=== PATIENT | female | born 1990 | race Caucasian/White ===

== ENCOUNTER 2017-10-07 09:56 | Inpatient (IN) | payer BC, OTHER ==
[~2017-10-07] VITALS: Ht 172.7 cm; Wt 72.5 kg
[2017-10-07] VITALS (31 sets, daily range): BP systolic 95–159; BP diastolic 47–89; PULSE 88–131; TEMP 37–37.1; O2SAT 95–100; BMI 28.2
[2017-10-07] MEDS ORDERED: D5NSS + 20MEQ KCL 1,000 ML IV SCH (11:54)
[2017-10-07] MEDS ORDERED: PHARMACY GLYCEMIC MGMT CONSULT PRN (12:00)
[2017-10-07] MEDS ORDERED: DC ALL PREVIOUSLY ORDERED DIABETES MEDS ONE (12:00)
[2017-10-07] MEDS ORDERED: ICU PROTOCOL FOR HYPERGLYCEMIA PRN (12:00)
[2017-10-07] MEDS ORDERED: GLUCOSE 40% GEL 15 GM TUBE PO PRN (12:30)
[2017-10-07] MEDS ORDERED: INSULIN IV INFUSION PROTOCOL ONE (12:30)
[2017-10-07] MEDS ORDERED: GLUCAGON FOR INJ 1 MG VIAL SQ PRN (12:30)
[2017-10-07] MEDS ORDERED: DEXTROSE 50% 50 ML SYR IV PRN (12:30)
[2017-10-07] MEDS ORDERED: MODERATE STRESS LEVEL ONE (12:30)
[2017-10-07] MEDS ORDERED: DKA GOAL RANGE 150-250 mg/dl 1 EA ONE (12:30)
[2017-10-07] MEDS ORDERED: NovoLIN R BOLUS FROM BAG IV ONE (12:30)
[2017-10-07] MEDS ORDERED: GLUCOSE 10 TABS/TUBE PO PRN (12:30)
--- NOTE | 2017-10-07 12:39 | History and Physical ---
History & Physical Date of Service Oct 07, 2017. History & Physical DKA, delirium, possible sepsis, metabolic encephalopathy, [id number]
[2017-10-07] MEDS ORDERED: VANCOMYCIN CONSULT ACTIVE SCH (12:52)
[2017-10-07] MEDS ORDERED: NURSING VERBAL MED ORDER ONE ×2 (13:00→16:45)
[2017-10-07] MEDS ORDERED: CEFTRIAXONE SOD INJ 1 GM in DEXTROSE 5% ADD-VANTAGE 50ML 50 ML IV SCH ×2 (13:00→21:00)
[2017-10-07 13:14] LABS: HEMATOCRIT 34.9 % (37-47); HEMOGLOBIN 11.6 g/dL (12.0-16.0); MEAN CELL VOLUME 87.5 fL (80-100); MEAN CORPUSCULAR HEMOGLOBIN 29.1 pg (25-34); MEAN CORPUSCULAR HGB CONC 33.2 g/dl (32-36); MEAN PLATELET VOLUME 10.1 fL (7.4-10.4); PLATELET COUNT 281 K/uL (130-400); RED CELL DISTRIBUTION WIDTH SD 41.8 fL (36.4-46.3); WHITE BLOOD COUNT 16.14 K/uL (4.8-10.8)
[2017-10-07] MEDS ORDERED: SODIUM CHLORIDE 0.9% 1000ML 1,000 ML IV SCH (13:15)
[2017-10-07] MEDS: DexMEDEtomidine HCL IV 200 MCG in SODIUM CHLORIDE 0.9% 50ML 48 ML IV PRN ×4 (13:20→22:16)
--- NOTE | 2017-10-07 13:30 | Procedure Note ---
Procedure Note Procedure Date Oct 07, 2017. Procedure Description Procedure Name: Right axillary a-line Procedure time out: side/site verified Consent obtained: written Time of procedure: 13:00 Performed by: attending, physician electric motor winders assembler (Alton Traylor PA-C) Indications: diagnostic Contraindications: none Description: The right axilla was cleaned with chlorhexidine with a wide area of coverage. The axilla and the patient were covered with a fenestrated sterile drape. Under ultrasound guidance, the right axillary artery was identified. The skin over the right axillary artery was infiltrated with 1% lidocaine. Under ultrasound guidance, the right axillary artery was penetrated by the needle and it was exchanged to a 20G arterial line catheter using a Seldinger technique. The a-line was connected to the a-line tubing, the monitor showing arterial wave -forms. Line was secured to skin with suture, and was covered with Biopatch and transparent adhesive dressing. No complications noted, no distal vascular compromise observed immediately Complications: none Patient tolerated procedure: well Post-procedure vital signs: reviewed and stable
[2017-10-07 13:36] LABS: BASO % 0.1 %; BASO ABS # 0.01 K/uL (0-0.2); IG# 0.13 K/uL (0.00-0.02); LYMPH % 12.6 %; LYMPH ABS # 2.04 K/uL (1.2-3.4); MONO % 7.6 %; MONO ABS # 1.23 K/uL (0.11-0.59); NEUT % 78.9 %; NEUT ABS # 12.73 K/uL (1.4-6.5)
[2017-10-07 13:42] LABS: HEMOGLOBIN A1C 11.7 % (4.5-5.6)
[2017-10-07 13:45] LABS: CKMB 5.6 ng/ml (0.5-3.6)
[2017-10-07 14:02] LABS: ALBUMIN 2.8 gm/dl (3.4-5.0); ALKALINE PHOSPHATASE 136 U/L (45-117); ALT/SGPT 12 U/L (12-78); AST/SGOT 15 U/L (15-37); BLOOD UREA NITROGEN 23 mg/dl (7-18); CALCIUM 8.8 mg/dl (8.5-10.1); CARBON DIOXIDE 17 mmol/L (21-32); GLUCOSE 299 mg/dl (70-99); LIPASE 38 U/L (73-393); PHOSPHORUS 0.6 mg/dl (2.5-4.9); POTASSIUM 4.1 mmol/L (3.5-5.1); SODIUM 151 mmol/L (136-145)
[2017-10-07] MEDS ORDERED: SODIUM PHOSPHATE 3 MMOL/1 ML INFUSION IV STA (14:04)
[2017-10-07 14:05] LABS: PTT PATIENT 19.9 SECONDS (21.0-31.0)
[2017-10-07] MEDS ORDERED: INFLUENZA VACCINE HIGH DOSE 65+ 0.5 ML SYR IM. ONE (14:15)
[2017-10-07] MEDS ORDERED: INFLUENZA ADMINISTRATION CHARGE ONE (14:15)
[2017-10-07] MEDS ORDERED: PNEUMOCOCCAL ADMINISTRATION CHARGE ONE (14:15)
[2017-10-07] MEDS ORDERED: PNEUMOCOCCAL POLYSACCHARIDES 25 MCG/0.5 ML VIAL/SYR IM. ONE (14:15)
--- NOTE | 2017-10-07 14:25 | HISTORY & PHYSICAL EXAMINATION ---
DATE OF ADMISSION: 10/07/2017 This is a level 3 inpatient admission, 45 minutes. CHIEF COMPLAINT: DKA, delirium, and transferred from [facility]. HISTORY OF PRESENT ILLNESS: The patient is a 27-year-old white female with a significant past medical history of insulin-dependent diabetic, insulin pump, was transferred from [facility] because of DKA, severe delirium, agitation, possible sepsis and severe acidosis, pH is 6.8. The medical information was obtained from the report, nursing staff , from family member and review of the medical record. She is first time to this [facility]. According to medical record, in last night at midnight on 10/06/2017 at 11:30, the patient presented to the Emergency Room in [facility] with altered mental status. She was moaning and thrashing her extremities. She was placed on cardiac monitoring. She agitated and kicking. She was not verbally responsive except moaning. She was placed on 4-point soft restrain and on nonrebreather as well because her respiratory rate was rapid, having nausea and vomiting. According to record, she drank alcohol earlier last night per her , was running out of insulin pump supplies for 3 days ago, has been giving giving herself Humalog for coverage. In [facility] Emergency Room, the insulin drip was started and they communicated [facility] , and they have no icu bed, And then was planning to [facility]. Patient got accepted by ICU physician to [facility] ICU. Per report, the patient was getting medication of Haldol, Ketamine, and versed for helping her to calm down and then transferred here. The patient was flight out here. After arriving to the ICU when I examine her, she was unresponsive, very agitated, and moving upper and lower extremities voluntarily and need soft restraints ALLERGIES: No known drug allergies per record. PAST MEDICAL HISTORY: Include insulin-dependent diabetic, on insulin pump. Past medical history also includes chronic pain management with opiate. Medical condition include migraine, hypertension, fibromyalgia, and thyroid disease. SOCIAL HISTORY: Unknown. Never smoked. FAMILY HISTORY: Unknown for now. REVIEW OF SYSTEMS: Not able to obtain. PHYSICAL EXAMINATION: VITAL SIGNS: She was tachycardic. Temperature 37.6. Heart rate 126. Blood pressure 99/51. GENERAL: He was normocephalic The patient has mild labored breathing and mental status changes. She is in critical acute distress. EYES: Pupils are 3 mm and is slow to response. MOUTH: Dry mucous membranes. HEART: Sinus rhythm. S1 and S2. Tachycardia LUNGS: Decreased breathing sounds. There was no wheezing, rhonchi or crackles. ABDOMEN: Soft and nontender. Bowel sound was positive. Sargent catheter was in place. EXTREMITIES: Lower extremities, no swelling. Skin is warm. No erythema, no cyanosis, and no clubbing. There was mildly delayed cap refill, 4-5 seconds. LABORATORY STUDIES: Lab tests in the outside hospital, which shows VBG, pH of 6.86, pCO2 of 23, pO2 of 51, and oxygen saturation 75.9. WBC 24, hemoglobin 14, and platelet 469. Ammonia level was up to 160. Lactic acid 4.6. UA shows 3+ glucose. Bilirubin level was 3+. Blood glucose up to 939 in CMP. BUN 33, creatinine 2.1, sodium 137, potassium 6, chloride 100, and calcium 9.9. Albumin 3.4. Total bilirubin 0.5. AST 13, ALT 19 and alkaline phosphate 199. TSH 0.14. Drug screening was not remarkable. Influenzae A and B was negative. ASSESSMENT AND PLAN: A 27-year-old white female with the conditions, see below. 1. Diabetic ketoacidosis with severe hyperglycemia. 2. Severe acidosis from diabetic ketoacidosis. 3. Acute kidney failure with elevated BUN and creatinine, likely because of diabetic ketoacidosis. 4. Possible sepsis with tachycardia and elevated lactase and leukocytosis. The source of infection is unknown for now. 5. Acute mental status changes, likely from diabetic ketoacidosis, but need to rule out other etiology of mental status changes, possible metabolic encephalopathy, per grand scribe, he does not believe patient has meningitis, or need spinal tab 6. History of migraine, fibromyalgia and thyroid disease. We will check TSH. Patient is in critical conditions such as severe acidosis, DKA, hypernatremia, tachycardia, possible acute on chronic kidney failure, possible sepsis, severe and elevated ammonia level, altered mental status, metabolic encephalopathy, need to rule out a meningitis, and elevated troponin possible because of sepsis or may have acute heart attack, etc. because patient is so critically ill, and patient will mainly be taking care by the ICU team, I discussed with patient's family about this, possible poor prognosis, they understand and agreed. GI and DVT prophylaxis is covered. I discussed with the grand scribe service and will discuss with the patient's . Any more information will be adding in to this H&P. MTDD
[2017-10-07] MEDS: INSULIN REGULAR 250 UNITS in SODIUM CHLORIDE 0.9% 250ML 250 ML IV SCH (14:30)
[2017-10-07] MEDS ORDERED: SODIUM PHOSPHATE INJ 15 MMOL in SODIUM CHLORIDE 0.9% 250ML 250 ML IV ONE (14:30)
[2017-10-07] MEDS: NORMOSOL R 1,000 ML IV SCH ×2 (14:32→20:55)
--- NOTE | 2017-10-07 14:33 | Pharmacy Progress Note ---
Glycemic Control Intl Consult Date of Service Oct 07, 2017. Scope Glycemic Pharmacist consulted by Dr Menard on 10/07/17 for glycemic control and to write orders per [facility] inpatient glycemic control protocol Objective Weight (Kilograms): 84.000 Accuchecks BSG (last 24hrs): Test 10/07/17 12:46 Random Glucose 299 mg/dl (70-99) Laboratory Data (last 24hrs) Test 10/07/17 12:46 Anion Gap 10.0 mmol/L BUN/Creatinine Ratio 14.4 Blood Urea Nitrogen 23 mg/dl Creatinine 1.60 mg/dl Hemoglobin A1c 11.7 % Potassium Level 4.1 mmol/L Sodium Level 151 mmol/L White Blood Count 16.14 K/uL Red Blood Count 3.99 M/uL Hemoglobin 11.6 g/dL Hematocrit 34.9 % Mean Corpuscular Volume 87.5 fL Mean Corpuscular Hemoglobin 29.1 pg Mean Corpuscular Hemoglobin Concent 33.2 g/dl Platelet Count 281 K/uL Mean Platelet Volume 10.1 fL Neutrophils (%) (Auto) 78.9 % Lymphocytes (%) (Auto) 12.6 % Monocytes (%) (Auto) 7.6 % Eosinophils (%) (Auto) 0.0 % Basophils (%) (Auto) 0.1 % Neutrophils # (Auto) 12.73 K/uL Lymphocytes # (Auto) 2.04 K/uL Monocytes # (Auto) 1.23 K/uL Eosinophils # (Auto) 0.00 K/uL Basophils # (Auto) 0.01 K/uL HbA1c Test 10/07/17 12:46 Hemoglobin A1c 11.7 % (4.5-5.6) H Recent Pertinent Medications Outpatient Anti-diabetic Regimen: * Insulin pump, doses unknown at this time * A1c = 11.7 % 10/07/17 Risk Factors for Insulin Resistance: * Infection: sepsis, encephalopathy: vancomycin + ceftriaxone * IVF: Normosol R @ 150cc/hr * Diet: NPO Assessment & Plan ASSESSMENT: 10/07/17 * Type 1 diabetic transferred from [facility] late this AM secondary to delirium, metabolic encephalopathy, possible sepsis, severe DKA * It has been reported that patient had run out of insulin pump supplies ~3 days ago and had been self-managing with SQ injections instead * BSGs reported to be up to 499 at [facility], and severely acidotic there with a reported pH of 6.8 * Initially managed aggressive fluid resuscitation 4L NS given at [facility], insulin infusion also initiated at [facility] prior to transfer * First round of labs here has shown improved metabolic acidosis, AG has already closed, however pt is hypernatremic likely secondary to NS boluses and bicarb administration at [facility]. Curious as to what pt's initial Na and effective serum osmo was at [facility] as we would not want to shift serum osmo too rapidly. PLAN FOR INPATIENT GLYCEMIC CONTROL: * Starting IV insulin infusion per moderate stress protocol * Goal Range 150 - 250 mg/dl * In the critical care setting, continuous IV insulin infusion has been shown to be the best method for achieving glycemic targets. * When BSG is in the goal range, add dextrose to maintenance IVF's to prevent BSG from dropping below goal range with ongoing NPO status * Would not transition this patient to a SQ regimen until more clinically stable and able to tolerate PO intake * Please note that the plan above was derived based on current level of insulin resistance and hospital stress. These recommendations are appropriate for inpatient admission only. Plan of care upon discharge will need to be reassessed to avoid potential outpatient hypo/hyperglycemia. Thank you.
[2017-10-07] MEDS ORDERED: VANCOMYCIN INJ 1,250 MG in SODIUM CHLORIDE 0.9% 250ML 250 ML IV STA (15:09)
[2017-10-07] MEDS: PANTOprazole INJ 40 MG in SYRINGE 0 ML IV SCH (16:20)
--- NOTE | 2017-10-07 16:25 | ECHOCARDIOGRAM REPORT ---
*NOTICE TO RECEIVING LIBERTARIAN AGENCY This information is strictly Confidential and protected under [place] law. [place] law prohibits you from making any further disclosure of this information unless further disclosure is expressly permitted by the written consent of the person to whom it pertains or is authorized by law. A general authorization for the release of medical or other information is not sufficient for this purpose. Hospital accepts no responsibility if the information is made available to any other person, INCLUDING THE PATIENT. Interpretation Summary * Name: RINA CORNELIUS Study Date: 10/07/2017 01:52 PM BP: 99/51 mmHg * [facility] HR: 125 * : 1990 (M/d/yyyy) Gender: Female Height: 67 in * Age: 27 yrs Ethnicity: CA Weight: 185 lb * Ordering Physician: Ernesto Menard * Performed By: Inna Lee RDCS * * Reason For Study: Sepsis * BSA: 2.0 m2 * -- Conclusions -- * Left ventricular systolic function is normal. * No regional wall motion abnormalities noted. * Ejection Fraction = 55-60%. * No significant valvular pathology. Procedure Details * A complete two-dimensional transthoracic echocardiogram was performed (2D, M-mode, Doppler and color flow Doppler). Left Ventricle * The left ventricle is normal in size. * There is normal left ventricular wall thickness. * Ejection Fraction = 55-60%. * Left ventricular systolic function is normal. * No regional wall motion abnormalities noted. Right Ventricle * The right ventricle is grossly normal size. * The right ventricular systolic function is normal as assessed by tricuspid annular plane systolic excursion (TAPSE) (normal >1.5 cm). Atria * The left atrial size is normal. * Right atrial size is normal. * No ASD detected; PFO is not assessed. Mitral Valve * The mitral valve is normal. * There is no mitral valve stenosis. * Significant mitral regurgitation is absent. Tricuspid Valve * The tricuspid valve is not well visualized, but is grossly normal. * There is no tricuspid stenosis. * Significant tricuspid regurgitation is absent. Aortic Valve * The aortic valve is trileaflet. * The aortic valve opens well. * Aortic stenosis is absent. * No aortic regurgitation is present. Pulmonic Valve * The pulmonary valve is not well seen, but the Doppler examination is normal without significant regurgitation or stenosis. Great Vessels * The aortic root is normal size. * The pulmonary is not well visualized. Pericardium/Pleural * There is no pericardial effusion. Great Vessels * Normal inferior vena cava size and collapsability with sniff indicates a normal right atrial pressure of 3 mmHg MMode 2D Measurements and Calculations IVSd 1.1 cm IVSs 1.5 cm LVIDd 4.2 cm LVIDs 2.6 cm LVPWd 1.1 cm LVPWs 1.8 cm IVS/LVPW 0.95 FS 37.8 % EDV(Teich) 76.6 ml ESV(Teich) 24.2 ml EF(Teich) 68.4 % EDV(cubed) 71.8 ml ESV(cubed) 17.3 ml EF(cubed) 76.0 % % IVS thick 34.4 % % LVPW thick 60.7 % LV mass(C)d 157.0 grams LV mass(C)dI 80.3 grams/m\S\2 LV mass(C)s 154.8 grams LV mass(C)sI 79.2 grams/m\S\2 SV(Teich) 52.4 ml SI(Teich) 26.8 ml/m\S\2 SV(cubed) 54.5 ml SI(cubed) 27.9 ml/m\S\2 Ao root diam 2.2 cm Ao root area 3.8 cm\S\2 ACS 1.9 cm LA dimension 3.0 cm LA/Ao 1.4 LVAd ap4 23.1 cm\S\2 LVLd ap4 7.1 cm EDV(MOD-sp4) 65.7 ml EDV(sp4-el) 63.7 ml LVAs ap4 13.5 cm\S\2 LVLs ap4 5.8 cm ESV(MOD-sp4) 28.8 ml ESV(sp4-el) 26.8 ml EF(MOD-sp4) 56.1 % EF(sp4-el) 57.9 % LVAd ap2 30.2 cm\S\2 LVLd ap2 7.9 cm EDV(MOD-sp2) 98.2 ml EDV(sp2-el) 97.7 ml LVAs ap2 16.0 cm\S\2 LVLs ap2 6.8 cm ESV(MOD-sp2) 35.1 ml ESV(sp2-el) 31.6 ml EF(MOD-sp2) 64.3 % EF(sp2-el) 67.7 % LVLd %diff 10.0 % EDV(MOD-bp) 85.8 ml LVLs %diff 15.3 % ESV(MOD-bp) 34.8 ml EF(MOD-bp) 59.4 % SV(MOD-sp4) 36.9 ml SI(MOD-sp4) 18.8 ml/m\S\2 SV(MOD-sp2) 63.1 ml SI(MOD-sp2) 32.3 ml/m\S\2 SV(MOD-bp) 51.0 ml SI(MOD-bp) 26.1 ml/m\S\2 SV(sp4-el) 36.9 ml SI(sp4-el) 18.9 ml/m\S\2 SV(sp2-el) 66.2 ml SI(sp2-el) 33.8 ml/m\S\2 Doppler Measurements and Calculations MV E max tiffany 115.1 cm/sec MV A max tiffany 83.6 cm/sec MV E/A 1.4 MV dec time 0.16 sec Ao V2 max 140.8 cm/sec Ao max PG 7.9 mmHg Ao max PG (full) 2.9 mmHg LV V1 max PG 5.0 mmHg LV V1 max 112.2 cm/sec PA V2 max 80.8 cm/sec PA max PG 2.6 mmHg
[2017-10-07] MEDS: INSULIN ASPART 100 UNITS/ML 3 ML PEN SC SCH ×2 (16:28→21:00)
--- NOTE | 2017-10-07 16:45 | Critical Care Consultation ---
Critical Care Consultation Date of Consultation: Oct 07, 2017. Attending Physician: Ernesto Menard MD, PhD Reason for Consultation: DKA History of Present Illness 27 year old female with h/o DM-1 was transferred today from [facility] for further management of DKA. She ran out of insulin pump supplies and for the past few days she has been trying to manage her DM with insulin pens, but her glucose was running high. She has history of DKA and non-compliance. She presented on 10/06/17 before midnight with AMS and agitation. pH was 6.8, had elevated anion gap, glucose around 900, was treated for DKA with fluids and insulin drip. She required multiple sedating agents, Ativan, Haldol, Ketamine. After arrival here, she was started on Precedex drip. She was also covered with broad spectrum antibiotics for suspected sepsis. Past Medical/Surgical History DM-1 Social History Smoking Status: Unknown if Ever Smoked Allergies Coded Allergies: NO KNOWN DRUG ALLERGIES (Verified Allergy, Unknown, ., 10/07/17) Current Inpatient Medications Current Inpatient Medications Medications (Trade) Dose Ordered Sig/Cary Route Start Time Stop Time Status Last Admin Dose Admin Dexmedetomidine HCl 200 mcg/ Sodium Chloride 50 ml @ 0 mls/hr Q0M PRN IV 10/07/17 12:00 10/11/17 11:59 10/07/17 13:20 4.2 MLS/HR Pantoprazole Sodium 40 mg/ Syringe 10 ml @ 5 mls/min DAILY@0900 IV 10/07/17 16:00 11/06/17 15:59 Insulin Aspart (novoLOG ASPART) SLIDING SCALE [facility] 10/07/17 17:15 11/06/17 17:14 Miscellaneous Information (Consult Glycemic Management Pharmacy) 1 ea UD PRN N/A 10/07/17 12:00 11/06/17 11:59 Insulin Human Regular 250 units/ Sodium Chloride 252.5 ml @ 0 mls/hr Q24H IV 10/07/17 12:30 11/06/17 12:29 10/07/17 14:30 2.1 MLS/HR Glucose (Glucose 40% Gel) 15-30 GRAMS 15 GRAMS... UD PRN PO 10/07/17 12:30 11/06/17 12:29 Glucose (Glucose Chew Tab) 4-8 Tablets 4 Tabl... UD PRN PO 10/07/17 12:30 11/06/17 12:29 Dextrose (Dextrose 50% 50ML Syringe) 25-50ML OF 50% DW IV FOR... UD PRN IV 10/07/17 12:30 11/06/17 12:29 Glucagon (Glucagon Inj) 1 mg UD PRN SQ 10/07/17 12:30 11/06/17 12:29 Ceftriaxone Sodium 1 gm/ Dextrose 50 ml @ 100 mls/hr Q24H IV 10/07/17 21:00 10/09/17 20:59 Parenteral Electrolyte Solution 1,000 ml @ 150 mls/hr Q6H40M IV 10/07/17 14:15 11/06/17 14:14 10/07/17 14:32 150 MLS/HR Sodium Phosphate 15 mmol/Sodium Chloride 255 ml @ 88 mls/hr ONE ONCE IV 10/07/17 14:30 10/07/17 17:23 10/07/17 14:53 88 MLS/HR Review of Systems Unable to obtain secondary to altered mental status Physical Exam Date Time Temp Pulse Resp B/P (MAP) Pulse Ox O2 Delivery O2 Flow Rate FiO2 10/07/17 13:00 37.0 122 20 105/61 (76) 100 Nasal Cannula 2.0 10/07/17 12:30 37.0 125 26 95/47 (63) 100 Nasal Cannula 2.0 10/07/17 12:20 37.0 125 26 99/51 99 Nasal Cannula 2.0 General Appearance: WD/WN, other Head: normocephalic, atraumatic Eyes: PERRLA Neck: normal range of motion, no tenderness, supple, no nuchal rigidity Respiratory: breath sounds normal, clear to auscultation Cardiovasular: regular rate/rhythm, normal S1S2 Abdomen: non tender, no rebound Upper Extremities: no edema Lower Extremities: no edema Neuro: disoriented, confused, other (Moves all four extremities but does not follow commands) Laboratory Results Last 24 Hours Test 10/07/17 11:54 10/07/17 12:46 10/07/17 12:47 10/07/17 13:50 White Blood Count 16.14 K/uL Red Blood Count 3.99 M/uL Hemoglobin 11.6 g/dL Hematocrit 34.9 % Mean Corpuscular Volume 87.5 fL Mean Corpuscular Hemoglobin 29.1 pg Mean Corpuscular Hemoglobin Concent 33.2 g/dl Platelet Count 281 K/uL Mean Platelet Volume 10.1 fL Neutrophils (%) (Auto) 78.9 % Lymphocytes (%) (Auto) 12.6 % Monocytes (%) (Auto) 7.6 % Eosinophils (%) (Auto) 0.0 % Basophils (%) (Auto) 0.1 % Neutrophils # (Auto) 12.73 K/uL Lymphocytes # (Auto) 2.04 K/uL Monocytes # (Auto) 1.23 K/uL Eosinophils # (Auto) 0.00 K/uL Basophils # (Auto) 0.01 K/uL RDW Standard Deviation 41.8 fL RDW Coefficient of Variation 13.0 % Immature Granulocyte % (Auto) 0.8 % Immature Granulocyte # (Auto) 0.13 K/uL Toxic Granulation 1+ Prothrombin Time 10.4 SECONDS Prothromb Time International Ratio 1.0 Activated Partial Thromboplast Time 19.9 SECONDS Partial Thromboplastin Ratio 0.8 Sodium Level 151 mmol/L Potassium Level 4.1 mmol/L Chloride Level 124 mmol/L Carbon Dioxide Level 17 mmol/L Anion Gap 10.0 mmol/L Blood Urea Nitrogen 23 mg/dl Creatinine 1.60 mg/dl Est Creatinine Clear Calc Drug Dose 61.0 ml/min Estimated GFR () 51.4 Estimated GFR (Non- 44.3 BUN/Creatinine Ratio 14.4 Random Glucose 299 mg/dl Estimated Average Glucose 289 mg/dl Hemoglobin A1c 11.7 % Calcium Level 8.8 mg/dl Phosphorus Level 0.6 mg/dl Magnesium Level 2.2 mg/dl Total Bilirubin 0.3 mg/dl Direct Bilirubin < 0.1 mg/dl Aspartate Amino Transf (AST/SGOT) 15 U/L Alanine Aminotransferase (ALT/SGPT) 12 U/L Alkaline Phosphatase 136 U/L Total Creatine Kinase 354 U/L Creatine Kinase MB 5.6 ng/ml Creatine Kinase MB Ratio 1.6 Troponin I 0.319 ng/ml C-Reactive Protein 2.03 mg/dl Total Protein 7.0 gm/dl Albumin 2.8 gm/dl Globulin 4.2 gm/dl Albumin/Globulin Ratio 0.7 Lipase 38 U/L Beta-Hydroxybutyric Acid 27.72 mg/dL Procalcitonin 0.87 ng/ml Thyroid Stimulating Hormone (TSH) 0.146 uIu/ml Human Chorionic Gonadotropin, Qual NEG Erythrocyte Sedimentation Rate 34 mm/hr Lactic Acid Level 0.8 mmol/L Random Vancomycin Level 20.1 mcg/ml Test 10/07/17 14:20 Blood Gas Sample Site Art Line Bedside Blood Gas pH (LAB) 7.31 Bedside Blood Gas pCO2 (LAB) 30 mmHg Bedside Blood Gas pO2 (LAB) 114 mmHg Bedside Blood Gas HCO3 (LAB) 15 meq/L Bedside Blood Gas Total CO2 16 mEq/l Bedside Blood Gas Base Excess (LAB) -11.0 meq/L Bedside Blood Gas O2 Saturation 98.0 % Ian Test NA Oxygen Delivery Device Cannula Diagnostic Results CXR from [facility] reviewed, no infiltrates observed, no pneumothorax Assessment & Plan 27 year old female presents with DKA secondary to non-compliance. Doubt infectious process, I seriously doubt meningitic process given history and clinical exam. Plan: Continue treatment for DKA IV fluids, Normosol given hypernatremia and hyperchloremia Insulin drip Hourly fingersticks for now Monitor electrolytes every 4 hours, monitor anion gap Trend troponin, I really doubt ACS, most likely increased demand Monitor mental status, this pattern is commonly seen in serious cases of DKA. CT brain from [facility] reviewed, unremarkable Continue on Rocephin only for now. F/u cultures Procalcitonin barely elevated DVT prophylaxis: SC heparin Critical care time spent with the patient, reviewing chart, discussing with consultants, greater than 45 minutes
[2017-10-07] MEDS: D5W NORMOSOL-R 1,000 ML IV SCH (17:08)
[2017-10-07] MEDS ORDERED: MoRPHine SULFATE 2 MG/ML CARP ONE (17:39)
[2017-10-07] MEDS ORDERED: MIDAZOLAM HCL 1 MG/ML 2ML VIAL ONE (17:53)
[2017-10-07] MEDS ORDERED: PHENOBARBITAL SOD 130 MG/ML VIAL ONE ×2 (18:05→19:47)
[2017-10-07 18:39] LABS: ALBUMIN 2.6 gm/dl (3.4-5.0); ALT/SGPT 14 U/L (12-78); AST/SGOT 22 U/L (15-37); BLOOD UREA NITROGEN 20 mg/dl (7-18); CALCIUM 8.6 mg/dl (8.5-10.1); CARBON DIOXIDE 16 mmol/L (21-32); CREATININE 1.38 mg/dl (0.60-1.20); GLUCOSE 269 mg/dl (70-99); POTASSIUM 3.4 mmol/L (3.5-5.1); SODIUM 152 mmol/L (136-145)
[2017-10-07 19:04] LABS: ALKALINE PHOSPHATASE 135 U/L (45-117); CKMB 6.1 ng/ml (0.5-3.6); PHOSPHORUS 2.1 mg/dl (2.5-4.9); TOTAL PROTEIN 7.2 gm/dl (6.4-8.2)
[2017-10-07] MEDS ORDERED: LORAZEPAM INJ 50 MG in D5W 50ML IN *POLYOLEFIN BAG* 25 ML IV PRN ×2 (20:00)
[2017-10-07] MEDS ORDERED: LORAZEPAM 2 MG/ML 1 ML VIAL ONE (20:16)
[2017-10-07] MEDS: LORAZEPAM INJ 50 MG in D5W 50ML IN *POLYOLEFIN BAG* 25 ML IV PRN ×2 (20:21)
[2017-10-07] MEDS: HEPARIN SOD 5000 UNIT/0.5 ML CARP SQ SCH (22:14)
[2017-10-08] VITALS (25 sets, daily range): BP systolic 88–144; BP diastolic 58–101; PULSE 72–97; TEMP 36.1–37.2; O2SAT 94–100; BMI 28.2
[2017-10-08 00:20] LABS: ALBUMIN 2.3 gm/dl (3.4-5.0); CALCIUM 8.4 mg/dl (8.5-10.1); CREATININE 1.29 mg/dl (0.60-1.20); POTASSIUM 3.5 mmol/L (3.5-5.1)
[2017-10-08 00:41] LABS: PHOSPHORUS 1.2 mg/dl (2.5-4.9); TOTAL PROTEIN 6.4 gm/dl (6.4-8.2)
[2017-10-08] MEDS: DexMEDEtomidine HCL IV 200 MCG in SODIUM CHLORIDE 0.9% 50ML 48 ML IV PRN ×2 (00:43→03:56)
[2017-10-08] MEDS ORDERED: POTASSIUM CHLR 10 MEQ / WTR 10 MEQ in PREMIXED WATER 100 ML IV STA (01:13)
[2017-10-08] MEDS ORDERED: POTASSIUM PHOS 3 MMOL/1 ML INFUSION IV STA ×3 (01:13→18:02)
[2017-10-08] MEDS ORDERED: POTASSIUM PHOSPHATE INJ 15 MMOL in SODIUM CHLORIDE 0.9% 250ML 250 ML IV ONE ×3 (01:30→18:30)
[2017-10-08 02:56] LABS: ALBUMIN 2.4 gm/dl (3.4-5.0); ALT/SGPT 14 U/L (12-78); AST/SGOT 18 U/L (15-37); BLOOD UREA NITROGEN 16 mg/dl (7-18); CALCIUM 8.8 mg/dl (8.5-10.1); CARBON DIOXIDE 23 mmol/L (21-32); GLUCOSE 247 mg/dl (70-99); POTASSIUM 3.4 mmol/L (3.5-5.1); SODIUM 155 mmol/L (136-145)
[2017-10-08] MEDS: D5W NORMOSOL-R 1,000 ML IV SCH (03:04)
[2017-10-08 03:12] LABS: ALKALINE PHOSPHATASE 126 U/L (45-117); PHOSPHORUS 1.3 mg/dl (2.5-4.9); TOTAL PROTEIN 6.6 gm/dl (6.4-8.2)
[2017-10-08] MEDS: NORMOSOL R 1,000 ML IV SCH (03:35)
[2017-10-08] MEDS: LORAZEPAM INJ 50 MG in D5W 50ML IN *POLYOLEFIN BAG* 25 ML IV PRN ×4 (04:19→15:34)
[2017-10-08] MEDS ORDERED: PHENOBARBITAL SOD 65 MG/ML VIAL IM STA (04:51)
[2017-10-08] MEDS: PHENOBARBITAL SOD 130 MG/ML VIAL ONE ×2 (04:52→04:55)
[2017-10-08 05:49] LABS: BASO % 0.1 %; BASO ABS # 0.01 K/uL (0-0.2); HEMATOCRIT 35.2 % (37-47); HEMOGLOBIN 11.7 g/dL (12.0-16.0); IG# 0.04 K/uL (0.00-0.02); LYMPH % 28.6 %; MEAN CELL VOLUME 85.6 fL (80-100); MEAN CORPUSCULAR HEMOGLOBIN 28.5 pg (25-34); MEAN CORPUSCULAR HGB CONC 33.2 g/dl (32-36); MEAN PLATELET VOLUME 9.9 fL (7.4-10.4); MONO % 5.3 %; NEUT % 65.6 %; NEUT ABS # 6.19 K/uL (1.4-6.5); PLATELET COUNT 214 K/uL (130-400); RED CELL DISTRIBUTION WIDTH CV 13.3 % (11.5-14.5); RED CELL DISTRIBUTION WIDTH SD 41.6 fL (36.4-46.3); WHITE BLOOD COUNT 9.44 K/uL (4.8-10.8)
[2017-10-08] MEDS: HEPARIN SOD 5000 UNIT/0.5 ML CARP SQ SCH ×3 (06:06→21:46)
[2017-10-08 06:12] LABS: INR 1.1 (0.9-1.1); PTT PATIENT 21.6 SECONDS (21.0-31.0)
[2017-10-08 06:40] LABS: ALBUMIN 2.4 gm/dl (3.4-5.0); CALCIUM 8.6 mg/dl (8.5-10.1); CREATININE 1.17 mg/dl (0.60-1.20); POTASSIUM 3.4 mmol/L (3.5-5.1); TOTAL PROTEIN 6.5 gm/dl (6.4-8.2)
[2017-10-08] MEDS: INSULIN ASPART 100 UNITS/ML 3 ML PEN SC SCH ×4 (07:46→21:00)
[2017-10-08] MEDS: PANTOprazole INJ 40 MG in SYRINGE 0 ML IV SCH (08:02)
[2017-10-08 08:05] LABS: INR 1.1 (0.9-1.1)
[2017-10-08] MEDS: D5W AND 1/2NSS + 20MEQ KCL 1,000 ML IV SCH ×2 (08:55→22:52)
[2017-10-08] MEDS: DexMEDEtomidine HCL IV 400 MCG in SODIUM CHLORIDE 0.9% 100ML 96 ML IV PRN ×4 (09:04→22:52)
--- NOTE | 2017-10-08 11:17 | Critical Care Progress Note ---
Critical Care Progress Note Date of Service Oct 08, 2017. Attending Dr. Chavez Subjective Periods of severe agitation On Precedex and Ativan infusions. Objective General Appearance: WD/WN, other Head: normocephalic, atraumatic Eyes: PERRLA Neck: normal range of motion, no tenderness, supple, no nuchal rigidity Respiratory: breath sounds normal, clear to auscultation Cardiovascular: regular rate/rhythm, normal S1S2 Abdomen: non tender, no rebound Upper Extremities: no edema. Lower Extremities: no edema. Neuro: disoriented, confused, other (Moves all four extremities but does not follow commands) Assessment & Plan 27 year old female presents with DKA secondary to non-compliance. Doubt infectious process, I seriously doubt meningitic process given history and clinical exam. Plan: DKA resolved. IV fluids, change to D5 1/2NS. Insulin drip. Troponin trending down, I really doubt ACS, most likely increased demand. Monitor mental status, this pattern is commonly seen in serious cases of DKA. CT brain from [facility] reviewed, unremarkable Ammonia level normalized, it was elevated at [facility]. No need for lactulose Continue on Rocephin only for now. F/u cultures Procalcitonin barely elevated DVT prophylaxis: SC heparin Critical care time spent with the patient, reviewing chart, discussing with consultants, greater than 35 minutes Consults & Procedures Procedures: 10/07 - right axillary a-line Data Medications: Current Inpatient Medications Medications (Trade) Dose Ordered Sig/Cary Route Start Time Stop Time Status Last Admin Dose Admin Pantoprazole Sodium 40 mg/ Syringe 10 ml @ 5 mls/min DAILY@0900 IV 10/07/17 16:00 11/06/17 15:59 10/08/17 08:02 5 MLS/MIN Insulin Aspart (novoLOG ASPART) SLIDING SCALE PCHS SC 10/07/17 17:15 11/06/17 17:14 Miscellaneous Information (Consult Glycemic Management Pharmacy) 1 ea UD PRN N/A 10/07/17 12:00 11/06/17 11:59 Insulin Human Regular 250 units/ Sodium Chloride 252.5 ml @ 0 mls/hr Q24H IV 10/07/17 12:30 11/06/17 12:29 10/07/17 14:30 2.1 MLS/HR Glucose (Glucose 40% Gel) 15-30 GRAMS 15 GRAMS... UD PRN PO 10/07/17 12:30 11/06/17 12:29 Glucose (Glucose Chew Tab) 4-8 Tablets 4 Tabl... UD PRN PO 10/07/17 12:30 11/06/17 12:29 Dextrose (Dextrose 50% 50ML Syringe) 25-50ML OF 50% DW IV FOR... UD PRN IV 10/07/17 12:30 11/06/17 12:29 10/08/17 05:09 50 ML Glucagon (Glucagon Inj) 1 mg UD PRN SQ 10/07/17 12:30 11/06/17 12:29 Ceftriaxone Sodium 1 gm/ Dextrose 50 ml @ 100 mls/hr Q24H IV 10/07/17 21:00 10/09/17 20:59 10/07/17 22:12 100 MLS/HR Heparin Sodium (Porcine) (Heparin Sq 5000 Unit/0.5ml) 5,000 unit Q8 SQ 10/07/17 22:00 11/06/17 21:59 10/08/17 06:06 5,000 UNIT Lorazepam 50 mg/ Dextrose 50 ml @ 0 mls/hr Q0M PRN IV 10/07/17 20:00 11/06/17 19:59 10/08/17 04:19 1 MLS/HR Heparin Sodium (Porcine) (Heparin 10 Unit/ ml 5 ml Flush) 5 ml PRN PRN FLUSH 10/07/17 23:45 11/06/17 23:44 Potassium Chloride/Dextrose/ Sod Cl 1,000 ml @ 150 mls/hr Q6H40M IV 10/08/17 08:45 11/07/17 08:44 10/08/17 08:55 75 MLS/HR Potassium Phosphate 15 mmol/ Sodium Chloride 255 ml @ 88 mls/hr ONE ONCE IV 10/08/17 08:45 10/08/17 11:38 10/08/17 09:04 88 MLS/HR Dexmedetomidine HCl 400 mcg/ Sodium Chloride 100 ml @ 0 mls/hr Q0M PRN IV 10/08/17 09:00 10/12/17 08:59 10/08/17 09:04 21 MLS/HR Vital Signs: Date Time Temp Pulse Resp B/P (MAP) Pulse Ox O2 Delivery O2 Flow Rate FiO2 10/08/17 10:00 75 18 122/91 (101) 98 BiPAP 25 125/84 (98) 10/08/17 08:00 100 BiPAP 25 10/08/17 08:00 36.7 75 20 118/91 (100) 100 BiPAP 25 129/84 (99) 10/08/17 07:28 77 99 25 10/08/17 06:01 76 121/80 (94) 100 10/08/17 06:00 75 114/85 (95) 100 10/08/17 05:01 81 104/67 (79) 97 10/08/17 04:01 36.7 77 88/58 (68) 100 10/08/17 04:00 99 BiPAP 30 10/08/17 04:00 76 92/59 (70) 10/08/17 03:30 77 96/58 (71) 10/08/17 03:01 79 92/61 (71) 99 10/08/17 03:00 97 99 10/08/17 02:30 79 97/64 (75) 10/08/17 02:00 81 99/66 (77) 10/08/17 01:30 82 101/63 (76) 10/08/17 01:00 83 108/66 (80) 10/08/17 00:30 86 96/60 (72) 99 10/08/17 00:00 37.2 87 104/68 (80) 10/07/17 23:59 99 BiPAP 30 10/07/17 23:30 88 107/62 (77) 10/07/17 23:00 90 105/58 (74) 10/07/17 22:38 92 98 10/07/17 22:30 92 108/58 (75) 10/07/17 22:00 94 106/54 (71) 10/07/17 21:30 98 99/48 (65) 10/07/17 21:00 112 113/59 (77) 10/07/17 20:30 117 119/77 (91) 96 10/07/17 20:15 112 97 10/07/17 20:00 99 Nasal Cannula 2.0 10/07/17 20:00 37.0 129 155/88 (110) 95 10/07/17 19:30 95 108/53 (71) 10/07/17 19:00 102 110/55 (73) 10/07/17 18:15 104 109/63 (78) 99 10/07/17 18:00 123 124/63 (83) 100 10/07/17 17:45 131 159/89 (112) 100 10/07/17 17:30 114 128/87 (101) 10/07/17 17:15 112 114/66 (82) 99 10/07/17 17:00 108 113/69 (84) 10/07/17 16:45 107 113/67 (82) 100 10/07/17 16:30 37.1 104 105/71 (82) 100 Nasal Cannula 2.0 10/07/17 16:00 105 122/83 (96) 100 10/07/17 15:34 100 Nasal Cannula 10/07/17 15:30 107 108/70 (83) 10/07/17 15:00 115 122/81 (95) 100 10/07/17 14:30 114 102/50 (67) 10/07/17 14:00 113 99/52 (68) 99 10/07/17 13:30 124 102/61 (75) 97 10/07/17 13:00 37.0 122 20 105/61 (76) 100 Nasal Cannula 2.0 10/07/17 12:30 37.0 125 26 95/47 (63) 100 Nasal Cannula 2.0 10/07/17 12:20 37.0 125 26 99/51 99 Nasal Cannula 2.0 Laboratory Results: Last 24 Hours Test 10/07/17 12:01 10/07/17 12:46 10/07/17 12:47 10/07/17 13:50 Bedside Glucose 281 mg/dl White Blood Count 16.14 K/uL Red Blood Count 3.99 M/uL Hemoglobin 11.6 g/dL Hematocrit 34.9 % Mean Corpuscular Volume 87.5 fL Mean Corpuscular Hemoglobin 29.1 pg Mean Corpuscular Hemoglobin Concent 33.2 g/dl Platelet Count 281 K/uL Mean Platelet Volume 10.1 fL Neutrophils (%) (Auto) 78.9 % Lymphocytes (%) (Auto) 12.6 % Monocytes (%) (Auto) 7.6 % Eosinophils (%) (Auto) 0.0 % Basophils (%) (Auto) 0.1 % Neutrophils # (Auto) 12.73 K/uL Lymphocytes # (Auto) 2.04 K/uL Monocytes # (Auto) 1.23 K/uL Eosinophils # (Auto) 0.00 K/uL Basophils # (Auto) 0.01 K/uL RDW Standard Deviation 41.8 fL RDW Coefficient of Variation 13.0 % Immature Granulocyte % (Auto) 0.8 % Immature Granulocyte # (Auto) 0.13 K/uL Toxic Granulation 1+ Prothrombin Time 10.4 SECONDS Prothromb Time International Ratio 1.0 Activated Partial Thromboplast Time 19.9 SECONDS Partial Thromboplastin Ratio 0.8 Sodium Level 151 mmol/L Potassium Level 4.1 mmol/L Chloride Level 124 mmol/L Carbon Dioxide Level 17 mmol/L Anion Gap 10.0 mmol/L Blood Urea Nitrogen 23 mg/dl Creatinine 1.60 mg/dl Est Creatinine Clear Calc Drug Dose 61.0 ml/min Estimated GFR () 51.4 Estimated GFR (Non- 44.3 BUN/Creatinine Ratio 14.4 Random Glucose 299 mg/dl Estimated Average Glucose 289 mg/dl Hemoglobin A1c 11.7 % Calcium Level 8.8 mg/dl Phosphorus Level 0.6 mg/dl Magnesium Level 2.2 mg/dl Total Bilirubin 0.3 mg/dl Direct Bilirubin < 0.1 mg/dl Aspartate Amino Transf (AST/SGOT) 15 U/L Alanine Aminotransferase (ALT/SGPT) 12 U/L Alkaline Phosphatase 136 U/L Total Creatine Kinase 354 U/L Creatine Kinase MB 5.6 ng/ml Creatine Kinase MB Ratio 1.6 Troponin I 0.319 ng/ml C-Reactive Protein 2.03 mg/dl Total Protein 7.0 gm/dl Albumin 2.8 gm/dl Globulin 4.2 gm/dl Albumin/Globulin Ratio 0.7 Lipase 38 U/L Beta-Hydroxybutyric Acid 27.72 mg/dL Procalcitonin 0.87 ng/ml Thyroid Stimulating Hormone (TSH) 0.146 uIu/ml Human Chorionic Gonadotropin, Qual NEG Erythrocyte Sedimentation Rate 34 mm/hr Lactic Acid Level 0.8 mmol/L Random Vancomycin Level 20.1 mcg/ml Test 10/07/17 13:56 10/07/17 14:20 10/07/17 15:34 10/07/17 16:32 Bedside Glucose 282 mg/dl 258 mg/dl 239 mg/dl Blood Gas Sample Site Art Line Bedside Blood Gas pH (LAB) 7.31 Bedside Blood Gas pCO2 (LAB) 30 mmHg Bedside Blood Gas pO2 (LAB) 114 mmHg Bedside Blood Gas HCO3 (LAB) 15 meq/L Bedside Blood Gas Total CO2 16 mEq/l Bedside Blood Gas Base Excess (LAB) -11.0 meq/L Bedside Blood Gas O2 Saturation 98.0 % Ian Test NA Oxygen Delivery Device Cannula Test 10/07/17 17:34 10/07/17 18:00 10/07/17 18:07 10/07/17 18:33 Bedside Glucose 225 mg/dl 245 mg/dl Creatine Kinase MB Ratio Sodium Level 152 mmol/L Potassium Level 3.4 mmol/L Chloride Level 123 mmol/L Carbon Dioxide Level 16 mmol/L Anion Gap 13.0 mmol/L Blood Urea Nitrogen 20 mg/dl Creatinine 1.38 mg/dl Est Creatinine Clear Calc Drug Dose 70.8 ml/min Estimated GFR () 61.4 Estimated GFR (Non- 53.0 BUN/Creatinine Ratio 14.5 Random Glucose 269 mg/dl Lactic Acid Level 1.2 mmol/L Calcium Level 8.6 mg/dl Phosphorus Level 2.1 mg/dl Magnesium Level 2.1 mg/dl Total Bilirubin 0.4 mg/dl Aspartate Amino Transf (AST/SGOT) 22 U/L Alanine Aminotransferase (ALT/SGPT) 14 U/L Alkaline Phosphatase 135 U/L Creatine Kinase MB 6.1 ng/ml Troponin I 0.242 ng/ml Total Protein 7.2 gm/dl Albumin 2.6 gm/dl Globulin 4.6 gm/dl Albumin/Globulin Ratio 0.6 Lipase 45 U/L Test 10/07/17 19:33 10/07/17 20:39 10/07/17 20:41 10/07/17 21:47 Bedside Glucose 260 mg/dl 276 mg/dl 267 mg/dl Blood Gas Sample Site Art Line Bedside Blood Gas pH (LAB) 7.35 Bedside Blood Gas pCO2 (LAB) 26 mmHg Bedside Blood Gas pO2 (LAB) 65 mmHg Bedside Blood Gas HCO3 (LAB) 14 meq/L Bedside Blood Gas Total CO2 15 mEq/l Bedside Blood Gas Base Excess (LAB) -12.0 meq/L Bedside Blood Gas O2 Saturation 92.0 % Ian Test NA Oxygen Delivery Device Cannula Test 10/07/17 22:29 10/07/17 23:39 2/6/18 23:42 10/08/17 00:00 Bedside Glucose 283 mg/dl 251 mg/dl Sodium Level 155 mmol/L Potassium Level 3.5 mmol/L Chloride Level 127 mmol/L Carbon Dioxide Level 21 mmol/L Anion Gap 7.0 mmol/L Blood Urea Nitrogen 17 mg/dl Creatinine 1.29 mg/dl Est Creatinine Clear Calc Drug Dose 75.7 ml/min Estimated GFR () 66.7 Estimated GFR (Non- 57.5 BUN/Creatinine Ratio 12.9 Random Glucose 293 mg/dl Calcium Level 8.4 mg/dl Phosphorus Level 1.2 mg/dl Magnesium Level 2.0 mg/dl Total Bilirubin 0.2 mg/dl Aspartate Amino Transf (AST/SGOT) 18 U/L Alanine Aminotransferase (ALT/SGPT) 13 U/L Alkaline Phosphatase 122 U/L Total Protein 6.4 gm/dl Albumin 2.3 gm/dl Globulin 4.1 gm/dl Albumin/Globulin Ratio 0.6 Urine Color YELLOW Urine Appearance CLOUDY Urine pH 5.5 Urine Specific [place] 1.033 Urine Protein 2+ Urine Glucose (UA) 2+ Urine Ketones TRACE Urine Occult Blood 3+ Urine Nitrite NEG Urine Bilirubin NEG Urine Urobilinogen NEG Urine Leukocyte Esterase NEG Urine WBC (Auto) 5-10 /hpf Urine RBC (Auto) >30 /hpf Urine Hyaline Casts (Auto) 5-10 /lpf Urine Epithelial Cells (Auto) >30 /lpf Urine Bacteria (Auto) 1+ Urine Renal Epithelial Cells 0-5 /lpf Urine Crystals URIC ACID Urine Yeast (Auto) BUDDING Test 10/08/17 00:30 10/08/17 01:48 10/08/17 02:00 10/08/17 02:05 Bedside Glucose 251 mg/dl 223 mg/dl Creatine Kinase MB Ratio Sodium Level 155 mmol/L Potassium Level 3.4 mmol/L Chloride Level 126 mmol/L Carbon Dioxide Level 23 mmol/L Anion Gap 6.0 mmol/L Blood Urea Nitrogen 16 mg/dl Creatinine 1.20 mg/dl Est Creatinine Clear Calc Drug Dose 81.4 ml/min Estimated GFR () 72.7 Estimated GFR (Non- 62.8 BUN/Creatinine Ratio 13.5 Random Glucose 247 mg/dl Calcium Level 8.8 mg/dl Phosphorus Level 1.3 mg/dl Magnesium Level 2.3 mg/dl Total Bilirubin 0.2 mg/dl Aspartate Amino Transf (AST/SGOT) 18 U/L Alanine Aminotransferase (ALT/SGPT) 14 U/L Alkaline Phosphatase 126 U/L Creatine Kinase MB 4.0 ng/ml Troponin I 0.115 ng/ml Total Protein 6.6 gm/dl Albumin 2.4 gm/dl Globulin 4.2 gm/dl Albumin/Globulin Ratio 0.6 Test 10/08/17 02:29 10/08/17 02:46 10/08/17 03:33 10/08/17 04:59 Bedside Glucose 226 mg/dl 180 mg/dl 87 mg/dl Blood Gas Sample Site R Brachial Bedside Blood Gas pH (LAB) 7.35 Bedside Blood Gas pCO2 (LAB) 38 mmHg Bedside Blood Gas pO2 (LAB) 117 mmHg Bedside Blood Gas HCO3 (LAB) 21 meq/L Bedside Blood Gas Total CO2 22 mEq/l Bedside Blood Gas Base Excess (LAB) -5.0 meq/L Bedside Blood Gas O2 Saturation 98.0 % Ian Test NA Oxygen Delivery Device BIPAP Bedside Oxygen Rate (breaths/min) 12 Bedside FiO2 30 % Blood Gas IPAP 10 Test 10/08/17 05:19 10/08/17 05:27 10/08/17 05:39 10/08/17 06:13 Bedside Glucose 200 mg/dl 175 mg/dl White Blood Count 9.44 K/uL Red Blood Count 4.11 M/uL Hemoglobin 11.7 g/dL Hematocrit 35.2 % Mean Corpuscular Volume 85.6 fL Mean Corpuscular Hemoglobin 28.5 pg Mean Corpuscular Hemoglobin Concent 33.2 g/dl Platelet Count 214 K/uL Mean Platelet Volume 9.9 fL Neutrophils (%) (Auto) 65.6 % Lymphocytes (%) (Auto) 28.6 % Monocytes (%) (Auto) 5.3 % Eosinophils (%) (Auto) 0.0 % Basophils (%) (Auto) 0.1 % Neutrophils # (Auto) 6.19 K/uL Lymphocytes # (Auto) 2.70 K/uL Monocytes # (Auto) 0.50 K/uL Eosinophils # (Auto) 0.00 K/uL Basophils # (Auto) 0.01 K/uL RDW Standard Deviation 41.6 fL RDW Coefficient of Variation 13.3 % Immature Granulocyte % (Auto) 0.4 % Immature Granulocyte # (Auto) 0.04 K/uL Prothrombin Time 11.2 SECONDS Prothromb Time International Ratio 1.1 Activated Partial Thromboplast Time 21.6 SECONDS Partial Thromboplastin Ratio 0.8 Sodium Level 156 mmol/L Potassium Level 3.4 mmol/L Chloride Level 128 mmol/L Carbon Dioxide Level 23 mmol/L Anion Gap 7.0 mmol/L Blood Urea Nitrogen 14 mg/dl Creatinine 1.17 mg/dl Est Creatinine Clear Calc Drug Dose 83.5 ml/min Estimated GFR () 75.0 Estimated GFR (Non- 64.7 BUN/Creatinine Ratio 12.3 Random Glucose 209 mg/dl Calcium Level 8.6 mg/dl Phosphorus Level 2.0 mg/dl Magnesium Level 2.3 mg/dl Total Bilirubin 0.2 mg/dl Aspartate Amino Transf (AST/SGOT) 19 U/L Alanine Aminotransferase (ALT/SGPT) 14 U/L Alkaline Phosphatase 123 U/L Ammonia 14.0 umol/L Total Protein 6.5 gm/dl Albumin 2.4 gm/dl Globulin 4.1 gm/dl Albumin/Globulin Ratio 0.6 Procalcitonin 0.58 ng/ml Blood Gas Sample Site Art Line Bedside Blood Gas pH (LAB) 7.36 Bedside Blood Gas pCO2 (LAB) 38 mmHg Bedside Blood Gas pO2 (LAB) 94 mmHg Bedside Blood Gas HCO3 (LAB) 22 meq/L Bedside Blood Gas Total CO2 23 mEq/l Bedside Blood Gas Base Excess (LAB) -4.0 meq/L Bedside Blood Gas O2 Saturation 97.0 % Ian Test NA Oxygen Delivery Device BIPAP Bedside Oxygen Rate (breaths/min) 12 Bedside FiO2 30 % Blood Gas IPAP 10 Test 10/08/17 07:25 Prothrombin Time 11.4 SECONDS Prothromb Time International Ratio 1.1
--- NOTE | 2017-10-08 11:56 | Pharmacy Progress Note ---
Glycemic Control Progress Note Date of Service Oct 08, 2017. Scope Glycemic Pharmacist consulted for glycemic control to write orders per formerly [facility] inpatient glycemic control protocol. Objective Accuchecks BSG (last 24hrs): Test 10/07/17 12:01 10/07/17 12:46 10/07/17 13:56 10/07/17 15:34 Bedside Glucose 281 mg/dl (70-90) 282 mg/dl (70-90) 258 mg/dl (70-90) Random Glucose 299 mg/dl (70-99) Test 10/07/17 16:32 10/07/17 17:34 10/07/17 18:07 10/07/17 18:33 Bedside Glucose 239 mg/dl (70-90) 225 mg/dl (70-90) 245 mg/dl (70-90) Random Glucose 269 mg/dl (70-99) Test 10/07/17 19:33 10/07/17 20:39 10/07/17 21:47 10/07/17 22:29 Bedside Glucose 260 mg/dl (70-90) 276 mg/dl (70-90) 267 mg/dl (70-90) 283 mg/dl (70-90) Test 10/07/17 23:39 10/07/17 23:42 10/08/17 00:30 10/08/17 01:48 Bedside Glucose 251 mg/dl (70-90) 251 mg/dl (70-90) 223 mg/dl (70-90) Random Glucose 293 mg/dl (70-99) Test 10/08/17 02:05 10/08/17 02:29 10/08/17 03:33 10/08/17 04:59 Random Glucose 247 mg/dl (70-99) Bedside Glucose 226 mg/dl (70-90) 180 mg/dl (70-90) 87 mg/dl (70-90) Test 10/08/17 05:19 10/08/17 05:27 10/08/17 06:13 10/08/17 08:08 Bedside Glucose 200 mg/dl (70-90) 175 mg/dl (70-90) 195 mg/dl (70-90) Random Glucose 209 mg/dl (70-99) Test 10/08/17 10:17 Bedside Glucose 199 mg/dl (70-90) HbA1c: Test 10/07/17 12:46 Hemoglobin A1c 11.7 % (4.5-5.6) H Recent Pertinent Medications Outpatient Anti-diabetic Regimen: * Insulin pump, doses unknown at this time * A1c = 11.7 % 10/07/17 Risk Factors for Insulin Resistance: * Infection: sepsis, encephalopathy: ceftriaxone * IVF: D5-Normosol R @ 100cc/hr --> being changed to D5 1/2 NS + 20mEq KCl * Diet: NPO Assessment & Plan ASSESSMENT: 10/07/17 * Type 1 diabetic transferred from [facility] late this AM secondary to delirium, metabolic encephalopathy, possible sepsis, severe DKA * It has been reported that patient had run out of insulin pump supplies ~3 days ago and had been self-managing with SQ injections instead * BSGs reported to be up to 900 at [facility], and severely acidotic there with a reported pH of 6.8 * Initially managed aggressive fluid resuscitation 4L NS given at [facility], insulin infusion also initiated at [facility] prior to transfer * First round of labs here has shown improved metabolic acidosis, AG has already closed, however pt is hypernatremic likely secondary to NS boluses and bicarb administration at [facility]. Curious as to what pt's initial Na and effective serum osmo was at [facility] as we would not want to shift serum osmo too rapidly. 10/08/17 * Patient remains on IV insulin infusion at this time * BSGs are within goal range (190's) on a stable rate of 1.5units/hr * She has dextrose containing IVF's at this time to maintain IV insulin infusion while NPO * Renal fxn improving, AG metabolic acidosis resolved, hyperchloremia and hypernatremia continue however more free water being given today * If patient's mental status improves and she is able to eat later today, we can consider transitioning to SQ basal/bolus regimen. PLAN FOR INPATIENT GLYCEMIC CONTROL: * Continue IV insulin infusion per moderate stress protocol * Goal Range 150 - 250 mg/dl * In the critical care setting, continuous IV insulin infusion has been shown to be the best method for achieving glycemic targets. * Would not transition this patient to a SQ regimen until more clinically stable and able to tolerate PO intake * Please note that the plan above was derived based on current level of insulin resistance and hospital stress. These recommendations are appropriate for inpatient admission only. Plan of care upon discharge will need to be reassessed to avoid potential outpatient hypo/hyperglycemia. Thank you.
[2017-10-08] MEDS: INSULIN REGULAR 250 UNITS in SODIUM CHLORIDE 0.9% 250ML 250 ML IV SCH (12:15)
--- NOTE | 2017-10-08 14:35 | Hospitalist Progress Note ---
Hospitalist Progress Note Date of Service Oct 08, 2017. (Lizzeth Herrera ., AAKASH) Subjective Pt evaluation today including: conversation w/ patient, physical exam, chart review, lab review, review of studies, conversation w/ sap pp consultant (ICU), review of inpatient medication list Voiding: moya catheter in place (cloudy, dark urine) Unable to obtain ROS from patient due to condition. Remains agitated per nursing, soft restraints in place. Additional Comments: Unable to obtain ROS from patient due to condition. (Lizzeth Herrera PA-C) Objective Vital Signs Date Time Temp Pulse Resp B/P (MAP) Pulse Ox O2 Delivery O2 Flow Rate FiO2 10/08/17 12:00 98 Nasal Cannula 4.0 10/08/17 12:00 36.7 84 22 131/95 (107) 98 Nasal Cannula 4.0 134/91 (105) 10/08/17 10:00 75 18 122/91 (101) 98 BiPAP 25 125/84 (98) 10/08/17 08:00 100 BiPAP 25 10/08/17 08:00 36.7 75 20 118/91 (100) 100 BiPAP 25 129/84 (99) 10/08/17 08:00 BiPAP 10/08/17 07:28 77 99 25 10/08/17 06:01 76 121/80 (94) 100 10/08/17 06:00 75 114/85 (95) 100 10/08/17 05:01 81 104/67 (79) 97 10/08/17 04:01 36.7 77 88/58 (68) 100 10/08/17 04:00 99 BiPAP 30 10/08/17 04:00 76 92/59 (70) 10/08/17 03:30 77 96/58 (71) 10/08/17 03:01 79 92/61 (71) 99 10/08/17 03:00 97 99 10/08/17 02:30 79 97/64 (75) 10/08/17 02:00 81 99/66 (77) 10/08/17 01:30 82 101/63 (76) 10/08/17 01:00 83 108/66 (80) 10/08/17 00:30 86 96/60 (72) 99 10/08/17 00:00 37.2 87 104/68 (80) 10/07/17 23:59 99 BiPAP 30 10/07/17 23:30 88 107/62 (77) 10/07/17 23:00 90 105/58 (74) 10/07/17 22:38 92 98 2 22:30 92 108/58 (75) 10/07/17 22:00 94 106/54 (71) 10/07/17 21:30 98 99/48 (65) 10/07/17 21:00 112 113/59 (77) 10/07/17 20:30 117 119/77 (91) 96 10/07/17 20:15 112 97 10/07/17 20:00 99 Nasal Cannula 2.0 10/07/17 20:00 37.0 129 155/88 (110) 95 10/07/17 19:30 95 108/53 (71) 10/07/17 19:00 102 110/55 (73) 10/07/17 18:15 104 109/63 (78) 99 10/07/17 18:00 123 124/63 (83) 100 10/07/17 17:45 131 159/89 (112) 100 10/07/17 17:30 114 128/87 (101) 10/07/17 17:15 112 114/66 (82) 99 10/07/17 17:00 108 113/69 (84) 10/07/17 16:45 107 113/67 (82) 100 10/07/17 16:30 37.1 104 105/71 (82) 100 Nasal Cannula 2.0 10/07/17 16:00 105 122/83 (96) 100 10/07/17 15:34 100 Nasal Cannula 10/07/17 15:30 107 108/70 (83) 10/07/17 15:00 115 122/81 (95) 100 218 14:30 114 102/50 (67) (Lizzeth Herrera, PA-C) Physical Exam Notes: General appearance: Well-developed, well-nourished, no apparent distress Head: Normocephalic, atraumatic Eyes: +Exam limited by patient condition, does not follow commands. ENT: +Exam limited by condition. Normal ENT inspection Neck: Supple, no JVD, trachea midline Respiratory/Chest: +Decreased breath sounds. Lungs clear to auscultation, no respiratory distress Cardiovascular: Regular rate & rhythm, no gallop, no murmur Abdomen/GI: Normal bowel sounds, non-tender, soft Extremities/Musculoskeletal: Normal inspection, no calf tenderness, no pedal edema Neurological/Psych: +Sleeping, disoriented and agitated when awake and not following commands Skin: Normal color, warm/dry, no rash (Lizzeth Herrera, AAKASH) Laboratory Results Last 24 Hours Test 10/07/17 14:20 10/07/17 15:34 10/07/17 16:32 10/07/17 17:34 Blood Gas Sample Site Art Line Bedside Blood Gas pH (LAB) 7.31 Bedside Blood Gas pCO2 (LAB) 30 mmHg Bedside Blood Gas pO2 (LAB) 114 mmHg Bedside Blood Gas HCO3 (LAB) 15 meq/L Bedside Blood Gas Total CO2 16 mEq/l Bedside Blood Gas Base Excess (LAB) -11.0 meq/L Bedside Blood Gas O2 Saturation 98.0 % Ian Test NA Oxygen Delivery Device Cannula Bedside Glucose 258 mg/dl 239 mg/dl 225 mg/dl Test 10/07/17 18:00 10/07/17 18:07 10/07/17 18:33 10/07/17 19:33 Creatine Kinase MB Ratio Sodium Level 152 mmol/L Potassium Level 3.4 mmol/L Chloride Level 123 mmol/L Carbon Dioxide Level 16 mmol/L Anion Gap 13.0 mmol/L Blood Urea Nitrogen 20 mg/dl Creatinine 1.38 mg/dl Est Creatinine Clear Calc Drug Dose 70.8 ml/min Estimated GFR () 61.4 Estimated GFR (Non- 53.0 BUN/Creatinine Ratio 14.5 Random Glucose 269 mg/dl Lactic Acid Level 1.2 mmol/L Calcium Level 8.6 mg/dl Phosphorus Level 2.1 mg/dl Magnesium Level 2.1 mg/dl Total Bilirubin 0.4 mg/dl Aspartate Amino Transf (AST/SGOT) 22 U/L Alanine Aminotransferase (ALT/SGPT) 14 U/L Alkaline Phosphatase 135 U/L Creatine Kinase MB 6.1 ng/ml Troponin I 0.242 ng/ml Total Protein 7.2 gm/dl Albumin 2.6 gm/dl Globulin 4.6 gm/dl Albumin/Globulin Ratio 0.6 Lipase 45 U/L Bedside Glucose 245 mg/dl 260 mg/dl Test 10/07/17 20:39 2/6/18 20:41 10/07/17 21:47 10/07/17 22:29 Bedside Glucose 276 mg/dl 267 mg/dl 283 mg/dl Blood Gas Sample Site Art Line Bedside Blood Gas pH (LAB) 7.35 Bedside Blood Gas pCO2 (LAB) 26 mmHg Bedside Blood Gas pO2 (LAB) 65 mmHg Bedside Blood Gas HCO3 (LAB) 14 meq/L Bedside Blood Gas Total CO2 15 mEq/l Bedside Blood Gas Base Excess (LAB) -12.0 meq/L Bedside Blood Gas O2 Saturation 92.0 % Ian Test NA Oxygen Delivery Device Cannula Test 10/07/17 23:39 10/07/17 23:42 10/08/17 00:00 10/08/17 00:30 Bedside Glucose 251 mg/dl 251 mg/dl Sodium Level 155 mmol/L Potassium Level 3.5 mmol/L Chloride Level 127 mmol/L Carbon Dioxide Level 21 mmol/L Anion Gap 7.0 mmol/L Blood Urea Nitrogen 17 mg/dl Creatinine 1.29 mg/dl Est Creatinine Clear Calc Drug Dose 75.7 ml/min Estimated GFR () 66.7 Estimated GFR (Non- 57.5 BUN/Creatinine Ratio 12.9 Random Glucose 293 mg/dl Calcium Level 8.4 mg/dl Phosphorus Level 1.2 mg/dl Magnesium Level 2.0 mg/dl Total Bilirubin 0.2 mg/dl Aspartate Amino Transf (AST/SGOT) 18 U/L Alanine Aminotransferase (ALT/SGPT) 13 U/L Alkaline Phosphatase 122 U/L Total Protein 6.4 gm/dl Albumin 2.3 gm/dl Globulin 4.1 gm/dl Albumin/Globulin Ratio 0.6 Urine Color YELLOW Urine Appearance CLOUDY Urine pH 5.5 Urine Specific [place] 1.033 Urine Protein 2+ Urine Glucose (UA) 2+ Urine Ketones TRACE Urine Occult Blood 3+ Urine Nitrite NEG Urine Bilirubin NEG Urine Urobilinogen NEG Urine Leukocyte Esterase NEG Urine WBC (Auto) 5-10 /hpf Urine RBC (Auto) >30 /hpf Urine Hyaline Casts (Auto) 5-10 /lpf Urine Epithelial Cells (Auto) >30 /lpf Urine Bacteria (Auto) 1+ Urine Renal Epithelial Cells 0-5 /lpf Urine Crystals URIC ACID Urine Yeast (Auto) BUDDING Test 10/08/17 01:48 10/08/17 02:00 10/08/17 02:05 10/08/17 02:29 Bedside Glucose 223 mg/dl 226 mg/dl Creatine Kinase MB Ratio Sodium Level 155 mmol/L Potassium Level 3.4 mmol/L Chloride Level 126 mmol/L Carbon Dioxide Level 23 mmol/L Anion Gap 6.0 mmol/L Blood Urea Nitrogen 16 mg/dl Creatinine 1.20 mg/dl Est Creatinine Clear Calc Drug Dose 81.4 ml/min Estimated GFR () 72.7 Estimated GFR (Non- 62.8 BUN/Creatinine Ratio 13.5 Random Glucose 247 mg/dl Calcium Level 8.8 mg/dl Phosphorus Level 1.3 mg/dl Magnesium Level 2.3 mg/dl Total Bilirubin 0.2 mg/dl Aspartate Amino Transf (AST/SGOT) 18 U/L Alanine Aminotransferase (ALT/SGPT) 14 U/L Alkaline Phosphatase 126 U/L Creatine Kinase MB 4.0 ng/ml Troponin I 0.115 ng/ml Total Protein 6.6 gm/dl Albumin 2.4 gm/dl Globulin 4.2 gm/dl Albumin/Globulin Ratio 0.6 Test 10/08/17 02:46 10/08/17 03:33 10/08/17 04:59 10/08/17 05:19 Blood Gas Sample Site R Brachial Bedside Blood Gas pH (LAB) 7.35 Bedside Blood Gas pCO2 (LAB) 38 mmHg Bedside Blood Gas pO2 (LAB) 117 mmHg Bedside Blood Gas HCO3 (LAB) 21 meq/L Bedside Blood Gas Total CO2 22 mEq/l Bedside Blood Gas Base Excess (LAB) -5.0 meq/L Bedside Blood Gas O2 Saturation 98.0 % Ian Test NA Oxygen Delivery Device BIPAP Bedside Oxygen Rate (breaths/min) 12 Bedside FiO2 30 % Blood Gas IPAP 10 Bedside Glucose 180 mg/dl 87 mg/dl 200 mg/dl Test 10/08/17 05:27 10/08/17 05:39 10/08/17 06:13 10/08/17 07:25 White Blood Count 9.44 K/uL Red Blood Count 4.11 M/uL Hemoglobin 11.7 g/dL Hematocrit 35.2 % Mean Corpuscular Volume 85.6 fL Mean Corpuscular Hemoglobin 28.5 pg Mean Corpuscular Hemoglobin Concent 33.2 g/dl Platelet Count 214 K/uL Mean Platelet Volume 9.9 fL Neutrophils (%) (Auto) 65.6 % Lymphocytes (%) (Auto) 28.6 % Monocytes (%) (Auto) 5.3 % Eosinophils (%) (Auto) 0.0 % Basophils (%) (Auto) 0.1 % Neutrophils # (Auto) 6.19 K/uL Lymphocytes # (Auto) 2.70 K/uL Monocytes # (Auto) 0.50 K/uL Eosinophils # (Auto) 0.00 K/uL Basophils # (Auto) 0.01 K/uL RDW Standard Deviation 41.6 fL RDW Coefficient of Variation 13.3 % Immature Granulocyte % (Auto) 0.4 % Immature Granulocyte # (Auto) 0.04 K/uL Prothrombin Time 11.2 SECONDS 11.4 SECONDS Prothromb Time International Ratio 1.1 1.1 Activated Partial Thromboplast Time 21.6 SECONDS Partial Thromboplastin Ratio 0.8 Sodium Level 156 mmol/L Potassium Level 3.4 mmol/L Chloride Level 128 mmol/L Carbon Dioxide Level 23 mmol/L Anion Gap 7.0 mmol/L Blood Urea Nitrogen 14 mg/dl Creatinine 1.17 mg/dl Est Creatinine Clear Calc Drug Dose 83.5 ml/min Estimated GFR () 75.0 Estimated GFR (Non- 64.7 BUN/Creatinine Ratio 12.3 Random Glucose 209 mg/dl Calcium Level 8.6 mg/dl Phosphorus Level 2.0 mg/dl Magnesium Level 2.3 mg/dl Total Bilirubin 0.2 mg/dl Aspartate Amino Transf (AST/SGOT) 19 U/L Alanine Aminotransferase (ALT/SGPT) 14 U/L Alkaline Phosphatase 123 U/L Ammonia 14.0 umol/L Total Protein 6.5 gm/dl Albumin 2.4 gm/dl Globulin 4.1 gm/dl Albumin/Globulin Ratio 0.6 Procalcitonin 0.58 ng/ml Blood Gas Sample Site Art Line Bedside Blood Gas pH (LAB) 7.36 Bedside Blood Gas pCO2 (LAB) 38 mmHg Bedside Blood Gas pO2 (LAB) 94 mmHg Bedside Blood Gas HCO3 (LAB) 22 meq/L Bedside Blood Gas Total CO2 23 mEq/l Bedside Blood Gas Base Excess (LAB) -4.0 meq/L Bedside Blood Gas O2 Saturation 97.0 % Ian Test NA Oxygen Delivery Device BIPAP Bedside Oxygen Rate (breaths/min) 12 Bedside FiO2 30 % Blood Gas IPAP 10 Bedside Glucose 175 mg/dl Test 10/08/17 08:08 10/08/17 10:17 10/08/17 14:00 Bedside Glucose 195 mg/dl 199 mg/dl (Lizzeth Herrera ., AAKASH) Assessment and Plan 27 y/o female with a history of DM I, chronic pain, migraine, fibromyalgia, and hypothyroidism who presents from [facility] with DKA and altered mental status. DKA--improving -Admit to ICU. -Pt remains on insulin drip, pharmacy following -Lytes improving, repeat CMP pending at 1400 -Potassium 3.4 this am, receiving KCl in IVF and received k phos -Phos improved at 2.0, received k phos 15 mmol -BSGs improved -IVF changed to D5 1/2NSS + 20 KCl -Remains on Precedex and Ativan infusions -Off BiPAP, on NC now -ABG improved -HgbA1c 11.7 on 10/07 AMS--ongoing, secondary likely to DKA -Ammonia had been 160 at OSH, now WNL -Lactic acid 4.6 at OSH, now WNL -UDS completely negative -UA cloud, positive 3+ blood, 1+ bacteria, +yeast -Urine culture ordered. Hold off antifungal for now pending results -Continue Rocephin for now -Leukocytosis resolved. WBC 9.44 on 10/08, down from 24 at OSH -Blood cultures pending Elevated troponin--likely due to demand ischemia -Troponin trending down, peaked at 0.319 Hypernatremia, likely related to fluid depletion due to DKA -Sodium 156, repeat pending -IVF changed as above Acute renal failure--resolved -Creatinine 2.1 at OSH, now down to 1.17 Chronic pain, migraine, fibromyalgia -Pt takes Lyrica 150 mg PO TID, Cymbalta 60 mg PO qd, morphine sulfate 15 mg PO BID, oxycodone IR 5 mg PO QID per OSH records -UDS negative for opiates -Pt NPO Hypothyroidism -TSH low at 0.146. Pt on Synthroid 50 mcg PO qd at home per OSH DVT prophylaxis -Heparin 5000 units SC q8h Code Status -Level I, FULL RESUSCITATION STATUS (Lizzeth Herrera, AAKASH) i personally examined pt and verified all salcedo points w Maria Fernanda Herrera PAC sedated, calm viatls noted nad sedated no respiratory distress no pallor or icterus labs reviewed DKA - continue empiric abx pending further clinical eval and time for cultures; yeast in urine noted await culture since this would be unlikely culprit for DKA AMS - ?all DKA related, ?elements of withdrawal - being managed w sedation appropriately for her safety by ICU team otherwise as above (Abimael Starr D.O.)
[2017-10-08 15:27] LABS: ALBUMIN 2.3 gm/dl (3.4-5.0); CALCIUM 8.5 mg/dl (8.5-10.1); CREATININE 0.97 mg/dl (0.60-1.20); PHOSPHORUS 1.7 mg/dl (2.5-4.9); POTASSIUM 3.7 mmol/L (3.5-5.1); TOTAL PROTEIN 6.3 gm/dl (6.4-8.2)
[2017-10-09] VITALS (23 sets, daily range): BP systolic 128–256; BP diastolic 80–256; PULSE 70–103; TEMP 37–38.2; O2SAT 89–100
[2017-10-09] MEDS: LORAZEPAM INJ 50 MG in D5W 50ML IN *POLYOLEFIN BAG* 25 ML IV PRN ×2 (01:37)
[2017-10-09] MEDS: DexMEDEtomidine HCL IV 400 MCG in SODIUM CHLORIDE 0.9% 100ML 96 ML IV PRN ×3 (03:48→16:05)
[2017-10-09] MEDS: HEPARIN SOD 5000 UNIT/0.5 ML CARP SQ SCH ×3 (05:33→22:00)
[2017-10-09] MEDS: D5W AND 1/2NSS + 20MEQ KCL 1,000 ML IV SCH (05:33)
[2017-10-09 06:06] LABS: HEMATOCRIT 38.2 % (37-47); HEMOGLOBIN 12.6 g/dL (12.0-16.0); MEAN CELL VOLUME 86.6 fL (80-100); MEAN CORPUSCULAR HEMOGLOBIN 28.6 pg (25-34); MEAN PLATELET VOLUME 9.8 fL (7.4-10.4); PLATELET COUNT 162 K/uL (130-400); RED CELL DISTRIBUTION WIDTH CV 13.7 % (11.5-14.5); RED CELL DISTRIBUTION WIDTH SD 43.3 fL (36.4-46.3)
[2017-10-09 06:50] LABS: ALBUMIN 2.2 gm/dl (3.4-5.0); CALCIUM 8.2 mg/dl (8.5-10.1); CREATININE 0.84 mg/dl (0.60-1.20); POTASSIUM 3.5 mmol/L (3.5-5.1)
[2017-10-09 06:53] LABS: TOTAL PROTEIN 6.1 gm/dl (6.4-8.2)
[2017-10-09] MEDS: INSULIN ASPART 100 UNITS/ML 3 ML PEN SC SCH ×4 (08:00→21:00)
[2017-10-09] MEDS ORDERED: POTASSIUM PHOS 3 MMOL/1 ML INFUSION IV STA (08:22)
[2017-10-09] MEDS ORDERED: POTASSIUM PHOSPHATE INJ 15 MMOL in SODIUM CHLORIDE 0.9% 250ML 250 ML IV ONE (08:30)
[2017-10-09] MEDS: PANTOprazole INJ 40 MG in SYRINGE 0 ML IV SCH (08:45)
[2017-10-09] MEDS: D5W AND 1/4NSS + 20MEQ KCL 1,000 ML IV SCH ×2 (09:48→15:57)
--- NOTE | 2017-10-09 11:36 | Neurology Consultation ---
Neurology Consultation Date of Consultation: Oct 09, 2017. Attending Physician: Ernesto Menard MD, PhD Primary Care Physician: Teofilo Irvin M.D. Reason for Consultation: Patient is a 27-year-old, was asked to see the request of Dr. Chavez, for neurologic consultation regarding encephalopathy History of Present Illness Source: patient, caregiver, hospital records This patient has long-standing insulin-dependent diabetes on insulin pump. She also has a history of hypertension, migraine headaches, thyroid disease, and fibromyalgia with chronic pain (on opiates). In the evening of October 06, the patient apparently was [place] a [place] drinking alcohol and perhaps ingested some substance (possibly heroin and fentanyl). She arrived at the emergency room at [facility] around 2330 hours in an unresponsive state with some moaning, thrashing, kicking, nausea, vomiting, and a glucose of 939. Potassium and sodium were elevated as were ammonia and some liver enzymes. She was given Haldol, ketamine, and Versed for sedation M but the time she was transferred to our institution, her glucose was 240. At 0020, hours blood pressure was 99/51, pulse 125, temperature 37.0, respiratory 26, and O2 saturation 99 percent on 2 liters Glucose was 240 and white count was elevated at 16.4. CK was 354. TSH was 0.196 and hemoglobin A1c was 11.7. test was negative. Patient was extremely combative and required a number of medications. She was given 4 doses of phenobarbital, 130 milligrams each. She was put on Precedex and in Ativan drip at 4 milligrams/hour. This Comp the patient down but she is still moving spontaneously, all limbs. The Ativan drip was discontinued at 0830 hours this morning. She still remains with altered responsiveness. Ammonia level was 14. Echocardiogram was unremarkable. White count has lowered to 5.6. She did received ceftriaxone. Blood cultures had no growth. BUN and creatinine, which has been elevated, or backed to normal levels. Past Medical/Surgical History The insulin-dependent diabetes mellitus on insulin pump Migraine headaches Hypothyroidism Hypertension Fibromyalgia with chronic pain on opiates given by other clinicians. Family History The patient is unable to give family history, and she is up to 100. Social History Patient is and apparently does not use tobacco products. I cannot obtain any other social history from the patient. Allergies Coded Allergies: NO KNOWN DRUG ALLERGIES (Verified Allergy, Unknown, ., 10/07/17) Current Inpatient Medications Current Inpatient Medications Medications (Trade) Dose Ordered Sig/Cary Route Start Time Stop Time Status Last Admin Dose Admin Pantoprazole Sodium 40 mg/ Syringe 10 ml @ 5 mls/min DAILY@0900 IV 10/07/17 16:00 11/06/17 15:59 10/09/17 08:45 5 MLS/MIN Insulin Aspart (novoLOG ASPART) [facility] 10/07/17 17:15 11/06/17 17:14 Miscellaneous Information (Consult Glycemic Management Pharmacy) 1 ea UD PRN N/A 10/07/17 12:00 11/06/17 11:59 Insulin Human Regular 250 units/ Sodium Chloride 252.5 ml @ 0 mls/hr Q24H IV 10/07/17 12:30 11/06/17 12:29 10/08/17 12:15 1.5 MLS/HR Glucose (Glucose 40% Gel) 15-30 GRAMS 15 GRAMS... UD PRN PO 10/07/17 12:30 11/06/17 12:29 Glucose (Glucose Chew Tab) 4-8 Tablets 4 Tabl... UD PRN PO 10/07/17 12:30 11/06/17 12:29 Dextrose (Dextrose 50% 50ML Syringe) 25-50ML OF 50% DW IV FOR... UD PRN IV 10/07/17 12:30 11/06/17 12:29 10/08/17 05:09 50 ML Glucagon (Glucagon Inj) 1 mg UD PRN SQ 10/07/17 12:30 11/06/17 12:29 Heparin Sodium (Porcine) (Heparin Sq 5000 Unit/0.5ml) 5,000 unit Q8 SQ 10/07/17 22:00 11/06/17 21:59 10/09/17 05:33 5,000 UNIT Lorazepam 50 mg/ Dextrose 50 ml @ 0 mls/hr Q0M PRN IV 10/07/17 20:00 11/06/17 19:59 10/09/17 01:37 5 MLS/HR Heparin Sodium (Porcine) (Heparin 10 Unit/ ml 5 ml Flush) 5 ml PRN PRN FLUSH 10/07/17 23:45 11/06/17 23:44 Dexmedetomidine HCl 400 mcg/ Sodium Chloride 100 ml @ 0 mls/hr Q0M PRN IV 10/08/17 09:00 10/12/17 08:59 10/09/17 09:28 21 MLS/HR Potassium Phosphate 15 mmol/ Sodium Chloride 255 ml @ 88 mls/hr ONE ONCE IV 10/09/17 08:30 10/09/17 11:23 10/09/17 08:48 88 MLS/HR Haloperidol Lactate (Haldol Inj) 5 mg Q8H PRN IV 10/09/17 09:30 11/08/17 09:29 Potassium Chloride/Dextrose/ Sod Cl 1,000 ml @ 150 mls/hr Q6H40M IV 10/09/17 09:30 11/08/17 09:29 10/09/17 09:48 150 MLS/HR Review of Systems Review of systems cannot be obtained because the patient has a tongue did. Physical Exam Vital Signs (Past 24 Hrs): Date Time Temp Pulse Resp B/P (MAP) Pulse Ox O2 Delivery O2 Flow Rate FiO2 10/09/17 09:00 83 138/95 (109) 97 10/09/17 08:00 80 135/105 (115) 99 137/95 (109) 10/09/17 08:00 99 BiPAP 25 10/09/17 08:00 98 25 10/09/17 06:00 77 24 134/95 (108) 97 BiPAP 25 10/09/17 05:10 77 99 25 10/09/17 04:00 37.0 76 26 133/90 (104) 97 BiPAP 25 10/09/17 04:00 97 BiPAP 25 10/09/17 02:12 75 98 25 10/09/17 02:00 77 30 137/94 (108) 98 BiPAP 25 10/09/17 00:01 37.1 76 28 141/98 (112) 98 BiPAP 25 10/08/17 23:59 97 BiPAP 25 10/08/17 23:08 76 98 25 10/08/17 22:00 83 34 119/82 (94) 94 Nasal Cannula 2.0 10/08/17 20:00 37.1 81 34 127/91 (103) 96 Nasal Cannula 2.0 10/08/17 20:00 96 Nasal Cannula 2.0 10/08/17 18:00 86 22 132/101 (111) 97 Nasal Cannula 4.0 140/94 (109) 10/08/17 16:00 36.1 72 20 138/95 (109) 95 Nasal Cannula 4.0 144/97 (113) 10/08/17 16:00 95 Nasal Cannula 4.0 10/08/17 14:00 77 20 123/87 (99) 98 Nasal Cannula 4.0 125/91 (102) 10/08/17 12:00 98 Nasal Cannula 4.0 10/08/17 12:00 36.7 84 22 131/95 (107) 98 Nasal Cannula 4.0 134/91 (105) She is lying with her eyes closed spontaneously moving all 4 limbs, right somewhat more than the left. She will not spontaneously open her eyes. When stimulated, she will increase activity and moan some. She is breathing on her own and is tachypneic around 30. She has an elevated blood pressure, and is afebrile. She has no response to loud noises such as clapping or loud voices. Manipulating her to examine her we will creates some increase thrashing and moaning at times. She has some delayed withdrawal the legs to deep pain bilaterally. There is no significant withdrawal in the arms bilaterally to deep pain. Eyes open passively bilaterally. Eyes are front and conjugate. Pupils are 4 millimeters bilaterally reactive to light. Discs seem sharp bilaterally. She has positive corneal responses bilaterally. She has positive gag response bilaterally. There is no obvious facial droop. Neck is supple. Limbs have decreased tone throughout. Reflexes are absent in all 4 limbs. Toes are neutral to downgoing to plantar stimulation bilaterally. She has no seizure- like activity or other abnormal involuntary movements. Laboratory Results Past 24 Hours: 10/09/17 05:50 10/09/17 05:50 Test 10/09/17 05:50 10/09/17 10:01 Red Blood Count 4.41 M/uL (4.2-5.4) Mean Corpuscular Volume 86.6 fL (80-100) Mean Corpuscular Hemoglobin 28.6 pg (25-34) Mean Corpuscular Hemoglobin Concent 33.0 g/dl (32-36) RDW Standard Deviation 43.3 fL (36.4-46.3) RDW Coefficient of Variation 13.7 % (11.5-14.5) Mean Platelet Volume 9.8 fL (7.4-10.4) Anion Gap 6.0 mmol/L (3-11) Est Creatinine Clear Calc Drug Dose 103.2 ml/min Estimated GFR () 112.0 Estimated GFR (Non- 96.6 BUN/Creatinine Ratio 10.9 (10-20) Calcium Level 8.2 mg/dl (8.5-10.1) Phosphorus Level 2.0 mg/dl (2.5-4.9) Magnesium Level 1.8 mg/dl (1.8-2.4) Total Bilirubin 0.3 mg/dl (0.2-1) Aspartate Amino Transf (AST/SGOT) 25 U/L (15-37) Alanine Aminotransferase (ALT/SGPT) 17 U/L (12-78) Alkaline Phosphatase 136 U/L (45-117) Total Protein 6.1 gm/dl (6.4-8.2) Albumin 2.2 gm/dl (3.4-5.0) Globulin 3.9 gm/dl (2.5-4.0) Albumin/Globulin Ratio 0.6 (0.9-2) Bedside Glucose 247 mg/dl (70-90) Impression 1. Acute, severe encephalopathy on the background of severe diabetic ketoacidosis She has received a number of medications including phenobarbital (which has a very long half life, and can last days in her system). In addition, Precedex can give sedation and agitation. She was on an Ativan drip for 2 days at 4 milligrams/hour. This was only stopped this morning. I suspect that she is continuing to be obtunded because of the multiple medications to be given to her to decrease her agitation. In addition she had significant metabolic and other abnormalities some of which are markedly improved and others are still abnormal. She has no fever or meningeal signs. She has no focal neurologic findings or anything to suggest a central nervous system insult such as stroke. 2. History of migraine headaches 3. History of fibromyalgia on opiates. She might have been having some withdrawal symptoms that she should be improvement with this over the next several days. Plan 1. For now, I recommend tapering off sedating medicines, including Precedex, as much as possible and using physical restraints more than chemical restraints, in an effort to allow her to wake up more. Haldol, however, should not sedate her. 2. I see no need for additional neurologic testing at this time including no need for LP or imaging studies. 3. We will follow closely and make additional recommendations pending her clinical course. I spent a total of 90 minutes with this case including review of records, direct evaluation the patient, and discussion with and other clinical staff at bedside.
--- NOTE | 2017-10-09 12:25 | Pharmacy Progress Note ---
Glycemic Control Progress Note Date of Service Oct 09, 2017. Scope Glycemic Pharmacist consulted for glycemic control to write orders per [facility] inpatient glycemic control protocol. Objective Accuchecks BSG (last 24hrs): Test 10/08/17 12:09 10/08/17 14:07 10/08/17 14:40 10/08/17 18:13 Bedside Glucose 179 mg/dl (70-90) 196 mg/dl (70-90) 208 mg/dl (70-90) Random Glucose 223 mg/dl (70-99) Test 10/08/17 21:49 10/09/17 02:17 10/09/17 05:50 10/09/17 10:01 Bedside Glucose 167 mg/dl (70-90) 201 mg/dl (70-90) 247 mg/dl (70-90) Random Glucose 231 mg/dl (70-99) HbA1c: Test 10/07/17 12:46 Hemoglobin A1c 11.7 % (4.5-5.6) H Recent Pertinent Medications Outpatient Anti-diabetic Regimen: * Insulin pump, doses unknown at this time * A1c = 11.7 % 10/07/17 Risk Factors for Insulin Resistance: * IVF: D5 09/04 NS + 20mEq KCl @ 150cc/hr * Diet: NPO Outpatient Anti-Diabetic Meds Insulin pump settings: * Basal: 1unit/hr x 24 hrs * Goal Range: 120-130mg/dL * CF: 32mg/dL/unit * Carb ratio: 1unit per 9gm CHO 3382-2160; 1unit per 8.5gm CHO 3888-5623 * Total daily insulin requirements: 35-50 units/day Assessment & Plan ASSESSMENT: 10/07/17 * Type 1 diabetic transferred from [facility] late this AM secondary to delirium, metabolic encephalopathy, possible sepsis, severe DKA * It has been reported that patient had run out of insulin pump supplies ~3 days ago and had been self-managing with SQ injections instead * BSGs reported to be up to 900 at [facility], and severely acidotic there with a reported pH of 6.8 * Initially managed aggressive fluid resuscitation 4L NS given at [facility], insulin infusion also initiated at [facility] prior to transfer * First round of labs here has shown improved metabolic acidosis, AG has already closed, however pt is hypernatremic likely secondary to NS boluses and bicarb administration at [facility]. Curious as to what pt's initial Na and effective serum osmo was at [facility] as we would not want to shift serum osmo too rapidly. 10/08/17 * Patient remains on IV insulin infusion at this time * BSGs are within goal range (190's) on a stable rate of 1.5units/hr * She has dextrose containing IVF's at this time to maintain IV insulin infusion while NPO * Renal fxn improving, AG metabolic acidosis resolved, hyperchloremia and hypernatremia continue however more free water being given today * If patient's mental status improves and she is able to eat later today, we can consider transitioning to SQ basal/bolus regimen. 10/09/17 * Patient remains on IV insulin infusion at this time * Insulin infusion rates stable @1.5 units/hr * Patient's encephalopathy has not resolved; BSG's within current goal range 150 -250mg/dL despite increased IV dextrose provision in attempts to provide more free water to correct hypernatremia. Normally I would want to reduce the BSG further to the 140-180 range, however given hyperosmolar state and falling Na would not want to drop osmo too quickly. AG and bicarb remain normalized. PLAN FOR INPATIENT GLYCEMIC CONTROL: * Continue IV insulin infusion due to continued NPO status, goal range 150 - 250mg/dL. * Would not transition this patient to a SQ regimen until more clinically stable and able to tolerate PO intake * Dextrose containing IVF's should continue while NPO to allow for continued IV insulin provision. * Will begin to add a low dose basal insulin to allow for easier transition when mental status improves: Lantus 15 units SQ daily. Continue to administer the insulin drip with the Lantus on board. * Please note that the plan above was derived based on current level of insulin resistance and hospital stress. These recommendations are appropriate for inpatient admission only. Plan of care upon discharge will need to be reassessed to avoid potential outpatient hypo/hyperglycemia. Thank you.
[2017-10-09] MEDS: INSULIN REGULAR 250 UNITS in SODIUM CHLORIDE 0.9% 250ML 250 ML IV SCH (12:36)
[2017-10-09] MEDS ORDERED: INSULIN GLARGINE SOLOSTAR 100 UNITS/ML 3 ML PEN SC SCH (13:00)
[2017-10-09] MEDS: HALOPERIDOL LACTATE 5 MG/ML 1 ML VIAL IV PRN ×2 (14:04→20:34)
--- NOTE | 2017-10-09 14:29 | Hospitalist Progress Note ---
Hospitalist Progress Note Date of Service Oct 09, 2017. (Lizzeth Herrera ., AAKASH) Subjective Pt evaluation today including: conversation w/ patient, physical exam, chart review, lab review, review of inpatient medication list Unable to obtain ROS from patient due to condition. Per nursing, still agitated , not responding. Does not open her eyes, intermittently moans. Additional Comments: Unable to obtain ROS from patient due to condition. (Lizzeth Herrera ., AAKASH) Objective Vital Signs Date Time Temp Pulse Resp B/P (MAP) Pulse Ox O2 Delivery O2 Flow Rate FiO2 10/09/17 12:00 98 Nasal Cannula 2.0 10/09/17 11:48 77 97 25 10/09/17 11:00 80 136/94 (108) 97 25 10/09/17 10:01 79 128/89 (102) 97 25 10/09/17 10:00 80 256/256 (256) 97 25 10/09/17 09:00 37.0 83 138/95 (109) 97 10/09/17 08:00 80 135/105 (115) 99 137/95 (109) 10/09/17 08:00 99 BiPAP 25 10/09/17 08:00 98 25 10/09/17 08:00 BiPAP 10/09/17 06:00 77 24 134/95 (108) 97 BiPAP 25 10/09/17 05:10 77 99 25 10/09/17 04:00 37.0 76 26 133/90 (104) 97 BiPAP 25 10/09/17 04:00 97 BiPAP 25 10/09/17 02:12 75 98 25 10/09/17 02:00 77 30 137/94 (108) 98 BiPAP 25 10/09/17 00:01 37.1 76 28 141/98 (112) 98 BiPAP 25 10/08/17 23:59 97 BiPAP 25 10/08/17 23:08 76 98 25 10/08/17 22:00 83 34 119/82 (94) 94 Nasal Cannula 2.0 10/08/17 20:00 37.1 81 34 127/91 (103) 96 Nasal Cannula 2.0 10/08/17 20:00 96 Nasal Cannula 2.0 10/08/17 18:00 86 22 132/101 (111) 97 Nasal Cannula 4.0 140/94 (109) 10/08/17 16:00 36.1 72 20 138/95 (109) 95 Nasal Cannula 4.0 144/97 (113) 10/08/17 16:00 95 Nasal Cannula 4.0 (Lizzeth Herrera ., PA-C) Physical Exam Notes: General appearance: Well-developed, well-nourished, no apparent distress Head: Normocephalic, atraumatic Eyes: +Exam limited by patient condition, does not follow commands. ENT: +Exam limited by condition. Normal ENT inspection Neck: Supple, no JVD, trachea midline Respiratory/Chest: +Decreased breath sounds. Lungs clear to auscultation, no respiratory distress Cardiovascular: Regular rate & rhythm, no gallop, no murmur Abdomen/GI: Normal bowel sounds, non-tender, soft Extremities/Musculoskeletal: Normal inspection, no calf tenderness, no pedal edema Neurological/Psych: +Sleeping, disoriented and agitated when awake and not following commands Skin: Normal color, warm/dry, no rash (Lizzeth Herrera ., PA-C) Laboratory Results Last 24 Hours Test 10/08/17 14:40 10/08/17 18:13 10/08/17 21:49 10/09/17 02:17 Sodium Level 155 mmol/L Potassium Level 3.7 mmol/L Chloride Level 127 mmol/L Carbon Dioxide Level 22 mmol/L Anion Gap 6.0 mmol/L Blood Urea Nitrogen 12 mg/dl Creatinine 0.97 mg/dl Est Creatinine Clear Calc Drug Dose 100.7 ml/min Estimated GFR () 94.1 Estimated GFR (Non- 81.2 BUN/Creatinine Ratio 11.8 Random Glucose 223 mg/dl Calcium Level 8.5 mg/dl Phosphorus Level 1.7 mg/dl Magnesium Level 2.1 mg/dl Total Bilirubin 0.2 mg/dl Aspartate Amino Transf (AST/SGOT) 38 U/L Alanine Aminotransferase (ALT/SGPT) 18 U/L Alkaline Phosphatase 120 U/L Total Protein 6.3 gm/dl Albumin 2.3 gm/dl Globulin 4.0 gm/dl Albumin/Globulin Ratio 0.6 Bedside Glucose 208 mg/dl 167 mg/dl 201 mg/dl Test 10/09/17 05:50 10/09/17 10:01 White Blood Count 5.60 K/uL Red Blood Count 4.41 M/uL Hemoglobin 12.6 g/dL Hematocrit 38.2 % Mean Corpuscular Volume 86.6 fL Mean Corpuscular Hemoglobin 28.6 pg Mean Corpuscular Hemoglobin Concent 33.0 g/dl RDW Standard Deviation 43.3 fL RDW Coefficient of Variation 13.7 % Platelet Count 162 K/uL Mean Platelet Volume 9.8 fL Sodium Level 152 mmol/L Potassium Level 3.5 mmol/L Chloride Level 123 mmol/L Carbon Dioxide Level 23 mmol/L Anion Gap 6.0 mmol/L Blood Urea Nitrogen 9 mg/dl Creatinine 0.84 mg/dl Est Creatinine Clear Calc Drug Dose 103.2 ml/min Estimated GFR () 112.0 Estimated GFR (Non- 96.6 BUN/Creatinine Ratio 10.9 Random Glucose 231 mg/dl Calcium Level 8.2 mg/dl Phosphorus Level 2.0 mg/dl Magnesium Level 1.8 mg/dl Total Bilirubin 0.3 mg/dl Aspartate Amino Transf (AST/SGOT) 25 U/L Alanine Aminotransferase (ALT/SGPT) 17 U/L Alkaline Phosphatase 136 U/L Total Protein 6.1 gm/dl Albumin 2.2 gm/dl Globulin 3.9 gm/dl Albumin/Globulin Ratio 0.6 Bedside Glucose 247 mg/dl (Lizzeth Herrera ., PADontaC) Assessment and Plan 27 y/o female with a history of DM I, chronic pain, migraine, fibromyalgia, and hypothyroidism who presents from [facility] with DKA and altered mental status. DKA--improving -Admit to ICU. -Pt remains on insulin drip, pharmacy following -Started Lantus 15 units -Lytes stable -Potassium 3.5, receiving KCl in IVF and received k phos -Phos remains at 2.0 received k phos 15 mmol -BSGs improved -IVF changed to D5W 09/04NSS + 20 KCl at 150 cc/hr -Off BiPAP, on NC now -ABG improved -HgbA1c 11.7 on 10/07 AMS--ongoing, secondary likely to DKA -Ammonia had been 160 at OSH, now WNL -Lactic acid 4.6 at OSH, now WNL -UDS completely negative -UA cloud, positive 3+ blood, 1+ bacteria, +yeast -Urine culture negative -Rocephin d/c'd -Leukocytosis resolved -Blood cultures NGTD -Neurology consulted, appreciate recs: taper sedating medications such as Precedex. Would use physical restraints rather than chemical. Can use prn Haldol for agitation. No further neurological testing or imaging at this time. -Haldol 5 mg IV q8h prn agitation -Off Ativan infusion, remains on Precedex Elevated troponin--likely due to demand ischemia -Troponin trending down, peaked at 0.319 Hypernatremia, likely related to fluid depletion due to DKA--ongoing -Sodium 152 on 10/09, IVF as above Acute renal failure--resolved -Creatinine 2.1 at OSH, creatinine remains below 1 Chronic pain, migraine, fibromyalgia -Pt takes Lyrica 150 mg PO TID, Cymbalta 60 mg PO qd, morphine sulfate 15 mg PO BID, oxycodone IR 5 mg PO QID per OSH records -UDS negative for opiates -Checked PDMP, pt has not filled oxycodone or morphine for several months Hypothyroidism -TSH low at 0.146. Pt on Synthroid 50 mcg PO qd at home per OSH DVT prophylaxis -Heparin 5000 units SC q8h Code Status -Level I, FULL RESUSCITATION STATUS (Lizzeth Herrera ., PA-C) i personally examined pt and verified all salcedo points w A Herrera PAC no meaningful HPI or ROS, sedation being lightened vitals noted nad, in bed, occassinally pulling or writhing type movements but generally appearing nad. cardio reg lungs cta b/l, no neck stiffness/nuchal rigidity. no neuro deficits notable DKA and AMS - suspect withdrawal of some kind. ongoing DKA/DM management, ongoing IVF, ongoing supportive care, time hypernatremia - agree w increase in H2O in IVF. follow DVT proph - heparin SQ (Abimael Starr D.O.)
--- NOTE | 2017-10-09 15:59 | Critical Care Progress Note ---
Critical Care Progress Note Date of Service Oct 09, 2017. Attending Dr. Chavez Subjective Still agitated. Family believes that she was using a drug which contained mixed fentanyl and heroin in a capsule Objective General Appearance: WD/WN, other Head: normocephalic, atraumatic Eyes: PERRLA Neck: normal range of motion, no tenderness, supple, no nuchal rigidity Respiratory: breath sounds normal, clear to auscultation Cardiovascular: regular rate/rhythm, normal S1S2 Abdomen: non tender, no rebound Upper Extremities: no edema. Lower Extremities: no edema. Neuro: disoriented, confused, other (Moves all four extremities but does not follow commands) Assessment & Plan 27 year old female presents with DKA secondary to non-compliance. Toxic-metabolic encephalopathy, secondary to DKA, transient hyperammonemia, withdrawal from narcotics. Also possible lingering effect of the sedatives that she received so far Doubt infectious process, I seriously doubt meningitic process given history and clinical exam. Plan: DKA resolved. IV fluids, change to D5 1/4NS for hypernatremia Insulin drip. Troponin trending down, I really doubt ACS, most likely increased demand. Agitated delirium persists. Off Ativan drip today, try to keep it off S/p Haldol 2 mg once Continue Precedex drip Allow more time to pass before repeating imaging. She has no focal deficit, displays purposeful movements sometimes. Neurology consult appreciated Monitor off antibiotics, no evidence of sepsis Blood cultures negative to date Procalcitonin barely elevated DVT prophylaxis: SC heparin Critical care time spent with the patient, reviewing chart, discussing with consultants, greater than 35 minutes Consults & Procedures Consultants: Neuro - Dr Thao Procedures: 10/07 - right axillary a-line Data Medications: Current Inpatient Medications Medications (Trade) Dose Ordered Sig/Cary Route Start Time Stop Time Status Last Admin Dose Admin Pantoprazole Sodium 40 mg/ Syringe 10 ml @ 5 mls/min DAILY@0900 IV 10/07/17 16:00 11/06/17 15:59 10/09/17 08:45 5 MLS/MIN Insulin Aspart (novoLOG ASPART) SLIDING SCALE PCHS SC 10/07/17 17:15 11/06/17 17:14 Miscellaneous Information (Consult Glycemic Management Pharmacy) 1 ea UD PRN N/A 10/07/17 12:00 11/06/17 11:59 Insulin Human Regular 250 units/ Sodium Chloride 252.5 ml @ 0 mls/hr Q24H IV 10/07/17 12:30 11/06/17 12:29 10/09/17 12:36 1.5 MLS/HR Glucose (Glucose 40% Gel) 15-30 GRAMS 15 GRAMS... UD PRN PO 10/07/17 12:30 11/06/17 12:29 Glucose (Glucose Chew Tab) 4-8 Tablets 4 Tabl... UD PRN PO 10/07/17 12:30 11/06/17 12:29 Dextrose (Dextrose 50% 50ML Syringe) 25-50ML OF 50% DW IV FOR... UD PRN IV 10/07/17 12:30 11/06/17 12:29 10/08/17 05:09 50 ML Glucagon (Glucagon Inj) 1 mg UD PRN SQ 10/07/17 12:30 11/06/17 12:29 Heparin Sodium (Porcine) (Heparin Sq 5000 Unit/0.5ml) 5,000 unit Q8 SQ 10/07/17 22:00 11/06/17 21:59 10/09/17 14:04 5,000 UNIT Lorazepam 50 mg/ Dextrose 50 ml @ 0 mls/hr Q0M PRN IV 10/07/17 20:00 11/06/17 19:59 10/09/17 01:37 5 MLS/HR Heparin Sodium (Porcine) (Heparin 10 Unit/ ml 5 ml Flush) 5 ml PRN PRN FLUSH 10/07/17 23:45 11/06/17 23:44 Dexmedetomidine HCl 400 mcg/ Sodium Chloride 100 ml @ 0 mls/hr Q0M PRN IV 10/08/17 09:00 10/12/17 08:59 10/09/17 09:28 21 MLS/HR Haloperidol Lactate (Haldol Inj) 5 mg Q8H PRN IV 10/09/17 09:30 11/08/17 09:29 10/09/17 14:04 5 MG Potassium Chloride/Dextrose/ Sod Cl 1,000 ml @ 150 mls/hr Q6H40M IV 10/09/17 09:30 11/08/17 09:29 10/09/17 09:48 150 MLS/HR Insulin Glargine (Lantus Solostar Pen) 15 units Q24H SC 10/09/17 13:00 11/08/17 12:59 10/09/17 13:02 15 UNITS I & O: 24-Hour Column 10/10/17 07:59 Intake Total 1890 ml Output Total 450 ml Balance 1440 ml Vital Signs: Date Time Temp Pulse Resp B/P (MAP) Pulse Ox O2 Delivery O2 Flow Rate FiO2 10/09/17 14:00 103 28 140/95 (110) 95 Nasal Cannula 2.0 10/09/17 13:00 77 135/91 (106) 93 Nasal Cannula 2.0 10/09/17 12:00 98 Nasal Cannula 2.0 10/09/17 12:00 37.1 84 24 135/94 (108) 98 Nasal Cannula 2.0 10/09/17 11:48 77 97 25 10/09/17 11:00 80 136/94 (108) 97 Nasal Cannula 2.0 10/09/17 10:01 79 128/89 (102) 97 Nasal Cannula 2.0 10/09/17 10:00 80 256/256 (256) 97 25 10/09/17 09:00 37.0 83 138/95 (109) 97 10/09/17 08:00 80 135/105 (115) 99 137/95 (109) 10/09/17 08:00 99 BiPAP 25 10/09/17 08:00 98 25 10/09/17 08:00 BiPAP 10/09/17 06:00 77 24 134/95 (108) 97 BiPAP 25 10/09/17 05:10 77 99 25 10/09/17 04:00 37.0 76 26 133/90 (104) 97 BiPAP 25 10/09/17 04:00 97 BiPAP 25 10/09/17 02:12 75 98 25 10/09/17 02:00 77 30 137/94 (108) 98 BiPAP 25 10/09/17 00:01 37.1 76 28 141/98 (112) 98 BiPAP 25 10/08/17 23:59 97 BiPAP 25 10/08/17 23:08 76 98 25 10/08/17 22:00 83 34 119/82 (94) 94 Nasal Cannula 2.0 10/08/17 20:00 37.1 81 34 127/91 (103) 96 Nasal Cannula 2.0 10/08/17 20:00 96 Nasal Cannula 2.0 10/08/17 18:00 86 22 132/101 (111) 97 Nasal Cannula 4.0 140/94 (109) 10/08/17 16:00 36.1 72 20 138/95 (109) 95 Nasal Cannula 4.0 144/97 (113) 10/08/17 16:00 95 Nasal Cannula 4.0 Laboratory Results: Last 24 Hours Test 10/08/17 18:13 10/08/17 21:49 10/09/17 02:17 10/09/17 05:50 Bedside Glucose 208 mg/dl 167 mg/dl 201 mg/dl White Blood Count 5.60 K/uL Red Blood Count 4.41 M/uL Hemoglobin 12.6 g/dL Hematocrit 38.2 % Mean Corpuscular Volume 86.6 fL Mean Corpuscular Hemoglobin 28.6 pg Mean Corpuscular Hemoglobin Concent 33.0 g/dl RDW Standard Deviation 43.3 fL RDW Coefficient of Variation 13.7 % Platelet Count 162 K/uL Mean Platelet Volume 9.8 fL Sodium Level 152 mmol/L Potassium Level 3.5 mmol/L Chloride Level 123 mmol/L Carbon Dioxide Level 23 mmol/L Anion Gap 6.0 mmol/L Blood Urea Nitrogen 9 mg/dl Creatinine 0.84 mg/dl Est Creatinine Clear Calc Drug Dose 103.2 ml/min Estimated GFR () 112.0 Estimated GFR (Non- 96.6 BUN/Creatinine Ratio 10.9 Random Glucose 231 mg/dl Calcium Level 8.2 mg/dl Phosphorus Level 2.0 mg/dl Magnesium Level 1.8 mg/dl Total Bilirubin 0.3 mg/dl Aspartate Amino Transf (AST/SGOT) 25 U/L Alanine Aminotransferase (ALT/SGPT) 17 U/L Alkaline Phosphatase 136 U/L Total Protein 6.1 gm/dl Albumin 2.2 gm/dl Globulin 3.9 gm/dl Albumin/Globulin Ratio 0.6 Test 10/09/17 10:01 Bedside Glucose 247 mg/dl
[2017-10-09 16:34] LABS: ALBUMIN 2.2 gm/dl (3.4-5.0); ALT/SGPT 17 U/L (12-78); BLOOD UREA NITROGEN 8 mg/dl (7-18); CALCIUM 8.1 mg/dl (8.5-10.1); CARBON DIOXIDE 22 mmol/L (21-32); CREATININE 0.84 mg/dl (0.60-1.20); GLUCOSE 270 mg/dl (70-99); POTASSIUM 3.4 mmol/L (3.5-5.1); SODIUM 150 mmol/L (136-145)
[2017-10-09 16:39] LABS: ALKALINE PHOSPHATASE 120 U/L (45-117); AST/SGOT 19 U/L (15-37); CKMB 1.2 ng/ml (0.5-3.6); PHOSPHORUS 2.1 mg/dl (2.5-4.9)
[2017-10-09] MEDS ORDERED: ONDANSETRON INJ 2 MG/ML 2 ML VIAL ONE (21:22)
[2017-10-10] VITALS (17 sets, daily range): BP systolic 116–155; BP diastolic 68–109; PULSE 53–93; TEMP 37.4–38.2; O2SAT 92–99
[2017-10-10] MEDS: D5W AND 1/4NSS + 20MEQ KCL 1,000 ML IV SCH ×2 (01:02→05:06)
[2017-10-10] MEDS ORDERED: OLANZAPINE 10 MG/2.1 ML SDV IM STA (01:29)
[2017-10-10] MEDS ORDERED: NURSING VERBAL MED ORDER ONE ×2 (01:30→20:45)
[2017-10-10] MEDS: DexMEDEtomidine HCL IV 400 MCG in SODIUM CHLORIDE 0.9% 100ML 96 ML IV PRN (02:17)
[2017-10-10] MEDS: HEPARIN SOD 5000 UNIT/0.5 ML CARP SQ SCH (05:07)
[2017-10-10 05:58] LABS: HEMATOCRIT 34.3 % (37-47); HEMOGLOBIN 11.6 g/dL (12.0-16.0); MEAN CORPUSCULAR HEMOGLOBIN 29.1 pg (25-34); MEAN CORPUSCULAR HGB CONC 33.8 g/dl (32-36); MEAN PLATELET VOLUME 10.2 fL (7.4-10.4); PLATELET COUNT 101 K/uL (130-400); RED CELL DISTRIBUTION WIDTH CV 13.2 % (11.5-14.5); WHITE BLOOD COUNT 6.27 K/uL (4.8-10.8)
[2017-10-10 06:17] LABS: ALBUMIN 2.3 gm/dl (3.4-5.0); CALCIUM 7.8 mg/dl (8.5-10.1); CREATININE 0.67 mg/dl (0.60-1.20); POTASSIUM 3.3 mmol/L (3.5-5.1)
[2017-10-10 06:20] LABS: PHOSPHORUS 1.7 mg/dl (2.5-4.9); TOTAL PROTEIN 5.9 gm/dl (6.4-8.2)
[2017-10-10] MEDS ORDERED: INSULIN PROTOCOL GOAL RANGE ONE (07:15)
[2017-10-10] MEDS: INSULIN ASPART 100 UNITS/ML 3 ML PEN SC SCH ×4 (07:56→21:00)
[2017-10-10] MEDS ORDERED: POTASSIUM PHOS 3 MMOL/1 ML INFUSION IV STA ×2 (08:14→18:21)
[2017-10-10] MEDS ORDERED: OXYCODONE HCL IR 5 MG TAB (IMMEDIATE RELEASE) NG PRN (08:15)
[2017-10-10] MEDS ORDERED: ICU ELECTROLYTE REPLACEMENT PROTOCOL PRN (08:15)
[2017-10-10] MEDS ORDERED: POTASSIUM PHOSPHATE INJ 15 MMOL in SODIUM CHLORIDE 0.9% 250ML 250 ML IV ONE ×2 (08:30→18:45)
[2017-10-10] MEDS: D5W NORMOSOL-R 1,000 ML IV SCH ×2 (08:33→18:37)
[2017-10-10] MEDS: MAGNESIUM SULFATE 1GM / D5W 1 GM in PREMIXED IN D5W 100 ML IV SCH ×2 (08:34→09:53)
[2017-10-10] MEDS: PANTOprazole INJ 40 MG in SYRINGE 0 ML IV SCH (08:37)
[2017-10-10] MEDS ORDERED: INSULIN GLARGINE SOLOSTAR 100 UNITS/ML 3 ML PEN SC SCH (09:00)
--- NOTE | 2017-10-10 11:55 | Neurology Progress Notes ---
Neurology Progress Note Date of Service Oct 10, 2017. Subjective Patient has not received any benzodiazepines over the last 24 hours. 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 But still is very confused and sedated. CBC and Chem profile were largely unremarkable. Nursing reports no seizures or other unusual activity Objective Date Time Temp Pulse Resp B/P (MAP) Pulse Ox O2 Delivery O2 Flow Rate FiO2 10/10/17 10:00 72 136/83 (100) 96 10/10/17 08:00 37.5 53 117/95 (102) 94 Nasal Cannula 2.0 10/10/17 08:00 Nasal Cannula 2.0 10/10/17 05:00 82 140/85 (103) 97 10/10/17 04:00 Nasal Cannula 2.0 10/10/17 04:00 38.2 72 30 133/77 (95) 92 Nasal Cannula 2.0 10/10/17 03:00 93 145/88 (107) 96 10/10/17 02:00 88 28 121/95 (104) 92 Nasal Cannula 2.0 143/104 (117) 10/10/17 01:00 89 131/109 (116) 96 10/10/17 00:01 38.2 92 26 123/87 (99) 95 Nasal Cannula 2.0 116/103 (107) 10/09/17 23:59 Nasal Cannula 2.0 10/09/17 23:00 96 151/138 (142) 97 10/09/17 22:01 37.2 102 28 134/93 (107) 97 Nasal Cannula 2.0 132/84 (100) 10/09/17 21:00 70 137/80 (99) 89 10/09/17 20:00 38.2 86 26 131/105 (114) 98 Nasal Cannula 2.0 131/105 (114) 10/09/17 20:00 Nasal Cannula 2.0 10/09/17 19:00 91 136/87 (103) 100 Nasal Cannula 2.0 10/09/17 18:00 95 28 143/94 (110) 99 Nasal Cannula 2.0 10/09/17 17:00 76 26 143/92 (109) 95 Nasal Cannula 2.0 10/09/17 16:00 97 Nasal Cannula 2.0 10/09/17 16:00 37.2 70 139/95 (110) 97 10/09/17 14:00 103 28 140/95 (110) 95 Nasal Cannula 2.0 10/09/17 13:00 77 135/91 (106) 93 Nasal Cannula 2.0 10/09/17 12:00 98 Nasal Cannula 2.0 10/09/17 12:00 37.1 84 24 135/94 (108) 98 Nasal Cannula 2.0 Last 24 Hours Test 10/09/17 13:53 10/09/17 16:02 10/09/17 17:43 10/09/17 19:23 Bedside Glucose 226 mg/dl 153 mg/dl 211 mg/dl Sodium Level 150 mmol/L Potassium Level 3.4 mmol/L Chloride Level 120 mmol/L Carbon Dioxide Level 22 mmol/L Anion Gap 8.0 mmol/L Blood Urea Nitrogen 8 mg/dl Creatinine 0.84 mg/dl Est Creatinine Clear Calc Drug Dose 103.2 ml/min Estimated GFR () 112.0 Estimated GFR (Non- 96.6 BUN/Creatinine Ratio 9.2 Random Glucose 270 mg/dl Calcium Level 8.1 mg/dl Phosphorus Level 2.1 mg/dl Magnesium Level 1.6 mg/dl Total Bilirubin 0.3 mg/dl Aspartate Amino Transf (AST/SGOT) 19 U/L Alanine Aminotransferase (ALT/SGPT) 17 U/L Alkaline Phosphatase 120 U/L Creatine Kinase MB 1.2 ng/ml Creatine Kinase MB Ratio Troponin I 0.043 ng/ml Total Protein 6.0 gm/dl Albumin 2.2 gm/dl Globulin 3.8 gm/dl Albumin/Globulin Ratio 0.6 Test 10/09/17 20:15 10/09/17 21:37 10/09/17 22:39 10/10/17 00:37 Bedside Glucose 229 mg/dl 239 mg/dl 229 mg/dl 223 mg/dl Test 10/10/17 02:23 10/10/17 04:53 10/10/17 05:34 10/10/17 07:50 Bedside Glucose 243 mg/dl 226 mg/dl 224 mg/dl White Blood Count 6.27 K/uL Red Blood Count 3.99 M/uL Hemoglobin 11.6 g/dL Hematocrit 34.3 % Mean Corpuscular Volume 86.0 fL Mean Corpuscular Hemoglobin 29.1 pg Mean Corpuscular Hemoglobin Concent 33.8 g/dl RDW Standard Deviation 42.0 fL RDW Coefficient of Variation 13.2 % Platelet Count 101 K/uL Mean Platelet Volume 10.2 fL Sodium Level 146 mmol/L Potassium Level 3.3 mmol/L Chloride Level 116 mmol/L Carbon Dioxide Level 25 mmol/L Anion Gap 5.0 mmol/L Blood Urea Nitrogen 6 mg/dl Creatinine 0.67 mg/dl Est Creatinine Clear Calc Drug Dose 129.4 ml/min Estimated GFR () 141.6 Estimated GFR (Non- 122.2 BUN/Creatinine Ratio 8.7 Random Glucose 215 mg/dl Calcium Level 7.8 mg/dl Phosphorus Level 1.7 mg/dl Magnesium Level 1.5 mg/dl Total Bilirubin 0.6 mg/dl Aspartate Amino Transf (AST/SGOT) 43 U/L Alanine Aminotransferase (ALT/SGPT) 24 U/L Alkaline Phosphatase 112 U/L Total Protein 5.9 gm/dl Albumin 2.3 gm/dl Globulin 3.6 gm/dl Albumin/Globulin Ratio 0.6 Test 10/10/17 09:39 Heparin-PF4 Antibody Screen POS Exam: She is lying in bed with her eyes closed spontaneously moving all limbs. She is moaning and attempting to speak. She spontaneously opened her eyes bilaterally. With voice she did make some eye contact briefly at times only. Extraocular eye muscles seem intact without dysconjugate gaze. Pupils seem 4 millimeters and reactive. She has no facial droop. I could get her to speak a few words and simple sentences at times. Other times she was somewhat dysarthric in her speech. It seemed to me, that she refused to follow one-step commands. Motor strength is 5/5 symmetrically in all 4 limbs. Toes are downgoing with plantar stimulation bilaterally. Current Inpatient Medications Medications (Trade) Dose Ordered Sig/Cary Route Start Time Stop Time Status Last Admin Dose Admin Pantoprazole Sodium 40 mg/ Syringe 10 ml @ 5 mls/min DAILY@0900 IV 10/07/17 16:00 11/06/17 15:59 10/10/17 08:37 5 MLS/MIN Insulin Aspart (novoLOG ASPART) SLIDING SCALE [facility] SC 10/07/17 17:15 11/06/17 17:14 Miscellaneous Information (Consult Glycemic Management Pharmacy) 1 ea UD PRN N/A 10/07/17 12:00 11/06/17 11:59 Insulin Human Regular 250 units/ Sodium Chloride 252.5 ml @ 0 mls/hr Q24H IV 10/07/17 12:30 11/06/17 12:29 10/09/17 12:36 1.5 MLS/HR Glucose (Glucose 40% Gel) 15-30 GRAMS 15 GRAMS... UD PRN PO 10/07/17 12:30 11/06/17 12:29 Glucose (Glucose Chew Tab) 4-8 Tablets 4 Tabl... UD PRN PO 10/07/17 12:30 11/06/17 12:29 Dextrose (Dextrose 50% 50ML Syringe) 25-50ML OF 50% DW IV FOR... UD PRN IV 10/07/17 12:30 11/06/17 12:29 10/08/17 05:09 50 ML Glucagon (Glucagon Inj) 1 mg UD PRN SQ 10/07/17 12:30 11/06/17 12:29 Heparin Sodium (Porcine) (Heparin 10 Unit/ ml 5 ml Flush) 5 ml PRN PRN FLUSH 10/07/17 23:45 11/06/17 23:44 Dexmedetomidine HCl 400 mcg/ Sodium Chloride 100 ml @ 0 mls/hr Q0M PRN IV 10/08/17 09:00 10/12/17 08:59 10/10/17 02:17 1.2 MLS/HR Haloperidol Lactate (Haldol Inj) 5 mg Q8H PRN IV 10/09/17 09:30 11/08/17 09:29 10/09/17 20:34 5 MG Insulin Glargine (Lantus Solostar Pen) 20 units Q24H SC 10/10/17 09:00 11/09/17 08:59 10/10/17 08:35 20 UNITS Miscellaneous Information ( [facility] Electrolyte Replacement Protocol) 1 ea per protocol PRN N/A 10/10/17 08:15 10/17/17 08:14 Oxycodone HCl (Roxicodone Immediate Rel Tab) 5 mg Q4H PRN NG 10/10/17 08:15 10/24/17 08:14 10/10/17 08:33 5 MG Parenteral Electrolyte Rebecca/ Dextrose 1,000 ml @ 100 mls/hr Q10H IV 10/10/17 08:15 11/09/17 08:14 10/10/17 08:33 100 MLS/HR Impression 1. Acute, severe encephalopathy on the background of severe diabetic ketoacidosis Overall, she is significantly improved neurologically compared to yesterday. She still has encephalopathy however. She has received a number of medications including phenobarbital (which has a very long half life, and can last days in her system). In addition, Precedex can give sedation and agitation. She was on an Ativan drip for 2 days at 4 milligrams/hour. This was only stopped this morning. I suspect that she is continuing to be obtunded because of the multiple medications to be given to her to decrease her agitation. In addition she had significant metabolic and other abnormalities some of which are markedly improved and others are still abnormal. She has no fever or meningeal signs. She has no focal neurologic findings or anything to suggest a central nervous system insult such as stroke. 2. History of migraine headaches 3. History of fibromyalgia on opiates. She might have been having some withdrawal symptoms that she should be improvement with this over the next several days. Plan 1. For now, I recommend tapering off sedating medicines, including Precedex, as much as possible and using physical restraints as needed. She should not have the any sedation with neuroleptics. 2. I see no need for additional neurologic testing at this time including no need for LP or imaging studies. 3. We will follow closely and make additional recommendations pending her clinical course. I spoke with Dr. Chavez regarding her case this morning.
[2017-10-10] MEDS ORDERED: OXYCODONE HCL SOLN 5 MG/5 ML UDC NG PRN (12:30)
[2017-10-10] MEDS ORDERED: OXYCODONE HCL SOLN 5 MG/5 ML UDC PO PRN (12:30)
[2017-10-10] MEDS ORDERED: LEVO50TA6 PO (12:47)
[2017-10-10] MEDS ORDERED: MORP-157 PO (12:47)
[2017-10-10] MEDS ORDERED: OXYC1TAB3 PO (12:47)
[2017-10-10] MEDS ORDERED: DULO60CA44 PO (12:47)
[2017-10-10] MEDS ORDERED: PREG1CAP70 PO (12:47)
[2017-10-10] MEDS ORDERED: FRS/40 PO (12:51)
[2017-10-10] MEDS ORDERED: PANT40TA PO (12:51)
[2017-10-10] MEDS ORDERED: INSPMPHMLG (12:51)
[2017-10-10] MEDS: INSULIN REGULAR 250 UNITS in SODIUM CHLORIDE 0.9% 250ML 250 ML IV SCH (13:17)
[2017-10-10] MEDS: OXYCODONE HCL SOLN 5 MG/5 ML UDC NG SCH ×2 (13:39→21:22)
--- NOTE | 2017-10-10 13:48 | Pharmacy Progress Note ---
Glycemic Control Progress Note Date of Service Oct 10, 2017. Scope Glycemic Pharmacist consulted for glycemic control to write orders per [facility] inpatient glycemic control protocol. Objective Accuchecks BSG (last 24hrs): Test 10/09/17 13:53 10/09/17 16:02 10/09/17 17:43 10/09/17 19:23 Bedside Glucose 226 mg/dl (70-90) 153 mg/dl (70-90) 211 mg/dl (70-90) Random Glucose 270 mg/dl (70-99) Test 10/09/17 20:15 10/09/17 21:37 10/09/17 22:39 10/10/17 00:37 Bedside Glucose 229 mg/dl (70-90) 239 mg/dl (70-90) 229 mg/dl (70-90) 223 mg/dl (70-90) Test 10/10/17 02:23 10/10/17 04:53 10/10/17 05:34 10/10/17 07:50 Bedside Glucose 243 mg/dl (70-90) 226 mg/dl (70-90) 224 mg/dl (70-90) Random Glucose 215 mg/dl (70-99) HbA1c: Test 10/07/17 12:46 Hemoglobin A1c 11.7 % (4.5-5.6) H Recent Pertinent Medications Outpatient Anti-diabetic Regimen: * Insulin pump settings (Humalog): * Basal: 1unit/hr x 24 hrs * Goal Range: 120-130mg/dL * CF: 32mg/dL/unit * Carb ratio: 1unit per 9gm CHO 5363-4963; 1unit per 8.5gm CHO 2223-7680 * Total daily insulin requirements: 35-50 units/day * A1c = 11.7 % 10/07/17 Risk Factors for Insulin Resistance: * IVF: [id number] @ 100cc/hr * Diet: NPO Assessment & Plan ASSESSMENT: 10/07/17 * Type 1 diabetic transferred from LT[facility] late this AM secondary to delirium, metabolic encephalopathy, possible sepsis, severe DKA * It has been reported that patient had run out of insulin pump supplies ~3 days ago and had been self-managing with SQ injections instead * BSGs reported to be up to 900 at [facility], [facility], and severely acidotic there with a reported pH of 6.8 * Initially managed aggressive fluid resuscitation 4L NS given at [facility], [facility], insulin infusion also initiated at LT[facility], [facility] prior to transfer * First round of labs here has shown improved metabolic acidosis, AG has already closed, however pt is hypernatremic likely secondary to NS boluses and bicarb administration at LT[facility], [facility]. Curious as to what pt's initial Na and effective serum osmo was at LTAC, [facility] as we would not want to shift serum osmo too rapidly. 10/08/17 * Patient remains on IV insulin infusion at this time * BSGs are within goal range (190's) on a stable rate of 1.5units/hr * She has dextrose containing IVF's at this time to maintain IV insulin infusion while NPO * Renal fxn improving, AG metabolic acidosis resolved, hyperchloremia and hypernatremia continue however more free water being given today * If patient's mental status improves and she is able to eat later today, we can consider transitioning to SQ basal/bolus regimen. 10/09/17 * Patient remains on IV insulin infusion at this time * Insulin infusion rates stable @1.5 units/hr * Patient's encephalopathy has not resolved; BSG's within current goal range 150 -250mg/dL despite increased IV dextrose provision in attempts to provide more free water to correct hypernatremia. Normally I would want to reduce the BSG further to the 140-180 range, however given hyperosmolar state and falling Na would not want to drop osmo too quickly. AG and bicarb remain normalized. 10/10/17 * Patient remains on IV insulin infusion at this time * Lantus added yesterday in order to have some basal insulin on board to make transition to SQ regimen easier in the future * Insulin infusion rates dropping now that some basal insulin on board, also dropping secondary to less dextrose IV administration now that hypernatremia resolving infusion rates are lower. Infusion rate decreased to 1.1units/hr as of this AM * Patient remains NPO secondary to encephalopathy, however patient's mental status improving today. Forming sentences and interacting with family this afternoon. Perhaps she will be ready to begin oral diet and transition off the insulin drip in the next 24 hrs. * Will lower the insulin drip goal range to bring BSGs below 200 now that encephalopathy improving and Na nearing normal * Will also increase the amount of Lantus given in attempts to allow for smoother transition to SQ PLAN FOR INPATIENT GLYCEMIC CONTROL: * Continue IV insulin infusion due to continued NPO status, however change goal range 120 - 200mg/dL. * Would not transition this patient to a SQ regimen until more clinically stable and able to tolerate PO intake * Dextrose containing IVF's should continue while NPO to allow for continued IV insulin provision. * Increase Lantus to 24 units SQ daily. Received 20 units SQ this AM, will give additional 4 units SQ x 1 now. Continue to administer the insulin drip with the Lantus on board. * Please note that the plan above was derived based on current level of insulin resistance and hospital stress. These recommendations are appropriate for inpatient admission only. Plan of care upon discharge will need to be reassessed to avoid potential outpatient hypo/hyperglycemia. Thank you.
[2017-10-10] MEDS ORDERED: INSULIN GLARGINE SOLOSTAR 100 UNITS/ML 3 ML PEN SC ONE (14:00)
--- NOTE | 2017-10-10 14:08 | Critical Care Progress Note ---
Critical Care Progress Note Date of Service Oct 10, 2017. Attending Dr. Chavez Subjective Still agitated, screaming periodically. However, she appears more active today, occasionally forming words and short sentences. Objective General Appearance: WD/WN, other Head: normocephalic, atraumatic Eyes: PERRLA Neck: normal range of motion, no tenderness, supple, no nuchal rigidity Respiratory: breath sounds normal, clear to auscultation Cardiovascular: regular rate/rhythm, normal S1S2 Abdomen: non tender, no rebound Upper Extremities: no edema. Lower Extremities: no edema. Neuro: Moves all four extremities, screaming periodically, occasionally saying words (such as "leave me alone") Assessment & Plan 27 year old female presents with DKA secondary to non-compliance. Toxic-metabolic encephalopathy, secondary to DKA, transient hyperammonemia, withdrawal from narcotics. Also possible lingering effect of the sedatives that she received so far Doubt infectious process, I seriously doubt meningitic process given history and clinical exam. Thrombocytopenia Plan: DKA resolved. IV fluids, start Normosol today, hyponatremia improved significantly Insulin drip. Troponin trending down, I really doubt ACS, most likely increased demand. Agitated delirium persists, although it is getting better. Keep off benzos. Start oxycodone immediate release 5 mg q 8. At home she takes 5 mg 4 times daily , plus MS Contin 15 mg bid. Also resume Lyrica at lower dose, 75 mg tid, at home she takes 150 mg tid Continue Precedex drip Allow more time to pass before repeating imaging. She has no focal deficit, displays purposeful movements sometimes. Neurology follow up appreciated. Continue to monitor for the time being Monitor off antibiotics, no evidence of sepsis Blood cultures negative to date Procalcitonin barely elevated Developing thrombocytopenia. Hold heparin, check HIT antibodies DVT prophylaxis: Hold Heparin secondary to thrombocytopenia. She does not tolerate any form of mechanical prophylaxis Critical care time spent with the patient, reviewing chart, discussing with consultants, greater than 35 minutes Consults & Procedures Consultants: Neuro - Dr Thao Procedures: 10/07 - right axillary a-line Data Medications: Current Inpatient Medications Medications (Trade) Dose Ordered Sig/Cary Route Start Time Stop Time Status Last Admin Dose Admin Pantoprazole Sodium 40 mg/ Syringe 10 ml @ 5 mls/min DAILY@0900 IV 10/07/17 16:00 11/06/17 15:59 10/10/17 08:37 5 MLS/MIN Insulin Aspart (novoLOG ASPART) SLIDING SCALE [facility] SC 10/07/17 17:15 11/06/17 17:14 Miscellaneous Information (Consult Glycemic Management Pharmacy) 1 ea UD PRN N/A 10/07/17 12:00 11/06/17 11:59 Insulin Human Regular 250 units/ Sodium Chloride 252.5 ml @ 0 mls/hr Q24H IV 10/07/17 12:30 11/06/17 12:29 10/09/17 12:36 1.5 MLS/HR Glucose (Glucose 40% Gel) 15-30 GRAMS 15 GRAMS... UD PRN PO 10/07/17 12:30 11/06/17 12:29 Glucose (Glucose Chew Tab) 4-8 Tablets 4 Tabl... UD PRN PO 10/07/17 12:30 11/06/17 12:29 Dextrose (Dextrose 50% 50ML Syringe) 25-50ML OF 50% DW IV FOR... UD PRN IV 10/07/17 12:30 11/06/17 12:29 10/08/17 05:09 50 ML Glucagon (Glucagon Inj) 1 mg UD PRN SQ 10/07/17 12:30 11/06/17 12:29 Heparin Sodium (Porcine) (Heparin 10 Unit/ ml 5 ml Flush) 5 ml PRN PRN FLUSH 10/07/17 23:45 11/06/17 23:44 Dexmedetomidine HCl 400 mcg/ Sodium Chloride 100 ml @ 0 mls/hr Q0M PRN IV 10/08/17 09:00 10/12/17 08:59 10/10/17 02:17 1.2 MLS/HR Haloperidol Lactate (Haldol Inj) 5 mg Q8H PRN IV 10/09/17 09:30 11/08/17 09:29 10/09/17 20:34 5 MG Insulin Glargine (Lantus Solostar Pen) 20 units Q24H SC 10/10/17 09:00 11/09/17 08:59 10/10/17 08:35 20 UNITS Miscellaneous Information ( [facility] Electrolyte Replacement Protocol) 1 ea per protocol PRN N/A 10/10/17 08:15 10/17/17 08:14 Parenteral Electrolyte Rebecca/ Dextrose 1,000 ml @ 100 mls/hr Q10H IV 10/10/17 08:15 11/09/17 08:14 10/10/17 08:33 100 MLS/HR Oxycodone HCl (Roxicodone Soln) 5 mg Q4H PRN NG 10/10/17 12:30 10/24/17 12:29 Vital Signs: Date Time Temp Pulse Resp B/P (MAP) Pulse Ox O2 Delivery O2 Flow Rate FiO2 10/10/17 10:00 72 136/83 (100) 96 10/10/17 08:00 37.5 53 117/95 (102) 94 Nasal Cannula 2.0 10/10/17 08:00 Nasal Cannula 2.0 10/10/17 05:00 82 140/85 (103) 97 10/10/17 04:00 Nasal Cannula 2.0 10/10/17 04:00 38.2 72 30 133/77 (95) 92 Nasal Cannula 2.0 10/10/17 03:00 93 145/88 (107) 96 10/10/17 02:00 88 28 121/95 (104) 92 Nasal Cannula 2.0 143/104 (117) 10/10/17 01:00 89 131/109 (116) 96 10/10/17 00:01 38.2 92 26 123/87 (99) 95 Nasal Cannula 2.0 116/103 (107) 10/09/17 23:59 Nasal Cannula 2.0 10/09/17 23:00 96 151/138 (142) 97 10/09/17 22:01 37.2 102 28 134/93 (107) 97 Nasal Cannula 2.0 132/84 (100) 10/09/17 21:00 70 137/80 (99) 89 10/09/17 20:00 38.2 86 26 131/105 (114) 98 Nasal Cannula 2.0 131/105 (114) 10/09/17 20:00 Nasal Cannula 2.0 10/09/17 19:00 91 136/87 (103) 100 Nasal Cannula 2.0 10/09/17 18:00 95 28 143/94 (110) 99 Nasal Cannula 2.0 10/09/17 17:00 76 26 143/92 (109) 95 Nasal Cannula 2.0 10/09/17 16:00 97 Nasal Cannula 2.0 10/09/17 16:00 37.2 70 139/95 (110) 97 Laboratory Results: Last 24 Hours Test 10/09/17 16:02 10/09/17 17:43 10/09/17 19:23 10/09/17 20:15 Sodium Level 150 mmol/L Potassium Level 3.4 mmol/L Chloride Level 120 mmol/L Carbon Dioxide Level 22 mmol/L Anion Gap 8.0 mmol/L Blood Urea Nitrogen 8 mg/dl Creatinine 0.84 mg/dl Est Creatinine Clear Calc Drug Dose 103.2 ml/min Estimated GFR () 112.0 Estimated GFR (Non- 96.6 BUN/Creatinine Ratio 9.2 Random Glucose 270 mg/dl Calcium Level 8.1 mg/dl Phosphorus Level 2.1 mg/dl Magnesium Level 1.6 mg/dl Total Bilirubin 0.3 mg/dl Aspartate Amino Transf (AST/SGOT) 19 U/L Alanine Aminotransferase (ALT/SGPT) 17 U/L Alkaline Phosphatase 120 U/L Creatine Kinase MB 1.2 ng/ml Creatine Kinase MB Ratio Troponin I 0.043 ng/ml Total Protein 6.0 gm/dl Albumin 2.2 gm/dl Globulin 3.8 gm/dl Albumin/Globulin Ratio 0.6 Bedside Glucose 153 mg/dl 211 mg/dl 229 mg/dl Test 10/09/17 21:37 10/09/17 22:39 10/10/17 00:37 10/10/17 02:23 Bedside Glucose 239 mg/dl 229 mg/dl 223 mg/dl 243 mg/dl Test 10/10/17 04:53 10/10/17 05:34 10/10/17 07:50 10/10/17 09:39 Bedside Glucose 226 mg/dl 224 mg/dl White Blood Count 6.27 K/uL Red Blood Count 3.99 M/uL Hemoglobin 11.6 g/dL Hematocrit 34.3 % Mean Corpuscular Volume 86.0 fL Mean Corpuscular Hemoglobin 29.1 pg Mean Corpuscular Hemoglobin Concent 33.8 g/dl RDW Standard Deviation 42.0 fL RDW Coefficient of Variation 13.2 % Platelet Count 101 K/uL Mean Platelet Volume 10.2 fL Sodium Level 146 mmol/L Potassium Level 3.3 mmol/L Chloride Level 116 mmol/L Carbon Dioxide Level 25 mmol/L Anion Gap 5.0 mmol/L Blood Urea Nitrogen 6 mg/dl Creatinine 0.67 mg/dl Est Creatinine Clear Calc Drug Dose 129.4 ml/min Estimated GFR () 141.6 Estimated GFR (Non- 122.2 BUN/Creatinine Ratio 8.7 Random Glucose 215 mg/dl Calcium Level 7.8 mg/dl Phosphorus Level 1.7 mg/dl Magnesium Level 1.5 mg/dl Total Bilirubin 0.6 mg/dl Aspartate Amino Transf (AST/SGOT) 43 U/L Alanine Aminotransferase (ALT/SGPT) 24 U/L Alkaline Phosphatase 112 U/L Total Protein 5.9 gm/dl Albumin 2.3 gm/dl Globulin 3.6 gm/dl Albumin/Globulin Ratio 0.6 Heparin-PF4 Antibody Screen POS
[2017-10-10] MEDS: LEVOTHYROXINE 50 MCG TAB NG SCH (14:20)
[2017-10-10] MEDS: PREGABALIN 75 MG CAP NG SCH ×2 (14:25→21:21)
--- NOTE | 2017-10-10 15:19 | Progress Note ---
Subjective Date of Service: Oct 10, 2017. Subjective pt responds to pain with crying out and withdrawing, she does not awaken or follow commands for me but does have some purposeful movements and appropriate guarding Review of Systems Constitutional: + problem reported (pts state prevents full ROS), No fever Objective Vital Signs Date Time Temp Pulse Resp B/P (MAP) Pulse Ox O2 Delivery O2 Flow Rate FiO2 10/10/17 14:00 86 128/94 (105) 99 Nasal Cannula 2.0 10/10/17 12:01 60 140/68 (92) 96 10/10/17 12:00 Nasal Cannula 2.0 10/10/17 12:00 37.6 60 140/68 (92) 96 Nasal Cannula 2.0 10/10/17 10:00 72 136/83 (100) 96 10/10/17 08:00 37.5 53 117/95 (102) 94 Nasal Cannula 2.0 10/10/17 08:00 Nasal Cannula 10/10/17 08:00 Nasal Cannula 2.0 10/10/17 05:00 82 140/85 (103) 97 10/10/17 04:00 Nasal Cannula 2.0 10/10/17 04:00 38.2 72 30 133/77 (95) 92 Nasal Cannula 2.0 10/10/17 03:00 93 145/88 (107) 96 10/10/17 02:00 88 28 121/95 (104) 92 Nasal Cannula 2.0 143/104 (117) 10/10/17 01:00 89 131/109 (116) 96 10/10/17 00:01 38.2 92 26 123/87 (99) 95 Nasal Cannula 2.0 116/103 (107) 10/09/17 23:59 Nasal Cannula 2.0 10/09/17 23:00 96 151/138 (142) 97 10/09/17 22:01 37.2 102 28 134/93 (107) 97 Nasal Cannula 2.0 132/84 (100) 10/09/17 21:00 70 137/80 (99) 89 10/09/17 20:00 38.2 86 26 131/105 (114) 98 Nasal Cannula 2.0 131/105 (114) 10/09/17 20:00 Nasal Cannula 2.0 10/09/17 19:00 91 136/87 (103) 100 Nasal Cannula 2.0 10/09/17 18:00 95 28 143/94 (110) 99 Nasal Cannula 2.0 10/09/17 17:00 76 26 143/92 (109) 95 Nasal Cannula 2.0 10/09/17 16:00 97 Nasal Cannula 2.0 10/09/17 16:00 37.2 70 139/95 (110) 97 Physical Exam General Appearance: WD/WN, + moderate distress Eyes: normal inspection, sclerae normal Neck: supple, no JVD Respiratory/Chest: chest non-tender, lungs clear, normal breath sounds Cardiovascular: regular rate, rhythm, no murmur Abdomen: normal bowel sounds, non tender, soft Extremities: no pedal edema, no calf tenderness Laboratory Results Last 24 Hours Test 10/09/17 16:02 10/09/17 17:43 10/09/17 19:23 10/09/17 20:15 Sodium Level 150 mmol/L Potassium Level 3.4 mmol/L Chloride Level 120 mmol/L Carbon Dioxide Level 22 mmol/L Anion Gap 8.0 mmol/L Blood Urea Nitrogen 8 mg/dl Creatinine 0.84 mg/dl Est Creatinine Clear Calc Drug Dose 103.2 ml/min Estimated GFR () 112.0 Estimated GFR (Non- 96.6 BUN/Creatinine Ratio 9.2 Random Glucose 270 mg/dl Calcium Level 8.1 mg/dl Phosphorus Level 2.1 mg/dl Magnesium Level 1.6 mg/dl Total Bilirubin 0.3 mg/dl Aspartate Amino Transf (AST/SGOT) 19 U/L Alanine Aminotransferase (ALT/SGPT) 17 U/L Alkaline Phosphatase 120 U/L Creatine Kinase MB 1.2 ng/ml Creatine Kinase MB Ratio Troponin I 0.043 ng/ml Total Protein 6.0 gm/dl Albumin 2.2 gm/dl Globulin 3.8 gm/dl Albumin/Globulin Ratio 0.6 Bedside Glucose 153 mg/dl 211 mg/dl 229 mg/dl Test 10/09/17 21:37 10/09/17 22:39 10/10/17 00:37 10/10/17 02:23 Bedside Glucose 239 mg/dl 229 mg/dl 223 mg/dl 243 mg/dl Test 10/10/17 04:53 10/10/17 05:34 10/10/17 07:50 10/10/17 09:39 Bedside Glucose 226 mg/dl 224 mg/dl White Blood Count 6.27 K/uL Red Blood Count 3.99 M/uL Hemoglobin 11.6 g/dL Hematocrit 34.3 % Mean Corpuscular Volume 86.0 fL Mean Corpuscular Hemoglobin 29.1 pg Mean Corpuscular Hemoglobin Concent 33.8 g/dl RDW Standard Deviation 42.0 fL RDW Coefficient of Variation 13.2 % Platelet Count 101 K/uL Mean Platelet Volume 10.2 fL Sodium Level 146 mmol/L Potassium Level 3.3 mmol/L Chloride Level 116 mmol/L Carbon Dioxide Level 25 mmol/L Anion Gap 5.0 mmol/L Blood Urea Nitrogen 6 mg/dl Creatinine 0.67 mg/dl Est Creatinine Clear Calc Drug Dose 129.4 ml/min Estimated GFR () 141.6 Estimated GFR (Non- 122.2 BUN/Creatinine Ratio 8.7 Random Glucose 215 mg/dl Calcium Level 7.8 mg/dl Phosphorus Level 1.7 mg/dl Magnesium Level 1.5 mg/dl Total Bilirubin 0.6 mg/dl Aspartate Amino Transf (AST/SGOT) 43 U/L Alanine Aminotransferase (ALT/SGPT) 24 U/L Alkaline Phosphatase 112 U/L Total Protein 5.9 gm/dl Albumin 2.3 gm/dl Globulin 3.6 gm/dl Albumin/Globulin Ratio 0.6 Heparin-PF4 Antibody Screen POS Test 10/10/17 11:44 10/10/17 13:52 10/10/17 14:42 Bedside Glucose 165 mg/dl 140 mg/dl 147 mg/dl Assessment and Plan 27 y/o female with a history of DM I, chronic pain, migraine, fibromyalgia, and hypothyroidism who presents from [facility] with DKA and altered mental status. DKA--pharmacy glycemic management is assisting Electrolyte replacement per ICU protocol Encephalopathy ? secondary likely to DKA, infectious issues not confirmed, outside hospitals suggested some metabolic issues since resolved, but still not improved mentation -Urine culture negative -Rocephin d/c'd -Leukocytosis resolved -Blood cultures NGTD -Neurology consulted. No further neurological testing or imaging at this time. recommend stopping BZD or other meds -Haldol 5 mg IV q8h prn agitation Elevated troponin--likely due to demand ischemia -Troponin trending down, peaked at 0.319 Hypernatremia, likely related to fluid depletion due to DKA--ongoing Acute renal failure--resolved Chronic pain, migraine, fibromyalgia -Pt takes Lyrica 150 mg PO TID, Cymbalta 60 mg PO qd, morphine sulfate 15 mg PO BID, oxycodone IR 5 mg PO QID per out pt records -UDS negative for opiates -previous physician Checked PDMP, pt has not filled oxycodone or morphine for several months Hypothyroidism Synthroid 50 mcg PO qd which is her typical dose DVT prophylaxis -Heparin 5000 units SC q8h Code Status -Level I, FULL RESUSCITATION STATUS
[2017-10-10 16:20] LABS: HEMATOCRIT 34.9 % (37-47); HEMOGLOBIN 11.6 g/dL (12.0-16.0); MEAN CELL VOLUME 85.7 fL (80-100); MEAN CORPUSCULAR HEMOGLOBIN 28.5 pg (25-34); MEAN CORPUSCULAR HGB CONC 33.2 g/dl (32-36); RED CELL DISTRIBUTION WIDTH CV 13.2 % (11.5-14.5); RED CELL DISTRIBUTION WIDTH SD 41.2 fL (36.4-46.3); WHITE BLOOD COUNT 5.68 K/uL (4.8-10.8)
[2017-10-10 16:40] LABS: BLOOD UREA NITROGEN 5 mg/dl (7-18); CALCIUM 7.9 mg/dl (8.5-10.1); CARBON DIOXIDE 27 mmol/L (21-32); CREATININE 0.56 mg/dl (0.60-1.20); GLUCOSE 185 mg/dl (70-99); POTASSIUM 3.1 mmol/L (3.5-5.1); SODIUM 146 mmol/L (136-145)
[2017-10-10 16:43] LABS: PLATELET COUNT 94 K/uL (130-400)
[2017-10-10 16:44] LABS: PHOSPHORUS 2.3 mg/dl (2.5-4.9)
[2017-10-10] MEDS ORDERED: ONDANSETRON INJ 2 MG/ML 2 ML VIAL ONE (20:38)
[2017-10-10] MEDS ORDERED: ONDANSETRON INJ 2 MG/ML 2 ML VIAL IV STA (20:49)
[2017-10-11] VITALS (15 sets, daily range): BP systolic 121–149; BP diastolic 74–102; PULSE 69–110; TEMP 36.9–38; O2SAT 94–98; BMI 24.3
[2017-10-11 05:13] LABS: HEMATOCRIT 35.3 % (37-47); HEMOGLOBIN 11.6 g/dL (12.0-16.0); MEAN CELL VOLUME 86.5 fL (80-100); MEAN CORPUSCULAR HEMOGLOBIN 28.4 pg (25-34); MEAN CORPUSCULAR HGB CONC 32.9 g/dl (32-36); MEAN PLATELET VOLUME 10.4 fL (7.4-10.4); PLATELET COUNT 101 K/uL (130-400); RED CELL DISTRIBUTION WIDTH SD 41.6 fL (36.4-46.3); WHITE BLOOD COUNT 5.98 K/uL (4.8-10.8)
[2017-10-11 05:36] LABS: CREATININE 0.6 mg/dl (0.60-1.20)
[2017-10-11 05:37] LABS: ALBUMIN 2.4 gm/dl (3.4-5.0); CALCIUM 7.9 mg/dl (8.5-10.1)
[2017-10-11 05:39] LABS: PHOSPHORUS 2.3 mg/dl (2.5-4.9); TOTAL PROTEIN 6.2 gm/dl (6.4-8.2)
[2017-10-11] MEDS: D5W NORMOSOL-R 1,000 ML IV SCH (06:05)
[2017-10-11] MEDS: LEVOTHYROXINE 50 MCG TAB NG SCH (06:05)
[2017-10-11] MEDS: OXYCODONE HCL SOLN 5 MG/5 ML UDC NG SCH ×2 (06:06→13:53)
[2017-10-11] MEDS ORDERED: NURSING VERBAL MED ORDER ONE ×3 (06:45→14:30)
[2017-10-11] MEDS ORDERED: POTASSIUM CHLORIDE 20 MEQ/15 ML UDC PO STA (06:48)
[2017-10-11] MEDS ORDERED: POTASSIUM CHLR 20MEQ / WTR IV STA (06:49)
[2017-10-11] MEDS ORDERED: POTASSIUM PHOSPHATE INJ 15 MMOL in SODIUM CHLORIDE 0.9% 250ML 250 ML IV ONE (07:00)
[2017-10-11] MEDS: INSULIN ASPART 100 UNITS/ML 3 ML PEN SC SCH ×4 (08:00→20:33)
[2017-10-11] MEDS: PANTOprazole INJ 40 MG in SYRINGE 0 ML IV SCH (08:33)
[2017-10-11] MEDS: PREGABALIN 75 MG CAP NG SCH ×3 (08:33→20:30)
[2017-10-11] MEDS ORDERED: INSULIN GLARGINE SOLOSTAR 100 UNITS/ML 3 ML PEN SC SCH (09:00)
--- NOTE | 2017-10-11 10:41 | Neurology Progress Notes ---
Neurology Progress Note Date of Service Oct 11, 2017. Subjective Patient is sitting up in a chair calm and conversant. She denies pain or headaches. She is weak or numb. She is slightly lightheaded with no significant vertigo. Nursing reports no new events or seizures. Objective Date Time Temp Pulse Resp B/P (MAP) Pulse Ox O2 Delivery O2 Flow Rate FiO2 10/11/17 10:00 90 20 138/79 (98) 94 Room Air 10/11/17 08:00 Room Air 10/11/17 08:00 37.6 89 16 121/83 (96) 95 Room Air 10/11/17 05:43 38.0 82 18 138/89 (105) 96 Room Air 10/11/17 04:00 Room Air 10/11/17 03:53 37.2 79 20 124/82 (96) 96 Room Air 10/11/17 03:00 110 140/80 (100) 10/11/17 02:00 92 18 129/74 (92) 98 Room Air 10/11/17 01:00 91 128/76 (93) 10/11/17 00:00 37.7 75 20 137/77 (97) 98 Room Air 10/10/17 23:59 Room Air 10/10/17 23:00 78 155/88 (110) 10/10/17 22:00 72 22 144/78 (100) 97 Nasal Cannula 2.0 10/10/17 21:00 77 145/86 (105) 10/10/17 20:00 37.6 91 20 148/96 (113) 99 Nasal Cannula 2.0 10/10/17 20:00 Nasal Cannula 2.0 10/10/17 18:00 69 22 131/76 (94) 97 Nasal Cannula 2.0 10/10/17 16:00 37.4 70 24 144/90 (108) 97 Nasal Cannula 2.0 10/10/17 16:00 Nasal Cannula 2.0 10/10/17 14:00 86 128/94 (105) 99 Nasal Cannula 2.0 10/10/17 12:01 60 140/68 (92) 96 10/10/17 12:00 Nasal Cannula 2.0 10/10/17 12:00 37.6 60 140/68 (92) 96 Nasal Cannula 2.0 Last 24 Hours Test 10/10/17 11:44 10/10/17 13:52 2/9/18 14:42 10/10/17 15:47 Bedside Glucose 165 mg/dl 140 mg/dl 147 mg/dl 160 mg/dl Test 10/10/17 16:09 10/10/17 17:41 10/10/17 19:49 10/10/17 20:48 White Blood Count 5.68 K/uL Red Blood Count 4.07 M/uL Hemoglobin 11.6 g/dL Hematocrit 34.9 % Mean Corpuscular Volume 85.7 fL Mean Corpuscular Hemoglobin 28.5 pg Mean Corpuscular Hemoglobin Concent 33.2 g/dl RDW Standard Deviation 41.2 fL RDW Coefficient of Variation 13.2 % Platelet Count 94 K/uL Mean Platelet Volume 10.0 fL Platelet Estimate DECREASED Sodium Level 146 mmol/L Potassium Level 3.1 mmol/L Chloride Level 114 mmol/L Carbon Dioxide Level 27 mmol/L Anion Gap 5.0 mmol/L Blood Urea Nitrogen 5 mg/dl Creatinine 0.56 mg/dl Est Creatinine Clear Calc Drug Dose 154.9 ml/min Estimated GFR () > 150.0 Estimated GFR (Non- 129.6 BUN/Creatinine Ratio 9.0 Random Glucose 185 mg/dl Calcium Level 7.9 mg/dl Phosphorus Level 2.3 mg/dl Magnesium Level 2.1 mg/dl Bedside Glucose 158 mg/dl 221 mg/dl 186 mg/dl Test 10/10/17 21:50 10/10/17 22:50 10/10/17 23:51 10/11/17 00:53 Bedside Glucose 213 mg/dl 247 mg/dl 232 mg/dl 207 mg/dl Test 10/11/17 01:43 10/11/17 02:41 10/11/17 03:37 10/11/17 04:46 Bedside Glucose 230 mg/dl 178 mg/dl 206 mg/dl 205 mg/dl Test 10/11/17 04:58 10/11/17 05:41 10/11/17 06:46 10/11/17 07:44 White Blood Count 5.98 K/uL Red Blood Count 4.08 M/uL Hemoglobin 11.6 g/dL Hematocrit 35.3 % Mean Corpuscular Volume 86.5 fL Mean Corpuscular Hemoglobin 28.4 pg Mean Corpuscular Hemoglobin Concent 32.9 g/dl RDW Standard Deviation 41.6 fL RDW Coefficient of Variation 13.0 % Platelet Count 101 K/uL Mean Platelet Volume 10.4 fL Sodium Level 144 mmol/L Potassium Level 3.0 mmol/L Chloride Level 108 mmol/L Carbon Dioxide Level 29 mmol/L Anion Gap 7.0 mmol/L Blood Urea Nitrogen 4 mg/dl Creatinine 0.60 mg/dl Est Creatinine Clear Calc Drug Dose 144.5 ml/min Estimated GFR () 146.8 Estimated GFR (Non- 126.7 BUN/Creatinine Ratio 7.0 Random Glucose 248 mg/dl Calcium Level 7.9 mg/dl Phosphorus Level 2.3 mg/dl Magnesium Level 2.1 mg/dl Total Bilirubin 0.8 mg/dl Aspartate Amino Transf (AST/SGOT) 68 U/L Alanine Aminotransferase (ALT/SGPT) 33 U/L Alkaline Phosphatase 123 U/L Total Protein 6.2 gm/dl Albumin 2.4 gm/dl Globulin 3.8 gm/dl Albumin/Globulin Ratio 0.6 Bedside Glucose 237 mg/dl 224 mg/dl 275 mg/dl Test 10/11/17 08:48 10/11/17 09:47 Bedside Glucose 277 mg/dl 242 mg/dl Exam: She is awake and alert. Speech is without aphasia or dysarthria. Mood is calm and affect is appropriate. She has little insight her memories to what happened except that she had multiple episodes of vomiting prior to coming to the hospital. She can do simple calculations, follow one-step commands, knew the day the month and the year. Extraocular eye muscles are intact without nystagmus. There is no facial droop. She is moving her limbs well with no ataxia or tremor. Strength is symmetrical. Stance is normal sitting in the chair. Current Inpatient Medications Medications (Trade) Dose Ordered Sig/Cary Route Start Time Stop Time Status Last Admin Dose Admin Pantoprazole Sodium 40 mg/ Syringe 10 ml @ 5 mls/min DAILY@0900 IV 10/07/17 16:00 11/06/17 15:59 10/11/17 08:33 5 MLS/MIN Insulin Aspart (novoLOG ASPART) SLIDING SCALE [facility] SC 10/07/17 17:15 11/06/17 17:14 Miscellaneous Information (Consult Glycemic Management Pharmacy) 1 ea UD PRN N/A 10/07/17 12:00 11/06/17 11:59 Insulin Human Regular 250 units/ Sodium Chloride 252.5 ml @ 0 mls/hr Q24H IV 10/07/17 12:30 11/06/17 12:29 10/10/17 13:17 0.7 MLS/HR Glucose (Glucose 40% Gel) 15-30 GRAMS 15 GRAMS... UD PRN PO 10/07/17 12:30 11/06/17 12:29 Glucose (Glucose Chew Tab) 4-8 Tablets 4 Tabl... UD PRN PO 10/07/17 12:30 11/06/17 12:29 Dextrose (Dextrose 50% 50ML Syringe) 25-50ML OF 50% DW IV FOR... UD PRN IV 10/07/17 12:30 11/06/17 12:29 10/08/17 05:09 50 ML Glucagon (Glucagon Inj) 1 mg UD PRN SQ 10/07/17 12:30 11/06/17 12:29 Dexmedetomidine HCl 400 mcg/ Sodium Chloride 100 ml @ 0 mls/hr Q0M PRN IV 10/08/17 09:00 10/12/17 08:59 10/10/17 02:17 1.2 MLS/HR Haloperidol Lactate (Haldol Inj) 5 mg Q8H PRN IV 10/09/17 09:30 11/08/17 09:29 10/09/17 20:34 5 MG Miscellaneous Information ( [facility]cu Electrolyte Replacement Protocol) 1 ea per protocol PRN N/A 10/10/17 08:15 10/17/17 08:14 Parenteral Electrolyte Rebecca/ Dextrose 1,000 ml @ 100 mls/hr Q10H IV 10/10/17 08:15 11/09/17 08:14 10/11/17 06:05 100 MLS/HR Oxycodone HCl (Roxicodone Soln) 5 mg Q4H PRN NG 10/10/17 12:30 10/24/17 12:29 10/10/17 13:10 5 MG Oxycodone HCl (Roxicodone Soln) 5 mg Q8 NG 10/10/17 14:00 10/24/17 13:59 10/11/17 06:06 5 MG Pregabalin (Lyrica Cap) 75 mg TID NG 10/10/17 14:00 11/09/17 13:59 2/10/18 08:33 75 MG Levothyroxine Sodium (Synthroid Tab) 50 mcg DAILYBB NG 10/10/17 14:00 11/09/17 13:59 10/11/17 06:05 50 MCG Insulin Glargine (Lantus Solostar Pen) 24 units Q24H SC 10/11/17 09:00 11/10/17 08:59 10/11/17 08:34 24 UNITS Impression 1. Acute, severe encephalopathy on the background of severe diabetic ketoacidosis She is markedly improved neurologically compared to yesterday. She has some very mild residual encephalopathy changes left over but otherwise is near baseline neurologically. She has received a number of medications including phenobarbital (which has a very long half life, and can last days in her system). In addition, Precedex can give sedation and agitation. She was on an Ativan drip for 2 days at 4 milligrams/hour. This was only stopped this morning. I suspect that she is continuing to be obtunded because of the multiple medications to be given to her to decrease her agitation. In addition she had significant metabolic and other abnormalities some of which are markedly improved and others are still abnormal. She has no fever or meningeal signs. She has no focal neurologic findings or anything to suggest a central nervous system insult such as stroke. 2. History of migraine headaches Currently she does not have a headache. 3. History of fibromyalgia on opiates. She might have been having some withdrawal symptoms that she should be improvement with this over the next several days. Currently she is not pain. Plan 1. I see no need for additional neurologic testing or treatment changes at this time. 2. Call me if I can be of further assistance on this case. I spoke with Dr. Aaron regarding her case this morning.
[2017-10-11] MEDS ORDERED: HALOPERIDOL LACTATE 5 MG/ML 1 ML VIAL IV PRN ×2 (13:45→14:00)
--- NOTE | 2017-10-11 13:45 | Progress Note ---
Subjective Date of Service: Oct 11, 2017. Subjective pt is awake but now agitated and wanting to leave, is just transitioning from insulin gtt to basal bolus and just starting to eat regular food, pt seems more aware but not yet fully returned to baseline given some of her speech and decision making Family is at bedside and updated they are supportive of having patient say hospitalized Review of Systems Constitutional: + weakness, + fatigue, No fever, No chills Respiratory: No cough, No sputum Cardiac: No chest pain, No edema Abdomen: No pain, No nausea, No vomiting Musculoskeletal: No joint pain, No muscle pain Female : No dysuria, No urinary frequency Neurologic: No memory loss, No weakness Psychiatric: + depression symptoms, + anxiety, + substance abuse, No anhedonism Objective Vital Signs Date Time Temp Pulse Resp B/P (MAP) Pulse Ox O2 Delivery O2 Flow Rate FiO2 10/11/17 08:00 Room Air 10/11/17 08:00 37.6 89 16 121/83 (96) 95 Room Air 10/11/17 05:43 38.0 82 18 138/89 (105) 96 Room Air 10/11/17 04:00 Room Air 10/11/17 03:53 37.2 79 20 124/82 (96) 96 Room Air 10/11/17 03:00 110 140/80 (100) 10/11/17 02:00 92 18 129/74 (92) 98 Room Air 10/11/17 01:00 91 128/76 (93) 10/11/17 00:00 37.7 75 20 137/77 (97) 98 Room Air 10/10/17 23:59 Room Air 10/10/17 23:00 78 155/88 (110) 10/10/17 22:00 72 22 144/78 (100) 97 Nasal Cannula 2.0 10/10/17 21:00 77 145/86 (105) 10/10/17 20:00 37.6 91 20 148/96 (113) 99 Nasal Cannula 2.0 10/10/17 20:00 Nasal Cannula 2.0 10/10/17 18:00 69 22 131/76 (94) 97 Nasal Cannula 2.0 10/10/17 16:00 37.4 70 24 144/90 (108) 97 Nasal Cannula 2.0 10/10/17 16:00 Nasal Cannula 2.0 10/10/17 14:00 86 128/94 (105) 99 Nasal Cannula 2.0 10/10/17 12:01 60 140/68 (92) 96 10/10/17 12:00 Nasal Cannula 2.0 10/10/17 12:00 37.6 60 140/68 (92) 96 Nasal Cannula 2.0 10/10/17 10:00 72 136/83 (100) 96 Physical Exam General Appearance: WD/WN, + mild distress Eyes: normal inspection, sclerae normal ENT: hearing grossly normal, pharynx normal Respiratory/Chest: chest non-tender, + decreased breath sounds (bases) Cardiovascular: regular rate, rhythm, no murmur Abdomen: normal bowel sounds, non tender, soft Extremities: no pedal edema, no calf tenderness Neurologic/Psychiatric: alert, + depressed affect, + disoriented Laboratory Results Last 24 Hours Test 10/10/17 09:39 10/10/17 11:44 10/10/17 13:52 10/10/17 14:42 Heparin-PF4 Antibody Screen POS Bedside Glucose 165 mg/dl 140 mg/dl 147 mg/dl Test 10/10/17 15:47 10/10/17 16:09 10/10/17 17:41 10/10/17 19:49 Bedside Glucose 160 mg/dl 158 mg/dl 221 mg/dl White Blood Count 5.68 K/uL Red Blood Count 4.07 M/uL Hemoglobin 11.6 g/dL Hematocrit 34.9 % Mean Corpuscular Volume 85.7 fL Mean Corpuscular Hemoglobin 28.5 pg Mean Corpuscular Hemoglobin Concent 33.2 g/dl RDW Standard Deviation 41.2 fL RDW Coefficient of Variation 13.2 % Platelet Count 94 K/uL Mean Platelet Volume 10.0 fL Platelet Estimate DECREASED Sodium Level 146 mmol/L Potassium Level 3.1 mmol/L Chloride Level 114 mmol/L Carbon Dioxide Level 27 mmol/L Anion Gap 5.0 mmol/L Blood Urea Nitrogen 5 mg/dl Creatinine 0.56 mg/dl Est Creatinine Clear Calc Drug Dose 154.9 ml/min Estimated GFR () > 150.0 Estimated GFR (Non- 129.6 BUN/Creatinine Ratio 9.0 Random Glucose 185 mg/dl Calcium Level 7.9 mg/dl Phosphorus Level 2.3 mg/dl Magnesium Level 2.1 mg/dl Test 10/10/17 20:48 10/10/17 21:50 10/10/17 22:50 10/10/17 23:51 Bedside Glucose 186 mg/dl 213 mg/dl 247 mg/dl 232 mg/dl Test 10/11/17 00:53 10/11/17 01:43 10/11/17 02:41 10/11/17 03:37 Bedside Glucose 207 mg/dl 230 mg/dl 178 mg/dl 206 mg/dl Test 10/11/17 04:46 10/11/17 04:58 10/11/17 05:41 10/11/17 06:46 Bedside Glucose 205 mg/dl 237 mg/dl 224 mg/dl White Blood Count 5.98 K/uL Red Blood Count 4.08 M/uL Hemoglobin 11.6 g/dL Hematocrit 35.3 % Mean Corpuscular Volume 86.5 fL Mean Corpuscular Hemoglobin 28.4 pg Mean Corpuscular Hemoglobin Concent 32.9 g/dl RDW Standard Deviation 41.6 fL RDW Coefficient of Variation 13.0 % Platelet Count 101 K/uL Mean Platelet Volume 10.4 fL Sodium Level 144 mmol/L Potassium Level 3.0 mmol/L Chloride Level 108 mmol/L Carbon Dioxide Level 29 mmol/L Anion Gap 7.0 mmol/L Blood Urea Nitrogen 4 mg/dl Creatinine 0.60 mg/dl Est Creatinine Clear Calc Drug Dose 144.5 ml/min Estimated GFR () 146.8 Estimated GFR (Non- 126.7 BUN/Creatinine Ratio 7.0 Random Glucose 248 mg/dl Calcium Level 7.9 mg/dl Phosphorus Level 2.3 mg/dl Magnesium Level 2.1 mg/dl Total Bilirubin 0.8 mg/dl Aspartate Amino Transf (AST/SGOT) 68 U/L Alanine Aminotransferase (ALT/SGPT) 33 U/L Alkaline Phosphatase 123 U/L Total Protein 6.2 gm/dl Albumin 2.4 gm/dl Globulin 3.8 gm/dl Albumin/Globulin Ratio 0.6 Test 10/11/17 07:44 Bedside Glucose 275 mg/dl Assessment and Plan 27 y/o female with a history of DM I, chronic pain, migraine, fibromyalgia, and hypothyroidism who presents from [facility] with DKA and altered mental status. DKA--pharmacy glycemic management is assisting in transition to basal bolus, has to tolerate diet and will need to have connection to diabetic outpt management Electrolyte replacement per ICU protocol, continues with low potassium, hypernatremia is resolved Encephalopathy secondary to suspected substance abuse, large amounts of initial sedation at outside hospital and DKA, Infectious causes ruled out -Neurology consult is pleased with her improvement. No further neurological testing or imaging at this time. recommend stopping BZD or other coronary care unit nurse affecting meds -Haldol 5 mg IV q8h prn agitation, may consider antipsychotic or neurontin to help with agitated state Elevated troponin--likely due to demand ischemia -Troponin trending down, peaked at 0.319 Acute renal failure--resolved Chronic pain, migraine, fibromyalgia -Pt previously took Lyrica 150 mg PO TID, Cymbalta 60 mg PO qd, morphine sulfate 15 mg PO BID, oxycodone IR 5 mg PO QID per out pt records -UDS negative for opiates -previous physician Checked PDMP, pt has not filled oxycodone or morphine for several months Hypothyroidism Synthroid 50 mcg PO qd which is her typical dose DVT prophylaxis, concern with thrombocytopenia for HIT, consider arixtra if needed for dvt prevention Code Status -Level I, FULL RESUSCITATION STATUS
--- NOTE | 2017-10-11 15:05 | Pharmacy Progress Note ---
Pharmacy Glycemic Short Note 2 Date of Service Oct 11, 2017. OUTPATIENT ANTIDIABETIC REGIMEN: * Insulin pump * basal insulin rate 1 unit/hr * CF of 32, CR of 8.5 or 9 ASSESSMENT: * Ms Red is a type 1 diabetic who was transferred from [facility] for DKA and possibly sepsis. She has been maintained on an insulin infusion since . Lantus was started on the eighth at 15 units then increased to 24 units yesterday. She received Lantus 24 units yesterday. As the patient was NPO, she continued on a dextrose infusion with IV insulin. * Today at lunch the patient was transitioned to a type 1 diabetic diet and was stable enough for consistent PO intake. The insulin infusion held itself and therefore was discontinued along with the IV fluids. No additional Lantus was given as the full 24 hour dose was already given. Utilized weight-based stress of 2 for Novolog as this was similar to patient's home regimen. * The patient is not stable enough to utilize pump. PLAN FOR INPATIENT GLYCEMIC CONTROL: * Basal insulin * Lantus 24 units SQ daily * Bolus insulin * NovoLog per scale ACHS or Q6hrs while NPO * Goal Range: Low 110 mg/dL - High 140 mg/dL * Correction Factor: 30 mg/dL/unit * Nutritional / Prandial insulin per carb ratio of 1 unit per 10 grams CHO consumed
[2017-10-11] MEDS: OXYCODONE HCL IR 5 MG TAB (IMMEDIATE RELEASE) PO PRN (17:53)
--- NOTE | 2017-10-11 18:46 | Critical Care Progress Note ---
Critical Care Progress Note Date of Service Oct 11, 2017. Attending Dr. Chavez Subjective Markedly improved, conversant, follows commands. Still mildly confused at times , with bursts of activity, but mostly controlled with reorientation A-line removed Sargent removed Objective General Appearance: WD/WN, other Head: normocephalic, atraumatic Eyes: PERRLA Neck: normal range of motion, no tenderness, supple, no nuchal rigidity Respiratory: breath sounds normal, clear to auscultation Cardiovascular: regular rate/rhythm, normal S1S2 Abdomen: non tender, no rebound Upper Extremities: no edema. Lower Extremities: no edema. Neuro: Verbal, no motor deficit, follows simple commands, ambulates. Responds appropriately most times Assessment & Plan 27 year old female presents with DKA secondary to non-compliance. Toxic-metabolic encephalopathy, secondary to DKA, transient hyperammonemia, withdrawal from narcotics. Also possible lingering effect of the sedatives that she received so far Doubt infectious process, I seriously doubt meningitic process given history and clinical exam. 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 Off IV fluids, off insulin drip, started on Lantus Eventually to resume insulin pump. Troponin trending down, I really doubt ACS, most likely increased demand. Agitated delirium markedly improved Keep off benzos. Continue oxycodone immediate release 5 mg q 8. At home she takes 5 mg 4 times daily, plus MS Contin 15 mg bid. Continue Lyrica at lower dose, 75 mg tid, at home she takes 150 mg tid Off Precedex At this point she improved significantly, there is no need for further neurological workup Monitor off antibiotics, no evidence of sepsis Blood cultures negative to date Procalcitonin barely elevated Thrombocytopenia with positive HIT antibodies screen. F/u VERONIQUE. Stable platelets. Keep off heparin DVT prophylaxis: Hold Heparin secondary to thrombocytopenia. She does not tolerate any form of mechanical prophylaxis Probable transfer to floor tomorrow Critical care time spent with the patient, reviewing chart, discussing with consultants, greater than 25 minutes. Consults & Procedures Consultants: Neuro - Dr Thao Procedures: 10/07 - right axillary a-line Data Medications: Current Inpatient Medications Medications (Trade) Dose Ordered Sig/Cary Route Start Time Stop Time Status Last Admin Dose Admin Pantoprazole Sodium 40 mg/ Syringe 10 ml @ 5 mls/min DAILY@0900 IV 10/07/17 16:00 11/06/17 15:59 10/11/17 08:33 5 MLS/MIN Miscellaneous Information (Consult Glycemic Management Pharmacy) 1 ea UD PRN N/A 10/07/17 12:00 11/06/17 11:59 Glucose (Glucose 40% Gel) 15-30 GRAMS 15 GRAMS... UD PRN PO 10/07/17 12:30 11/06/17 12:29 Glucose (Glucose Chew Tab) 4-8 Tablets 4 Tabl... UD PRN PO 10/07/17 12:30 11/06/17 12:29 Dextrose (Dextrose 50% 50ML Syringe) 25-50ML OF 50% DW IV FOR... UD PRN IV 10/07/17 12:30 11/06/17 12:29 10/08/17 05:09 50 ML Glucagon (Glucagon Inj) 1 mg UD PRN SQ 10/07/17 12:30 11/06/17 12:29 Dexmedetomidine HCl 400 mcg/ Sodium Chloride 100 ml @ 0 mls/hr Q0M PRN IV 10/08/17 09:00 10/12/17 08:59 10/10/17 02:17 1.2 MLS/HR Miscellaneous Information ( [facility] Electrolyte Replacement Protocol) 1 ea per protocol PRN N/A 10/10/17 08:15 10/17/17 08:14 Pregabalin (Lyrica Cap) 75 mg TID NG 10/10/17 14:00 11/09/17 13:59 10/11/17 13:53 75 MG Levothyroxine Sodium (Synthroid Tab) 50 mcg DAILYBB NG 10/10/17 14:00 11/09/17 13:59 10/11/17 06:05 50 MCG Insulin Glargine (Lantus Solostar Pen) 24 units Q24H SC 10/11/17 09:00 11/10/17 08:59 10/11/17 08:34 24 UNITS Insulin Aspart (novoLOG ASPART) SLIDING SCALE ACHS SC 10/11/17 11:30 11/10/17 11:29 10/11/17 16:43 2 UNITS Insulin Aspart (novoLOG ASPART) SLIDING SCALE TODAY@0000,0400 SC 10/12/17 00:00 10/12/17 04:01 Haloperidol Lactate (Haldol Inj) 2.5 mg Q8H PRN IV 10/11/17 14:00 11/08/17 09:29 Haloperidol Lactate (Haldol Inj) 5 mg Q8 PRN IV 10/11/17 13:45 11/10/17 13:44 Oxycodone HCl (Roxicodone Immediate Rel Tab) 5 mg Q4H PRN PO 10/11/17 14:45 10/25/17 14:44 10/11/17 17:53 5 MG Oxycodone HCl (Roxicodone Immediate Rel Tab) 5 mg Q8 PO 10/11/17 22:00 10/25/17 21:59 I & O: 24-Hour Column 10/12/17 07:59 Intake Total 1104 ml Output Total 650 ml Balance 454 ml Vital Signs: Date Time Temp Pulse Resp B/P (MAP) Pulse Ox O2 Delivery O2 Flow Rate FiO2 10/11/17 18:00 69 141/94 (110) 97 Room Air 10/11/17 16:00 36.9 87 16 135/96 (109) 98 Room Air 10/11/17 16:00 Room Air 10/11/17 14:00 93 20 137/88 (104) 95 10/11/17 12:00 37.0 97 20 133/83 (100) 94 Room Air 10/11/17 12:00 Room Air 10/11/17 10:00 90 20 138/79 (98) 94 Room Air 10/11/17 08:00 Room Air 10/11/17 08:00 37.6 89 16 121/83 (96) 95 Room Air 10/11/17 05:43 38.0 82 18 138/89 (105) 96 Room Air 10/11/17 04:00 Room Air 10/11/17 03:53 37.2 79 20 124/82 (96) 96 Room Air 10/11/17 03:00 110 140/80 (100) 10/11/17 02:00 92 18 129/74 (92) 98 Room Air 10/11/17 01:00 91 128/76 (93) 10/11/17 00:00 37.7 75 20 137/77 (97) 98 Room Air 10/10/17 23:59 Room Air 10/10/17 23:00 78 155/88 (110) 10/10/17 22:00 72 22 144/78 (100) 97 Nasal Cannula 2.0 10/10/17 21:00 77 145/86 (105) 10/10/17 20:00 37.6 91 20 148/96 (113) 99 Nasal Cannula 2.0 10/10/17 20:00 Nasal Cannula 2.0 Laboratory Results: Last 24 Hours Test 10/10/17 19:49 10/10/17 20:48 10/10/17 21:50 10/10/17 22:50 Bedside Glucose 221 mg/dl 186 mg/dl 213 mg/dl 247 mg/dl Test 10/10/17 23:51 10/11/17 00:53 10/11/17 01:43 10/11/17 02:41 Bedside Glucose 232 mg/dl 207 mg/dl 230 mg/dl 178 mg/dl Test 10/11/17 03:37 10/11/17 04:46 10/11/17 04:58 10/11/17 05:41 Bedside Glucose 206 mg/dl 205 mg/dl 237 mg/dl White Blood Count 5.98 K/uL Red Blood Count 4.08 M/uL Hemoglobin 11.6 g/dL Hematocrit 35.3 % Mean Corpuscular Volume 86.5 fL Mean Corpuscular Hemoglobin 28.4 pg Mean Corpuscular Hemoglobin Concent 32.9 g/dl RDW Standard Deviation 41.6 fL RDW Coefficient of Variation 13.0 % Platelet Count 101 K/uL Mean Platelet Volume 10.4 fL Sodium Level 144 mmol/L Potassium Level 3.0 mmol/L Chloride Level 108 mmol/L Carbon Dioxide Level 29 mmol/L Anion Gap 7.0 mmol/L Blood Urea Nitrogen 4 mg/dl Creatinine 0.60 mg/dl Est Creatinine Clear Calc Drug Dose 144.5 ml/min Estimated GFR () 146.8 Estimated GFR (Non- 126.7 BUN/Creatinine Ratio 7.0 Random Glucose 248 mg/dl Calcium Level 7.9 mg/dl Phosphorus Level 2.3 mg/dl Magnesium Level 2.1 mg/dl Total Bilirubin 0.8 mg/dl Aspartate Amino Transf (AST/SGOT) 68 U/L Alanine Aminotransferase (ALT/SGPT) 33 U/L Alkaline Phosphatase 123 U/L Total Protein 6.2 gm/dl Albumin 2.4 gm/dl Globulin 3.8 gm/dl Albumin/Globulin Ratio 0.6 Test 10/11/17 06:46 10/11/17 07:44 10/11/17 08:48 10/11/17 09:47 Bedside Glucose 224 mg/dl 275 mg/dl 277 mg/dl 242 mg/dl Test 10/11/17 10:48 10/11/17 11:33 10/11/17 13:02 10/11/17 16:26 Bedside Glucose 175 mg/dl 214 mg/dl 247 mg/dl 184 mg/dl
[2017-10-11] MEDS: OXYCODONE HCL IR 5 MG TAB (IMMEDIATE RELEASE) PO SCH (20:30)
[2017-10-12] VITALS (8 sets, daily range): BP systolic 99–140; BP diastolic 67–86; PULSE 75–96; TEMP 36.5–36.9; O2SAT 95–100
[2017-10-12] MEDS: INSULIN ASPART 100 UNITS/ML 3 ML PEN SC SCH ×7 (00:29→20:38)
[2017-10-12 05:44] LABS: BASO % 0.5 %; BASO ABS # 0.03 K/uL (0-0.2); EOS % 7.7 %; EOS ABS # 0.46 K/uL (0-0.5); HEMOGLOBIN 11.3 g/dL (12.0-16.0); IG# 0.02 K/uL (0.00-0.02); LYMPH % 42.6 %; LYMPH ABS # 2.55 K/uL (1.2-3.4); MEAN CELL VOLUME 87.3 fL (80-100); MEAN CORPUSCULAR HEMOGLOBIN 28.2 pg (25-34); MEAN CORPUSCULAR HGB CONC 32.3 g/dl (32-36); MEAN PLATELET VOLUME 11.1 fL (7.4-10.4); MONO % 6.2 %; MONO ABS # 0.37 K/uL (0.11-0.59); NEUT % 42.7 %; NEUT ABS # 2.56 K/uL (1.4-6.5); PLATELET COUNT 101 K/uL (130-400); RED CELL DISTRIBUTION WIDTH CV 12.9 % (11.5-14.5); RED CELL DISTRIBUTION WIDTH SD 41.4 fL (36.4-46.3); WHITE BLOOD COUNT 5.99 K/uL (4.8-10.8)
[2017-10-12] MEDS: OXYCODONE HCL IR 5 MG TAB (IMMEDIATE RELEASE) PO SCH ×3 (05:51→22:03)
[2017-10-12] MEDS: LEVOTHYROXINE 50 MCG TAB NG SCH (05:51)
[2017-10-12 06:13] LABS: CALCIUM 7.7 mg/dl (8.5-10.1); CREATININE 0.59 mg/dl (0.60-1.20); POTASSIUM 3.3 mmol/L (3.5-5.1)
[2017-10-12] MEDS ORDERED: NURSING VERBAL MED ORDER ONE (06:45)
--- NOTE | 2017-10-12 07:30 | Progress Note ---
Subjective Date of Service: Oct 12, 2017. Objective Vital Signs Date Time Temp Pulse Resp B/P (MAP) Pulse Ox O2 Delivery O2 Flow Rate FiO2 10/12/17 06:13 85 138/73 (94) 96 Room Air 10/12/17 04:00 Room Air 10/12/17 03:51 36.9 75 127/81 (96) 95 Room Air 10/11/17 23:59 Room Air 10/11/17 23:53 37.4 74 149/101 (117) 96 Room Air 10/11/17 22:07 80 145/102 (116) 97 Room Air 10/11/17 20:24 37.0 87 144/92 (109) 98 Room Air 10/11/17 20:00 Room Air 10/11/17 18:00 69 141/94 (110) 97 Room Air 10/11/17 16:00 36.9 87 16 135/96 (109) 98 Room Air 10/11/17 16:00 Room Air 10/11/17 14:00 93 20 137/88 (104) 95 10/11/17 12:00 37.0 97 20 133/83 (100) 94 Room Air 10/11/17 12:00 Room Air 10/11/17 10:00 90 20 138/79 (98) 94 Room Air 10/11/17 08:00 Room Air 10/11/17 08:00 37.6 89 16 121/83 (96) 95 Room Air Laboratory Results Last 24 Hours Test 10/11/17 07:44 10/11/17 08:48 10/11/17 09:47 10/11/17 10:48 Bedside Glucose 275 mg/dl 277 mg/dl 242 mg/dl 175 mg/dl Test 10/11/17 11:33 10/11/17 13:02 10/11/17 16:26 10/11/17 20:21 Bedside Glucose 214 mg/dl 247 mg/dl 184 mg/dl 229 mg/dl Test 10/12/17 00:18 10/12/17 03:51 10/12/17 05:31 10/12/17 05:33 Bedside Glucose 236 mg/dl 178 mg/dl 204 mg/dl White Blood Count 5.99 K/uL Red Blood Count 4.01 M/uL Hemoglobin 11.3 g/dL Hematocrit 35.0 % Mean Corpuscular Volume 87.3 fL Mean Corpuscular Hemoglobin 28.2 pg Mean Corpuscular Hemoglobin Concent 32.3 g/dl Platelet Count 101 K/uL Mean Platelet Volume 11.1 fL Neutrophils (%) (Auto) 42.7 % Lymphocytes (%) (Auto) 42.6 % Monocytes (%) (Auto) 6.2 % Eosinophils (%) (Auto) 7.7 % Basophils (%) (Auto) 0.5 % Neutrophils # (Auto) 2.56 K/uL Lymphocytes # (Auto) 2.55 K/uL Monocytes # (Auto) 0.37 K/uL Eosinophils # (Auto) 0.46 K/uL Basophils # (Auto) 0.03 K/uL RDW Standard Deviation 41.4 fL RDW Coefficient of Variation 12.9 % Immature Granulocyte % (Auto) 0.3 % Immature Granulocyte # (Auto) 0.02 K/uL Sodium Level 141 mmol/L Potassium Level 3.3 mmol/L Chloride Level 106 mmol/L Carbon Dioxide Level 27 mmol/L Anion Gap 8.0 mmol/L Blood Urea Nitrogen 7 mg/dl Creatinine 0.59 mg/dl Est Creatinine Clear Calc Drug Dose 147.0 ml/min Estimated GFR () 147.6 Estimated GFR (Non- 127.4 BUN/Creatinine Ratio 11.9 Random Glucose 210 mg/dl Calcium Level 7.7 mg/dl Phosphorus Level 3.0 mg/dl Magnesium Level 2.1 mg/dl Assessment and Plan 27 y/o female with a history of DM I, chronic pain, migraine, fibromyalgia, and hypothyroidism who presents from [facility] with DKA and altered mental status. DKA--pharmacy glycemic management is assisting in transition to basal bolus, has to tolerate diet and will need to have connection to diabetic outpt management Electrolyte replacement per ICU protocol, continues with low potassium, hypernatremia is resolved Encephalopathy secondary to suspected substance abuse, large amounts of initial sedation at outside hospital and DKA, Infectious causes ruled out -Neurology consult is pleased with her improvement. No further neurological testing or imaging at this time. recommend stopping BZD or other rn employee health affecting meds -Haldol 5 mg IV q8h prn agitation, may consider antipsychotic or neurontin to help with agitated state Elevated troponin--likely due to demand ischemia -Troponin trending down, peaked at 0.319 Acute renal failure--resolved Chronic pain, migraine, fibromyalgia -Pt previously took Lyrica 150 mg PO TID, Cymbalta 60 mg PO qd, morphine sulfate 15 mg PO BID, oxycodone IR 5 mg PO QID per out pt records -UDS negative for opiates -previous physician Checked PDMP, pt has not filled oxycodone or morphine for several months Hypothyroidism Synthroid 50 mcg PO qd which is her typical dose DVT prophylaxis, concern with thrombocytopenia for HIT, consider arixtra if needed for dvt prevention Code Status -Level I, FULL RESUSCITATION STATUS
[2017-10-12] MEDS: POTASSIUM CHLORIDE 20 MEQ TABCR PO SCH ×4 (08:04→20:33)
[2017-10-12] MEDS ORDERED: INSULIN GLARGINE SOLOSTAR 100 UNITS/ML 3 ML PEN SC SCH (09:00)
[2017-10-12] MEDS: PREGABALIN 75 MG CAP NG SCH ×3 (09:30→20:32)
[2017-10-12] MEDS: PANTOprazole INJ 40 MG in SYRINGE 0 ML IV SCH (09:32)
--- NOTE | 2017-10-12 14:25 | Pharmacy Progress Note ---
Pharmacy Glycemic Short Note 2 Date of Service Oct 12, 2017. OUTPATIENT ANTIDIABETIC REGIMEN: * Insulin pump * basal insulin rate 1 unit/hr * CF of 32, CR of 8.5 or 9 ASSESSMENT: * Ms Red is a type 1 diabetic who was transferred from [facility] for DKA and possibly sepsis. She has been maintained on an insulin infusion since . Lantus was started on the eighth at 15 units then increased to 24 units. She received Lantus 24 units yesterday. She was transitioned off an insulin infusion yesterday and dextrose was stopped via IV. The patient had poor oral intake but per nurse interview the patient believes she will eat more today. * The patient's fasting blood sugar was 204 mg/dL - she received an additional 5 units overnight. Since the patient is a type 1 diabetic, added 2 units to Lantus today to make 26 units of fasting. Tightened correctional slightly as this was her baseline correctional insulin. May benefit from tightening carbohydrates tomorrow. Continue overnight accucheck. * The patient is not stable enough to utilize pump. PLAN FOR INPATIENT GLYCEMIC CONTROL: * Basal insulin * Lantus 26 units SQ daily * Bolus insulin * NovoLog per scale ACHS or Q6hrs while NPO * Goal Range: Low 110 mg/dL - High 140 mg/dL * Correction Factor: 25 mg/dL/unit * Nutritional / Prandial insulin per carb ratio of 1 unit per 10 grams CHO consumed
--- NOTE | 2017-10-12 20:19 | Medical Student: [facility] ---
Consultation Date of Consultation: Oct 09, 2017. Requesting Physician: Dr. Chavez Attending Physician: Dr. Thao Reason for Consultation: Neurologic consultation regarding a 27 year old female patient with encephalopathy History of Present Illness From caregiver, spouse, hospital records: Magalys Red is a 27 year old female with a history of Type I Diabetes, hypertension, migraine headaches, hypothyroidism, and fibromyalgia/chronic pain managed with opiates. On the night of 10/06/2017 at 2330 hours, she was brought to [facility] ER by her and mother presenting with presumed DKA. Per their report, she has a history of noncompliance with Diabetes and has been hospitalized for DKA in the past. They report that earlier that night, Magalys was out at a casino, ingested alcohol, and possibly ingested some substance believed to be either heroin and/or fentanyl. She had run out of supplies for her Homolog insulin pump 3 days ago, and was attempting to manage her blood sugar with the Lantus injector alone. Her blood sugar at home reached 400 and she became altered and confused. Upon arriving to the ER at 2330 hours, she was unresponsive, kicking , thrashing, moaning, vomiting. Her blood glucose was 939. Potassium and sodium were elevated. Ammonia and liver enzymes, BUN and creatinine were also elevated. VBG revealed pH of 6.86, pCO2 of 23, pO2 of 51, O2 Sat of 75.9. CBC revealed elevated WBC at 24,000 Drug screen was negative. She was given Haldol, ketamine, and Versed for sedation, and was transferred to [facility] ICU the morning of 10/07/2017. Since being admitted to the [facility] ICU, she has received Precedex, phenobarbital ( 4 doses at 130 mg each), and an Ativan drip of 4mg/hr for severe agitation. This calmed the patient down, but she is rendered obtunded and unresponsive. As of 0500 on 10/09/2017, Sodium, Chloride, ALP remain elevated. Potassium, Magnesium, and Albumin are low. Blood Glucose is 270 and Hgb A1c is 11.7. She remains obtunded and unresponsive, with periods of moaning, crying, and spontaneous movements of her limbs that require soft restraints. Past Medical/Surgical History Medical History: Poorly controlled Insulin Dependent Diabetes Mellitus (A1c 11.7). -On Homolog Insulin Pump and Lantus Injector Hypothyroidism -on Levothyroxine 50Mcg daily Fibromyalgia and Chronic Pain -Prescribed Oxycodone 5mg q4H PRN, Morphine Sulfate 15mg BID, and Lyrica 150 mg TID, Hypertension Migraine Headaches Family History Unable to provide family history due to Altered mental status Social History Smoking Status: Unknown if Ever Smoked History of Alcohol Use: No (unknown) Marital Status: Housing Status: lives with significant other Review of Systems Unable to obtain ROS due to patient's altered mental status Allergies Coded Allergies: Heparin (Verified Allergy, Unknown, + HIT ab screen [id number]; awaiting serotinin release assay, 10/10/17) NO KNOWN DRUG ALLERGIES (Verified Allergy, Unknown, ., 10/07/17) Medications Current Inpatient Medications Medications (Trade) Dose Ordered Sig/Cary Route Start Time Stop Time Status Last Admin Dose Admin Pantoprazole Sodium 40 mg/ Syringe 10 ml @ 5 mls/min DAILY@0900 IV 10/07/17 16:00 11/06/17 15:59 10/09/17 08:45 5 MLS/MIN Insulin Aspart (novoLOG ASPART) SLIDING SCALE PCHS SC 10/07/17 17:15 11/06/17 17:14 Miscellaneous Information (Consult Glycemic Management Pharmacy) 1 ea UD PRN N/A 10/07/17 12:00 11/06/17 11:59 Insulin Human Regular 250 units/ Sodium Chloride 252.5 ml @ 0 mls/hr Q24H IV 10/07/17 12:30 11/06/17 12:29 10/09/17 12:36 1.5 MLS/HR Glucose (Glucose 40% Gel) 15-30 GRAMS 15 GRAMS... UD PRN PO 10/07/17 12:30 11/06/17 12:29 Glucose (Glucose Chew Tab) 4-8 Tablets 4 Tabl... UD PRN PO 10/07/17 12:30 11/06/17 12:29 Dextrose (Dextrose 50% 50ML Syringe) 25-50ML OF 50% DW IV FOR... UD PRN IV 10/07/17 12:30 11/06/17 12:29 10/08/17 05:09 50 ML Glucagon (Glucagon Inj) 1 mg UD PRN SQ 10/07/17 12:30 11/06/17 12:29 Heparin Sodium (Porcine) (Heparin Sq 5000 Unit/0.5ml) 5,000 unit Q8 SQ 10/07/17 22:00 11/06/17 21:59 10/09/17 14:04 5,000 UNIT Lorazepam 50 mg/ Dextrose 50 ml @ 0 mls/hr Q0M PRN IV 10/07/17 20:00 11/06/17 19:59 10/09/17 01:37 5 MLS/HR Heparin Sodium (Porcine) (Heparin 10 Unit/ ml 5 ml Flush) 5 ml PRN PRN FLUSH 10/07/17 23:45 11/06/17 23:44 Dexmedetomidine HCl 400 mcg/ Sodium Chloride 100 ml @ 0 mls/hr Q0M PRN IV 10/08/17 09:00 10/12/17 08:59 10/09/17 16:05 6.3 MLS/HR Haloperidol Lactate (Haldol Inj) 5 mg Q8H PRN IV 10/09/17 09:30 11/08/17 09:29 10/09/17 20:34 5 MG Potassium Chloride/Dextrose/ Sod Cl 1,000 ml @ 150 mls/hr Q6H40M IV 10/09/17 09:30 11/08/17 09:29 10/09/17 15:57 150 MLS/HR Insulin Glargine (Lantus Solostar Pen) 15 units Q24H SC 10/09/17 13:00 11/08/17 12:59 10/09/17 13:02 15 UNITS Physical Exam Date Time Temp Pulse Resp B/P (MAP) Pulse Ox O2 Delivery O2 Flow Rate FiO2 10/09/17 20:00 38.2 86 26 131/105 (114) 98 Nasal Cannula 2.0 131/105 (114) 10/09/17 20:00 Nasal Cannula 2.0 10/09/17 19:00 91 136/87 (103) 100 Nasal Cannula 2.0 10/09/17 18:00 95 28 143/94 (110) 99 Nasal Cannula 2.0 10/09/17 17:00 76 26 143/92 (109) 95 Nasal Cannula 2.0 10/09/17 16:00 97 Nasal Cannula 2.0 10/09/17 16:00 37.2 70 139/95 (110) 97 10/09/17 14:00 103 28 140/95 (110) 95 Nasal Cannula 2.0 10/09/17 13:00 77 135/91 (106) 93 Nasal Cannula 2.0 10/09/17 12:00 98 Nasal Cannula 2.0 10/09/17 12:00 37.1 84 24 135/94 (108) 98 Nasal Cannula 2.0 10/09/17 11:48 77 97 25 10/09/17 11:00 80 136/94 (108) 97 Nasal Cannula 2.0 10/09/17 10:01 79 128/89 (102) 97 Nasal Cannula 2.0 10/09/17 10:00 80 256/256 (256) 97 25 10/09/17 09:00 37.0 83 138/95 (109) 97 10/09/17 08:00 80 135/105 (115) 99 137/95 (109) 10/09/17 08:00 99 BiPAP 25 10/09/17 08:00 98 25 10/09/17 08:00 BiPAP 10/09/17 06:00 77 24 134/95 (108) 97 BiPAP 25 10/09/17 05:10 77 99 25 10/09/17 04:00 37.0 76 26 133/90 (104) 97 BiPAP 25 10/09/17 04:00 97 BiPAP 25 10/09/17 02:12 75 98 25 10/09/17 02:00 77 30 137/94 (108) 98 BiPAP 25 10/09/17 00:01 37.1 76 28 141/98 (112) 98 BiPAP 25 10/08/17 23:59 97 BiPAP 25 10/08/17 23:08 76 98 25 10/08/17 22:00 83 34 119/82 (94) 94 Nasal Cannula 2.0 Eyes: bilateral eyes PERRL (4mm), bilateral eyes pertinent finding (Eyes open passively bilaterally. Her Eyes face toward the front and conjugate gaze is present.) Neck: supple Respiratory: + pertinent finding (Tachypnic at 30 respirations per minute. Breathing on her own with BIPAP) Skin: + pertinent finding (cool, dry) Appearance/General: Patient was lying in bed with her eyes closed as we entered the room. She was not only unable to spontaneously open her eyes, but also unable to follow any 1 step commands. She was spontaneously moving all 4 limbs. Although she was not startled by clapping/loud sounds and could not formulate words, when stimulated during physical exam, her arm and leg movements would increase as well as moaning sounds. She moved her right extremities more than the left. There was delayed reaction to pain in both her arms and legs. Neurologic Exam Mental Status: Unable to perform MSE. Glascow Coma Scale: 7 (Eyes no response 1, Verbal Response incomprehensible sounds 2, Motor Response Withdrawal from pain 4) Cranial Nerves: I- not tested II, III- direct and consensual pupillary light reflexes intact IV- unable to assess V- corneal reflex intact - unable to assess VII- patient could grimace, no facial droop VIII- Oculocephalic reflex present IX, X- gag reflex present XI- patient could turn head side to side XII- unable to assess Sensation: delayed withdrawal to deep pain in both the arms and legs bilaterally Strength: unable to assess individual muscle strengths. patient is able to move all extremities, and throughout the exam, good strength was observed to resistance Reflexes: Biceps, Brachioradialis, Triceps, Patellar, and Achilles absent (0). Babinski downward pointing toes bilaterally Cerebellum: unable to assess Gait: unable to assess Laboratory Results Last 24 Hours Test 10/08/17 21:49 10/09/17 02:17 10/09/17 05:50 10/09/17 05:54 Bedside Glucose 167 mg/dl 201 mg/dl 211 mg/dl White Blood Count 5.60 K/uL Red Blood Count 4.41 M/uL Hemoglobin 12.6 g/dL Hematocrit 38.2 % Mean Corpuscular Volume 86.6 fL Mean Corpuscular Hemoglobin 28.6 pg Mean Corpuscular Hemoglobin Concent 33.0 g/dl RDW Standard Deviation 43.3 fL RDW Coefficient of Variation 13.7 % Platelet Count 162 K/uL Mean Platelet Volume 9.8 fL Sodium Level 152 mmol/L Potassium Level 3.5 mmol/L Chloride Level 123 mmol/L Carbon Dioxide Level 23 mmol/L Anion Gap 6.0 mmol/L Blood Urea Nitrogen 9 mg/dl Creatinine 0.84 mg/dl Est Creatinine Clear Calc Drug Dose 103.2 ml/min Estimated GFR () 112.0 Estimated GFR (Non- 96.6 BUN/Creatinine Ratio 10.9 Random Glucose 231 mg/dl Calcium Level 8.2 mg/dl Phosphorus Level 2.0 mg/dl Magnesium Level 1.8 mg/dl Total Bilirubin 0.3 mg/dl Aspartate Amino Transf (AST/SGOT) 25 U/L Alanine Aminotransferase (ALT/SGPT) 17 U/L Alkaline Phosphatase 136 U/L Total Protein 6.1 gm/dl Albumin 2.2 gm/dl Globulin 3.9 gm/dl Albumin/Globulin Ratio 0.6 Test 10/09/17 10:01 10/09/17 13:53 10/09/17 16:02 10/09/17 17:43 Bedside Glucose 247 mg/dl 226 mg/dl 153 mg/dl Sodium Level 150 mmol/L Potassium Level 3.4 mmol/L Chloride Level 120 mmol/L Carbon Dioxide Level 22 mmol/L Anion Gap 8.0 mmol/L Blood Urea Nitrogen 8 mg/dl Creatinine 0.84 mg/dl Est Creatinine Clear Calc Drug Dose 103.2 ml/min Estimated GFR () 112.0 Estimated GFR (Non- 96.6 BUN/Creatinine Ratio 9.2 Random Glucose 270 mg/dl Calcium Level 8.1 mg/dl Phosphorus Level 2.1 mg/dl Magnesium Level 1.6 mg/dl Total Bilirubin 0.3 mg/dl Aspartate Amino Transf (AST/SGOT) 19 U/L Alanine Aminotransferase (ALT/SGPT) 17 U/L Alkaline Phosphatase 120 U/L Creatine Kinase MB 1.2 ng/ml Creatine Kinase MB Ratio Troponin I 0.043 ng/ml Total Protein 6.0 gm/dl Albumin 2.2 gm/dl Globulin 3.8 gm/dl Albumin/Globulin Ratio 0.6 Test 10/09/17 19:23 Bedside Glucose 211 mg/dl Assessment & Plan Assessment Magalys Red is a 27 year old female with a history of poorly controlled T1DM, hypothyroidism, fibromyalgia and chronic pain managed with opiates presenting today with acute severe encephalopathy and severe DKA. 1. DKA with encephalopathy -Her blood glucose is under control at 247. Hydration status and various metabolic abnormalities are being managed and for the most part are trending back to normal levels. We believe that the patient remains obtunded because she has received many sedating medications due to agitation since presenting to [facility] on 10/06. They include: Ativan, phenobarbital, and Precedex, all of which can cause sedation. Ativan was stopped this morning. -She has no focal neurologic findings that would suggest a [employer] disorder. 2. Fibromyalgia and and chronic pain managed with opiates: -It is possible this patient is suffering from opiate withdrawal symptoms. This will be evaluated further over the next few days. 3. Hypothyroidism: -TSH wnl at 1.46 4. History of Migraine Headaches. Plan 1. Taper off sedation medications (Precedex and Ativan). Recommend using physical restraints, as this will allow our patient to wake up more, while using chemical restraints will keep her sedated. Recommend using Haldol for agitation, as this should not have a sedating effect. 2. Continue to evaluate for symptoms of withdrawal. 3. Continue normal Levothyroxine 50 Mcg daily 4. No additional testing or imaging needed for this problem.
[2017-10-13] MEDS: OXYCODONE HCL IR 5 MG TAB (IMMEDIATE RELEASE) PO PRN (00:08)
[2017-10-13] MEDS ORDERED: INSULIN ASPART 100 UNITS/ML 3 ML PEN SC SCH (02:00)
[2017-10-13] MEDS: OXYCODONE HCL IR 5 MG TAB (IMMEDIATE RELEASE) PO SCH ×2 (05:53→13:54)
[2017-10-13] MEDS: LEVOTHYROXINE 50 MCG TAB NG SCH (05:53)
[2017-10-13 07:29] LABS: CALCIUM 8.5 mg/dl (8.5-10.1); CREATININE 0.71 mg/dl (0.60-1.20); POTASSIUM 3.6 mmol/L (3.5-5.1)
[2017-10-13 08:01] VITALS: BP 116/81; PULSE 84; TEMP 36.8; O2SAT 92
[2017-10-13] MEDS ORDERED: INSULIN GLARGINE SOLOSTAR 100 UNITS/ML 3 ML PEN SC SCH (09:00)
[2017-10-13 09:22] VITALS: O2SAT 92
[2017-10-13] MEDS: INSULIN ASPART 100 UNITS/ML 3 ML PEN SC SCH ×2 (09:29→13:14)
[2017-10-13] MEDS: PREGABALIN 75 MG CAP NG SCH ×2 (09:30→13:53)
[2017-10-13] MEDS: POTASSIUM CHLORIDE 20 MEQ TABCR PO SCH (09:30)
[2017-10-13] MEDS ORDERED: INSU-698 SC (12:36)
[2017-10-13] MEDS ORDERED: NVLGIPEN SC (12:36)
[2017-10-13] MEDS ORDERED: INSDGIPEN SC (12:36)
--- NOTE | 2017-10-13 12:37 | Discharge Instructions ---
Discharge Instructions Date of Service Oct 13, 2017. Admission Reason for Admission: DKA Discharge Discharge Diagnosis / Problem: diabetic ketoacidosis and coma Discharge Goals Goal(s): Diagnostic testing, Therapeutic intervention Activity Recommendations Activity Limitations: as noted below Lifting Limitations: gradually increase as tolerated . Current Hospital Diet Patient's current hospital diet: Diabetes Type 1 Diet Discharge Diet Recommended Diet: Diabetes Type 1 Diet Pending Studies Studies pending at discharge: no Laboratory Results Hemoglobin A1c Test 10/07/17 12:46 Range/Units Estimated Average Glucose 289 mg/dl Hemoglobin A1c 11.7 H 4.5-5.6 % Medical Emergencies . Who to Call and When: Medical Emergencies: If at any time you feel your situation is an emergency, please call 911 immediately. . Non-Emergent Contact Non-Emergency issues call your: Primary Care Provider Call Non-Emergent contact if: temperature is above 101, your pain is unusual for you . . "Provider Documentation" section prepared by Rodolfo Aaron. . VTE Core Measure Inpt VTE Proph given/why not?: Unfractionated heparin SQ
[2017-10-13 12:49] VITALS: BP 116/81; PULSE 84; TEMP 36.8; O2SAT 92
[2017-10-13 14:24] VITALS: Ht 172.7 cm; Wt 72.5 kg
--- NOTE | 2017-10-13 18:50 | Discharge Summary ---
Discharge Summary Date of Service Oct 13, 2017. 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 and neurology Medication Reconciliation New Medications: Needle (Bd Pen Needle/Mini/Ultraf) 1 Ea Inj BOX SC ACHS, #1 6 Refills Insulin Aspart (Novolog Flexpen) 100 Units/Ml Inj 0 UNITS SC ACHS, #1 PEN 6 Refills correction factor 20 carb ratio 1:8 Insulin Glargine (Lantus Solostar) 100 Unit/Ml Inj 35 UNITS SC Q24H, #1 PEN 6 Refills Continued Medications: Duloxetine Hcl (Cymbalta) 60 Mg Cap 60 MG PO DAILY, CAP Levothyroxine Sodium (Levothyroxine Sodium) 50 Mcg Tab 1 TAB PO DAILY for 30 Days, #30 TAB 5 Refills Oxycodone Ir (Roxicodone Ir) 5 Mg Tab 5 MG PO Q8H PRN for Pain, TAB Pantoprazole Sodium (Protonix) 40 Mg Tab 40 MG PO DAILY, #30 TAB Pregabalin (Lyrica) 150 Mg Cap 75 MG PO TID, CAP one half Discontinued Medications: Furosemide (Lasix) 40 Mg Tab 40 MG PO DAILY PRN for SWELLING, TAB Insulin Human Lispro (Insulin Humalog Pump ) Pump 1 EA N/A UD, EA basal: 1unit/hr x 24 hrs correction factor: 32mg/dL/unit carb ratio: 8.5 4062-1083; 9 0300-0696 goal range: 120-130 Morphine Cont Rel (Ms Contin) 15 Mg Tab 15 MG PO Q12H, TAB Discharge Exam Review of Systems: Constitutional: No fever, No chills Eyes: No worsening of vision, No eye pain Respiratory: No cough, No sputum, No wheezing Physical Exam: General Appearance: WD/WN, no apparent distress Eyes: normal inspection, PERRL, EOMI, sclerae normal Neurologic/Psychiatric: alert, oriented x 3 Hospital Course 27 y/o female with a history of DM I, chronic pain, migraine, fibromyalgia, and hypothyroidism who presents from [facility] with DKA and altered mental status. DKA patient has tolerated transition to basal bolus, has to tolerate diet and although previously having been on insulin pump is agreeable to go basal bolus until her social situation an outpatient understanding continued to become more stable Electrolyte have been replete Encephalopathy has resolved felt to be secondary to suspected substance abuse, large amounts of initial sedation at outside hospital and DKA, Infectious causes ruled out Elevated troponin--likely due to demand ischemia or type II CA -Troponin trending down, peaked at 0.319 Acute renal failure--resolved Chronic pain, migraine, fibromyalgia -Pt previously took Lyrica 150 mg PO TID this dose is reduced to 75 will continue on, Cymbalta 60 mg PO qd, but will hold morphine sulfate 15 mg PO BID, and oxycodone IR 5 mg only using this as needed -UDS negative for opiates -previous physician Checked PDMP, pt has not filled oxycodone or morphine for several months Hypothyroidism Synthroid 50 mcg PO qd which is her typical dose DVT prophylaxis, 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 Discharge Instructions Please refer to the electronic Patient Visit Report (Discharge Instructions) for additional information.
== END 2017-10-13 14:20 | disposition home or self-care (01) | DRG 637 ==
LOC: C.MSICU 11:25 → ENRESERV 10-12 10:02 → C.MSN 10-12 12:08
PROVIDERS: ADMIT Hospitalist; ATTEND Internal Medicine
PROC: 03H533Z Insertion of Infusion Device into Right Axillary Artery, Percutaneous Approach (ICD-10-PCS; principal; 2017-10-07)
DX: E10.11 Type 1 diabetes mellitus with ketoacidosis with coma (principal); G93.41 Metabolic encephalopathy; G92 Toxic encephalopathy; I21.A1 Myocardial infarction type 2; N17.9 Acute kidney failure, unspecified; E87.0 Hyperosmolality and hypernatremia; F11.23 Opioid dependence with withdrawal; Z78.1 Physical restraint status; T42.75XA Adverse effect of unspecified antiepileptic and sedative-hypnotic drugs, initial encounter; E87.8 Other disorders of electrolyte and fluid balance, not elsewhere classified; D75.82 Heparin induced thrombocytopenia (HIT); I10 Essential (primary) hypertension; M79.7 Fibromyalgia; G43.909 Migraine, unspecified, not intractable, without status migrainosus; G89.29 Other chronic pain; E03.9 Hypothyroidism, unspecified; Z51.81 Encounter for therapeutic drug level monitoring; Z79.899 Other long term (current) drug therapy; Z96.41 Presence of insulin pump (external) (internal); Z91.19 Patient's noncompliance with other medical treatment and regimen

== ENCOUNTER 2019-03-04 21:23 | Inpatient (IN) ==
--- NOTE | 2019-03-04 23:08 | History & Physical Report ---
Date of Service March 04, 2019 Assessment & Plan (1) Hyperglycemic crisis in diabetes mellitus: DKA/HHS DM type 1 on insulin pump hx medication noncompliance Suboptimal control as of hemoglobin A1c of 12.1 done at [facility] Severe sepsis SIRS plus lactic acid elevation plus ARF as additional precipitating factor for hyperglycemic crisis Elevated procalcitonin. No obvious focus of infection for now from history obtained from patient. Shortness of breath, tachycardia, troponin elevation secondary to illness Rule out PE hypothyroidism, TSH noted to be low fibromyalgia as per records NAFLD as per records history opioid abuse as per records ongoing tobacco abuse chronic anemia (baseline hemoglobin of 11), hemoglobin better than baseline likely secondary to hemoconcentration ICU IVF, IV insulin Glycemic control consult Diabetic education Baseline UA, daily renal function; renal ultrasound, Nephrology eval if no improvement in kidney function Check urine drug screen Cultures, trend lactic acid IV Daptomycin, Zosyn for now Trend troponin, TTE RE sob, troponin elevation VQ scan, LE Dopplers for PE DVT work-up (CT angio currently precluded by abnormal kidney function) IV heparin until PE DVT ruled out Nicotine patch PRN DVT prophylaxis. Heparin Full code Total critical time was 55 minutes. Patient's mother requesting updates from providers. Ms.Courtney Red, contact #[phone]. History of Present Illness Chief Complaint: DKA as per records Primary Care Provider: Former PCP : Dr. Quiroga Current PCP : None Patient does not intend to follow-up with [facility] on discharge due to insurance issues. History obtained from patient, family, and records. Medical history significant for DM type 1 on insulin pump, DM gastroparesis/neuropathy, hypothyroidism, fibromyalgia, NAFLD as per records, history opioid abuse as per records, ongoing tobacco abuse, chronic anemia baseline hemoglobin of 11, medication noncompliance as per records. Recent confinement August 2018 for DKA. Patient left AGAINST MEDICAL ADVICE. Yesterday, patient stopped her insulin pump for some swimming activity. Patient was not able to restart insulin pump after swimming. This afternoon, patient noted by family to be in and out confused. Blood sugars noted to be high on meter. Patient attempted to give herself subcutaneous insulin shot. Patient subsequently developed nausea and emesis. Patient denies headache, chest pain, abdominal pain, dysuria symptoms. Admits to shortness of breath, bilateral leg pain/swelling symptoms. Usual alternating constipation diarrhea symptoms from IBS as per patient. Patient brought to [facility] emergency room around 7 PM tonight. Patient noted to be tachycardic. Pertinent labs as follows : WBC 13 Glucose 1159 Creatinine 2.5 Sodium 131 Potassium 7.2 CO2 6 Calcium 10.3 Phosphorus 9 Magnesium 2.9 Alk phos 237 Anion gap 42 Serum ketones +2 Lactic acid 6.2 Hemoglobin A1c 12.1 Chest x-ray did not show infiltrate. EKG showed sinus tachycardia as per ER provider note. IVF, IV insulin initiated for DKA. [facility] hospitalist recommended transfer to bigger facility as per records. Family requested [facility] transfer. Patient mentation currently much improved at [facility] ICU as per family. 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 Verified 03/04/19 23:45 Home Medications Home Medications Medication Instructions Recorded Confirmed Type Lyrica 150 mg PO TID 07/30/18 03/04/19 History duloxetine [Cymbalta] 60 mg PO QAM 07/30/18 03/04/19 History pantoprazole 40 mg PO QAM 07/30/18 03/04/19 History Humalog U-100 Insulin 1 dose SUBCUT UD 12/14/18 03/04/19 History insulin glargine [Lantus Solostar 32 unit SUBCUT HS 03/04/19 03/04/19 History U-100 Insulin] Past Med/Surg History Social History Preferred Language: [place] Communication Ability: Effective Wool Fleece Sorter Required: No Beliefs That Will Affect Care: None Current Living Situation: Family Other Information That Helps Us Care for You: No Feels Safe at Home: Yes Safety Concerns: Feels Safe At This Time Smoking Status: Light tobacco smoker Tobacco Type: cigarettes Cigarettes Per Day: 2 packs/week Do You Dip or Chew Tobacco: No Second Hand Exposure: No Tobacco Cessation Education Requested by Patient: No Hx Alcohol Use: No Hx Substance Use: No Review of Systems Review of Systems: As per HPI, all 10 systems reviewed, all other ROS negative Physical Exam Physical Exam: GENERAL: Comfortable, shivering, no respiratory distress SKIN: Pallor , warm HEENT: pale palpebral conjunctivae, no ptosis, dry buccal mucosa NECK : Supple, no tenderness CHEST : CTA, no tenderness HEART : Tachycardic, no obvious murmurs ABDOMEN: Some distention, nontender EXTREMITIES : Minimal LE swelling/tenderness, nontender thickening left great toe NEUROLOGIC : Coherent, no facial asymmetry, no other gross focality except for intention tremors Results & Data Laboratory Results Laboratory Results PT 9.7 Seconds (9.0-12.0) 03/04/19 23:44 INR 0.9 (0.9-1.1) 03/04/19 23:44 APTT 20.8 Seconds (21.0-31.0) L 03/04/19 23:44 PTT Ratio 0.8 03/04/19 23:44 Sample Site R Radial 03/04/19 23:55 POC pH 7.26 (7.35-7.45) L 03/04/19 23:55 POC pCO2 21 mmHg (35-46) L 03/04/19 23:55 POC pO2 89 mmHg (80-95) 03/04/19 23:55 POC HCO3 10 nathanael/L (19-24) L 03/04/19 23:55 POC Total CO2 10 mEq/l (24-31) L 03/04/19 23:55 POC Base Excess -18.0 nathanael/L (-9-1.8) L 03/04/19 23:55 POC ABG O2 Sat 96.0 % (90-95) H 03/04/19 23:55 Ian Test NA 03/04/19 23:55 O2 Delivery Device Room Air 03/04/19 23:55 Sodium 142 mmol/L (136-145) 03/04/19 23:26 Potassium 5.2 mmol/L (3.5-5.1) H 03/04/19 23:26 Chloride 101 mmol/L (98-107) 03/04/19 23:26 Carbon Dioxide 11 mmol/L (21-32) L 03/04/19 23:26 Anion Gap 30.0 (3-11) H 03/04/19 23:26 BUN 43 mg/dl (7-18) H 03/04/19 23:26 Creatinine 2.65 mg/dl (0.6-1.2) H 03/04/19 23:26 Est Cr Clr Drug Dosing 18.8 ml/min 03/04/19 23:26 Est GFR ( Amer) 27.7 03/04/19 23:26 Est GFR (Non-Af Amer) 23.9 03/04/19 23:26 BUN/Creatinine Ratio 16.3 (10-20) 03/04/19 23:26 Glucose 394 mg/dl (70-99) H* 03/05/19 01:45 POC Glucose 269 (70-99) H 03/05/19 02:44 Osmolality 364 mOsm/kg (280-300) H* 03/04/19 23:45 Lactate 4.2 mmol/L (0.4-2.0) H* 03/04/19 23:44 Calcium 9.4 mg/dl (8.5-10.1) 03/04/19 23:26 Phosphorus 4.8 mg/dl (2.5-4.9) 03/04/19 23:26 Magnesium 3.1 mg/dl (1.8-2.4) H 03/04/19 23:26 Total Bilirubin 0.5 mg/dl (0.2-1) 03/04/19 23:26 AST 18 U/L (15-37) 03/04/19 23:26 ALT 18 U/L (12-78) 03/04/19 23:26 Alkaline Phosphatase 227 U/L (45-117) H 03/04/19 23:26 Ammonia 15.0 umol/L (11-32) 03/04/19 23:44 Total Creatine Kinase 50 U/L (26-192) 03/04/19 23:26 Troponin I 0.061 ng/ml (0-0.045) H* 03/04/19 23:26 Total Protein 8.1 gm/dl (6.4-8.2) 03/04/19 23:26 Albumin 3.3 gm/dl (3.4-5.0) L 03/04/19 23:26 Globulin 4.8 gm/dl (2.5-4.0) H 03/04/19 23:26 Albumin/Globulin Ratio 0.7 (0.9-2) L 03/04/19 23:26 Lipase 36 U/L (73-393) L 03/04/19 23:26 Beta-Hydroxybutyric Acd mg/dl (0.2-2.81) 03/04/19 23:26 Procalcitonin 7.07 ng/ml (0-0.5) H 03/04/19 23:44 Specimen Hemolysis 03/04/19 23:26 Salicylates 5.7 mg/dl (2.8-20) 03/04/19 23:45 Acetaminophen < 2 ug/ml (10-30) L 03/04/19 23:45 Ethyl Alcohol mg/dL < 3.0 mg/dl (0-3) 03/04/19 23:45 Diagnostic Findings EKG ([facility]) as per my interpretation: Rate 175, RAD, SVT, peaked T waves
[2019-03-04] MEDS ORDERED: INSULIN PROTOCOL GOAL RANGE ONE ×2 (23:14→23:34)
[2019-03-04] MEDS ORDERED: SEVERE STRESS LEVEL ONE (23:14)
[2019-03-04] MEDS ORDERED: INSULIN REGULAR 250 UNITS in SODIUM CHLORIDE 0.9% 247.5 ML IV SCH ×2 (23:15→23:45)
[2019-03-04] MEDS ORDERED: SODIUM CHLORIDE 0.9% 1000ML 1,000 ML IV ONE (23:24)
[2019-03-04] MEDS ORDERED: PHARMACY GLYCEMIC MGMT CONSULT PRN (23:40)
[2019-03-04] MEDS ORDERED: DEXTROSE 50% 50 ML SYRINGE IV PRN (23:45)
[2019-03-04] MEDS ORDERED: GLUCOSE 10 TABS/TUBE PO PRN (23:45)
[2019-03-04] MEDS ORDERED: GLUCAGON FOR INJ 1 MG VIAL IM PRN (23:45)
[2019-03-04] MEDS ORDERED: GLUCOSE 40% GEL 15 GM TUBE PO PRN (23:45)
[2019-03-04] MEDS ORDERED: CARBOHYDRATES FOR HYPOGLYCEMIA PO PRN (23:45)
[2019-03-05 00:10] LABS: iSTAT Arterial Blood Gas HCO3 10 meg/L (19-24); iSTAT Arterial Blood Gas pCO2 21 mmHg (35-46); iSTAT Arterial Blood Gas pH 7.26 (7.35-7.45); iSTAT Carbon Dioxide 10 mEq/l (24-31); iSTAT Site R Radial
[2019-03-05 00:12] LABS: Partial Thromboplastin Ratio 0.8; Partial Thromboplastin Time 20.8 Seconds (21.0-31.0)
[2019-03-05 00:13] LABS: Albumin Globulin Ratio 0.7 (0.9-2); Albumin Level 3.3 gm/dl (3.4-5.0); BUN Creatinine Ratio 16.3 (10-20); Bilirubin,Total 0.5 mg/dl (0.2-1); Calcium 9.4 mg/dl (8.5-10.1); Creatinine Clr Calc Pharmacy 18.8 ml/min; Est GFR (African American) 27.7; Est GFR (Non-African American) 23.9; Globulin 4.8 gm/dl (2.5-4.0); Magnesium 3.1 mg/dl (1.8-2.4); Phosphorus 4.8 mg/dl (2.5-4.9); Potassium 5.2 mmol/L (3.5-5.1); Total Protein 8.1 gm/dl (6.4-8.2)
[2019-03-05] MEDS ORDERED: ACETAMINOPHEN 325 MG TAB PO PRN (00:21)
[2019-03-05] MEDS ORDERED: TRAMADOL HCL 50 MG TABLET PO PRN (00:22)
[2019-03-05] MEDS ORDERED: SODIUM CHLORIDE 0.45 % 1,000 ML IV STA (00:25)
[2019-03-05 00:30] LABS: Acetaminophen < 2 ug/ml (10-30); Salicylate 5.7 mg/dl (2.8-20)
[2019-03-05 00:56] LABS: Troponin I 0.061 ng/ml (0-0.045)
[2019-03-05 01:13] LABS: INR 0.9 (0.9-1.1); Prothrombin Time 9.7 Seconds (9.0-12.0)
[2019-03-05] MEDS ORDERED: PIPERACILL/TAZOBAC CONSULT ACTIVE PRN (01:13)
[2019-03-05] MEDS ORDERED: DAPTOmycin 500 MG VIAL IV STA (01:15)
[2019-03-05] MEDS ORDERED: Heparin IV Standard *NO* Bolus STA (01:21)
[2019-03-05] MEDS ORDERED: DAPTOMYCIN CONSULT ACTIVE PRN (01:22)
[2019-03-05] MEDS ORDERED: DAPTOmycin 450 MG in SYRINGE 0 ML IV SCH (01:30)
[2019-03-05] MEDS ORDERED: SODIUM CHLORIDE 0.45 % 1,000 ML IV SCH (01:30)
[2019-03-05] MEDS ORDERED: PIPERACILLIN/TAZOBACTAM 4.5 GM/120 ML BAG IV ONE (01:30)
[2019-03-05] MEDS ORDERED: Heparin Adult STANDARD Wt-Based Dextrose 5% 25,000 units/500 mL IV SCH (02:18)
[2019-03-05] MEDS ORDERED: D5W AND 1/2NSS 1,000 ML IV SCH (03:15)
[2019-03-05] MEDS ORDERED: METOPROLOL TARTRATE 1 MG/ML VIAL IV STA (04:09)
[2019-03-05] MEDS ORDERED: OLANZapine 10 MG/2.1 ML SDV IM STA (04:10)
[2019-03-05 04:53] LABS: Basophils # (auto) 0.03 K/uL (0-0.2); Basophils % (auto) 0.2 %; Eosinophils # (auto) 0.05 K/uL (0-0.5); Eosinophils % (auto) 0.3 %; Immature Granulocytes # (auto) 0.12 K/uL (0.00-0.02); Immature Granulocytes % (auto) 0.7 %; Lymphocytes # (auto) 3.01 K/uL (1.2-3.4); Lymphocytes % (auto) 18.1 %; Mean Corpuscular Hgb Conc 33.3 g/dL (32-36); Mean Corpuscular Volume 84.2 fL (80-100); Monocytes # (auto) 1.29 K/uL (0.11-0.59); Monocytes % (auto) 7.7 %; Neutrophils # (auto) 12.17 K/uL (1.4-6.5); Platelet Count 279 K/uL (130-400); RDW Coefficient of Variation 15.7 % (11.5-14.5); RDW Standard Deviation 48.3 fL (36.4-46.3); Red Blood Count 3.92 M/uL (4.2-5.4); White Blood Count 16.67 K/uL (4.8-10.8)
[2019-03-05 05:07] LABS: Base Excess ABG 0.9 mEq/L (-9-1.8); HCO3 ABG 25 mmol/L (19-24); Oxygen Saturation ABG 92.3 % (90-95); PCO2 ABG 36 mmHg (35-46); PO2 ABG 59 mm/Hg (80-95); pH ABG 7.45 (7.35-7.45)
[2019-03-05 05:16] LABS: Appearance Urine Turbid (Clear); Bacteria Urine Automated Negative (Negative); Bilirubin Urine Negative (Negative); Blood Urine Negative (Negative); Color Urine Yellow; Epithelial Cell Urine Auto >30 /lpf (0-5); Glucose Urine UA Negative (Negative); Ketones Urine Trace (Negative); Leukocyte Esterase Urine Trace (Negative); Nitrite Urine Negative (Negative); Protein Urine Trace (Negative); RBC Urine Automated 0-4 /hpf (0-4); Specific Gravity Urine 1.023 (1.000-1.030); Urobilinogen Urine Negative (Negative)
[2019-03-05 05:19] LABS: Calcium 8.7 mg/dl (8.5-10.1); Creatinine Clr Calc Pharmacy 47.3 ml/min; Est GFR (African American) 36.7; Est GFR (Non-African American) 31.7; Potassium 3.9 mmol/L (3.5-5.1); Troponin I 0.141 ng/ml (0-0.045)
[2019-03-05 05:33] LABS: Amphetamines+Metham, Urine Neg (Neg); Barbiturates, Urine Neg (Neg); Benzodiazepine, Urine Neg (Neg); Cocaine, Urine Neg (Neg); MDMA (Ecstacy), Urine Neg (Neg); Methadone, Urine Neg (Neg); Opiate, Urine Pos (Neg); Phencyclidine, Urine Neg (Neg)
[2019-03-05] MEDS ORDERED: D5W AND LACTATED RINGERS 1,000 ML IV SCH (05:45)
[2019-03-05] MEDS ORDERED: HEPARIN SOD 5,000 UNIT/0.5 ML VIAL SQ SCH (06:00)
[2019-03-05] MEDS: LEVOTHYROXINE SODIUM 50 MCG TABLET PO SCH (06:11)
--- NOTE | 2019-03-05 06:22 | Ultrasound Report ---
US venous doppler LE BI HISTORY: Pain. Edema. leg swelling COMPARISON STUDY: None. FINDINGS: There is normal compressibility, flow, and augmentation within the bilateral lower extremit y deep venous systems. IMPRESSION: No DVT within the right or left lower extremity. The above report was generated using voice recognition software. It may contain grammatical, syntax or spelling errors. Electronically signed by: Phil Motta M.D. 03/05/2019 6:21 AM
[2019-03-05] MEDS ORDERED: INSULIN ASPART 100 UNITS/ML 3 ML PEN SC SCH (07:30)
[2019-03-05] MEDS ORDERED: INSULIN GLARGINE SOLOSTAR 100 UNITS/ML 3 ML PEN SC ONE ×2 (08:15→16:30)
[2019-03-05] MEDS: INSULIN ASPART 100 UNITS/ML 3 ML PEN SC SCH ×4 (08:32→21:32)
[2019-03-05] MEDS: PANTOprazole 40 MG TAB PO SCH (09:12)
[2019-03-05] MEDS: PREGABALIN 150 MG CAP PO SCH ×2 (09:13→20:04)
[2019-03-05] MEDS: LACTATED RINGER'S 1,000 ML IV SCH ×2 (09:16→17:16)
[2019-03-05] MEDS ORDERED: PIPERACILLIN/TAZOBACTAM 3.375 GM in DEXTROSE 5% 100 ML IV SCH (10:00)
--- NOTE | 2019-03-05 10:08 | Critical Care Consultation ---
Date of Consultation March 05, 2019 Assessment & Plan (1) DKA (diabetic ketoacidoses): Neuro- awake alert CV- HD stable Pulmonary- sat well on RA. no suspicion of PE can stop heparin ID- no evidence of infection. will stop abx and monitor off Renal- acute renal failure prerenal vs ATN. cr improved but remains high. continue fluids GI- diet as tolerated Heme- heparin proph Endocrine- DKA due no noncompliance with her insulin pump. gap now closed will transition to SQ insulin and later get back on her pump. diabetes education. hypothyrodism on levothyroxine Dispo- ok to transfer out of ICU once off insulin drip History of Present Illness Attending Physician: Nba Suárez MD History of Present Illness 28 y/o female with a history of DM, GERD, fibromyalgia who presented for DKA. she says that yesterday she went swimming and took off her insulin pump and then went to [place] and didnt restart it. She presented to [facility] and found to have a sugar of 1159. Overnight she received fluids and insulin drip and this morning she is feeling better and her gap is closed. she complains of chronic pain everywhere. no other current complaints Allergies Allergy/AdvReac Type Severity Reaction Status Date / Time No Known Drug Allergies Allergy Unknown . Verified 03/04/19 23:45 Home Medications Home Medications Medication Instructions Recorded Confirmed Type Lyrica 150 mg PO TID 07/30/18 03/04/19 History duloxetine [Cymbalta] 60 mg PO QAM 07/30/18 03/04/19 History pantoprazole 40 mg PO QAM 07/30/18 03/04/19 History Humalog U-100 Insulin 1 dose SUBCUT UD 12/14/18 03/04/19 History insulin glargine [Lantus Solostar 32 unit SUBCUT HS 03/04/19 03/04/19 History U-100 Insulin] Patient History Social History Preferred Language: Romanian Communication Ability: Effective Barrel Reamer Required: No Beliefs That Will Affect Care: None Current Living Situation: Family Other Information That Helps Us Care for You: No Feels Safe at Home: Yes Safety Concerns: Feels Safe At This Time Smoking Status: Light tobacco smoker Tobacco Type: cigarettes Cigarettes Per Day: 2 packs/week Do You Dip or Chew Tobacco: No Second Hand Exposure: No Tobacco Cessation Education Requested by Patient: No Hx Alcohol Use: No Hx Substance Use: No Review of Systems Review of Systems: Constitutional: no fevers no chills no weight loss Eyes: no blurry or double vision EENT: no sore throat, no congestion Respiratory: no cough no shortness of breath Cardiovascular: no chest pain no palpitations GI: no abdominal pain, + nausea, + vomiting, + diarrhea, + constipation Gu: no dysuria, no frequency MSK: no joint pain, + muscle aches Skin: no rash Neuro: no headache, + dizziness, no focal weakness Endocrine: no heat or cold intolerance heme: no easy bruising, no lymphadenopathy Physical Exam Physical Exam: Constitutional: Comfortable NAD HEENT: normocephalic atraumatic. MMM. no cervical lymphadenopathy CV: RRR nl s1,s2 no murmurs rubs or gallops Lungs: clear to auscultation bilaterally. no accessory muscle use Abd: soft nontender nondistended. normal bowel sounds Ext: no edema. no cyanosis, no clubbing Skin: warm dry Neuro: alert and oriented. moving all extremities Psych: normal mood and affect Results & Data Vital Signs (Past 12 Hours) Vital Signs Temp Pulse Pulse Resp BP BP Pulse Ox 03/05/19 09:01 107 H 18 104/54 L 99 03/05/19 08:00 36.7 C 113 H 18 93/43 L 94 03/05/19 07:00 109 H 17 116/67 99 03/05/19 06:00 113 H 115/69 98 03/05/19 05:00 115 H 91/47 L 94 03/05/19 04:00 36.8 C 120 H 114/69 98 03/05/19 03:50 119 H 112/72 98 03/05/19 03:00 115 H 93/49 L 95 03/05/19 02:00 114 H 101/58 L 93 03/05/19 01:00 114 H 101/49 L 96 03/05/19 00:30 116 H 95 03/04/19 23:56 37 C 133 H 24 116/69 Laboratory Results Laboratory Results - last 24 hr 03/04/19 03/04/19 03/04/19 23:16 23:26 23:26 WBC RBC Hgb Hct MCV MCH MCHC RDW Std Deviation RDW Coeff of Isai Plt Count MPV Immature Gran % (Auto) Neut % (Auto) Lymph % (Auto) Dent % (Auto) Eos % (Auto) Baso % (Auto) Immature Gran # (Auto) Neut # (Auto) Lymph # (Auto) Dent # (Auto) Eos # (Auto) Baso # (Auto) PT INR APTT PTT Ratio Sample Site POC pH POC pCO2 POC pO2 POC HCO3 POC Total CO2 POC Base Excess ABG pH ABG pCO2 ABG pO2 ABG HCO3 POC ABG O2 Sat ABG O2 Saturation ABG Base Excess Ian Test Oxygen Given O2 Delivery Device Sodium 142 Potassium 5.2 H Chloride 101 Carbon Dioxide 11 L Anion Gap 30.0 H BUN 43 H Creatinine 2.65 H Est Cr Clr Drug Dosing 18.8 Est GFR ( Amer) 27.7 Est GFR (Non-Af Amer) 23.9 BUN/Creatinine Ratio 16.3 Glucose 728 H* POC Glucose > 600 H* Osmolality Lactate Calcium 9.4 Phosphorus 4.8 Magnesium 3.1 H Total Bilirubin 0.5 AST 18 ALT 18 Alkaline Phosphatase 227 H Ammonia Total Creatine Kinase 50 Troponin I 0.061 H* Total Protein 8.1 Albumin 3.3 L Globulin 4.8 H Albumin/Globulin Ratio 0.7 L Lipase 36 L Beta-Hydroxybutyric Acd Procalcitonin TSH Free T4 Total T3 Specimen Hemolysis Urine Color Urine Appearance Urine pH Ur Specific [place] Urine Protein Urine Glucose (UA) Urine Ketones Urine Blood Urine Nitrite Urine Bilirubin Urine Urobilinogen Ur Leukocyte Esterase Urine WBC (Auto) Urine RBC (Auto) U Hyaline Cast (Auto) U Epithel Cells (Auto) Urine Bacteria (Auto) Nasal Screen MRSA (PCR) Salicylates Urine Opiates Screen U Codeine Confrm GC/MS Ur Morphine (GC/MS) Ur Hydrocodone (GC/MS) Ur Norhydrocodone Ur Noroxycodone Urine Oxycodone (GC/MS) U Oxymorphone GC/MS Ur Methadone, Qual Ur Hydromorphone (GC/MS) Acetaminophen Urine Barbiturates Ur Phencyclidine (PCP) U Amphetamin/Meth Scrn MDMA (Ecstasy) Screen U Benzodiazepines Scrn Ur Cocaine Metabolite U Marijuana (THC) Screen Ethyl Alcohol mg/dL 03/04/19 03/04/19 03/04/19 23:44 23:44 23:44 WBC RBC Hgb Hct MCV MCH MCHC RDW Std Deviation RDW Coeff of Isai Plt Count MPV Immature Gran % (Auto) Neut % (Auto) Lymph % (Auto) Dent % (Auto) Eos % (Auto) Baso % (Auto) Immature Gran # (Auto) Neut # (Auto) Lymph # (Auto) Dent # (Auto) Eos # (Auto) Baso # (Auto) PT 9.7 INR 0.9 APTT 20.8 L PTT Ratio 0.8 Sample Site POC pH POC pCO2 POC pO2 POC HCO3 POC Total CO2 POC Base Excess ABG pH ABG pCO2 ABG pO2 ABG HCO3 POC ABG O2 Sat ABG O2 Saturation ABG Base Excess Ian Test Oxygen Given O2 Delivery Device Sodium Potassium Chloride Carbon Dioxide Anion Gap BUN Creatinine Est Cr Clr Drug Dosing Est GFR ( Amer) Est GFR (Non-Af Amer) BUN/Creatinine Ratio Glucose POC Glucose Osmolality Lactate Calcium Phosphorus Magnesium Total Bilirubin AST ALT Alkaline Phosphatase Ammonia 15.0 Total Creatine Kinase Troponin I Total Protein Albumin Globulin Albumin/Globulin Ratio Lipase Beta-Hydroxybutyric Acd Procalcitonin 7.07 H TSH Free T4 Total T3 Specimen Hemolysis Urine Color Urine Appearance Urine pH Ur Specific [place] Urine Protein Urine Glucose (UA) Urine Ketones Urine Blood Urine Nitrite Urine Bilirubin Urine Urobilinogen Ur Leukocyte Esterase Urine WBC (Auto) Urine RBC (Auto) U Hyaline Cast (Auto) U Epithel Cells (Auto) Urine Bacteria (Auto) Nasal Screen MRSA (PCR) Salicylates Urine Opiates Screen U Codeine Confrm GC/MS Ur Morphine (GC/MS) Ur Hydrocodone (GC/MS) Ur Norhydrocodone Ur Noroxycodone Urine Oxycodone (GC/MS) U Oxymorphone GC/MS Ur Methadone, Qual Ur Hydromorphone (GC/MS) Acetaminophen Urine Barbiturates Ur Phencyclidine (PCP) U Amphetamin/Meth Scrn MDMA (Ecstasy) Screen U Benzodiazepines Scrn Ur Cocaine Metabolite U Marijuana (THC) Screen Ethyl Alcohol mg/dL 03/04/19 03/04/19 03/04/19 23:44 23:45 23:45 WBC RBC Hgb Hct MCV MCH MCHC RDW Std Deviation RDW Coeff of Isai Plt Count MPV Immature Gran % (Auto) Neut % (Auto) Lymph % (Auto) Dent % (Auto) Eos % (Auto) Baso % (Auto) Immature Gran # (Auto) Neut # (Auto) Lymph # (Auto) Dent # (Auto) Eos # (Auto) Baso # (Auto) PT INR APTT PTT Ratio Sample Site POC pH POC pCO2 POC pO2 POC HCO3 POC Total CO2 POC Base Excess ABG pH ABG pCO2 ABG pO2 ABG HCO3 POC ABG O2 Sat ABG O2 Saturation ABG Base Excess Ian Test Oxygen Given O2 Delivery Device Sodium Potassium Chloride Carbon Dioxide Anion Gap BUN Creatinine Est Cr Clr Drug Dosing Est GFR ( Amer) Est GFR (Non-Af Amer) BUN/Creatinine Ratio Glucose POC Glucose Osmolality 364 H* Lactate 4.2 H* Calcium Phosphorus Magnesium Total Bilirubin AST ALT Alkaline Phosphatase Ammonia Total Creatine Kinase Troponin I Total Protein Albumin Globulin Albumin/Globulin Ratio Lipase Beta-Hydroxybutyric Acd Procalcitonin TSH Free T4 Total T3 Specimen Hemolysis Urine Color Urine Appearance Urine pH Ur Specific [place] Urine Protein Urine Glucose (UA) Urine Ketones Urine Blood Urine Nitrite Urine Bilirubin Urine Urobilinogen Ur Leukocyte Esterase Urine WBC (Auto) Urine RBC (Auto) U Hyaline Cast (Auto) U Epithel Cells (Auto) Urine Bacteria (Auto) Nasal Screen MRSA (PCR) Salicylates Urine Opiates Screen U Codeine Confrm GC/MS Ur Morphine (GC/MS) Ur Hydrocodone (GC/MS) Ur Norhydrocodone Ur Noroxycodone Urine Oxycodone (GC/MS) U Oxymorphone GC/MS Ur Methadone, Qual Ur Hydromorphone (GC/MS) Acetaminophen Urine Barbiturates Ur Phencyclidine (PCP) U Amphetamin/Meth Scrn MDMA (Ecstasy) Screen U Benzodiazepines Scrn Ur Cocaine Metabolite U Marijuana (THC) Screen Ethyl Alcohol mg/dL < 3.0 03/04/19 03/04/19 03/04/19 23:45 23:55 Unknown WBC RBC Hgb Hct MCV MCH MCHC RDW Std Deviation RDW Coeff of Isai Plt Count MPV Immature Gran % (Auto) Neut % (Auto) Lymph % (Auto) Dent % (Auto) Eos % (Auto) Baso % (Auto) Immature Gran # (Auto) Neut # (Auto) Lymph # (Auto) Dent # (Auto) Eos # (Auto) Baso # (Auto) PT INR APTT PTT Ratio Sample Site R Radial POC pH 7.26 L POC pCO2 21 L POC pO2 89 POC HCO3 10 L POC Total CO2 10 L POC Base Excess -18.0 L ABG pH ABG pCO2 ABG pO2 ABG HCO3 POC ABG O2 Sat 96.0 H ABG O2 Saturation ABG Base Excess Ian Test NA Oxygen Given O2 Delivery Device Room Air Sodium Potassium Chloride Carbon Dioxide Anion Gap BUN Creatinine Est Cr Clr Drug Dosing Est GFR ( Amer) Est GFR (Non-Af Amer) BUN/Creatinine Ratio Glucose POC Glucose Osmolality Lactate Calcium Phosphorus Magnesium Total Bilirubin AST ALT Alkaline Phosphatase Ammonia Total Creatine Kinase Troponin I Total Protein Albumin Globulin Albumin/Globulin Ratio Lipase Beta-Hydroxybutyric Acd Procalcitonin TSH Free T4 Total T3 Specimen Hemolysis Urine Color Urine Appearance Urine pH Ur Specific [place] Urine Protein Urine Glucose (UA) Urine Ketones Urine Blood Urine Nitrite Urine Bilirubin Urine Urobilinogen Ur Leukocyte Esterase Urine WBC (Auto) Urine RBC (Auto) U Hyaline Cast (Auto) U Epithel Cells (Auto) Urine Bacteria (Auto) Nasal Screen MRSA (PCR) Positive A Salicylates 5.7 Urine Opiates Screen U Codeine Confrm GC/MS Ur Morphine (GC/MS) Ur Hydrocodone (GC/MS) Ur Norhydrocodone Ur Noroxycodone Urine Oxycodone (GC/MS) U Oxymorphone GC/MS Ur Methadone, Qual Ur Hydromorphone (GC/MS) Acetaminophen < 2 L Urine Barbiturates Ur Phencyclidine (PCP) U Amphetamin/Meth Scrn MDMA (Ecstasy) Screen U Benzodiazepines Scrn Ur Cocaine Metabolite U Marijuana (THC) Screen Ethyl Alcohol mg/dL 03/05/19 03/05/19 03/05/19 01:45 02:44 03:10 WBC RBC Hgb Hct MCV MCH MCHC RDW Std Deviation RDW Coeff of Isai Plt Count MPV Immature Gran % (Auto) Neut % (Auto) Lymph % (Auto) Dent % (Auto) Eos % (Auto) Baso % (Auto) Immature Gran # (Auto) Neut # (Auto) Lymph # (Auto) Dent # (Auto) Eos # (Auto) Baso # (Auto) PT INR APTT PTT Ratio Sample Site POC pH POC pCO2 POC pO2 POC HCO3 POC Total CO2 POC Base Excess ABG pH ABG pCO2 ABG pO2 ABG HCO3 POC ABG O2 Sat ABG O2 Saturation ABG Base Excess Ian Test Oxygen Given O2 Delivery Device Sodium Potassium Chloride Carbon Dioxide Anion Gap BUN Creatinine Est Cr Clr Drug Dosing Est GFR ( Amer) Est GFR (Non-Af Amer) BUN/Creatinine Ratio Glucose 394 H* POC Glucose 269 H 242 H Osmolality Lactate Calcium Phosphorus Magnesium Total Bilirubin AST ALT Alkaline Phosphatase Ammonia Total Creatine Kinase Troponin I Total Protein Albumin Globulin Albumin/Globulin Ratio Lipase Beta-Hydroxybutyric Acd Procalcitonin TSH 0.264 L Free T4 1.00 Total T3 Specimen Hemolysis Urine Color Urine Appearance Urine pH Ur Specific [place] Urine Protein Urine Glucose (UA) Urine Ketones Urine Blood Urine Nitrite Urine Bilirubin Urine Urobilinogen Ur Leukocyte Esterase Urine WBC (Auto) Urine RBC (Auto) U Hyaline Cast (Auto) U Epithel Cells (Auto) Urine Bacteria (Auto) Nasal Screen MRSA (PCR) Salicylates Urine Opiates Screen U Codeine Confrm GC/MS Ur Morphine (GC/MS) Ur Hydrocodone (GC/MS) Ur Norhydrocodone Ur Noroxycodone Urine Oxycodone (GC/MS) U Oxymorphone GC/MS Ur Methadone, Qual Ur Hydromorphone (GC/MS) Acetaminophen Urine Barbiturates Ur Phencyclidine (PCP) U Amphetamin/Meth Scrn MDMA (Ecstasy) Screen U Benzodiazepines Scrn Ur Cocaine Metabolite U Marijuana (THC) Screen Ethyl Alcohol mg/dL 03/05/19 03/05/19 03/05/19 04:20 04:41 04:41 WBC 16.67 H RBC 3.92 L Hgb 11.0 L Hct 33.0 L MCV 84.2 MCH 28.1 MCHC 33.3 RDW Std Deviation 48.3 H RDW Coeff of Isai 15.7 H Plt Count 279 MPV 10.0 Immature Gran % (Auto) 0.7 Neut % (Auto) 73.0 Lymph % (Auto) 18.1 Dent % (Auto) 7.7 Eos % (Auto) 0.3 Baso % (Auto) 0.2 Immature Gran # (Auto) 0.12 H Neut # (Auto) 12.17 H Lymph # (Auto) 3.01 Dent # (Auto) 1.29 H Eos # (Auto) 0.05 Baso # (Auto) 0.03 PT INR APTT PTT Ratio Sample Site POC pH POC pCO2 POC pO2 POC HCO3 POC Total CO2 POC Base Excess ABG pH ABG pCO2 ABG pO2 ABG HCO3 POC ABG O2 Sat ABG O2 Saturation ABG Base Excess Ian Test Oxygen Given O2 Delivery Device Sodium 144 Potassium 3.9 D Chloride 110 H Carbon Dioxide 25 Anion Gap 9.0 BUN 34 H Creatinine 2.10 H D Est Cr Clr Drug Dosing 47.3 Est GFR ( Amer) 36.7 Est GFR (Non-Af Amer) 31.7 BUN/Creatinine Ratio 16.0 Glucose 177 H POC Glucose 191 H Osmolality Lactate Calcium 8.7 Phosphorus Magnesium Total Bilirubin AST ALT Alkaline Phosphatase Ammonia Total Creatine Kinase Troponin I 0.141 H* Total Protein Albumin Globulin Albumin/Globulin Ratio Lipase Beta-Hydroxybutyric Acd Procalcitonin TSH Free T4 Total T3 Specimen Hemolysis Urine Color Urine Appearance Urine pH Ur Specific [place] Urine Protein Urine Glucose (UA) Urine Ketones Urine Blood Urine Nitrite Urine Bilirubin Urine Urobilinogen Ur Leukocyte Esterase Urine WBC (Auto) Urine RBC (Auto) U Hyaline Cast (Auto) U Epithel Cells (Auto) Urine Bacteria (Auto) Nasal Screen MRSA (PCR) Salicylates Urine Opiates Screen U Codeine Confrm GC/MS Ur Morphine (GC/MS) Ur Hydrocodone (GC/MS) Ur Norhydrocodone Ur Noroxycodone Urine Oxycodone (GC/MS) U Oxymorphone GC/MS Ur Methadone, Qual Ur Hydromorphone (GC/MS) Acetaminophen Urine Barbiturates Ur Phencyclidine (PCP) U Amphetamin/Meth Scrn MDMA (Ecstasy) Screen U Benzodiazepines Scrn Ur Cocaine Metabolite U Marijuana (THC) Screen Ethyl Alcohol mg/dL 03/05/19 03/05/19 03/05/19 04:41 04:41 04:42 WBC RBC Hgb Hct MCV MCH MCHC RDW Std Deviation RDW Coeff of Isai Plt Count MPV Immature Gran % (Auto) Neut % (Auto) Lymph % (Auto) Dent % (Auto) Eos % (Auto) Baso % (Auto) Immature Gran # (Auto) Neut # (Auto) Lymph # (Auto) Dent # (Auto) Eos # (Auto) Baso # (Auto) PT INR APTT PTT Ratio Sample Site POC pH POC pCO2 POC pO2 POC HCO3 POC Total CO2 POC Base Excess ABG pH Pending ABG pCO2 Pending ABG pO2 Pending ABG HCO3 Pending POC ABG O2 Sat ABG O2 Saturation Pending ABG Base Excess Pending Ian Test Pending Oxygen Given Pending O2 Delivery Device Sodium Potassium Chloride Carbon Dioxide Anion Gap BUN Creatinine Est Cr Clr Drug Dosing Est GFR ( Amer) Est GFR (Non-Af Amer) BUN/Creatinine Ratio Glucose POC Glucose Osmolality Lactate 2.2 H* Calcium Phosphorus Magnesium Total Bilirubin AST ALT Alkaline Phosphatase Ammonia Total Creatine Kinase Troponin I Total Protein Albumin Globulin Albumin/Globulin Ratio Lipase Beta-Hydroxybutyric Acd Procalcitonin TSH Free T4 Total T3 0.42 L Specimen Hemolysis Urine Color Urine Appearance Urine pH Ur Specific [place] Urine Protein Urine Glucose (UA) Urine Ketones Urine Blood Urine Nitrite Urine Bilirubin Urine Urobilinogen Ur Leukocyte Esterase Urine WBC (Auto) Urine RBC (Auto) U Hyaline Cast (Auto) U Epithel Cells (Auto) Urine Bacteria (Auto) Nasal Screen MRSA (PCR) Salicylates Urine Opiates Screen U Codeine Confrm GC/MS Ur Morphine (GC/MS) Ur Hydrocodone (GC/MS) Ur Norhydrocodone Ur Noroxycodone Urine Oxycodone (GC/MS) U Oxymorphone GC/MS Ur Methadone, Qual Ur Hydromorphone (GC/MS) Acetaminophen Urine Barbiturates Ur Phencyclidine (PCP) U Amphetamin/Meth Scrn MDMA (Ecstasy) Screen U Benzodiazepines Scrn Ur Cocaine Metabolite U Marijuana (THC) Screen Ethyl Alcohol mg/dL 03/05/19 03/05/19 03/05/19 05:29 06:33 06:48 WBC RBC Hgb Hct MCV MCH MCHC RDW Std Deviation RDW Coeff of Isai Plt Count MPV Immature Gran % (Auto) Neut % (Auto) Lymph % (Auto) Dent % (Auto) Eos % (Auto) Baso % (Auto) Immature Gran # (Auto) Neut # (Auto) Lymph # (Auto) Dent # (Auto) Eos # (Auto) Baso # (Auto) PT INR APTT PTT Ratio Sample Site POC pH POC pCO2 POC pO2 POC HCO3 POC Total CO2 POC Base Excess ABG pH ABG pCO2 ABG pO2 ABG HCO3 POC ABG O2 Sat ABG O2 Saturation ABG Base Excess Ian Test Oxygen Given O2 Delivery Device Sodium Potassium Chloride Carbon Dioxide Anion Gap BUN Creatinine Est Cr Clr Drug Dosing Est GFR ( Amer) Est GFR (Non-Af Amer) BUN/Creatinine Ratio Glucose POC Glucose 173 H 118 H 104 H Osmolality Lactate Calcium Phosphorus Magnesium Total Bilirubin AST ALT Alkaline Phosphatase Ammonia Total Creatine Kinase Troponin I Total Protein Albumin Globulin Albumin/Globulin Ratio Lipase Beta-Hydroxybutyric Acd Procalcitonin TSH Free T4 Total T3 Specimen Hemolysis Urine Color Urine Appearance Urine pH Ur Specific [place] Urine Protein Urine Glucose (UA) Urine Ketones Urine Blood Urine Nitrite Urine Bilirubin Urine Urobilinogen Ur Leukocyte Esterase Urine WBC (Auto) Urine RBC (Auto) U Hyaline Cast (Auto) U Epithel Cells (Auto) Urine Bacteria (Auto) Nasal Screen MRSA (PCR) Salicylates Urine Opiates Screen U Codeine Confrm GC/MS Ur Morphine (GC/MS) Ur Hydrocodone (GC/MS) Ur Norhydrocodone Ur Noroxycodone Urine Oxycodone (GC/MS) U Oxymorphone GC/MS Ur Methadone, Qual Ur Hydromorphone (GC/MS) Acetaminophen Urine Barbiturates Ur Phencyclidine (PCP) U Amphetamin/Meth Scrn MDMA (Ecstasy) Screen U Benzodiazepines Scrn Ur Cocaine Metabolite U Marijuana (THC) Screen Ethyl Alcohol mg/dL 03/05/19 03/05/19 03/05/19 07:03 07:23 07:50 WBC RBC Hgb Hct MCV MCH MCHC RDW Std Deviation RDW Coeff of Isai Plt Count MPV Immature Gran % (Auto) Neut % (Auto) Lymph % (Auto) Dent % (Auto) Eos % (Auto) Baso % (Auto) Immature Gran # (Auto) Neut # (Auto) Lymph # (Auto) Dent # (Auto) Eos # (Auto) Baso # (Auto) PT INR APTT PTT Ratio Sample Site POC pH POC pCO2 POC pO2 POC HCO3 POC Total CO2 POC Base Excess ABG pH ABG pCO2 ABG pO2 ABG HCO3 POC ABG O2 Sat ABG O2 Saturation ABG Base Excess Ian Test Oxygen Given O2 Delivery Device Sodium Potassium Chloride Carbon Dioxide Anion Gap BUN Creatinine Est Cr Clr Drug Dosing Est GFR ( Amer) Est GFR (Non-Af Amer) BUN/Creatinine Ratio Glucose POC Glucose 111 H 136 H 178 H Osmolality Lactate Calcium Phosphorus Magnesium Total Bilirubin AST ALT Alkaline Phosphatase Ammonia Total Creatine Kinase Troponin I Total Protein Albumin Globulin Albumin/Globulin Ratio Lipase Beta-Hydroxybutyric Acd Procalcitonin TSH Free T4 Total T3 Specimen Hemolysis Urine Color Urine Appearance Urine pH Ur Specific [place] Urine Protein Urine Glucose (UA) Urine Ketones Urine Blood Urine Nitrite Urine Bilirubin Urine Urobilinogen Ur Leukocyte Esterase Urine WBC (Auto) Urine RBC (Auto) U Hyaline Cast (Auto) U Epithel Cells (Auto) Urine Bacteria (Auto) Nasal Screen MRSA (PCR) Salicylates Urine Opiates Screen U Codeine Confrm GC/MS Ur Morphine (GC/MS) Ur Hydrocodone (GC/MS) Ur Norhydrocodone Ur Noroxycodone Urine Oxycodone (GC/MS) U Oxymorphone GC/MS Ur Methadone, Qual Ur Hydromorphone (GC/MS) Acetaminophen Urine Barbiturates Ur Phencyclidine (PCP) U Amphetamin/Meth Scrn MDMA (Ecstasy) Screen U Benzodiazepines Scrn Ur Cocaine Metabolite U Marijuana (THC) Screen Ethyl Alcohol mg/dL 03/05/19 03/05/19 03/05/19 08:50 09:59 Unknown WBC RBC Hgb Hct MCV MCH MCHC RDW Std Deviation RDW Coeff of Isai Plt Count MPV Immature Gran % (Auto) Neut % (Auto) Lymph % (Auto) Dent % (Auto) Eos % (Auto) Baso % (Auto) Immature Gran # (Auto) Neut # (Auto) Lymph # (Auto) Dent # (Auto) Eos # (Auto) Baso # (Auto) PT INR APTT PTT Ratio Sample Site POC pH POC pCO2 POC pO2 POC HCO3 POC Total CO2 POC Base Excess ABG pH ABG pCO2 ABG pO2 ABG HCO3 POC ABG O2 Sat ABG O2 Saturation ABG Base Excess Ian Test Oxygen Given O2 Delivery Device Sodium Potassium Chloride Carbon Dioxide Anion Gap BUN Creatinine Est Cr Clr Drug Dosing Est GFR ( Amer) Est GFR (Non-Af Amer) BUN/Creatinine Ratio Glucose POC Glucose 212 H 128 H Osmolality Lactate Calcium Phosphorus Magnesium Total Bilirubin AST ALT Alkaline Phosphatase Ammonia Total Creatine Kinase Troponin I Total Protein Albumin Globulin Albumin/Globulin Ratio Lipase Beta-Hydroxybutyric Acd Procalcitonin TSH Free T4 Total T3 Specimen Hemolysis Urine Color Urine Appearance Urine pH Ur Specific [place] Urine Protein Urine Glucose (UA) Urine Ketones Urine Blood Urine Nitrite Urine Bilirubin Urine Urobilinogen Ur Leukocyte Esterase Urine WBC (Auto) Urine RBC (Auto) U Hyaline Cast (Auto) U Epithel Cells (Auto) Urine Bacteria (Auto) Nasal Screen MRSA (PCR) Salicylates Urine Opiates Screen Pos H U Codeine Confrm GC/MS Ur Morphine (GC/MS) Ur Hydrocodone (GC/MS) Ur Norhydrocodone Ur Noroxycodone Urine Oxycodone (GC/MS) U Oxymorphone GC/MS Ur Methadone, Qual Neg Ur Hydromorphone (GC/MS) Acetaminophen Urine Barbiturates Neg Ur Phencyclidine (PCP) Neg U Amphetamin/Meth Scrn Neg MDMA (Ecstasy) Screen Neg U Benzodiazepines Scrn Neg Ur Cocaine Metabolite Neg U Marijuana (THC) Screen Neg Ethyl Alcohol mg/dL 03/05/19 03/05/19 Unknown Unknown WBC RBC Hgb Hct MCV MCH MCHC RDW Std Deviation RDW Coeff of Isai Plt Count MPV Immature Gran % (Auto) Neut % (Auto) Lymph % (Auto) Dent % (Auto) Eos % (Auto) Baso % (Auto) Immature Gran # (Auto) Neut # (Auto) Lymph # (Auto) Dent # (Auto) Eos # (Auto) Baso # (Auto) PT INR APTT PTT Ratio Sample Site POC pH POC pCO2 POC pO2 POC HCO3 POC Total CO2 POC Base Excess ABG pH ABG pCO2 ABG pO2 ABG HCO3 POC ABG O2 Sat ABG O2 Saturation ABG Base Excess Ian Test Oxygen Given O2 Delivery Device Sodium Potassium Chloride Carbon Dioxide Anion Gap BUN Creatinine Est Cr Clr Drug Dosing Est GFR ( Amer) Est GFR (Non-Af Amer) BUN/Creatinine Ratio Glucose POC Glucose Osmolality Lactate Calcium Phosphorus Magnesium Total Bilirubin AST ALT Alkaline Phosphatase Ammonia Total Creatine Kinase Troponin I Total Protein Albumin Globulin Albumin/Globulin Ratio Lipase Beta-Hydroxybutyric Acd Procalcitonin TSH Free T4 Total T3 Specimen Hemolysis Urine Color Yellow Urine Appearance Turbid A Urine pH 5.0 Ur Specific [place] 1.023 Urine Protein Trace H Urine Glucose (UA) Negative Urine Ketones Trace H Urine Blood Negative Urine Nitrite Negative Urine Bilirubin Negative Urine Urobilinogen Negative Ur Leukocyte Esterase Trace H Urine WBC (Auto) 5-10 H Urine RBC (Auto) 0-4 U Hyaline Cast (Auto) 1-5 U Epithel Cells (Auto) >30 H Urine Bacteria (Auto) Negative Nasal Screen MRSA (PCR) Salicylates Urine Opiates Screen U Codeine Confrm GC/MS Pending Ur Morphine (GC/MS) Pending Ur Hydrocodone (GC/MS) Pending Ur Norhydrocodone Pending Ur Noroxycodone Pending Urine Oxycodone (GC/MS) Pending U Oxymorphone GC/MS Pending Ur Methadone, Qual Ur Hydromorphone (GC/MS) Pending Acetaminophen Urine Barbiturates Ur Phencyclidine (PCP) U Amphetamin/Meth Scrn MDMA (Ecstasy) Screen U Benzodiazepines Scrn Ur Cocaine Metabolite U Marijuana (THC) Screen Ethyl Alcohol mg/dL (1) DKA (diabetic ketoacidoses) Diabetes mellitus complication detail: without coma Diabetes mellitus type: type 1 Qualified Code(s): E10.10 - Type 1 diabetes mellitus with ketoacidosis without coma
[2019-03-05 11:32] LABS: Allen Test POS (Pos)
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
[2019-03-05 12:34] LABS: Reticulocyte % 0.8 % (0.5-2.0); Reticulocytes # 0.03 10^6/uL (0.02-0.10)
[2019-03-05 13:02] LABS: Folate (Folic Acid) 13.67 ng/ml (>5.38)
[2019-03-05 13:07] LABS: Ferritin 86.6 ng/ml (8-388)
[2019-03-05] MEDS: HEPARIN SOD 5,000 UNIT/0.5 ML VIAL SQ SCH ×2 (15:14→21:35)
--- NOTE | 2019-03-05 21:36 | Hospitalist Progress Note ---
Date of Service March 05, 2019 Assessment & Plan (1) DKA (diabetic ketoacidoses): Diabetes mellitus type 1 managed with insulin pump. Presented with glucose of 728 with an anion gap of 30. Insulin pump had been removed to go swimming and was not resumed. No apparent infection. Leukocytosis, elevated serum lactate, and elevated procalcitonin noted, but may be secondary to DKA rather than infection. Serum troponin slightly elevated, probably secondary to DKA. Doubt acute coronary syndrome. DKA treated with insulin infusion and IV fluids per protocol. Pharmacy and Diabetes Team consulted. Transitioning from insulin infusion to SQ insulin. (2) LUIS CARLOS (acute kidney injury): Serum creatinine at time of admission 2.65. Acute kidney injury secondary to DKA and volume depletion. Received IV fluid resuscitation. Creatinine today = 2.10. (3) Elevated troponin level: Serum troponin 0.061, repeat 0.141. No anginal symptoms. EKG this morning shows sinus tachycardia at 110/minute, no acute changes. Echocardiogram showed normal left ventricular wall motion and systolic function. Elevated troponin most likely secondary to metabolic abnormalities from DKA. (4) DVT prophylaxis: Receiving SQ heparin. Ambulate. (5) Discharge planning issues: Anticipated discharge to home. Patient plans on establishing with new PCP. Endocrinology follow-up with [facility]. Subjective Recheck for DKA. Patient seen in their room around 09:30. Admitted last night with DKA. Treated with IV insulin and IV fluids per protocol with improvement. Feels much better this morning. Review of Systems: Constitutional- no fever. Cardiac- no chest pain. Pulmonary- no cough or SOB. GI- no nausea, vomiting, diarrhea, melena, hematochezia. - no urinary symptoms. Otherwise, as noted above. Physical Exam Constitutional: no acute distress Respiratory: no respiratory distress Auscultation: lungs clear to auscultation bilaterally Cardiovascular: Rate/Rhythm: regular rate and regular rhythm Heart Sounds: + murmur (I/ sys murmur at base); no gallop and no cardiac rub Vessels: no JVD Extremities: no calf tenderness and no edema Gastrointestinal (Abdomen): normal bowel sounds, soft, nontender, no hepatosplenomegaly Skin: no rashes, warm and dry Psychiatric: Orientation: alert and oriented x 3 Results & Data Vital Signs (Past 12 Hours) Vital Signs Temp Pulse Pulse Resp BP BP Pulse Ox 03/05/19 19:44 36.9 C 110 H 17 90/58 L 98 03/05/19 17:00 108 H 18 107/51 L 99 03/05/19 16:00 109 H 112 H 18 115/66 100 03/05/19 15:00 107 H 20 116/73 100 03/05/19 14:00 114 H 16 118/64 96 03/05/19 13:00 109 H 16 101/51 L 97 03/05/19 12:00 106 H 16 91/40 L 97 03/05/19 11:00 106 H 17 90/41 L 93 03/05/19 10:00 101 H 16 116/74 96 Laboratory Results Laboratory Results - last 24 hr 03/04/19 03/04/19 03/04/19 23:16 23:26 23:26 WBC RBC Hgb Hct MCV MCH MCHC RDW Std Deviation RDW Coeff of Isai Plt Count MPV Immature Gran % (Auto) Neut % (Auto) Lymph % (Auto) [place] % (Auto) Eos % (Auto) Baso % (Auto) Reticulocyte % (Auto) Immature Gran # (Auto) Neut # (Auto) Lymph # (Auto) [place] # (Auto) Eos # (Auto) Baso # (Auto) Reticulocyte # PT INR APTT PTT Ratio Sample Site POC pH POC pCO2 POC pO2 POC HCO3 POC Total CO2 POC Base Excess ABG pH ABG pCO2 ABG pO2 ABG HCO3 POC ABG O2 Sat ABG O2 Saturation ABG Base Excess Ian Test Barometric Pressure Oxygen Given O2 Delivery Device Sodium 142 Potassium 5.2 H Chloride 101 Carbon Dioxide 11 L Anion Gap 30.0 H BUN 43 H Creatinine 2.65 H Est Cr Clr Drug Dosing 18.8 Est GFR ( Amer) 27.7 Est GFR (Non-Af Amer) 23.9 BUN/Creatinine Ratio 16.3 Glucose 728 H* POC Glucose > 600 H* Osmolality Lactate Calcium 9.4 Phosphorus 4.8 Magnesium 3.1 H Iron TIBC Transferrin Ferritin Total Bilirubin 0.5 AST 18 ALT 18 Alkaline Phosphatase 227 H Ammonia Total Creatine Kinase 50 Troponin I 0.061 H* Total Protein 8.1 Albumin 3.3 L Globulin 4.8 H Albumin/Globulin Ratio 0.7 L Lipase 36 L Vitamin B12 Folate Beta-Hydroxybutyric Acd Procalcitonin TSH Free T4 Total T3 Specimen Hemolysis Urine Color Urine Appearance Urine pH Ur Specific [place] Urine Protein Urine Glucose (UA) Urine Ketones Urine Blood Urine Nitrite Urine Bilirubin Urine Urobilinogen Ur Leukocyte Esterase Urine WBC (Auto) Urine RBC (Auto) U Hyaline Cast (Auto) U Epithel Cells (Auto) Urine Bacteria (Auto) Nasal Screen MRSA (PCR) Salicylates Urine Opiates Screen U Codeine Confrm GC/MS Ur Morphine (GC/MS) Ur Hydrocodone (GC/MS) Ur Norhydrocodone Ur Noroxycodone Urine Oxycodone (GC/MS) U Oxymorphone GC/MS Ur Methadone, Qual Ur Hydromorphone (GC/MS) Acetaminophen Urine Barbiturates Ur Phencyclidine (PCP) U Amphetamin/Meth Scrn MDMA (Ecstasy) Screen U Benzodiazepines Scrn Ur Cocaine Metabolite U Marijuana (THC) Screen Ethyl Alcohol mg/dL 03/04/19 03/04/19 03/04/19 23:44 23:44 23:44 WBC RBC Hgb Hct MCV MCH MCHC RDW Std Deviation RDW Coeff of Isai Plt Count MPV Immature Gran % (Auto) Neut % (Auto) Lymph % (Auto) [place] % (Auto) Eos % (Auto) Baso % (Auto) Reticulocyte % (Auto) Immature Gran # (Auto) Neut # (Auto) Lymph # (Auto) [place] # (Auto) Eos # (Auto) Baso # (Auto) Reticulocyte # PT 9.7 INR 0.9 APTT 20.8 L PTT Ratio 0.8 Sample Site POC pH POC pCO2 POC pO2 POC HCO3 POC Total CO2 POC Base Excess ABG pH ABG pCO2 ABG pO2 ABG HCO3 POC ABG O2 Sat ABG O2 Saturation ABG Base Excess Ian Test Barometric Pressure Oxygen Given O2 Delivery Device Sodium Potassium Chloride Carbon Dioxide Anion Gap BUN Creatinine Est Cr Clr Drug Dosing Est GFR ( Amer) Est GFR (Non-Af Amer) BUN/Creatinine Ratio Glucose POC Glucose Osmolality Lactate Calcium Phosphorus Magnesium Iron TIBC Transferrin Ferritin Total Bilirubin AST ALT Alkaline Phosphatase Ammonia 15.0 Total Creatine Kinase Troponin I Total Protein Albumin Globulin Albumin/Globulin Ratio Lipase Vitamin B12 Folate Beta-Hydroxybutyric Acd Procalcitonin 7.07 H TSH Free T4 Total T3 Specimen Hemolysis Urine Color Urine Appearance Urine pH Ur Specific [place] Urine Protein Urine Glucose (UA) Urine Ketones Urine Blood Urine Nitrite Urine Bilirubin Urine Urobilinogen Ur Leukocyte Esterase Urine WBC (Auto) Urine RBC (Auto) U Hyaline Cast (Auto) U Epithel Cells (Auto) Urine Bacteria (Auto) Nasal Screen MRSA (PCR) Salicylates Urine Opiates Screen U Codeine Confrm GC/MS Ur Morphine (GC/MS) Ur Hydrocodone (GC/MS) Ur Norhydrocodone Ur Noroxycodone Urine Oxycodone (GC/MS) U Oxymorphone GC/MS Ur Methadone, Qual Ur Hydromorphone (GC/MS) Acetaminophen Urine Barbiturates Ur Phencyclidine (PCP) U Amphetamin/Meth Scrn MDMA (Ecstasy) Screen U Benzodiazepines Scrn Ur Cocaine Metabolite U Marijuana (THC) Screen Ethyl Alcohol mg/dL 03/04/19 03/04/19 03/04/19 23:44 23:45 23:45 WBC RBC Hgb Hct MCV MCH MCHC RDW Std Deviation RDW Coeff of Isai Plt Count MPV Immature Gran % (Auto) Neut % (Auto) Lymph % (Auto) [place] % (Auto) Eos % (Auto) Baso % (Auto) Reticulocyte % (Auto) Immature Gran # (Auto) Neut # (Auto) Lymph # (Auto) [place] # (Auto) Eos # (Auto) Baso # (Auto) Reticulocyte # PT INR APTT PTT Ratio Sample Site POC pH POC pCO2 POC pO2 POC HCO3 POC Total CO2 POC Base Excess ABG pH ABG pCO2 ABG pO2 ABG HCO3 POC ABG O2 Sat ABG O2 Saturation ABG Base Excess Ian Test Barometric Pressure Oxygen Given O2 Delivery Device Sodium Potassium Chloride Carbon Dioxide Anion Gap BUN Creatinine Est Cr Clr Drug Dosing Est GFR ( Amer) Est GFR (Non-Af Amer) BUN/Creatinine Ratio Glucose POC Glucose Osmolality 364 H* Lactate 4.2 H* Calcium Phosphorus Magnesium Iron TIBC Transferrin Ferritin Total Bilirubin AST ALT Alkaline Phosphatase Ammonia Total Creatine Kinase Troponin I Total Protein Albumin Globulin Albumin/Globulin Ratio Lipase Vitamin B12 Folate Beta-Hydroxybutyric Acd Procalcitonin TSH Free T4 Total T3 Specimen Hemolysis Urine Color Urine Appearance Urine pH Ur Specific [place] Urine Protein Urine Glucose (UA) Urine Ketones Urine Blood Urine Nitrite Urine Bilirubin Urine Urobilinogen Ur Leukocyte Esterase Urine WBC (Auto) Urine RBC (Auto) U Hyaline Cast (Auto) U Epithel Cells (Auto) Urine Bacteria (Auto) Nasal Screen MRSA (PCR) Salicylates Urine Opiates Screen U Codeine Confrm GC/MS Ur Morphine (GC/MS) Ur Hydrocodone (GC/MS) Ur Norhydrocodone Ur Noroxycodone Urine Oxycodone (GC/MS) U Oxymorphone GC/MS Ur Methadone, Qual Ur Hydromorphone (GC/MS) Acetaminophen Urine Barbiturates Ur Phencyclidine (PCP) U Amphetamin/Meth Scrn MDMA (Ecstasy) Screen U Benzodiazepines Scrn Ur Cocaine Metabolite U Marijuana (THC) Screen Ethyl Alcohol mg/dL < 3.0 03/04/19 03/04/19 03/04/19 23:45 23:55 Unknown WBC RBC Hgb Hct MCV MCH MCHC RDW Std Deviation RDW Coeff of Isai Plt Count MPV Immature Gran % (Auto) Neut % (Auto) Lymph % (Auto) [place] % (Auto) Eos % (Auto) Baso % (Auto) Reticulocyte % (Auto) Immature Gran # (Auto) Neut # (Auto) Lymph # (Auto) [place] # (Auto) Eos # (Auto) Baso # (Auto) Reticulocyte # PT INR APTT PTT Ratio Sample Site R Radial POC pH 7.26 L POC pCO2 21 L POC pO2 89 POC HCO3 10 L POC Total CO2 10 L POC Base Excess -18.0 L ABG pH ABG pCO2 ABG pO2 ABG HCO3 POC ABG O2 Sat 96.0 H ABG O2 Saturation ABG Base Excess Ian Test NA Barometric Pressure Oxygen Given O2 Delivery Device Room Air Sodium Potassium Chloride Carbon Dioxide Anion Gap BUN Creatinine Est Cr Clr Drug Dosing Est GFR ( Amer) Est GFR (Non-Af Amer) BUN/Creatinine Ratio Glucose POC Glucose Osmolality Lactate Calcium Phosphorus Magnesium Iron TIBC Transferrin Ferritin Total Bilirubin AST ALT Alkaline Phosphatase Ammonia Total Creatine Kinase Troponin I Total Protein Albumin Globulin Albumin/Globulin Ratio Lipase Vitamin B12 Folate Beta-Hydroxybutyric Acd Procalcitonin TSH Free T4 Total T3 Specimen Hemolysis Urine Color Urine Appearance Urine pH Ur Specific [place] Urine Protein Urine Glucose (UA) Urine Ketones Urine Blood Urine Nitrite Urine Bilirubin Urine Urobilinogen Ur Leukocyte Esterase Urine WBC (Auto) Urine RBC (Auto) U Hyaline Cast (Auto) U Epithel Cells (Auto) Urine Bacteria (Auto) Nasal Screen MRSA (PCR) Positive A Salicylates 5.7 Urine Opiates Screen U Codeine Confrm GC/MS Ur Morphine (GC/MS) Ur Hydrocodone (GC/MS) Ur Norhydrocodone Ur Noroxycodone Urine Oxycodone (GC/MS) U Oxymorphone GC/MS Ur Methadone, Qual Ur Hydromorphone (GC/MS) Acetaminophen < 2 L Urine Barbiturates Ur Phencyclidine (PCP) U Amphetamin/Meth Scrn MDMA (Ecstasy) Screen U Benzodiazepines Scrn Ur Cocaine Metabolite U Marijuana (THC) Screen Ethyl Alcohol mg/dL 03/05/19 03/05/19 03/05/19 01:45 02:44 03:10 WBC RBC Hgb Hct MCV MCH MCHC RDW Std Deviation RDW Coeff of Isai Plt Count MPV Immature Gran % (Auto) Neut % (Auto) Lymph % (Auto) [place] % (Auto) Eos % (Auto) Baso % (Auto) Reticulocyte % (Auto) Immature Gran # (Auto) Neut # (Auto) Lymph # (Auto) [place] # (Auto) Eos # (Auto) Baso # (Auto) Reticulocyte # PT INR APTT PTT Ratio Sample Site POC pH POC pCO2 POC pO2 POC HCO3 POC Total CO2 POC Base Excess ABG pH ABG pCO2 ABG pO2 ABG HCO3 POC ABG O2 Sat ABG O2 Saturation ABG Base Excess Ian Test Barometric Pressure Oxygen Given O2 Delivery Device Sodium Potassium Chloride Carbon Dioxide Anion Gap BUN Creatinine Est Cr Clr Drug Dosing Est GFR ( Amer) Est GFR (Non-Af Amer) BUN/Creatinine Ratio Glucose 394 H* POC Glucose 269 H 242 H Osmolality Lactate Calcium Phosphorus Magnesium Iron TIBC Transferrin Ferritin Total Bilirubin AST ALT Alkaline Phosphatase Ammonia Total Creatine Kinase Troponin I Total Protein Albumin Globulin Albumin/Globulin Ratio Lipase Vitamin B12 Folate Beta-Hydroxybutyric Acd Procalcitonin TSH 0.264 L Free T4 1.00 Total T3 Specimen Hemolysis Urine Color Urine Appearance Urine pH Ur Specific [place] Urine Protein Urine Glucose (UA) Urine Ketones Urine Blood Urine Nitrite Urine Bilirubin Urine Urobilinogen Ur Leukocyte Esterase Urine WBC (Auto) Urine RBC (Auto) U Hyaline Cast (Auto) U Epithel Cells (Auto) Urine Bacteria (Auto) Nasal Screen MRSA (PCR) Salicylates Urine Opiates Screen U Codeine Confrm GC/MS Ur Morphine (GC/MS) Ur Hydrocodone (GC/MS) Ur Norhydrocodone Ur Noroxycodone Urine Oxycodone (GC/MS) U Oxymorphone GC/MS Ur Methadone, Qual Ur Hydromorphone (GC/MS) Acetaminophen Urine Barbiturates Ur Phencyclidine (PCP) U Amphetamin/Meth Scrn MDMA (Ecstasy) Screen U Benzodiazepines Scrn Ur Cocaine Metabolite U Marijuana (THC) Screen Ethyl Alcohol mg/dL 03/05/19 03/05/19 03/05/19 04:20 04:41 04:41 WBC 16.67 H RBC 3.92 L Hgb 11.0 L Hct 33.0 L MCV 84.2 MCH 28.1 MCHC 33.3 RDW Std Deviation 48.3 H RDW Coeff of Isai 15.7 H Plt Count 279 MPV 10.0 Immature Gran % (Auto) 0.7 Neut % (Auto) 73.0 Lymph % (Auto) 18.1 [place] % (Auto) 7.7 Eos % (Auto) 0.3 Baso % (Auto) 0.2 Reticulocyte % (Auto) Immature Gran # (Auto) 0.12 H Neut # (Auto) 12.17 H Lymph # (Auto) 3.01 [place] # (Auto) 1.29 H Eos # (Auto) 0.05 Baso # (Auto) 0.03 Reticulocyte # PT INR APTT PTT Ratio Sample Site POC pH POC pCO2 POC pO2 POC HCO3 POC Total CO2 POC Base Excess ABG pH ABG pCO2 ABG pO2 ABG HCO3 POC ABG O2 Sat ABG O2 Saturation ABG Base Excess Ian Test Barometric Pressure Oxygen Given O2 Delivery Device Sodium 144 Potassium 3.9 D Chloride 110 H Carbon Dioxide 25 Anion Gap 9.0 BUN 34 H Creatinine 2.10 H D Est Cr Clr Drug Dosing 47.3 Est GFR ( Amer) 36.7 Est GFR (Non-Af Amer) 31.7 BUN/Creatinine Ratio 16.0 Glucose 177 H POC Glucose 191 H Osmolality Lactate Calcium 8.7 Phosphorus Magnesium Iron TIBC Transferrin Ferritin Total Bilirubin AST ALT Alkaline Phosphatase Ammonia Total Creatine Kinase Troponin I 0.141 H* Total Protein Albumin Globulin Albumin/Globulin Ratio Lipase Vitamin B12 Folate Beta-Hydroxybutyric Acd Procalcitonin TSH Free T4 Total T3 Specimen Hemolysis Urine Color Urine Appearance Urine pH Ur Specific [place] Urine Protein Urine Glucose (UA) Urine Ketones Urine Blood Urine Nitrite Urine Bilirubin Urine Urobilinogen Ur Leukocyte Esterase Urine WBC (Auto) Urine RBC (Auto) U Hyaline Cast (Auto) U Epithel Cells (Auto) Urine Bacteria (Auto) Nasal Screen MRSA (PCR) Salicylates Urine Opiates Screen U Codeine Confrm GC/MS Ur Morphine (GC/MS) Ur Hydrocodone (GC/MS) Ur Norhydrocodone Ur Noroxycodone Urine Oxycodone (GC/MS) U Oxymorphone GC/MS Ur Methadone, Qual Ur Hydromorphone (GC/MS) Acetaminophen Urine Barbiturates Ur Phencyclidine (PCP) U Amphetamin/Meth Scrn MDMA (Ecstasy) Screen U Benzodiazepines Scrn Ur Cocaine Metabolite U Marijuana (THC) Screen Ethyl Alcohol mg/dL 03/05/19 03/05/19 03/05/19 04:41 04:41 04:42 WBC RBC Hgb Hct MCV MCH MCHC RDW Std Deviation RDW Coeff of Isai Plt Count MPV Immature Gran % (Auto) Neut % (Auto) Lymph % (Auto) [place] % (Auto) Eos % (Auto) Baso % (Auto) Reticulocyte % (Auto) Immature Gran # (Auto) Neut # (Auto) Lymph # (Auto) [place] # (Auto) Eos # (Auto) Baso # (Auto) Reticulocyte # PT INR APTT PTT Ratio Sample Site POC pH POC pCO2 POC pO2 POC HCO3 POC Total CO2 POC Base Excess ABG pH 7.45 ABG pCO2 36 ABG pO2 59 L ABG HCO3 25 H POC ABG O2 Sat ABG O2 Saturation 92.3 ABG Base Excess 0.9 Ian Test POS Barometric Pressure 734.3 Oxygen Given ROOM AIR O2 Delivery Device Sodium Potassium Chloride Carbon Dioxide Anion Gap BUN Creatinine Est Cr Clr Drug Dosing Est GFR ( Amer) Est GFR (Non-Af Amer) BUN/Creatinine Ratio Glucose POC Glucose Osmolality Lactate 2.2 H* Calcium Phosphorus Magnesium Iron TIBC Transferrin Ferritin Total Bilirubin AST ALT Alkaline Phosphatase Ammonia Total Creatine Kinase Troponin I Total Protein Albumin Globulin Albumin/Globulin Ratio Lipase Vitamin B12 Folate Beta-Hydroxybutyric Acd Procalcitonin TSH Free T4 Total T3 0.42 L Specimen Hemolysis Urine Color Urine Appearance Urine pH Ur Specific [place] Urine Protein Urine Glucose (UA) Urine Ketones Urine Blood Urine Nitrite Urine Bilirubin Urine Urobilinogen Ur Leukocyte Esterase Urine WBC (Auto) Urine RBC (Auto) U Hyaline Cast (Auto) U Epithel Cells (Auto) Urine Bacteria (Auto) Nasal Screen MRSA (PCR) Salicylates Urine Opiates Screen U Codeine Confrm GC/MS Ur Morphine (GC/MS) Ur Hydrocodone (GC/MS) Ur Norhydrocodone Ur Noroxycodone Urine Oxycodone (GC/MS) U Oxymorphone GC/MS Ur Methadone, Qual Ur Hydromorphone (GC/MS) Acetaminophen Urine Barbiturates Ur Phencyclidine (PCP) U Amphetamin/Meth Scrn MDMA (Ecstasy) Screen U Benzodiazepines Scrn Ur Cocaine Metabolite U Marijuana (THC) Screen Ethyl Alcohol mg/dL 03/05/19 03/05/19 03/05/19 05:29 06:33 06:48 WBC RBC Hgb Hct MCV MCH MCHC RDW Std Deviation RDW Coeff of Isai Plt Count MPV Immature Gran % (Auto) Neut % (Auto) Lymph % (Auto) [place] % (Auto) Eos % (Auto) Baso % (Auto) Reticulocyte % (Auto) Immature Gran # (Auto) Neut # (Auto) Lymph # (Auto) [place] # (Auto) Eos # (Auto) Baso # (Auto) Reticulocyte # PT INR APTT PTT Ratio Sample Site POC pH POC pCO2 POC pO2 POC HCO3 POC Total CO2 POC Base Excess ABG pH ABG pCO2 ABG pO2 ABG HCO3 POC ABG O2 Sat ABG O2 Saturation ABG Base Excess Ian Test Barometric Pressure Oxygen Given O2 Delivery Device Sodium Potassium Chloride Carbon Dioxide Anion Gap BUN Creatinine Est Cr Clr Drug Dosing Est GFR ( Amer) Est GFR (Non-Af Amer) BUN/Creatinine Ratio Glucose POC Glucose 173 H 118 H 104 H Osmolality Lactate Calcium Phosphorus Magnesium Iron TIBC Transferrin Ferritin Total Bilirubin AST ALT Alkaline Phosphatase Ammonia Total Creatine Kinase Troponin I Total Protein Albumin Globulin Albumin/Globulin Ratio Lipase Vitamin B12 Folate Beta-Hydroxybutyric Acd Procalcitonin TSH Free T4 Total T3 Specimen Hemolysis Urine Color Urine Appearance Urine pH Ur Specific [place] Urine Protein Urine Glucose (UA) Urine Ketones Urine Blood Urine Nitrite Urine Bilirubin Urine Urobilinogen Ur Leukocyte Esterase Urine WBC (Auto) Urine RBC (Auto) U Hyaline Cast (Auto) U Epithel Cells (Auto) Urine Bacteria (Auto) Nasal Screen MRSA (PCR) Salicylates Urine Opiates Screen U Codeine Confrm GC/MS Ur Morphine (GC/MS) Ur Hydrocodone (GC/MS) Ur Norhydrocodone Ur Noroxycodone Urine Oxycodone (GC/MS) U Oxymorphone GC/MS Ur Methadone, Qual Ur Hydromorphone (GC/MS) Acetaminophen Urine Barbiturates Ur Phencyclidine (PCP) U Amphetamin/Meth Scrn MDMA (Ecstasy) Screen U Benzodiazepines Scrn Ur Cocaine Metabolite U Marijuana (THC) Screen Ethyl Alcohol mg/dL 03/05/19 03/05/19 03/05/19 07:03 07:23 07:50 WBC RBC Hgb Hct MCV MCH MCHC RDW Std Deviation RDW Coeff of Isai Plt Count MPV Immature Gran % (Auto) Neut % (Auto) Lymph % (Auto) [place] % (Auto) Eos % (Auto) Baso % (Auto) Reticulocyte % (Auto) Immature Gran # (Auto) Neut # (Auto) Lymph # (Auto) [place] # (Auto) Eos # (Auto) Baso # (Auto) Reticulocyte # PT INR APTT PTT Ratio Sample Site POC pH POC pCO2 POC pO2 POC HCO3 POC Total CO2 POC Base Excess ABG pH ABG pCO2 ABG pO2 ABG HCO3 POC ABG O2 Sat ABG O2 Saturation ABG Base Excess Ian Test Barometric Pressure Oxygen Given O2 Delivery Device Sodium Potassium Chloride Carbon Dioxide Anion Gap BUN Creatinine Est Cr Clr Drug Dosing Est GFR ( Amer) Est GFR (Non-Af Amer) BUN/Creatinine Ratio Glucose POC Glucose 111 H 136 H 178 H Osmolality Lactate Calcium Phosphorus Magnesium Iron TIBC Transferrin Ferritin Total Bilirubin AST ALT Alkaline Phosphatase Ammonia Total Creatine Kinase Troponin I Total Protein Albumin Globulin Albumin/Globulin Ratio Lipase Vitamin B12 Folate Beta-Hydroxybutyric Acd Procalcitonin TSH Free T4 Total T3 Specimen Hemolysis Urine Color Urine Appearance Urine pH Ur Specific [place] Urine Protein Urine Glucose (UA) Urine Ketones Urine Blood Urine Nitrite Urine Bilirubin Urine Urobilinogen Ur Leukocyte Esterase Urine WBC (Auto) Urine RBC (Auto) U Hyaline Cast (Auto) U Epithel Cells (Auto) Urine Bacteria (Auto) Nasal Screen MRSA (PCR) Salicylates Urine Opiates Screen U Codeine Confrm GC/MS Ur Morphine (GC/MS) Ur Hydrocodone (GC/MS) Ur Norhydrocodone Ur Noroxycodone Urine Oxycodone (GC/MS) U Oxymorphone GC/MS Ur Methadone, Qual Ur Hydromorphone (GC/MS) Acetaminophen Urine Barbiturates Ur Phencyclidine (PCP) U Amphetamin/Meth Scrn MDMA (Ecstasy) Screen U Benzodiazepines Scrn Ur Cocaine Metabolite U Marijuana (THC) Screen Ethyl Alcohol mg/dL 03/05/19 03/05/19 03/05/19 08:50 09:59 11:00 WBC RBC Hgb Hct MCV MCH MCHC RDW Std Deviation RDW Coeff of Isai Plt Count MPV Immature Gran % (Auto) Neut % (Auto) Lymph % (Auto) [place] % (Auto) Eos % (Auto) Baso % (Auto) Reticulocyte % (Auto) Immature Gran # (Auto) Neut # (Auto) Lymph # (Auto) [place] # (Auto) Eos # (Auto) Baso # (Auto) Reticulocyte # PT INR APTT PTT Ratio Sample Site POC pH POC pCO2 POC pO2 POC HCO3 POC Total CO2 POC Base Excess ABG pH ABG pCO2 ABG pO2 ABG HCO3 POC ABG O2 Sat ABG O2 Saturation ABG Base Excess Ian Test Barometric Pressure Oxygen Given O2 Delivery Device Sodium Potassium Chloride Carbon Dioxide Anion Gap BUN Creatinine Est Cr Clr Drug Dosing Est GFR ( Amer) Est GFR (Non-Af Amer) BUN/Creatinine Ratio Glucose POC Glucose 212 H 128 H 84 Osmolality Lactate Calcium Phosphorus Magnesium Iron TIBC Transferrin Ferritin Total Bilirubin AST ALT Alkaline Phosphatase Ammonia Total Creatine Kinase Troponin I Total Protein Albumin Globulin Albumin/Globulin Ratio Lipase Vitamin B12 Folate Beta-Hydroxybutyric Acd Procalcitonin TSH Free T4 Total T3 Specimen Hemolysis Urine Color Urine Appearance Urine pH Ur Specific [place] Urine Protein Urine Glucose (UA) Urine Ketones Urine Blood Urine Nitrite Urine Bilirubin Urine Urobilinogen Ur Leukocyte Esterase Urine WBC (Auto) Urine RBC (Auto) U Hyaline Cast (Auto) U Epithel Cells (Auto) Urine Bacteria (Auto) Nasal Screen MRSA (PCR) Salicylates Urine Opiates Screen U Codeine Confrm GC/MS Ur Morphine (GC/MS) Ur Hydrocodone (GC/MS) Ur Norhydrocodone Ur Noroxycodone Urine Oxycodone (GC/MS) U Oxymorphone GC/MS Ur Methadone, Qual Ur Hydromorphone (GC/MS) Acetaminophen Urine Barbiturates Ur Phencyclidine (PCP) U Amphetamin/Meth Scrn MDMA (Ecstasy) Screen U Benzodiazepines Scrn Ur Cocaine Metabolite U Marijuana (THC) Screen Ethyl Alcohol mg/dL 03/05/19 03/05/19 03/05/19 11:19 11:36 12:22 WBC RBC Hgb Hct MCV MCH MCHC RDW Std Deviation RDW Coeff of Isai Plt Count MPV Immature Gran % (Auto) Neut % (Auto) Lymph % (Auto) [place] % (Auto) Eos % (Auto) Baso % (Auto) Reticulocyte % (Auto) Immature Gran # (Auto) Neut # (Auto) Lymph # (Auto) [place] # (Auto) Eos # (Auto) Baso # (Auto) Reticulocyte # PT INR APTT PTT Ratio Sample Site POC pH POC pCO2 POC pO2 POC HCO3 POC Total CO2 POC Base Excess ABG pH ABG pCO2 ABG pO2 ABG HCO3 POC ABG O2 Sat ABG O2 Saturation ABG Base Excess Ian Test Barometric Pressure Oxygen Given O2 Delivery Device Sodium Potassium Chloride Carbon Dioxide Anion Gap BUN Creatinine Est Cr Clr Drug Dosing Est GFR ( Amer) Est GFR (Non-Af Amer) BUN/Creatinine Ratio Glucose POC Glucose 80 88 Osmolality Lactate 1.1 Calcium Phosphorus Magnesium Iron TIBC Transferrin Ferritin Total Bilirubin AST ALT Alkaline Phosphatase Ammonia Total Creatine Kinase Troponin I Total Protein Albumin Globulin Albumin/Globulin Ratio Lipase Vitamin B12 Folate Beta-Hydroxybutyric Acd Procalcitonin TSH Free T4 Total T3 Specimen Hemolysis Urine Color Urine Appearance Urine pH Ur Specific [place] Urine Protein Urine Glucose (UA) Urine Ketones Urine Blood Urine Nitrite Urine Bilirubin Urine Urobilinogen Ur Leukocyte Esterase Urine WBC (Auto) Urine RBC (Auto) U Hyaline Cast (Auto) U Epithel Cells (Auto) Urine Bacteria (Auto) Nasal Screen MRSA (PCR) Salicylates Urine Opiates Screen U Codeine Confrm GC/MS Ur Morphine (GC/MS) Ur Hydrocodone (GC/MS) Ur Norhydrocodone Ur Noroxycodone Urine Oxycodone (GC/MS) U Oxymorphone GC/MS Ur Methadone, Qual Ur Hydromorphone (GC/MS) Acetaminophen Urine Barbiturates Ur Phencyclidine (PCP) U Amphetamin/Meth Scrn MDMA (Ecstasy) Screen U Benzodiazepines Scrn Ur Cocaine Metabolite U Marijuana (THC) Screen Ethyl Alcohol mg/dL 07/05/19 07/05/19 07/05/19 12:22 12:22 12:22 WBC RBC Hgb Hct MCV MCH MCHC RDW Std Deviation RDW Coeff of Isai Plt Count MPV Immature Gran % (Auto) Neut % (Auto) Lymph % (Auto) [place] % (Auto) Eos % (Auto) Baso % (Auto) Reticulocyte % (Auto) 0.8 Immature Gran # (Auto) Neut # (Auto) Lymph # (Auto) [place] # (Auto) Eos # (Auto) Baso # (Auto) Reticulocyte # 0.03 PT INR APTT PTT Ratio Sample Site POC pH POC pCO2 POC pO2 POC HCO3 POC Total CO2 POC Base Excess ABG pH ABG pCO2 ABG pO2 ABG HCO3 POC ABG O2 Sat ABG O2 Saturation ABG Base Excess Ian Test Barometric Pressure Oxygen Given O2 Delivery Device Sodium Potassium Chloride Carbon Dioxide Anion Gap BUN Creatinine Est Cr Clr Drug Dosing Est GFR ( Amer) Est GFR (Non-Af Amer) BUN/Creatinine Ratio Glucose POC Glucose Osmolality Lactate Calcium Phosphorus Magnesium Iron 36 TIBC 269 Transferrin 214 Ferritin 86.6 Total Bilirubin AST ALT Alkaline Phosphatase Ammonia Total Creatine Kinase Troponin I Total Protein Albumin Globulin Albumin/Globulin Ratio Lipase Vitamin B12 819 Folate 13.67 Beta-Hydroxybutyric Acd Procalcitonin TSH Free T4 Total T3 Specimen Hemolysis Urine Color Urine Appearance Urine pH Ur Specific [place] Urine Protein Urine Glucose (UA) Urine Ketones Urine Blood Urine Nitrite Urine Bilirubin Urine Urobilinogen Ur Leukocyte Esterase Urine WBC (Auto) Urine RBC (Auto) U Hyaline Cast (Auto) U Epithel Cells (Auto) Urine Bacteria (Auto) Nasal Screen MRSA (PCR) Salicylates Urine Opiates Screen U Codeine Confrm GC/MS Ur Morphine (GC/MS) Ur Hydrocodone (GC/MS) Ur Norhydrocodone Ur Noroxycodone Urine Oxycodone (GC/MS) U Oxymorphone GC/MS Ur Methadone, Qual Ur Hydromorphone (GC/MS) Acetaminophen Urine Barbiturates Ur Phencyclidine (PCP) U Amphetamin/Meth Scrn MDMA (Ecstasy) Screen U Benzodiazepines Scrn Ur Cocaine Metabolite U Marijuana (THC) Screen Ethyl Alcohol mg/dL 03/05/19 03/05/19 03/05/19 12:46 13:51 16:39 WBC RBC Hgb Hct MCV MCH MCHC RDW Std Deviation RDW Coeff of Isai Plt Count MPV Immature Gran % (Auto) Neut % (Auto) Lymph % (Auto) [place] % (Auto) Eos % (Auto) Baso % (Auto) Reticulocyte % (Auto) Immature Gran # (Auto) Neut # (Auto) Lymph # (Auto) [place] # (Auto) Eos # (Auto) Baso # (Auto) Reticulocyte # PT INR APTT PTT Ratio Sample Site POC pH POC pCO2 POC pO2 POC HCO3 POC Total CO2 POC Base Excess ABG pH ABG pCO2 ABG pO2 ABG HCO3 POC ABG O2 Sat ABG O2 Saturation ABG Base Excess Ian Test Barometric Pressure Oxygen Given O2 Delivery Device Sodium Potassium Chloride Carbon Dioxide Anion Gap BUN Creatinine Est Cr Clr Drug Dosing Est GFR ( Amer) Est GFR (Non-Af Amer) BUN/Creatinine Ratio Glucose POC Glucose 174 H 179 H 166 H Osmolality Lactate Calcium Phosphorus Magnesium Iron TIBC Transferrin Ferritin Total Bilirubin AST ALT Alkaline Phosphatase Ammonia Total Creatine Kinase Troponin I Total Protein Albumin Globulin Albumin/Globulin Ratio Lipase Vitamin B12 Folate Beta-Hydroxybutyric Acd Procalcitonin TSH Free T4 Total T3 Specimen Hemolysis Urine Color Urine Appearance Urine pH Ur Specific [place] Urine Protein Urine Glucose (UA) Urine Ketones Urine Blood Urine Nitrite Urine Bilirubin Urine Urobilinogen Ur Leukocyte Esterase Urine WBC (Auto) Urine RBC (Auto) U Hyaline Cast (Auto) U Epithel Cells (Auto) Urine Bacteria (Auto) Nasal Screen MRSA (PCR) Salicylates Urine Opiates Screen U Codeine Confrm GC/MS Ur Morphine (GC/MS) Ur Hydrocodone (GC/MS) Ur Norhydrocodone Ur Noroxycodone Urine Oxycodone (GC/MS) U Oxymorphone GC/MS Ur Methadone, Qual Ur Hydromorphone (GC/MS) Acetaminophen Urine Barbiturates Ur Phencyclidine (PCP) U Amphetamin/Meth Scrn MDMA (Ecstasy) Screen U Benzodiazepines Scrn Ur Cocaine Metabolite U Marijuana (THC) Screen Ethyl Alcohol mg/dL 03/05/19 03/05/19 03/05/19 20:43 Unknown Unknown WBC RBC Hgb Hct MCV MCH MCHC RDW Std Deviation RDW Coeff of Isai Plt Count MPV Immature Gran % (Auto) Neut % (Auto) Lymph % (Auto) [place] % (Auto) Eos % (Auto) Baso % (Auto) Reticulocyte % (Auto) Immature Gran # (Auto) Neut # (Auto) Lymph # (Auto) [place] # (Auto) Eos # (Auto) Baso # (Auto) Reticulocyte # PT INR APTT PTT Ratio Sample Site POC pH POC pCO2 POC pO2 POC HCO3 POC Total CO2 POC Base Excess ABG pH ABG pCO2 ABG pO2 ABG HCO3 POC ABG O2 Sat ABG O2 Saturation ABG Base Excess Ian Test Barometric Pressure Oxygen Given O2 Delivery Device Sodium Potassium Chloride Carbon Dioxide Anion Gap BUN Creatinine Est Cr Clr Drug Dosing Est GFR ( Amer) Est GFR (Non-Af Amer) BUN/Creatinine Ratio Glucose POC Glucose 235 H Osmolality Lactate Calcium Phosphorus Magnesium Iron TIBC Transferrin Ferritin Total Bilirubin AST ALT Alkaline Phosphatase Ammonia Total Creatine Kinase Troponin I Total Protein Albumin Globulin Albumin/Globulin Ratio Lipase Vitamin B12 Folate Beta-Hydroxybutyric Acd Procalcitonin TSH Free T4 Total T3 Specimen Hemolysis Urine Color Yellow Urine Appearance Turbid A Urine pH 5.0 Ur Specific [place] 1.023 Urine Protein Trace H Urine Glucose (UA) Negative Urine Ketones Trace H Urine Blood Negative Urine Nitrite Negative Urine Bilirubin Negative Urine Urobilinogen Negative Ur Leukocyte Esterase Trace H Urine WBC (Auto) 5-10 H Urine RBC (Auto) 0-4 U Hyaline Cast (Auto) 1-5 U Epithel Cells (Auto) >30 H Urine Bacteria (Auto) Negative Nasal Screen MRSA (PCR) Salicylates Urine Opiates Screen Pos H U Codeine Confrm GC/MS Ur Morphine (GC/MS) Ur Hydrocodone (GC/MS) Ur Norhydrocodone Ur Noroxycodone Urine Oxycodone (GC/MS) U Oxymorphone GC/MS Ur Methadone, Qual Neg Ur Hydromorphone (GC/MS) Acetaminophen Urine Barbiturates Neg Ur Phencyclidine (PCP) Neg U Amphetamin/Meth Scrn Neg MDMA (Ecstasy) Screen Neg U Benzodiazepines Scrn Neg Ur Cocaine Metabolite Neg U Marijuana (THC) Screen Neg Ethyl Alcohol mg/dL 03/05/19 Unknown WBC RBC Hgb Hct MCV MCH MCHC RDW Std Deviation RDW Coeff of Isai Plt Count MPV Immature Gran % (Auto) Neut % (Auto) Lymph % (Auto) [place] % (Auto) Eos % (Auto) Baso % (Auto) Reticulocyte % (Auto) Immature Gran # (Auto) Neut # (Auto) Lymph # (Auto) [place] # (Auto) Eos # (Auto) Baso # (Auto) Reticulocyte # PT INR APTT PTT Ratio Sample Site POC pH POC pCO2 POC pO2 POC HCO3 POC Total CO2 POC Base Excess ABG pH ABG pCO2 ABG pO2 ABG HCO3 POC ABG O2 Sat ABG O2 Saturation ABG Base Excess Ian Test Barometric Pressure Oxygen Given O2 Delivery Device Sodium Potassium Chloride Carbon Dioxide Anion Gap BUN Creatinine Est Cr Clr Drug Dosing Est GFR ( Amer) Est GFR (Non-Af Amer) BUN/Creatinine Ratio Glucose POC Glucose Osmolality Lactate Calcium Phosphorus Magnesium Iron TIBC Transferrin Ferritin Total Bilirubin AST ALT Alkaline Phosphatase Ammonia Total Creatine Kinase Troponin I Total Protein Albumin Globulin Albumin/Globulin Ratio Lipase Vitamin B12 Folate Beta-Hydroxybutyric Acd Procalcitonin TSH Free T4 Total T3 Specimen Hemolysis Urine Color Urine Appearance Urine pH Ur Specific [place] Urine Protein Urine Glucose (UA) Urine Ketones Urine Blood Urine Nitrite Urine Bilirubin Urine Urobilinogen Ur Leukocyte Esterase Urine WBC (Auto) Urine RBC (Auto) U Hyaline Cast (Auto) U Epithel Cells (Auto) Urine Bacteria (Auto) Nasal Screen MRSA (PCR) Salicylates Urine Opiates Screen U Codeine Confrm GC/MS Pending Ur Morphine (GC/MS) Pending Ur Hydrocodone (GC/MS) Pending Ur Norhydrocodone Pending Ur Noroxycodone Pending Urine Oxycodone (GC/MS) Pending U Oxymorphone GC/MS Pending Ur Methadone, Qual Ur Hydromorphone (GC/MS) Pending Acetaminophen Urine Barbiturates Ur Phencyclidine (PCP) U Amphetamin/Meth Scrn MDMA (Ecstasy) Screen U Benzodiazepines Scrn Ur Cocaine Metabolite U Marijuana (THC) Screen Ethyl Alcohol mg/dL (1) DKA (diabetic ketoacidoses) Diabetes mellitus complication detail: without coma Diabetes mellitus type: type 1 Qualified Code(s): E10.10 - Type 1 diabetes mellitus with ketoacidosis without coma
[2019-03-05] MEDS ORDERED: LACTATED RINGER'S 1,000 ML IV ONE (22:35)
[2019-03-06] MEDS: INSULIN ASPART 100 UNITS/ML 3 ML PEN SC SCH ×4 (00:20→13:14)
[2019-03-06] MEDS ORDERED: LACTATED RINGER'S 1,000 ML IV SCH (00:30)
[2019-03-06] MEDS ORDERED: LACTATED RINGER'S 1,000 ML IV STA (03:00)
[2019-03-06] MEDS: HEPARIN SOD 5,000 UNIT/0.5 ML VIAL SQ SCH (05:45)
[2019-03-06] MEDS: LEVOTHYROXINE SODIUM 50 MCG TABLET PO SCH (05:46)
[2019-03-06 06:54] LABS: Basophils # (auto) 0.03 K/uL (0-0.2); Basophils % (auto) 0.3 %; Eosinophils # (auto) 0.16 K/uL (0-0.5); Eosinophils % (auto) 1.8 %; Hematocrit (blood only) 32.4 % (37-47); Hemoglobin 10.7 g/dL (12.0-16.0); Immature Granulocytes # (auto) 0.03 K/uL (0.00-0.02); Immature Granulocytes % (auto) 0.3 %; Lymphocytes % (auto) 38.6 %; Mean Corpuscular Volume 85.5 fL (80-100); Mean Platelet Volume 9.8 fL (7.4-10.4); Monocytes # (auto) 0.32 K/uL (0.11-0.59); Monocytes % (auto) 3.6 %; Neutrophils # (auto) 4.87 K/uL (1.4-6.5); Neutrophils % (auto) 55.4 %; Platelet Count 229 K/uL (130-400); RDW Coefficient of Variation 16.4 % (11.5-14.5); Red Blood Count 3.79 M/uL (4.2-5.4); White Blood Count 8.81 K/uL (4.8-10.8)
[2019-03-06 07:28] LABS: BUN Creatinine Ratio 13.2 (10-20); Calcium 8.7 mg/dl (8.5-10.1); Est GFR (African American) 57.5; Est GFR (Non-African American) 49.6
[2019-03-06] MEDS: PANTOprazole 40 MG TAB PO SCH (08:30)
[2019-03-06] MEDS: PREGABALIN 150 MG CAP PO SCH (08:30)
[2019-03-06] MEDS ORDERED: INSULIN GLARGINE SOLOSTAR 100 UNITS/ML 3 ML PEN SC SCH (09:00)
[2019-03-06 09:15] LABS: Estimated Average Glucose 332 mg/dl; Hemoglobin A1C 13.2 % (4.5-5.6)
--- NOTE | 2019-03-06 09:47 | Hospitalist Progress Note ---
Date of Service March 06, 2019 Assessment & Plan (1) DKA (diabetic ketoacidoses): Diabetes mellitus type 1 managed with insulin pump. Presented with glucose of 728 with an anion gap of 30. Insulin pump had been removed to go swimming and was not resumed. No apparent infection. Leukocytosis, elevated serum lactate, and elevated procalcitonin noted, but may be secondary to DKA rather than infection. Serum troponin slightly elevated, probably secondary to DKA. Doubt acute coronary syndrome. DKA treated with insulin infusion and IV fluids per protocol. Pharmacy and Diabetes Team consulted. Hgb A1C 12. Transitioned from insulin infusion to SQ insulin. FBS this morning 187. Given Lantus this morning. To transition to insulin pump this evening, starting at 50% usual basal rate overnight, then resuming usual rate in the morning. Ongoing support with [facility] diabetes clinic. (2) LUIS CARLOS (acute kidney injury): Serum creatinine at time of admission 2.65. Acute kidney injury secondary to DKA and volume depletion. Received IV fluid resuscitation. Creatinine today = 1.45. (3) Elevated troponin level: Serum troponin 0.061, repeat 0.141. No anginal symptoms. EKG this morning shows sinus tachycardia at 110/minute, no acute changes. Echocardiogram showed normal left ventricular wall motion and systolic function. Elevated troponin most likely secondary to metabolic abnormalities from DKA. (4) Abnormal thyroid function test: Pt states history of hypothyroidism, but subsequent testing OK. TSH 0.264. Free T4 1.00. Free T3 0.42. TFT's may be affected by DKA. Repeat testing as outpatient recommended. (5) DVT prophylaxis: Receiving SQ heparin. Ambulate. (6) Discharge planning issues: Discharge to home. Patient plans on establishing with new PCP due to new insurance. Endocrinology follow-up with [facility]. Subjective Doing well. No fever. No chest pain. No cough or SOB. No nausea, vomiting, abd pain, diarrhea. No urinary symptoms. Physical Exam Constitutional: no acute distress Respiratory: no respiratory distress Auscultation: lungs clear to auscultation bilaterally Cardiovascular: Rate/Rhythm: regular rate and regular rhythm Heart Sounds: + murmur (I/ sys murmur at base); no gallop and no cardiac rub Vessels: no JVD Extremities: no calf tenderness and no edema Gastrointestinal (Abdomen): normal bowel sounds, soft, nontender, no hepatosplenomegaly Skin: no rashes, warm and dry Psychiatric: Orientation: alert and oriented x 3 Results & Data Vital Signs (Past 12 Hours) Vital Signs Temp Pulse Resp BP Pulse Ox 03/06/19 07:10 37.0 C 89 16 117/75 95 03/06/19 03:58 36.8 C 94 H 16 132/87 98 03/05/19 23:54 36.9 C 93 H 16 114/71 99 (1) DKA (diabetic ketoacidoses) Diabetes mellitus complication detail: without coma Diabetes mellitus type: type 1 Qualified Code(s): E10.10 - Type 1 diabetes mellitus with ketoacidosis without coma
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
--- NOTE | 2019-03-07 08:22 | Discharge Summary ---
Date of Service Date of Admission: 03/04/19 Date of Discharge: 03/06/19 Admission HPI Per Admitting Provider History obtained from patient, family, and records. Medical history significant for DM type 1 on insulin pump, DM gastroparesis/neuropathy, hypothyroidism, fibromyalgia, NAFLD as per records, history opioid abuse as per records, ongoing tobacco abuse, chronic anemia baseline hemoglobin of 11, medication noncompliance as per records. Recent confinement August 2018 for DKA. Patient left AGAINST MEDICAL ADVICE. Yesterday, patient stopped her insulin pump for some swimming activity. Patient was not able to restart insulin pump after swimming. This afternoon, patient noted by family to be in and out confused. Blood sugars noted to be high on meter. Patient attempted to give herself subcutaneous insulin shot. Patient subsequently developed nausea and emesis. Patient denies headache, chest pain, abdominal pain, dysuria symptoms. Admits to shortness of breath, bilateral leg pain/swelling symptoms. Usual alternating constipation diarrhea symptoms from IBS as per patient. Patient brought to [facility] emergency room around 7 PM tonight. Patient noted to be tachycardic. Pertinent labs as follows : WBC 13 Glucose 1159 Creatinine 2.5 Sodium 131 Potassium 7.2 CO2 6 Calcium 10.3 Phosphorus 9 Magnesium 2.9 Alk phos 237 Anion gap 42 Serum ketones +2 Lactic acid 6.2 Hemoglobin A1c 12.1 Chest x-ray did not show infiltrate. EKG showed sinus tachycardia as per ER provider note. IVF, IV insulin initiated for DKA. [facility] hospitalist recommended transfer to bigger facility as per records. Family requested [facility] transfer. Patient mentation currently much improved at [facility] ICU as per family. Admission Exam Per Admitting Provider GENERAL: Comfortable, shivering, no respiratory distress SKIN: Pallor , warm HEENT: pale palpebral conjunctivae, no ptosis, dry buccal mucosa NECK : Supple, no tenderness CHEST : CTA, no tenderness HEART : Tachycardic, no obvious murmurs ABDOMEN: Some distention, nontender EXTREMITIES : Minimal LE swelling/tenderness, nontender thickening left great toe NEUROLOGIC : Coherent, no facial asymmetry, no other gross focality except for intention tremors Principal Diagnosis diabetic ketoacidosis Discharge Data Allergies Allergy/AdvReac Type Severity Reaction Status Date / Time No Known Drug Allergies Allergy Unknown . Verified 03/04/19 23:45 Consultations 03/04/19 23:02 Consult Horse Breaker Routine 03/04/19 23:04 Consult Case Management - Discharge Planning Routine Ordered Studies 03/05/19 00:21 US venous doppler LE Urgent Hospital Course (1) DKA (diabetic ketoacidoses): Diabetes mellitus type 1 managed with insulin pump. Presented with glucose of 728 with an anion gap of 30. Insulin pump had been removed to go swimming and was not resumed. No apparent infection. Leukocytosis, elevated serum lactate, and elevated procalcitonin noted, but may be secondary to DKA rather than infection. Serum troponin slightly elevated, probably secondary to DKA. Doubt acute coronary syndrome. DKA treated with insulin infusion and IV fluids per protocol. Pharmacy and Diabetes Team consulted. Hgb A1C 12. Transitioned from insulin infusion to SQ insulin. FBS day of discharge 187. Anion gap normalized. Given Lantus morning or discharge. To transition to insulin pump this evening, starting at 50% usual basal rate overnight, then resuming usual rate in the morning. Ongoing support with [facility] diabetes clinic. (2) LUIS CARLOS (acute kidney injury): Serum creatinine at time of admission 2.65. Acute kidney injury secondary to DKA and volume depletion. Received IV fluid resuscitation. Creatinine day of discharge was 1.45. (3) Elevated troponin level: Serum troponin 0.061, repeat 0.141. No anginal symptoms. EKG this morning shows sinus tachycardia at 110/minute, no acute changes. Echocardiogram showed normal left ventricular wall motion and systolic function. Elevated troponin most likely secondary to metabolic abnormalities from DKA. (4) Abnormal thyroid function test: Pt states history of hypothyroidism, but subsequent testing OK. TSH 0.264. Free T4 1.00. Free T3 0.42. TFT's may be affected by DKA. Repeat testing as outpatient recommended. (5) DVT prophylaxis: Received SQ heparin. Ambulating. (6) Discharge planning issues: Discharged to home. Patient plans on establishing with new PCP due to new insurance. Endocrinology follow-up with [facility]. Total Time Total Time Spent Total Time Spent (In Minutes): 40 Discharge Plan Discharge Items Patient Disposition: Home - Self-Care Reason For Visit: DKA Discharge Diagnosis: DKA Condition: Good Discharge Goals: Improve disease control Activity: Resume your previous activity Non-emergency contact: Primary Care Provider and Hospitalist Call non-emergency contact if: you have any medication questions and your symptoms worsen Follow-up/Referrals: Chris Christianson MD [Physician] - (Follow-up in diabetes clinic on 03/08 as scheduled.) PCP,NO [Primary Care Provider] - Diet: Carb Count or DM1 and Heart Healthy Addtl Provider Instructions: MEDICATION CHANGES: Restart insulin pump this evening at 1/2 usual basal rate, then go back to usual basal rate tomorrow morning. Thyroid function tests were slightly abnormal, but could be affected by DKA. Nasal swab for MRSA was positive. SUMMARY OF TEST RESULTS: Hemoglobin A1C was 12. PENDING TEST RESULTS: none RECOMMENDATIONS FOR FOLLOW-UP: Continue to work with Diabetes Clinic to optimize control of your diabetes. Have thyroid levels rechecked when you have blood testing in the future. Please get established with a primary care provider that accepts your new insurance. OTHER INSTRUCTIONS: Seek medical attention if you have: * temperature above 101 * chest pain or trouble breathing * abdominal pain, nausea, vomiting * diarrhea, dark stools or bloody stools * blood sugars are not well-controlled * any unanswered questions or concerns Call 911 if symptoms are severe. Please take good care of yourself. Call if you have any questions or problems. You can reach a [facility] hospitalist on duty at [facility] 24 hours a day by calling [phone]. My cell # is [phone]. Prescriptions: Continued pantoprazole 40 mg tablet,delayed release (DR/EC) 40 mg PO QAM RF: 0 duloxetine [Cymbalta] 60 mg capsule,delayed release(DR/EC) 60 mg PO QAM RF: 0 Lyrica 150 mg capsule 150 mg PO TID RF: 0 Humalog U-100 Insulin 100 unit/mL Cartridge 1 dose SUBCUT UD RF: 0 Lantus Solostar U-100 Insulin 100 unit/mL (3 mL) insulin pen 32 unit subcut HS Qty: 0 RF: 0 Stand-Alone Forms: My [facility]/Other Patient Handouts: A1C, DKA Prevent Ch, Diabetes Insulin Pump Ch Discharge Orders: Discharge Order (Routine); Ordered 03/06/19 Ordered By: Nba Suárez Admission Data Admit Date/Time: 03/04/19 23:05 Attending Provider: Nba Suárez Admit Provider: Michael Guerra Primary Care Provider: PCP,NO Other Providers: Alek Flor Service: Telemetry Other Interventions: Discharge Summary Assessment (RN) Last Done: 03/06/19 10:34 DC Date/Time DO NOT enter until pt leaves facility: 03/06/19 12:40
[2019-03-08 13:07] LABS: Codeine Urine NEGATIVE NG/ML (CUTOFF=50); Hydrocodone Urine NEGATIVE NG/ML (CUTOFF=50); Hydromor Urine NEGATIVE NG/ML (CUTOFF=50); Morphine Urine 201 NG/ML (CUTOFF=50); Norhydrocodone Conf Ur NEGATIVE NG/ML (CUTOFF=50); Noroxycodone Urine NEGATIVE NG/ML (CUTOFF=50); Oxycodone Urine NEGATIVE NG/ML (CUTOFF=50); Oxymorph Urine NEGATIVE NG/ML (CUTOFF=50)
--- NOTE | 2019-03-10 08:50 | Coding Query ---
SEPSIS To promote full compliance with coding requirements relating to patient care, physician participation is requested in all cases of rubber flap cutter uncertainty. Please assist us with the question(s) below: In responding to this query, please exercise your independent professional judgement. The fact that a question is asked does not imply that any particular answer is desired or expected. We appreciate your clarification on this issue. Severe sepsis is documented in the H&P, but not in the discharge summary. Please clarify if the patient had: ____ ()Bacteremia (Nonspecific laboratory finding of bacteria in the blood) Specify Organism () Present on Admission () Not present on admission () Unable to clinically determine () Septicemia (Systemic disease associated with the presence of pathogenic microorganisms in the blood): Specify Organism () Present on Admission () Not present on admission () Unable to clinically determine () Sepsis Specify Organism Specify Associated Condition/Diagnosis () Present on Admission () Not present on admission () Unable to clinically determine () Severe Sepsis (Sepsis associated with acute organ dysfunction) Specify Organism Specify Associated Condition/Diagnosis () Present on Admission () Not present on admission () Unable to clinically determine () Septic Shock (Severe sepsis with acute circulatory failure, unexplained by other causes) () Present on Admission () Not present on admission () Unable to clinically determine () Other, patient has: (x) Sepsis was ruled out () Unable to determine Physician's comments: Sepsis was considered at the time of admission, but ruled out. Did not use term sepsis in DC summary, but noted that there was no apparent infection. Thank you for your time, SHAWNA Monroy, CONTINUOUS DRIER OPERATOR PAULD
== END 2019-03-06 12:40 | disposition home or self-care (01) | DRG 638 ==
LOC: 1E 23:05 → 2S 03-05 16:11

== ENCOUNTER 2019-08-03 22:37 | Inpatient (IN) ==
[2019-08-03] MEDS ORDERED: SODIUM CHLORIDE 0.9% 1000ML 1,000 ML IV SCH (23:15)
[2019-08-03 23:26] LABS: Basophils # (auto) 0.03 K/uL (0-0.2); Basophils % (auto) 0.5 %; Eosinophils # (auto) 0.02 K/uL (0-0.5); Eosinophils % (auto) 0.3 %; Hematocrit (blood only) 42.2 % (37-47); Hemoglobin 13.5 g/dL (12.0-16.0); Immature Granulocytes # (auto) 0.03 K/uL (0.00-0.02); Immature Granulocytes % (auto) 0.5 %; Lymphocytes # (auto) 1.58 K/uL (1.2-3.4); Mean Corpuscular Hemoglobin 30.9 pg (25-34); Mean Corpuscular Volume 96.6 fL (80-100); Mean Platelet Volume 9.8 fL (7.4-10.4); Monocytes # (auto) 0.37 K/uL (0.11-0.59); Monocytes % (auto) 5.6 %; Neutrophils # (auto) 4.56 K/uL (1.4-6.5); Neutrophils % (auto) 69.1 %; Platelet Count 297 K/uL (130-400); RDW Coefficient of Variation 15.4 % (11.5-14.5); RDW Standard Deviation 54.2 fL (36.4-46.3); Red Blood Count 4.37 M/uL (4.2-5.4); White Blood Count 6.59 K/uL (4.8-10.8)
[2019-08-03 23:31] LABS: Base Excess VBG -0.9 mEq/L; HCO3 VBG 25 mmol/L; PCO2 VBG 48 mmHg (38-50); PO2 VBG 32 mmHg; pH VBG 7.34 (7.36-7.41)
[2019-08-03 23:34] LABS: Oxygen Saturation VBG < 60.0 %
[2019-08-03 23:39] LABS: Appearance Urine Clear (Clear); Bilirubin Urine Negative (Negative); Blood Urine Negative (Negative); Color Urine Yellow; Glucose Urine UA 3+ (Negative); Ketones Urine Negative (Negative); Leukocyte Esterase Urine Negative (Negative); Nitrite Urine Negative (Negative); Protein Urine Negative (Negative); Specific Gravity Urine 1.034 (1.000-1.030); Urobilinogen Urine Negative (Negative)
--- NOTE | 2019-08-03 23:58 | Emergency Department Note ---
History of Present Illness General Chief complaint: Hyperglycemia Stated complaint: INSULIN PUMP WENT OUT Time Seen by Provider: 08/03/19 22:56 History of Present Illness This is a 28-year-old female presenting to the emergency department for evaluation of elevated blood sugar. The patient is currently at [facility], and ran out of her insulin for her insulin pump around 9 or 10 AM. The patient contacted staff about this multiple times throughout the day, but was not given additional insulin until around 6 or 7 PM. The patient took 25 units of Humalog but continued to have fingerstick glucose of greater than 600. The patient had 3 sugars greater than 600 and was referred to the ER from the retirement for further management. The patient is starting to feel slightly better after the insulin, but has had significant urination and dry mouth. She is without chest pain, chest tightness, or shortness of breath. No known fever. She rates her discomfort a 6/10. Home Medications Home Medications Medication Instructions Recorded Confirmed Type acetone (urine) test #25 ea 04/26/19 04/26/19 History blood sugar diagnostic #10 ea 04/26/19 04/26/19 History blood sugar diagnostic #10 ea 04/26/19 04/26/19 History duloxetine 60 mg capsule,delayed 90 mg PO DAILY cap 04/26/19 08/03/19 History release pantoprazole 40 mg tablet,delayed 40 mg PO DAILY tab 04/26/19 08/03/19 History release pen needle, diabetic 31 gauge x #30 ea 04/26/19 04/26/19 History 3/16" insulin syringe-needle U-100 1 mL #300 ea 05/25/19 Rx 31 gauge x 5/16" Humalog U-100 Insulin 0 unit SUBCUT USEASDIRECTD 08/03/19 08/03/19 History atorvastatin 20 mg PO HS 08/03/19 08/03/19 History mirtazapine 15 mg PO HS 08/03/19 08/03/19 History Allergies Allergy/AdvReac Type Severity Reaction Status Date / Time No Known Drug Allergies Allergy Unknown . Verified 08/03/19 22:59 Past Med/Surg History Medical History Anxiety Chronic pain Chronic ulcer of great toe of right foot (Acute) Degenerative disc disease DKA (diabetic ketoacidoses) Fibromyalgia Hypertension HX OF 10 YEARS AGO Hypothyroidism Lymph node abscess Migraine Peripheral neuropathy Polyneuropathy (Acute) Poorly controlled type 1 diabetes mellitus (Acute) Restless leg syndrome Rheumatoid arthritis Uncontrolled type 1 diabetes with neuropathy (Chronic) Surgical History H/O lymph node biopsy IN [place] Social History (Updated 11/20/18 @ 14:23 by Chika Allred PT) Preferred Language: Nigerian Communication Ability: Effective [employer] Required: No Beliefs That Will Affect Care: None Current Living Situation: Other Current Living Situation Comment: [facility]MATE AT [facility] Other Information That Helps Us Care for You: No Feels Safe at Home: Yes Safety Concerns: Feels Safe At This Time Smoking Status: Former smoker Tobacco Type: cigarettes ; Cigarettes Per Day: 2 packs/week ; Do You Dip or Chew Tobacco: No ; Second Hand Exposure: No ; Tobacco Cessation Education Requested by Patient: No Hx Alcohol Use: No Hx Substance Use: No Review of Systems A total of 10 systems reviewed and were otherwise negative Physical Exam Vital Signs Vital Signs - 24 hr 08/04/19 00:32 Pulse Rate [Finger] 106 H Respiratory Rate 16 Blood Pressure [Left Arm] 75/56 L Blood Pressure Mean [Left Arm] 62 Blood Pressure Position [Left Arm] Lying Pulse Oximetry 97 VITALS: Vitals are noted on the nurse's note and reviewed by myself. Vital signs stable. GENERAL: Well-developed, well-nourished, white female, who is in no acute distress and resting comfortably. Patient is cooperative with the examination. HEAD: Normocephalic atraumatic. EARS: External ear normal. External auditory canals clear, tympanic membranes pearly newsome without erythema or effusion bilaterally. EYES: Pupils equal round and reactive to light and accommodation. Conjunctivae without injection, sclerae without icterus. Extraocular movements intact. NOSE: Patent, turbinates without inflammation or discharge. MOUTH: Mucous membranes dry. NECK: Supple without nuchal rigidity. No lymphadenopathy. No thyromegaly. Cervical spine is nontender. HEART: Regular rate and rhythm without murmurs gallops or rubs. LUNGS: Clear to auscultation bilaterally without wheezes, rales or rhonchi. No retractions or accessory muscle use. NEURO: Patient was alert and oriented to person place and time. CN II through XII grossly intact Course Administered Medications Discontinued Medications Duloxetine HCl (Cymbalta) 90 mg PO DAILY IAIN Stop: 09/03/19 08:59 Last Admin: 08/04/19 08:07 Dose: 90 mg Documented by: [id number] Sodium Chloride (Nss 1000ml) 1,000 mls @ 999 mls/hr IV .Q1H1M IAIN Stop: 08/04/19 00:15 Last Infusion: 08/04/19 00:22 Dose: 0 mls/hr Documented by: [id number] Admin: 08/03/19 23:21 Dose: 999 mls/hr Documented by: [id number] Sodium Chloride (Nss 1000ml) 1,000 mls @ 999 mls/hr IV .Q1H1M IAIN Stop: 08/04/19 02:07 Last Infusion: 08/04/19 03:12 Dose: 0 mls/hr Documented by: [id number] Admin: 08/04/19 00:36 Dose: 999 mls/hr Documented by: [id number] Infusion: 08/04/19 00:36 Dose: 999 mls/hr Documented by: [id number] Admin: 08/04/19 00:24 Dose: 999 mls/hr Documented by: [id number] Insulin Human Regular 250 (units/ Sodium Chloride) 250 mls @ 0 mls/hr IV .Q0M IAIN; Protocol Stop: 09/03/19 00:14 Last Titration: 08/04/19 05:00 Dose: 0 units/hr, 0 mls/hr Documented by: [id number] Cosigned by: [id number] Titration: 08/04/19 04:00 Dose: 2.2 units/hr, 2.2 mls/hr Documented by: [id number] Cosigned by: [id number] Titration: 08/04/19 03:00 Dose: 2.2 units/hr, 2.2 mls/hr Documented by: [id number] Cosigned by: [id number] Admin: 08/04/19 00:32 Dose: 2.2 units/hr, 2.2 mls/hr Documented by: [id number] Cosigned by: [id number] Potassium Chloride/Sodium Chloride (1/2 Nss + 20meq Kcl 1000ml) 20 meq in 1,000 mls @ 250 mls/hr IV .Q4H IAIN Stop: 09/03/19 02:59 Last Infusion: 08/04/19 12:46 Dose: 0 mls/hr Documented by: [id number] Admin: 08/04/19 11:58 Dose: Not Given Documented by: [id number] Admin: 08/04/19 08:07 Dose: 250 mls/hr Documented by: [id number] Infusion: 08/04/19 07:43 Dose: 250 mls/hr Documented by: [id number] Admin: 08/04/19 03:43 Dose: 250 mls/hr Documented by: [id number] Insulin Human Lispro (Humalog Insulin Pump) 1 ea N/A [facility]; Protocol Stop: 09/03/19 07:29 Last Admin: 08/04/19 11:58 Dose: 1 ea Documented by: [id number] Admin: 08/04/19 08:07 Dose: 1 ea Documented by: [id number] Insulin Human Regular (Novolin R Bolus From Bag) 2 units IV ONE ONE Stop: 08/04/19 00:31 Last Admin: 08/04/19 00:33 Dose: 2 units Documented by: [id number] Cosigned by: [id number] Miscellaneous (Insulin Protocol Goal Range) 1 ea N/A ONE ONE Stop: 08/04/19 00:07 Last Admin: 08/04/19 03:11 Dose: Not Given Documented by: [id number] Miscellaneous (Insulin Protocol Moderate Stress Level) 1 ea N/A ONE ONE Stop: 08/04/19 00:07 Last Admin: 08/04/19 03:12 Dose: Not Given Documented by: [id number] Pantoprazole Sodium (Protonix) 40 mg PO DAILY [facility] Stop: 09/03/19 08:59 Last Admin: 08/04/19 08:08 Dose: 40 mg Documented by: [id number] Critical Care Time I have personally spent greater than 30 minutes of critical care time in the direct management of this patient. This includes bedside care, interpretation of diagnostic studies, and testing, discussion with consultants, patient, and family members, and other required patient management activities. This 30 minutes is in excess of all separately billable procedures. Medical Decision Making Differential Diagnosis Differential diagnosis includes, but is not limited to: Hyperglycemia, DKA, HH NK, electrolyte or metabolic abnormality, and others Laboratory Data Result diagrams: 08/03/19 23:14 08/04/19 14:36 Lab Results 12/03/19 12/03/19 12/03/19 Range/Units 23:14 23:14 23:14 WBC 6.59 (4.8-10.8) K/uL RBC 4.37 (4.2-5.4) M/uL Hgb 13.5 (12.0-16.0) g/dL Hct 42.2 (37-47) % MCV 96.6 (80-100) fL MCH 30.9 (25-34) pg MCHC 32.0 (32-36) g/dL RDW Std Deviation 54.2 H (36.4-46.3) fL RDW Coeff of Isai 15.4 H (11.5-14.5) % Plt Count 297 (130-400) K/uL MPV 9.8 (7.4-10.4) fL Immature Gran % (Auto) 0.5 % Neut % (Auto) 69.1 % Lymph % (Auto) 24.0 % [place] % (Auto) 5.6 % Eos % (Auto) 0.3 % Baso % (Auto) 0.5 % Immature Gran # (Auto) 0.03 H (0.00-0.02) K/uL Neut # (Auto) 4.56 (1.4-6.5) K/uL Lymph # (Auto) 1.58 (1.2-3.4) K/uL [place] # (Auto) 0.37 (0.11-0.59) K/uL Eos # (Auto) 0.02 (0-0.5) K/uL Baso # (Auto) 0.03 (0-0.2) K/uL VBG pH 7.34 L (7.36-7.41) VBG pCO2 48 (38-50) mmHg VBG pO2 32 mmHg VBG HCO3 25 mmol/L VBG O2 Saturation < 60.0 % VBG Base Excess -0.9 mEq/L Barometric Pressure 724.7 mm/Hg Sodium 127 L (136-145) mmol/L Potassium 4.3 (3.5-5.1) mmol/L Chloride 92 L (98-107) mmol/L Carbon Dioxide 24 (21-32) mmol/L Anion Gap 11.0 (3-11) BUN 32 H (7-18) mg/dl Creatinine 1.77 H (0.6-1.2) mg/dl Est Cr Clr Drug Dosing 56.3 ml/min Est GFR ( Amer) 45.2 Est GFR (Non-Af Amer) 39.0 BUN/Creatinine Ratio 18.0 (10-20) Glucose 926 H* (70-99) mg/dl Osmolality (280-300) mOsm/kg Calcium 9.8 (8.5-10.1) mg/dl Total Bilirubin 0.5 (0.2-1) mg/dl AST 23 (15-37) U/L ALT 87 H (12-78) U/L Alkaline Phosphatase 213 H (45-117) U/L Total Protein 8.8 H (6.4-8.2) gm/dl Albumin 4.2 (3.4-5.0) gm/dl Globulin 4.6 H (2.5-4.0) gm/dl Albumin/Globulin Ratio 0.9 (0.9-2) Beta-Hydroxybutyric Acd 1.44 (0.2-2.81) mg/dl Urine Color Urine Appearance (Clear) Urine pH (4.5-7.5) Ur Specific [place] (1.000-1.030) Urine Protein (Negative) Urine Glucose (UA) (Negative) Urine Ketones (Negative) Urine Blood (Negative) Urine Nitrite (Negative) Urine Bilirubin (Negative) Urine Urobilinogen (Negative) Ur Leukocyte Esterase (Negative) POC Ur Test (NEG) 08/03/19 08/03/19 08/03/19 Range/Units 23:15 23:21 23:21 WBC (4.8-10.8) K/uL RBC (4.2-5.4) M/uL Hgb (12.0-16.0) g/dL Hct (37-47) % MCV (80-100) fL MCH (25-34) pg MCHC (32-36) g/dL RDW Std Deviation (36.4-46.3) fL RDW Coeff of Isai (11.5-14.5) % Plt Count (130-400) K/uL MPV (7.4-10.4) fL Immature Gran % (Auto) % Neut % (Auto) % Lymph % (Auto) % [place] % (Auto) % Eos % (Auto) % Baso % (Auto) % Immature Gran # (Auto) (0.00-0.02) K/uL Neut # (Auto) (1.4-6.5) K/uL Lymph # (Auto) (1.2-3.4) K/uL [place] # (Auto) (0.11-0.59) K/uL Eos # (Auto) (0-0.5) K/uL Baso # (Auto) (0-0.2) K/uL VBG pH (7.36-7.41) VBG pCO2 (38-50) mmHg VBG pO2 mmHg VBG HCO3 mmol/L VBG O2 Saturation % VBG Base Excess mEq/L Barometric Pressure mm/Hg Sodium (136-145) mmol/L Potassium (3.5-5.1) mmol/L Chloride (98-107) mmol/L Carbon Dioxide (21-32) mmol/L Anion Gap (3-11) BUN (7-18) mg/dl Creatinine (0.6-1.2) mg/dl Est Cr Clr Drug Dosing ml/min Est GFR ( Amer) Est GFR (Non-Af Amer) BUN/Creatinine Ratio (10-20) Glucose (70-99) mg/dl Osmolality 332 H (280-300) mOsm/kg Calcium (8.5-10.1) mg/dl Total Bilirubin (0.2-1) mg/dl AST (15-37) U/L ALT (12-78) U/L Alkaline Phosphatase (45-117) U/L Total Protein (6.4-8.2) gm/dl Albumin (3.4-5.0) gm/dl Globulin (2.5-4.0) gm/dl Albumin/Globulin Ratio (0.9-2) Beta-Hydroxybutyric Acd (0.2-2.81) mg/dl Urine Color Yellow Urine Appearance Clear (Clear) Urine pH 5.0 (4.5-7.5) Ur Specific [place] 1.034 H (1.000-1.030) Urine Protein Negative (Negative) Urine Glucose (UA) 3+ H (Negative) Urine Ketones Negative (Negative) Urine Blood Negative (Negative) Urine Nitrite Negative (Negative) Urine Bilirubin Negative (Negative) Urine Urobilinogen Negative (Negative) Ur Leukocyte Esterase Negative (Negative) POC Ur Test NEG (NEG) MDM Narrative Physical exam and history were performed. Nursing notes, EMR, and Medication List were personally reviewed. Patient appears to have elevated sugar bringing her to the ER. The patient is accompanied by [facility] officers. IV access was established and labs were obtained. The patient was hydrated with normal saline. The patient blood work is as above and was reviewed. She does not have a significantly elevated white blood cell count, gross anemia, bandemia, or significant electrolyte imbalance. Creatinine is 1.32. The patient has a markedly elevated glucose of greater than 900. She is acidotic on VBG. The patient was given additional 2 L of normal saline. She was placed on an insulin drip. Overall the patient does not appear well for discharge home. She is severely hy perglycemic and I have concerns for DKA/HHNK. The patient case was discussed with the on-call hospitalist, who agreed to evaluate the patient here in the department. Please see their dictation for further patient course, plan, and disposition. The chart was completed utilizing [employer] Speech Voice Recognition Software. Grammatical errors, random word insertions, pronoun errors, and incomplete sentences are an occasional consequence of this system due to software limitations, ambient noise, and hardware issues. Any formal questions or concerns about the content, text, or information contained within the body of this dictation should be directly addressed to the provider for clarification. . Impression & Plan Acute hyperglycemia, Diabetic acidosis, Acute dehydration Discharge Plan Visit Data *Final* Discharge Date/Time: 08/04/19 02:04 Chief Complaint: Hyperglycemia Stated Complaint: INSULIN PUMP WENT OUT ED Provider: Rodolfo Guthrie ED Midlevel Provider: Jeancarlos Leiva Discharge Problem: Acute hyperglycemia, Diabetic acidosis, Acute dehydration Patient Disposition: Admitted As Inpatient Discharge Instructions Interventions: ED Discharge Assessment Last Done: 08/04/19 02:04
[2019-08-04 00:02] LABS: Albumin Globulin Ratio 0.9 (0.9-2); Albumin Level 4.2 gm/dl (3.4-5.0); Bilirubin,Total 0.5 mg/dl (0.2-1); Calcium 9.8 mg/dl (8.5-10.1); Creatinine Clr Calc Pharmacy 56.3 ml/min; Est GFR (African American) 45.2; Globulin 4.6 gm/dl (2.5-4.0); Potassium 4.3 mmol/L (3.5-5.1); Total Protein 8.8 gm/dl (6.4-8.2)
[2019-08-04] MEDS ORDERED: INSULIN PROTOCOL GOAL RANGE ONE ×2 (00:06→02:40)
[2019-08-04] MEDS ORDERED: MODERATE STRESS LEVEL ONE ×2 (00:06→02:40)
[2019-08-04] MEDS ORDERED: INSULIN REGULAR 250 UNITS in SODIUM CHLORIDE 0.9% 247.5 ML IV SCH ×2 (00:15→02:40)
[2019-08-04 00:17] LABS: Beta-Hydroxybutyrate 1.44 mg/dl (0.2-2.81)
[2019-08-04] MEDS: SODIUM CHLORIDE 0.9% 1000ML 1,000 ML IV SCH ×2 (00:24→00:36)
[2019-08-04] MEDS ORDERED: GLUCAGON FOR INJ 1 MG VIAL IM PRN ×2 (00:30→04:15)
[2019-08-04] MEDS ORDERED: GLUCOSE 40% GEL 15 GM TUBE PO PRN ×2 (00:30→04:15)
[2019-08-04] MEDS ORDERED: CARBOHYDRATES FOR HYPOGLYCEMIA PO PRN ×2 (00:30→04:15)
[2019-08-04] MEDS ORDERED: DEXTROSE 50% 50 ML SYRINGE IV PRN ×2 (00:30→04:15)
[2019-08-04] MEDS ORDERED: GLUCOSE 10 TABS/TUBE PO PRN ×2 (00:30→04:15)
[2019-08-04] MEDS ORDERED: NovoLIN-R BOLUS FROM BAG IV ONE (00:30)
--- NOTE | 2019-08-04 02:06 | History and Physical Report ---
DATE OF ADMISSION: 08/04/2019 CHIEF COMPLAINT: Hyperglycemia. HISTORY OF PRESENT ILLNESS: This is a 28-year-old female with past medical history significant for type 1 diabetes, on insulin pump, history of gastroparesis, neuropathy, hypothyroidism, fibromyalgia, fatty liver disease as per records, history of opiate abuse as per records, past tobacco abuse, chronic anemia, baseline hemoglobin 11, medication noncompliance as per records. Currently in [facility], was brought in because of hyperglycemia. The patient ran out of her insulin. She had insulin pump and she ran out of the insulin in the morning and she did not have her insulin since then and sugars were running high, so she was brought in here. Patient is alert and awake and oriented. Denies any nausea, vomiting. No chest pain, no shortness of breath, no cough, no fever, no chills, no dysphagia, no headache, no dizziness. She has some blurred visions. No earache, no runny nose, no sore throat, no cough, no abdominal pain. Normal bowel and bladder movements. No blood in the stool, no black stools, no hematuria, no burning micturition, no swelling in the legs, no rash. Currently resting comfortably and hemodynamically stable and sugars were 926 in the ER. She was given fluids and started on insulin drip protocol. Blood pressure is somewhat running on the lower side. ALLERGIES: No known drug allergies. PAST MEDICAL HISTORY: As mentioned above. PAST SURGICAL HISTORY: Lymph node biopsy. FAMILY HISTORY: Significant for diabetes. SOCIAL HISTORY: Denies any smoking, denies any alcohol. Currently at senior care. MEDICATIONS: The patient is on insulin pump, Lipitor 20 mg at bedtime, Cymbalta 90 mg p.o. daily, Remeron 15 mg at bedtime. REVIEW OF SYSTEMS: As per HPI. Rest of the review of systems negative. PHYSICAL EXAMINATION: GENERAL: The patient is of moderate build, not in acute distress. VITAL SIGNS: Temperature 36.7, pulse 106, respiratory rate 16, blood pressure currently 75/56, oxygen 97% on room air. HEENT: No pallor, no icterus. Pupils sluggish to react. NECK: Supple. No neck masses. CARDIOVASCULAR: S1, S2 heard, regular rate and rhythm, no murmur, no gallop. RESPIRATORY SYSTEM: Normal AP diameter. No accessory muscle use. No wheezing, no crackles. ABDOMEN: Soft, bowel sounds present, nontender. No distention. CENTRAL NERVOUS SYSTEM: Alert and oriented and nonfocal. EXTREMITIES: No edema, moves extremities. LABORATORY DATA: WBC 6.5, hemoglobin 13.5, hematocrit 42.2, platelets 297. Venous blood gases, venous pH 7.34, venous CO2 of 48, venous pO2 of 32. Venous bicarbonate 25. Venous oxygen saturation 60%. Sodium 127, potassium 4.3, chloride 92, carbon dioxide 24, BUN 32, creatinine 1.7, serum glucose 926, calcium 9.8, total bilirubin 0.5, AST 23, ALT 87, alkaline phosphatase 213. Beta hydroxybutyric acid is 1.4. Urinalysis positive for +3 glucose. ASSESSMENT AND PLAN: This is a 28-year-old female who presents with hyperglycemia post running out of her insulin on insulin pump. 1. Hyperglycemia, sugar of 926, not in DKA. Anion gap is 11 and CO2 is 24. Blood sugars are significantly high. The patient's mental status is stable. We will check the serum osmolality and will treat as hyperosmolar hyperglycemia protocol with IV insulin drip, aggressive IV fluids, and frequent following of the labs while she is on insulin drip. Pharmacy consult. Follow hemoglobin A1c levels. Monitor hemodynamics. Closely monitor on the tele floor. 2. History of hyperlipidemia, continue statin. 3. History of depression. 4. Fibromyalgia, continue her Remeron and Cymbalta. 5. Acute kidney injury on chronic kidney disease stage II. Baseline creatinine around 1.5, currently creatinine of 1.7. Will follow the labs. 6. History of abnormal thyroid function tests. We will follow the thyroid profile. 7. Deep vein thrombosis prophylaxis, sequential compression devices for now. 8. Disposition: Admit to tele floor. Expect to discharge back to senior care when patient is stable. [facility]
[2019-08-04] MEDS ORDERED: DC ALL PREVIOUSLY ORDERED DIABETES MEDS ONE (02:40)
[2019-08-04] MEDS ORDERED: NITROGLYCERIN SL 0.4 MG/TAB TAB SL PRN (02:40)
[2019-08-04] MEDS ORDERED: PENDING 1/2NSS+20mEq KCL IVF SCH (02:40)
[2019-08-04] MEDS ORDERED: ONDANSETRON INJ 2 MG/ML 2 ML VIAL IV PRN (02:40)
[2019-08-04] MEDS ORDERED: HHS GOAL RANGE 250-350 mg/dl ONE (02:40)
[2019-08-04] MEDS ORDERED: PENDING D5 1/2NS+20mEq KCL IVF SCH (02:40)
[2019-08-04] MEDS ORDERED: ACETAMINOPHEN 325 MG TAB PO PRN (02:40)
[2019-08-04 02:46] LABS: Beta-Hydroxybutyrate 0.65 mg/dl (0.2-2.81)
[2019-08-04] MEDS ORDERED: PHARMACY GLYCEMIC MGMT CONSULT PRN (02:58)
[2019-08-04 03:21] LABS: BUN Creatinine Ratio 21.7 (10-20); Blood Urea Nitrogen 29 mg/dl (7-18); Calcium 8.8 mg/dl (8.5-10.1); Carbon Dioxide 25 mmol/L (21-32); Chloride 100 mmol/L (98-107); Creatinine Clr Calc Pharmacy 75.5 ml/min; Est GFR (African American) 64.4; Est GFR (Non-African American) 55.5; Potassium 4.4 mmol/L (3.5-5.1); Sodium 132 mmol/L (136-145)
[2019-08-04 03:25] LABS: Thyroid Stimulating Hormone 0.825 uIu/ml (0.300-4.500)
[2019-08-04] MEDS: SODIUM CHLOR 0.45% + 20MEQ KCL 20 MEQ/1,000 ML BAG IV SCH ×3 (03:43→11:58)
[2019-08-04] MEDS ORDERED: INSULIN HUMAN LISPRO (humaLOG) 100 UNITS/ML VIAL SC PRN (04:45)
[2019-08-04] MEDS ORDERED: INSULIN ASPART 100 UNITS/ML 3 ML PEN SC SCH ×2 (07:30)
[2019-08-04 07:35] LABS: BUN Creatinine Ratio 28.1 (10-20); Calcium 9.1 mg/dl (8.5-10.1); Est GFR (African American) 112.8; Est GFR (Non-African American) 97.3
[2019-08-04 08:07] LABS: Estimated Average Glucose 255 mg/dl; Hemoglobin A1C 10.5 % (4.5-5.6)
[2019-08-04] MEDS ORDERED: DULOXETINE HCL 30 MG CAP PO SCH (09:00)
[2019-08-04] MEDS ORDERED: PANTOprazole 40 MG TAB PO SCH (09:00)
[2019-08-04 11:47] LABS: BUN Creatinine Ratio 24.3 (10-20); Calcium 8.9 mg/dl (8.5-10.1); Creatinine Clr Calc Pharmacy 125.1 ml/min; Est GFR (African American) 119.7; Est GFR (Non-African American) 103.3; Potassium 4.5 mmol/L (3.5-5.1)
--- NOTE | 2019-08-04 13:20 | Hospitalist Progress Note ---
Date of Service August 04, 2019 Assessment & Plan (1) Hyperglycemic crisis in diabetes mellitus: Patient is a 28-year-old female with history of type 1 diabetes and other problems presents with hyperglycemia due to running out of her insulin on insulin pump. Hyperglycemia H/O Type I DM No signs of DKA--normal anion gap, bicarbonate levels, no ketones in urine IV insulin transition to SQ Received IV fluids Appreciate Glycemic Pharmacy Input Hb A1c: 10.5 Hyperlipidemia continue statin. Depression Fibromyalgia Continue Remeron, Cymbalta Acute kidney injury on CKD II Baseline Cr ~ 1.5 Received IV fluids Cr back to baseline Monitor renal function History of abnormal thyroid function tests TSH:0.825 wnl DVT Px: SCDs CODE STATUS full code Disposition: Plan [facility] back to jail Subjective Patient seen and examined at bedside States feeling much better today Offers no complaints Denies any chest pain, shortness of breath, nausea, vomiting, abdominal pain, dizziness Half-Way guards at bedside Offers no other complaints Review of Systems Review of Systems: All systems reviewed & are unremarkable except as noted in HPI & below Physical Exam Physical Exam: Physical Exam: Vitals signs as noted above General Appearance:Moderately built and nourished, no apparent distress Head: normocephalic, Atraumatic Eyes: normal inspection, EOMI Neck: supple, Trachea midline Respiratory/Chest: Normal breath sounds, CTA Cardiovascular: S1, S2, No murmur Abdomen/GI:Soft, Non tender, Bowel sounds present Extremities/Musculoskelatal:normal inspection, no edema Neurologic/Psych:AAOX3, grossly no focal neurological deficits Skin: normal color, warm Results & Data Vital Signs (Past 12 Hours) Vital Signs Temp Pulse Resp BP BP Pulse Ox 08/04/19 11:54 37.1 C 74 18 117/80 100 08/04/19 08:08 36.8 C 87 18 117/80 98 08/04/19 02:30 36.6 C 77 18 119/82 99 Laboratory Results Short CBC 08/03/19 Range/Units 23:14 WBC 6.59 (4.8-10.8) K/uL Hgb 13.5 (12.0-16.0) g/dL Hct 42.2 (37-47) % Plt Count 297 (130-400) K/uL BMP 08/03/19 08/04/19 08/04/19 23:14 01:47 01:47 Sodium 127 L 132 L Potassium 4.3 4.4 Chloride 92 L 100 Carbon Dioxide 24 25 BUN 32 H 29 H Creatinine 1.77 H 1.32 H D Glucose 926 H* 633 H* TNP Calcium 9.8 8.8 08/04/19 08/04/19 05:59 11:13 Sodium 140 D 136 Potassium 4.0 4.5 Chloride 107 107 Carbon Dioxide 29 25 BUN 23 H 19 H Creatinine 0.83 D 0.79 Glucose 134 H 214 H Calcium 9.1 8.9 Liver Function 08/03/19 Range/Units 23:14 Total Bilirubin 0.5 (0.2-1) mg/dl AST 23 (15-37) U/L ALT 87 H (12-78) U/L Alkaline Phosphatase 213 H (45-117) U/L Albumin 4.2 (3.4-5.0) gm/dl Urine 08/03/19 Range/Units 23:21 Urine Color Yellow Urine Appearance Clear (Clear) Urine pH 5.0 (4.5-7.5) Ur Specific [place] 1.034 H (1.000-1.030) Urine Protein Negative (Negative) Urine Glucose (UA) 3+ H (Negative)
--- NOTE | 2019-08-04 13:33 | Discharge Summary ---
Date of Service August 04, 2019 Admission HPI Per Admitting Provider CHIEF COMPLAINT: Hyperglycemia. HISTORY OF PRESENT ILLNESS: This is a 28-year-old female with past medical history significant for type 1 diabetes, on insulin pump, history of gastroparesis, neuropathy, hypothyroidism, fibromyalgia, fatty liver disease as per records, history of opiate abuse as per records, past tobacco abuse, chronic anemia, baseline hemoglobin 11, medication noncompliance as per records. Currently in [facility], was brought in because of hyperglycemia. The patient ran out of her insulin. She had insulin pump and she ran out of the insulin in the morning and she did not have her insulin since then and sugars were running high, so she was brought in here. Patient is alert and awake and oriented. Denies any nausea, vomiting. No chest pain, no shortness of breath, no cough, no fever, no chills, no dysphagia, no headache, no dizziness. She has some blurred visions. No earache, no runny nose, no sore throat, no cough, no abdominal pain. Normal bowel and bladder movements. No blood in the stool, no black stools, no hematuria, no burning micturition, no swelling in the legs, no rash. Currently resting comfortably and hemodynamically stable and sugars were 926 in the ER. She was given fluids and started on insulin drip protocol. Blood pressure is somewhat running on the lower side. Admission Exam Per Admitting Provider PHYSICAL EXAMINATION: GENERAL: The patient is of moderate build, not in acute distress. VITAL SIGNS: Temperature 36.7, pulse 106, respiratory rate 16, blood pressure currently 75/56, oxygen 97% on room air. HEENT: No pallor, no icterus. Pupils sluggish to react. NECK: Supple. No neck masses. CARDIOVASCULAR: S1, S2 heard, regular rate and rhythm, no murmur, no gallop. RESPIRATORY SYSTEM: Normal AP diameter. No accessory muscle use. No wheezing, no crackles. ABDOMEN: Soft, bowel sounds present, nontender. No distention. CENTRAL NERVOUS SYSTEM: Alert and oriented and nonfocal. EXTREMITIES: No edema, moves extremities. Principal Diagnosis Hyperglycemia Type 1 diabetes mellitus Discharge Data Allergies Allergy/AdvReac Type Severity Reaction Status Date / Time No Known Drug Allergies Allergy Unknown . Verified 08/03/19 22:59 Consultations 08/04/19 00:19 ED Decision to Admit Stat Hospital Course (1) Hyperglycemic crisis in diabetes mellitus: Patient is a 28-year-old female with history of type 1 diabetes and other problems presents with hyperglycemia due to running out of her insulin on insulin pump. Hyperglycemia H/O Type I DM No signs of DKA--normal anion gap, bicarbonate levels, no ketones in urine IV insulin transition to SQ Received IV fluids Appreciate Glycemic Pharmacy Input Hb A1c: 10.5 Hyperlipidemia continue statin. Depression Fibromyalgia Continue Remeron, Cymbalta Acute kidney injury on CKD II Baseline Cr ~ 1.5 Received IV fluids Cr back to baseline Monitor renal function History of abnormal thyroid function tests TSH:0.825 wnl DVT Px: SCDs CODE STATUS full code Disposition: Plan to discharge back to [facility] Total Time Total Time Spent Total Time Spent (In Minutes): 36 minutes Total Time Includes: Examination of the Patient, Discharge Planning, Medication Reconciliation, Communication With Other Providers and Other Discharge Plan Discharge Items [facility] Disposition: [facility] Reason For Visit: HYPERGLYCEMIA Discharge Diagnosis: Hyperglycemia Type 1 diabetes mellitus Activity: Resume your previous activity Exercise/Sports: Gradually increase as tolerated Non-emergency contact: Primary Care Provider Call non-emergency contact if: you have any medication questions, your symptoms worsen, your pain is not controlled, your pain is worsening, your pain is unusual for you, your pain is concerning for you and you have a fever Follow-up/Referrals: [facility] [Primary Care Provider] - Diet: Carb Count or DM1 Addtl Attending Provider Instructions: Follow-up with your primary care physician at correctional facility in 1 week as advised Monitor your blood sugar levels regularly as advised Seek immediate medical attention if your symptoms reoccur or worsen Pending Studies at Discharge: No Stand-Alone Forms: My [facility] Skilled Items Patient informed of condition?: Yes Discharge Level of Care: Other Communicable Disease: No Discharge Prognosis: Improving Lines: None Urinary Catheter: No Medications and DC Order Prescriptions: Continued (DME) insulin syringe-needle U-100 [BD Insulin Syringe Ultra-Fine] 1 mL 31 gauge x 5/16 syringe See Dose Instructions .ROUTE .MEDSUPPLY Qty: 300 RF: 0 (DME) pen needle, diabetic [BD Ultra-Fine Mini Pen Needle] 31 gauge x 3/16" needle See Dose Instructions .ROUTE .MEDSUPPLY Qty: 30 RF: 0 (DME) Contour Next Test Strips strip See Dose Instructions .ROUTE .MEDSUPPLY Qty: 10 RF: 0 (DME) Ketostix strip See Dose Instructions .ROUTE .MEDSUPPLY Qty: 25 RF: 0 (DME) OneTouch Verio strip See Dose Instructions .ROUTE .MEDSUPPLY Qty: 10 RF: 0 duloxetine [Cymbalta] 60 mg capsule,delayed release(DR/EC) 90 mg PO DAILY RF: 0 pantoprazole 40 mg tablet,delayed release (DR/EC) 40 mg PO DAILY RF: 0 atorvastatin 20 mg Tablet 20 mg PO HS RF: 0 mirtazapine 15 mg Tablet 15 mg PO HS RF: 0 Humalog U-100 Insulin 100 unit/mL Cartridge 0 unit SUBCUT USEASDIRECTD RF: 0 Discharge Orders: Discharge Order (Routine); Ordered 08/04/19 Ordered By: Vance Parker Admission Data Admit Date/Time: 08/04/19 00:54 Attending Provider: Vance Parker Admit Provider: Farzad Stubbs Primary Care Provider: [facility] Other Providers: Farzad Stubbs Other Interventions: Discharge Summary Assessment (RN) Last Done: 08/04/19 14:40 DC Date/Time DO NOT enter until pt leaves facility: 08/04/19 15:03
[2019-08-04 15:19] LABS: BUN Creatinine Ratio 17.2 (10-20); Creatinine Clr Calc Pharmacy 99.8 ml/min; Est GFR (African American) 91.2; Est GFR (Non-African American) 78.6; Potassium 4.3 mmol/L (3.5-5.1)
[2019-08-04] MEDS ORDERED: MIRTAZAPINE TAB 15 MG TAB PO SCH (21:00)
[2019-08-04] MEDS ORDERED: ATORVASTATIN 20 MG TAB PO SCH (21:00)
== END 2019-08-04 15:03 | DRG 638 ==
LOC: ED 22:37 → 2S 08-04 00:54

== ENCOUNTER 2020-03-02 17:49 | Observation (INO) ==
[2020-03-02] MEDS ORDERED: VANCOMYCIN CONSULT ACTIVE PRN (18:32)
[2020-03-02] MEDS ORDERED: VANCOMYCIN HCL 2,000 MG in SODIUM CHLORIDE 0.9% 500 ML IV STA (18:32)
[2020-03-02] MEDS ORDERED: SODIUM CHLORIDE 0.9% 1000ML 1,000 ML IV SCH (18:45)
[2020-03-02 18:53] LABS: Basophils # (auto) 0.05 K/uL (0-0.2); Basophils % (auto) 0.5 %; Eosinophils # (auto) 0.04 K/uL (0-0.5); Eosinophils % (auto) 0.4 %; Hematocrit (blood only) 39.8 % (37-47); Hemoglobin 12.1 g/dL (12.0-16.0); Immature Granulocytes # (auto) 0.02 K/uL (0.00-0.02); Immature Granulocytes % (auto) 0.2 %; Lymphocytes # (auto) 1.29 K/uL (1.2-3.4); Lymphocytes % (auto) 13.4 %; Mean Corpuscular Hemoglobin 28.8 pg (25-34); Mean Corpuscular Hgb Conc 30.4 g/dL (32-36); Mean Corpuscular Volume 94.8 fL (80-100); Mean Platelet Volume 10.3 fL (7.4-10.4); Monocytes # (auto) 0.24 K/uL (0.11-0.59); Monocytes % (auto) 2.5 %; Neutrophils # (auto) 7.98 K/uL (1.4-6.5); Platelet Count 458 K/uL (130-400); RDW Coefficient of Variation 13.9 % (11.5-14.5); RDW Standard Deviation 48.3 fL (36.4-46.3); White Blood Count 9.62 K/uL (4.8-10.8)
[2020-03-02] MEDS ORDERED: LORazepam 1 MG/2 ML VIAL IV STA ×2 (18:56→20:00)
[2020-03-02 19:05] LABS: Partial Thromboplastin Ratio 1.1; Partial Thromboplastin Time 30.7 Seconds (21.0-31.0); Prothrombin Time 10.6 Seconds (9.0-12.0)
--- NOTE | 2020-03-02 19:05 | XRay Report ---
XR chest 1V portable CLINICAL HISTORY: SEPSIS COMPARISON STUDY: Chest radiograph July 31, 2018. FINDINGS: Lung volumes are normal. Lungs are clear. There is no pneumothorax or pleural effusion. Car diac size is normal. Mediastinal contours are normal. There is no evidence for pulmonary edema. IMPRESSION: No acute cardiopulmonary findings. ACT 112: Negative or not required by law. Electronically signed by: Dinesh Prince M.D. 03/02/2020 7:04 PM
[2020-03-02 19:21] LABS: Alanine Aminotransferase 10 U/L (12-78); Albumin Globulin Ratio 0.5 (0.9-2); Albumin Level 3.1 gm/dl (3.4-5.0); Alkaline Phosphatase 141 U/L (45-117); Aspartate Aminotransferase 12 U/L (15-37); BUN Creatinine Ratio 11.8 (10-20); Bilirubin,Total 0.7 mg/dl (0.2-1); Blood Urea Nitrogen 18 mg/dl (7-18); Calcium 9.3 mg/dl (8.5-10.1); Carbon Dioxide 21 mmol/L (21-32); Chloride 94 mmol/L (98-107); Creatinine Clr Calc Pharmacy 65.7 ml/min; Est GFR (African American) 53.9; Est GFR (Non-African American) 46.5; Globulin 5.8 gm/dl (2.5-4.0); Glucose 804 mg/dl (70-99); Magnesium 2.1 mg/dl (1.8-2.4); Potassium 5.3 mmol/L (3.5-5.1); Sodium 127 mmol/L (136-145); Total Protein 8.9 gm/dl (6.4-8.2)
[2020-03-02] MEDS ORDERED: SODIUM CHLORIDE 0.9% 1000ML 1,000 ML IV ONE ×2 (19:23→19:25)
[2020-03-02 19:33] LABS: Beta-Hydroxybutyrate 42.13 mg/dl (0.2-2.81)
[2020-03-02] MEDS ORDERED: PIPERACILLIN/TAZOBACTAM 4.5 GM/120 ML BAG IV ONE (19:46)
--- NOTE | 2020-03-02 19:46 | Ultrasound Report ---
US breast RT limited CLINICAL HISTORY: abscess/infection COMPARISON STUDY: No previous studies for comparison. TECHNIQUE: Sonography of the right breast at site of discoloration and drainage was performed. FINDINGS: Note is made of a probable small complex elongated fluid collection of the right breast at site of maximal swelling. This collection measures 1.8 cm. No additional fluid collections were ident ified. IMPRESSION: Probable 1.8 cm right breast complex fluid collection. This favors a small abscess. ACT 112: Negative or not required by law. Electronically signed by: Dinesh Prince M.D. 03/02/2020 7:45 PM
[2020-03-02 20:19] LABS: Appearance Urine Clear (Clear); Bilirubin Urine Negative (Negative); Blood Urine Negative (Negative); Color Urine Yellow; Glucose Urine UA 3+ (Negative); Ketones Urine 1+ (Negative); Leukocyte Esterase Urine Negative (Negative); Nitrite Urine Negative (Negative); Protein Urine Negative (Negative); Specific Gravity Urine 1.033 (1.000-1.030); Urobilinogen Urine Negative (Negative)
--- NOTE | 2020-03-02 20:46 | History & Physical Report ---
Date of Service March 02, 2020 Assessment & Plan (1) Breast abscess: 1) Breast Abscess - US breast: 1.8 cm complex fluid collection favoring abscess - WBC 9.62, afebrile, normotensive. - Surgical consult: - will require I&D - continue Vanc & Zosyn from ED - will require BSG control prior to OR drainage - blood cultures pending - wound culture from R breast sent 2) DKA - BSG of 800 on admission - patient bolusing Insulin from pump with nursing supervision and communication - BSG down to 341 within a few hours - Anion gap 13 on admission, recheck with AM labs - hydration with IVNS, bolused 2L in ED - cnc programmer consult - last A1c 10.5 in 08/19 3) LUIS CARLOS - Cr 1.65, BUN 21 - likely secondary to dehydration with DKA - continue IVF support 4) Pseudohyponatremia - Na 134 with elevated BSG - recheck with BMP in AM labs 5) Left leg ulceration - pt failed to mention this wound in hx; brought it up with nursing after transfer to the floor. - per pt report it has been draining lots of fluid as well - wound culture taken and sent to path - wound care consult for this and breast abscess 6) Hx IVDU - UDS + for opiates - no murmurs on cardiac exam; high risk for infective endocarditis - no signs of janeway lesions, emboli, osler nodes - ECHO in 03/2019 normal Dvt ppx: not indicated Fen/Gi: NPO, IVNS code status: full code Dispo: ICU/PCU after gap closure (2) Intravenous drug user: (3) DKA (diabetic ketoacidoses): (4) Migraine: (5) Type 1 diabetes mellitus: History of Present Illness 29 yo F with uncontrolled T1DM, hx IVDU, who presents to the ED with complaints of an abscess on her right breast. She says she last used IV drugs on Tuesday 02/27, but hadn't injected into that breast for months. Hx of using heroin, fentanyl, percocet. Denies any trauma to the affected area. Says it has been draining purulent fluid copiously for the last few days. Nontender at rest. Denies any fevers but has been feeling chills. Of note, had a BSG of 800 on admission and states it's because she forgot to re-start her insulin pump after showering. Primary Care Provider: Donna Masterson PA-C Allergies Allergy/AdvReac Type Severity Reaction Status Date / Time No Known Allergies Allergy Verified 03/02/20 19:46 Home Medications Home Medications Medication Instructions Recorded Confirmed Type acetone (urine) test #25 ea 04/26/19 04/26/19 History pantoprazole 40 mg tablet,delayed 40 mg PO DAILY tab 04/26/19 03/02/20 History release pen needle, diabetic 31 gauge x #30 ea 04/26/19 04/26/19 History 3/16" insulin syringe-needle U-100 1 mL #300 ea 05/25/19 Rx 31 gauge x 5/16" Contour Next Test Strips #450 ea NS 12/01/19 Rx metoclopramide HCl [Reglan] 5 mg PO BID PRN 02/21/20 03/02/20 History insulin lispro 0 units CONTINUOUS SUBCUTANEOUS 03/02/20 03/02/20 History INFUSION DAILY MDD up to TDD 100 units a day pump mirtazapine 45 mg PO HS 03/02/20 03/02/20 History pregabalin [Lyrica] 150 mg PO DAILY 03/02/20 03/02/20 History Past Med/Surg History Medical History Anxiety Chronic pain Degenerative disc disease Diabetes mellitus type 1 Fibromyalgia GERD (gastroesophageal reflux disease) History of hypothyroidism Hx of migraines Hx of primary hypertension Hypothyroidism Peripheral neuropathy Restless leg syndrome Rheumatoid arthritis Social History Preferred Language: [place] Communication Ability: Effective Insole [place] Required: No Beliefs That Will Affect Care: None Current Living Situation: Family Current Living Situation Comment: [facility] AT [facility] Feels Safe at Home: Yes Smoking Status: Current every day smoker Tobacco Type: cigarettes ; Cigarettes Per Day: 10 ; Second Hand Exposure: No ; Hx Alcohol Use: No Hx Substance Use: No Review of Systems Constitutional: + chills; no fever, no body aches and no fatigue Respiratory: no cough and no dyspnea Cardiovascular: no chest pain, no dyspnea and no edema Gastrointestinal: no abdominal pain, no nausea, no vomiting, no constipation and no diarrhea/loose stools Genitourinary: no dysuria Integumentary: + lesions, + skin ulcer, + wounds and + breast skin changes Physical Exam Constitutional: + disheveled and cooperative; no acute distress and not ill appearing Neck: normal visual inspection Respiratory: normal respiratory effort and able to speak in complete sentences; no respiratory distress, no labored breathing, no retractions, no cough and no audible wheezes Auscultation: lungs clear to auscultation bilaterally; no crackles, no rales, no rhonchi and no wheezes Cardiovascular: Rate/Rhythm: regular rate and regular rhythm Heart Sounds: normal S1 and normal S2; no gallop, no murmur and no cardiac rub Vessels: posterior tibial pulses present Extremities: no pedal edema and no edema Chest (Breasts): Additional Comments: Fluctuant abscess of right breast approximately 2cm x 2cm, with central necrosis of skin and surrounding erythematous skin changes. Nontender to palpation. Gastrointestinal (Abdomen): Inspection/Auscultation: abdomen normal to inspection and normal bowel sounds; abdomen not distended Percussion/Palpation: abdomen soft; abdomen nontender, no guarding, abdomen not rigid and no abdominal mass Psychiatric: Orientation: alert, cooperative and + guarded Apperance: + disheveled Motor Behavior: + psychomotor agitation Affect: + anxious affect Mood: + anxious mood Thought Process: thought process not tangential and no flight of ideas Thought Content: not paranoid Insight: + limited insight Judgement: + limited judgement Results & Data Results & Data ([facility]) Vital Signs (Past 12 Hours) Vital Signs Temp Pulse Resp BP BP Pulse Ox 03/02/20 19:46 22 134/74 95 03/02/20 19:35 96 03/02/20 18:01 36.7 C 106 H 18 129/81 99 Laboratory Results WBC 9.62 K/uL (4.8-10.8) 03/02/20 18:40 RBC 4.20 M/uL (4.2-5.4) 03/02/20 18:40 Hgb 12.1 g/dL (12.0-16.0) 03/02/20 18:40 Hct 39.8 % (37-47) 03/02/20 18:40 MCV 94.8 fL (80-100) 03/02/20 18:40 MCH 28.8 pg (25-34) 03/02/20 18:40 MCHC 30.4 g/dL (32-36) L 03/02/20 18:40 RDW Std Deviation 48.3 fL (36.4-46.3) H 03/02/20 18:40 RDW Coeff of Isai 13.9 % (11.5-14.5) 03/02/20 18:40 Plt Count 458 K/uL (130-400) H 03/02/20 18:40 MPV 10.3 fL (7.4-10.4) 03/02/20 18:40 Immature Gran % (Auto) 0.2 % 03/02/20 18:40 Neut % (Auto) 83.0 % 03/02/20 18:40 Lymph % (Auto) 13.4 % 03/02/20 18:40 [place] % (Auto) 2.5 % 03/02/20 18:40 Eos % (Auto) 0.4 % 03/02/20 18:40 Baso % (Auto) 0.5 % 03/02/20 18:40 Neut # (Auto) 7.98 K/uL (1.4-6.5) H 03/02/20 18:40 Lymph # (Auto) 1.29 K/uL (1.2-3.4) 03/02/20 18:40 [place] # (Auto) 0.24 K/uL (0.11-0.59) 03/02/20 18:40 Eos # (Auto) 0.04 K/uL (0-0.5) 03/02/20 18:40 Baso # (Auto) 0.05 K/uL (0-0.2) 03/02/20 18:40 Immature Gran # (Auto) 0.02 K/uL (0.00-0.02) 03/02/20 18:40 PT 10.6 Seconds (9.0-12.0) 03/02/20 18:40 INR 1.0 (0.9-1.1) 03/02/20 18:40 APTT 30.7 Seconds (21.0-31.0) 03/02/20 18:40 PTT Ratio 1.1 03/02/20 18:40 Sodium 134 mmol/L (136-145) L D 03/02/20 21:42 Potassium 4.0 mmol/L (3.5-5.1) D 03/02/20 21:42 Chloride 103 mmol/L (98-107) 03/02/20 21:42 Carbon Dioxide 19 mmol/L (21-32) L 03/02/20 21:42 Anion Gap 12.0 (3-11) H 03/02/20 21:42 BUN 21 mg/dl (7-18) H 03/02/20 21:42 Creatinine 1.65 mg/dl (0.6-1.2) H 03/02/20 21:42 Est Cr Clr Drug Dosing 60.6 ml/min 03/02/20 21:42 Est GFR ( Amer) 48.8 03/02/20 21:42 Est GFR (Non-Af Amer) 42.1 03/02/20 21:42 BUN/Creatinine Ratio 12.7 (10-20) 03/02/20 21:42 Glucose 568 mg/dl (70-99) H* 03/02/20 21:42 POC Glucose 341 mg/dl (70-99) H* 03/03/20 00:01 Lactate 1.2 mmol/L (0.4-2.0) 03/02/20 18:40 Calcium 8.8 mg/dl (8.5-10.1) 03/02/20 21:42 Magnesium 2.1 mg/dl (1.8-2.4) 03/02/20 18:40 Total Bilirubin 0.6 mg/dl (0.2-1) 03/02/20 21:42 AST 7 U/L (15-37) L 03/02/20 21:42 ALT 8 U/L (12-78) L 03/02/20 21:42 Alkaline Phosphatase 117 U/L (45-117) 03/02/20 21:42 Troponin I < 0.015 ng/ml (0-0.045) 03/02/20 18:40 Troponin I Cancelled 03/02/20 18:40 Total Protein 7.5 gm/dl (6.4-8.2) 03/02/20 21:42 Albumin 2.6 gm/dl (3.4-5.0) L 03/02/20 21:42 Globulin 4.9 gm/dl (2.5-4.0) H 03/02/20 21:42 Albumin/Globulin Ratio 0.5 (0.9-2) L 03/02/20 21:42 Beta-Hydroxybutyric Acd 19.32 mg/dl (0.2-2.81) H 03/02/20 21:42 Urine Color Yellow 03/02/20 20:00 Urine Appearance Clear (Clear) 03/02/20 20:00 Urine pH 5.0 (4.5-7.5) 03/02/20 20:00 Ur Specific [place] 1.033 (1.000-1.030) H 03/02/20 20:00 Urine Protein Negative (Negative) 03/02/20 20:00 Urine Glucose (UA) 3+ (Negative) H 03/02/20 20:00 Urine Ketones 1+ (Negative) H 03/02/20 20:00 Urine Blood Negative (Negative) 03/02/20 20:00 Urine Nitrite Negative (Negative) 03/02/20 20:00 Urine Bilirubin Negative (Negative) 03/02/20 20:00 Urine Urobilinogen Negative (Negative) 03/02/20 20:00 Ur Leukocyte Esterase Negative (Negative) 03/02/20 20:00 Nasal Screen MRSA (PCR) Negative (Negative) 03/02/20 23:59 Urine Opiates Screen Pos (Neg) H 03/02/20 20:00 Ur Methadone, Qual Neg (Neg) 03/02/20 20:00 Urine Barbiturates Neg (Neg) 03/02/20 20:00 Ur Phencyclidine (PCP) Neg (Neg) 03/02/20 20:00 U Amphetamin/Meth Scrn Neg (Neg) 03/02/20 20:00 MDMA (Ecstasy) Screen Neg (Neg) 03/02/20 20:00 U Benzodiazepines Scrn Neg (Neg) 03/02/20 20:00 Ur Cocaine Metabolite Neg (Neg) 03/02/20 20:00 U Marijuana (THC) Screen Neg (Neg) 03/02/20 20:00 Supervising Physician Co-Signing Physician Notes Attending addendum: I have physically seen this patient, have supervised the medical residents activities, and agree with the H&P unless as otherwise noted. Assessment and Plan: Right breast abscess 1.8 cm in diameter- Vancomycin IV and Zosyn IV. Follow wound culture and sensitivity from drainage Follow blood culture and sensitivity Presumed secondary to injection of drugs. Consult general surgery. Mild DKA- Blood sugar 802 upon admission. Patient reports that she stopped her insulin pump while she was taking a shower. Patient is reluctant to have anyone else to control her sugars, so will be written orders to apply her on coverage but notify nursing of volume used. Continue IV fluids per protocol She did give herself a 25 unit bolus via pump, and blood sugar decreased to 341 within a few hours. Acute kidney injury- Creatinine 1.65 upon admission, with baseline 0.79-0.99 Repeat basic metabolic panel and magnesium level in a.m. Left lower extremity Ulceration- Follow-up wound culture Consult wound care Vancomycin IV and Zosyn IV as noted above Order echocardiogram to assess valve structure due to history of IVDA Remaining orders and notations as noted. Resident Activity Tracking Resident Involvement: Resident Care Provided Care Provided: Adult Hospital Medicine
[2020-03-02 20:47] LABS: Troponin I < 0.015 ng/ml (0-0.045)
[2020-03-02 20:52] LABS: Amphetamines+Metham, Urine Neg (Neg); Barbiturates, Urine Neg (Neg); Benzodiazepine, Urine Neg (Neg); Cocaine, Urine Neg (Neg); MDMA (Ecstacy), Urine Neg (Neg); Methadone, Urine Neg (Neg); Opiate, Urine Pos (Neg); Phencyclidine, Urine Neg (Neg)
--- NOTE | 2020-03-02 20:56 | Surgery Consultation ---
Date of Consultation March 02, 2020 Assessment & Plan (1) Breast abscess: -pt. to be admitted by hospitalists, case discussed with them: -abscess is small and has drained partially -continue IV abx.--zosyn, vancomycin -area of erythema outlined; will monitor for signs of extension -if extension of worsening abscess noted may consider I & D, but would like to delay until glucose control is improved -discussed with pt. the importance of glucose control and compliance with her insulin as she is a type I diabetic History of Present Illness History of Present Illness 29 year old female was referred to [facility] ED from an urgent care due to a breast abscess. She notes she had an abscess in the past, and felt as though she had a developing abscess in her right breast over the past 5 days. She notes a few days ago it began to drain some pus like material. She denies fevers, shakes, chills. No N/V. She has a hx. of IV drug abuse (heroin and fentanyl), but has not used in about 1 month. She does report a hx. of injected IV drug into her breast. She notes she was in rehab in 2019 but relapsed shortly after discharge. In the ED, a breast US showed a fluid collection measuring 1.8 cm in size (cons istent with abscess). A CXR showed no pneumonia. Her WBC was normal and she was afebrile. She is a type I diabetic and her glucose wa sin the 800s with an anion gap of 13. She has received IV abx. in the form of zosyn and vancomycin and she notes some improvement in redness on her breast. At the time of my exam, the pt. complained of feeing very anxious as though she was "withdrawing." Allergies Allergy/AdvReac Type Severity Reaction Status Date / Time No Known Allergies Allergy Verified 03/02/20 19:46 Home Medications Home Medications Medication Instructions Recorded Confirmed Type acetone (urine) test #25 ea 04/26/19 04/26/19 History pantoprazole 40 mg tablet,delayed 40 mg PO DAILY tab 04/26/19 03/02/20 History release pen needle, diabetic 31 gauge x #30 ea 04/26/19 04/26/19 History 3/16" insulin syringe-needle U-100 1 mL #300 ea 05/25/19 Rx 31 gauge x 5/16" Contour Next Test Strips #450 ea NS 12/01/19 Rx metoclopramide HCl [Reglan] 5 mg PO BID PRN 02/21/20 03/02/20 History insulin lispro 0 units CONTINUOUS SUBCUTANEOUS 03/02/20 03/02/20 History INFUSION DAILY MDD up to TDD 100 units a day pump mirtazapine 45 mg PO HS 03/02/20 03/02/20 History pregabalin [Lyrica] 150 mg PO DAILY 03/02/20 03/02/20 History Patient History Social History Preferred Language: Finnish Communication Ability: Effective Machine Setter Required: No Beliefs That Will Affect Care: None Current Living Situation: Spouse Current Living Situation Comment: [facility] Feels Safe at Home: Yes Smoking Status: Current every day smoker Tobacco Type: cigarettes ; Cigarettes Per Day: 2 packs/week ; Second Hand Exposure: No ; Hx Alcohol Use: No Hx Substance Use: No Review of Systems Constitutional: no fever and no chills Eyes: no diplopia Ear, Nose, Mouth, Throat: no ear pain Respiratory: no cough and no dyspnea Cardiovascular: no chest pain Gastrointestinal: no nausea and no vomiting Genitourinary: no dysuria Musculoskeletal: no back pain Integumentary: + breast skin changes (abscess on right breast ) Neurologic: no localized weakness Psychiatric: + anxiety Physical Exam Physical Exam: right breast was examined (female vp analysis, Lizzeth Carranza PA-C was present in room for the entire breast exam): there is a 2.0 x 2.5 cm necrotic eschar on the right breast just lateral to the center. There is surrounding erythema encircling the eschar extending about about 5 cm from the center. No fluid was draining at the time of my exam. No warmth noted. Palpation did not exacerbate pain. The erythema was outlined wit camacho marker at bedside Constitutional: well developed, well nourished and + disheveled Eyes: no conjunctival abnormality ENMT: Ears: no hearing impairment Neck: trachea midline Respiratory: normal respiratory effort; no respiratory distress and no labored breathing Cardiovascular: Rate/Rhythm: regular rate and regular rhythm Gastrointestinal (Abdomen): Percussion/Palpation: abdomen soft; abdomen nontender Musculoskeletal: no non-healing foot wounds; a callous was noted on the lateral aspect of the right great toe Skin: no rashes, warm and dry Neurologic: moves all extremities Psychiatric: Orientation: alert and oriented x 3 Mood: + anxious mood Results & Data Vital Signs (Past 12 Hours) Vital Signs Temp Pulse Resp BP BP Pulse Ox 03/02/20 19:46 22 134/74 95 03/02/20 19:35 96 03/02/20 18:01 36.7 C 106 H 18 129/81 99 PG Care Time/CCT Total # of Minutes Spent Total Time Spent with Patient: Total time spent is greater than 50% in coordination of care (as documented) at patient's floor/unit and/or counseling patient: Coding Level of Care Code 01110 Inpt Consult Level 5 Diagnoses Breast abscess N61.1
--- NOTE | 2020-03-02 21:12 | Emergency Department Note ---
History of Present Illness General Chief complaint: Breast Pain/Problems Stated complaint: REFERRED FOR POSS ABSCESS ON RIGHT BREAST Source: patient Mode of arrival: ambulatory Limitations: no limitations History of Present Illness Provider Complaint: + abscess/boil Maximum Pain Intensity: 8 HPI narrative: This 29-year-old female patient presents to the emergency department today, ambulatory, complaining of a right breast abscess. The patie nt was sent here as a referral by urgent care for evaluation of the wound. The patient states she does have a history of IV drug use -heroin and fentanyl. She states she was recently in rehab, then when she got out of rehab, she relapsed. She states she has been using heroin and fentanyl, and does admit to injecting into the breast approximately 2 weeks ago. She states on Friday, she noticed a small lump in the superior lateral aspect of the right breast. By Friday, she noticed a "black dot like a scab" in the center of the wound. She states on Friday, she developed pus like drainage and the black area enlarged. Today, she states she decided to seek evaluation by urgent care and was sent to the ED due to the necrotic tissue. The patient states she is also experiencing high anxiety, and states she was on medications while in prison and rehab for panic attacks, and feels that she is extremely anxious regarding her care at this time. The patient states her blood sugars have been well controlled at home on her insulin pump. She states they have been less than 150 consistently, but she did take her insulin pump off for 2 to 3 hours while showering earlier today. She states she has not been keeping track of her sugars today because she has been distracted by everything else going on. Patient rates her pain in the right breast and 8/10 and describes it as throbbing. Home Medications Home Medications Medication Instructions Recorded Confirmed Type acetone (urine) test #25 ea 04/26/19 04/26/19 History pantoprazole 40 mg tablet,delayed 40 mg PO DAILY tab 04/26/19 03/02/20 History release pen needle, diabetic 31 gauge x #30 ea 04/26/19 04/26/19 History 3/16" insulin syringe-needle U-100 1 mL #300 ea 05/25/19 Rx 31 gauge x 5/16" Contour Next Test Strips #450 ea NS 12/01/19 Rx metoclopramide HCl [Reglan] 5 mg PO BID PRN 02/21/20 03/02/20 History insulin lispro 0 units CONTINUOUS SUBCUTANEOUS 03/02/20 03/02/20 History INFUSION DAILY MDD up to TDD 100 units a day pump mirtazapine 45 mg PO HS 03/02/20 03/02/20 History pregabalin [Lyrica] 150 mg PO DAILY 03/02/20 03/02/20 History Allergies Allergy/AdvReac Type Severity Reaction Status Date / Time No Known Allergies Allergy Verified 03/02/20 19:46 Past Med/Surg History Medical History Anxiety Chronic pain Degenerative disc disease Diabetes mellitus type 1 Fibromyalgia GERD (gastroesophageal reflux disease) History of hypothyroidism Hx of migraines Hx of primary hypertension Hypothyroidism Peripheral neuropathy Restless leg syndrome Rheumatoid arthritis Social History Preferred Language: Nauruan Communication Ability: Effective 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 Beliefs That Will Affect Care: None Current Living Situation: Spouse Current Living Situation Comment: [facility] Feels Safe at Home: Yes Smoking Status: Current every day smoker Tobacco Type: cigarettes ; Cigarettes Per Day: 2 packs/week ; Second Hand Exposure: No ; Hx Alcohol Use: No Hx Substance Use: No Review of Systems A total of 10 systems reviewed and were otherwise negative Physical Exam Vital Signs: Vital Signs - 24 hr 03/02/20 18:01 03/02/20 19:35 03/02/20 19:46 Temperature 36.7 C Temperature Source Oral Pulse Rate 106 H Pulse Rate [Left R adial] Respiratory Rate 18 22 Respiratory Effort / Characteristics Non-Labored Sponta neous Respiratory Depth Normal Respiratory Patter n Regular Blood Pressure 129/81 Blood Pressure [Ri ght Arm] 134/74 Blood Pressure Quin n 97 Blood Pressure Quin n [Right Arm] 94 Blood Pressure Pos ition Sitting Pulse Oximetry 99 96 95 Oxygen Delivery Me thod Room Air Room Air Sepsis Recent Feve r Within 48 Hours No Sepsis New/Unexpla ined Change in Men yosef Status No Sepsis Action Take n by Nursing No Action Required 03/02/20 21:19 Temperature Temperature Source Pulse Rate Pulse Rate [Left R adial] 99 H Respiratory Rate 16 Respiratory Effort / Characteristics Respiratory Depth Respiratory Patter n Blood Pressure Blood Pressure [Ri ght Arm] 111/73 Blood Pressure Quin n Blood Pressure Quin n [Right Arm] 85 Blood Pressure Pos ition Pulse Oximetry 95 Oxygen Delivery Me thod Room Air Sepsis Recent Feve r Within 48 Hours Sepsis New/Unexpla ined Change in Men yosef Status Sepsis Action Take n by Nursing Physical Exam: VITALS: Vitals are noted on the nurse's note and reviewed by myself. Vital signs stable. GENERAL: This is a 29-year-old white female, anxious appearing but in no acute distress, nondiaphoretic, well-developed well-nourished. SKIN: 2.0 x 2.5cm necrotic eschar on the superior lateral portion of the right breast which does not extend into the nipple. There is surrounding warmth and erythema of about 6 cm in diameter. No active discharge at this time. The wound is extremely tender at this time. The skin was otherwise without rashes, erythema, edema, or bruising. There is no tenting of the skin. Capillary refill less than 2 seconds. HEAD: Normocephalic atraumatic. EYES: Conjunctivae without injection, sclerae without icterus. NECK: Supple without nuchal rigidity. No lymphadenopathy. Cervical spine is nontender. No JVD. HEART: Regular rate and rhythm without murmurs gallops or rubs. LUNGS: Clear to auscultation bilaterally without wheezes, rales or rhonchi. No retractions or accessory muscle use. MUSCULOSKELETAL: No muscle atrophy, erythema, or edema noted. Full range of motion without joint tenderness in all extremities. No tenderness to palpation. Normal gait. Strength 5/5 throughout. NEURO: Patient was alert and oriented to person place and time. Normal sensation to light and sharp touch. No focal neurological deficits. Course Course The patient was seen and evaluated as above. An order was placed for continuous cardiac monitoring. The monitor shows a normal sinus rhythm at a rate of 94 bpm. IV access obtained, labs drawn. Patient immediately medicated with IV fluids, vancomycin, and Ativan. Imaging performed and reviewed by myself and radiologist as noted. Labs reviewed by myself. I discussed the findings with the patient at bedside. She continues to complain of significant anxiety and panic symptoms, so was given another milligram of IV Ativan. Patient was given a second liter of IV fluids and Zosyn. I consulted with the ED pharmacist, November. She did meet with the patient to discuss insulin usage. The patient states she does not wish for us to manage her insulin, as "you guys will mess it up and it is been well controlled". The patient was advised that her blood sugar was 804, so she bolused herself with her pump with 25 units of insulin. Repeat blood sugar unreadable on the bedside monitor. I discussed with the patient that she would likely need to be admitted. I did ask that she allow us to help manage her blood sugar and she again declines. I discussed the case with the manager strategic. I discussed the case with Destin Pereira PA-C with general surgery. He did agree to see and evaluate the patient. He did ask that the patient is admitted to the medicine service due to the hyperglycemia. I discussed the case with Dr. Guerra, [facility] Hospitalist, but was notified that due to the patient's insurance, [facility] I discussed the case with Dr. Conde, [facility] hospitalist. He did agree to see and evaluate the patient for admission. I discussed the case with my attending. Please see hospitalist and surgery dictation regarding ongoing management care of this patient. Administered Medications Discontinued Medications Vancomycin HCl 2,000 mg/ (Sodium Chloride) 540 mls @ 200 mls/hr IV NOW STA Stop: 03/02/20 21:13 Last Infusion: 03/02/20 21:15 Dose: 0 mls/hr Documented by: [id number] Admin: 03/02/20 19:03 Dose: 200 mls/hr Documented by: [id number] Sodium Chloride (Nss 1000ml) 1,000 mls @ 999 mls/hr IV .Q1H1M IAIN Stop: 03/02/20 19:34 Last Infusion: 03/02/20 20:40 Dose: 0 mls/hr Documented by: [id number] Admin: 03/02/20 19:03 Dose: 999 mls/hr Documented by: [id number] Lorazepam (Ativan) 1 mg in 2 mls @ 2 mls/min IV NOW STA Stop: 03/02/20 18:57 Last Admin: 03/02/20 19:03 Dose: 2 mls/min Documented by: [id number] Sodium Chloride (Nss 1000ml) 1,000 mls @ 999 mls/hr IV .Q1H1M ONE Stop: 03/02/20 20:23 Last Admin: 03/02/20 21:15 Dose: Not Given Documented by: [id number] Sodium Chloride (Nss 1000ml) 1,000 mls @ 999 mls/hr IV .Q1H1M ONE Stop: 03/02/20 20:25 Last Infusion: 03/02/20 20:40 Dose: 0 mls/hr Documented by: [id number] Admin: 03/02/20 20:13 Dose: 999 mls/hr Documented by: [id number] Piperacillin Sod/Tazobactam Sod (Zosyn) 4.5 gm in 120 mls @ 240 mls/hr IV NOW ONE Stop: 03/02/20 20:15 Last Infusion: 03/02/20 20:40 Dose: 0 mls/hr Documented by: [id number] Admin: 03/02/20 20:13 Dose: 240 mls/hr Documented by: [id number] Lorazepam (Ativan) 1 mg in 2 mls @ 2 mls/min IV NOW STA Stop: 03/02/20 20:01 Last Admin: 03/02/20 20:13 Dose: 2 mls/min Documented by: [id number] Medical Decision Making Differential Diagnosis + abscess of skin or subcutaneous tissue, + urticaria, + cellulitis and + necrotizing fasciitis In addition to the above, DKA, HHS, sepsis, among others were considered. Medical Records Attestation: I reviewed the patient's medical records. Home Medications Current Medication List: was personally reviewed by me Laboratory Data Attestation: I reviewed the patient's lab results. No leukocytosis, anemia, thrombocytopenia. Coags normal. Glucose elevated at 804. Patient is mildly hyperkalemic with a potassium of 5.3. Patient is hyponatremic with a sodium of 127. Anion gap is 13. Creatinine mildly elevated at 1.52. Troponin negative. Beta hydroxybutyric acid 42.13. Lactate 1.2. Urinalysis positive for 1+ ketones and 3+ glucose. Urine drug screen positive for opiates. Result diagrams: 03/02/20 18:40 03/02/20 18:40 Lab Results 03/02/20 03/02/20 03/02/20 Range/Units 18:40 18:40 18:40 WBC 9.62 (4.8-10.8) K/uL RBC 4.20 (4.2-5.4) M/uL Hgb 12.1 (12.0-16.0) g/dL Hct 39.8 (37-47) % MCV 94.8 (80-100) fL MCH 28.8 (25-34) pg MCHC 30.4 L (32-36) g/dL RDW Std Deviation 48.3 H (36.4-46.3) fL RDW Coeff of Isai 13.9 (11.5-14.5) % Plt Count 458 H (130-400) K/uL MPV 10.3 (7.4-10.4) fL Immature Gran % (Auto) 0.2 % Neut % (Auto) 83.0 % Lymph % (Auto) 13.4 % [place] % (Auto) 2.5 % Eos % (Auto) 0.4 % Baso % (Auto) 0.5 % Neut # (Auto) 7.98 H (1.4-6.5) K/uL Lymph # (Auto) 1.29 (1.2-3.4) K/uL [place] # (Auto) 0.24 (0.11-0.59) K/uL Eos # (Auto) 0.04 (0-0.5) K/uL Baso # (Auto) 0.05 (0-0.2) K/uL Immature Gran # (Auto) 0.02 (0.00-0.02) K/uL PT 10.6 (9.0-12.0) Seconds INR 1.0 (0.9-1.1) APTT 30.7 (21.0-31.0) Seconds PTT Ratio 1.1 Sodium 127 L (136-145) mmol/L Potassium 5.3 H (3.5-5.1) mmol/L Chloride 94 L (98-107) mmol/L Carbon Dioxide 21 (21-32) mmol/L Anion Gap 13.0 H (3-11) BUN 18 (7-18) mg/dl Creatinine 1.52 H (0.6-1.2) mg/dl Est Cr Clr Drug Dosing 65.7 ml/min Est GFR ( Amer) 53.9 Est GFR (Non-Af Amer) 46.5 BUN/Creatinine Ratio 11.8 (10-20) Glucose 804 H* (70-99) mg/dl POC Glucose (70-99) mg/dl Lactate (0.4-2.0) mmol/L Calcium 9.3 (8.5-10.1) mg/dl Magnesium 2.1 (1.8-2.4) mg/dl Total Bilirubin 0.7 (0.2-1) mg/dl AST 12 L (15-37) U/L ALT 10 L (12-78) U/L Alkaline Phosphatase 141 H (45-117) U/L Troponin I < 0.015 (0-0.045) ng/ml Total Protein 8.9 H (6.4-8.2) gm/dl Albumin 3.1 L (3.4-5.0) gm/dl Globulin 5.8 H (2.5-4.0) gm/dl Albumin/Globulin Ratio 0.5 L (0.9-2) Beta-Hydroxybutyric Acd 42.13 H (0.2-2.81) mg/dl Urine Color Urine Appearance (Clear) Urine pH (4.5-7.5) Ur Specific [place] (1.000-1.030) Urine Protein (Negative) Urine Glucose (UA) (Negative) Urine Ketones (Negative) Urine Blood (Negative) Urine Nitrite (Negative) Urine Bilirubin (Negative) Urine Urobilinogen (Negative) Ur Leukocyte Esterase (Negative) Urine Opiates Screen (Neg) Ur Methadone, Qual (Neg) Urine Barbiturates (Neg) Ur Phencyclidine (PCP) (Neg) U Amphetamin/Meth Scrn (Neg) MDMA (Ecstasy) Screen (Neg) U Benzodiazepines Scrn (Neg) Ur Cocaine Metabolite (Neg) U Marijuana (THC) Screen (Neg) 03/02/20 03/02/20 03/02/20 Range/Units 18:40 18:40 20:00 WBC (4.8-10.8) K/uL RBC (4.2-5.4) M/uL Hgb (12.0-16.0) g/dL Hct (37-47) % MCV (80-100) fL MCH (25-34) pg MCHC (32-36) g/dL RDW Std Deviation (36.4-46.3) fL RDW Coeff of Isai (11.5-14.5) % Plt Count (130-400) K/uL MPV (7.4-10.4) fL Immature Gran % (Auto) % Neut % (Auto) % Lymph % (Auto) % [place] % (Auto) % Eos % (Auto) % Baso % (Auto) % Neut # (Auto) (1.4-6.5) K/uL Lymph # (Auto) (1.2-3.4) K/uL [place] # (Auto) (0.11-0.59) K/uL Eos # (Auto) (0-0.5) K/uL Baso # (Auto) (0-0.2) K/uL Immature Gran # (Auto) (0.00-0.02) K/uL PT (9.0-12.0) Seconds INR (0.9-1.1) APTT (21.0-31.0) Seconds PTT Ratio Sodium (136-145) mmol/L Potassium (3.5-5.1) mmol/L Chloride (98-107) mmol/L Carbon Dioxide (21-32) mmol/L Anion Gap (3-11) BUN (7-18) mg/dl Creatinine (0.6-1.2) mg/dl Est Cr Clr Drug Dosing ml/min Est GFR ( Amer) Est GFR (Non-Af Amer) BUN/Creatinine Ratio (10-20) Glucose (70-99) mg/dl POC Glucose (70-99) mg/dl Lactate 1.2 (0.4-2.0) mmol/L Calcium (8.5-10.1) mg/dl Magnesium (1.8-2.4) mg/dl Total Bilirubin (0.2-1) mg/dl AST (15-37) U/L ALT (12-78) U/L Alkaline Phosphatase (45-117) U/L Troponin I Cancelled (0-0.045) ng/ml Total Protein (6.4-8.2) gm/dl Albumin (3.4-5.0) gm/dl Globulin (2.5-4.0) gm/dl Albumin/Globulin Ratio (0.9-2) Beta-Hydroxybutyric Acd (0.2-2.81) mg/dl Urine Color Yellow Urine Appearance Clear (Clear) Urine pH 5.0 (4.5-7.5) Ur Specific [place] 1.033 H (1.000-1.030) Urine Protein Negative (Negative) Urine Glucose (UA) 3+ H (Negative) Urine Ketones 1+ H (Negative) Urine Blood Negative (Negative) Urine Nitrite Negative (Negative) Urine Bilirubin Negative (Negative) Urine Urobilinogen Negative (Negative) Ur Leukocyte Esterase Negative (Negative) Urine Opiates Screen (Neg) Ur Methadone, Qual (Neg) Urine Barbiturates (Neg) Ur Phencyclidine (PCP) (Neg) U Amphetamin/Meth Scrn (Neg) MDMA (Ecstasy) Screen (Neg) U Benzodiazepines Scrn (Neg) Ur Cocaine Metabolite (Neg) U Marijuana (THC) Screen (Neg) 03/02/20 03/02/20 03/02/20 Range/Units 20:00 20:27 20:40 WBC (4.8-10.8) K/uL RBC (4.2-5.4) M/uL Hgb (12.0-16.0) g/dL Hct (37-47) % MCV (80-100) fL MCH (25-34) pg MCHC (32-36) g/dL RDW Std Deviation (36.4-46.3) fL RDW Coeff of Isai (11.5-14.5) % Plt Count (130-400) K/uL MPV (7.4-10.4) fL Immature Gran % (Auto) % Neut % (Auto) % Lymph % (Auto) % [place] % (Auto) % Eos % (Auto) % Baso % (Auto) % Neut # (Auto) (1.4-6.5) K/uL Lymph # (Auto) (1.2-3.4) K/uL [place] # (Auto) (0.11-0.59) K/uL Eos # (Auto) (0-0.5) K/uL Baso # (Auto) (0-0.2) K/uL Immature Gran # (Auto) (0.00-0.02) K/uL PT (9.0-12.0) Seconds INR (0.9-1.1) APTT (21.0-31.0) Seconds PTT Ratio Sodium Cancelled (136-145) mmol/L Potassium Cancelled (3.5-5.1) mmol/L Chloride Cancelled (98-107) mmol/L Carbon Dioxide Cancelled (21-32) mmol/L Anion Gap Cancelled (3-11) BUN Cancelled (7-18) mg/dl Creatinine Cancelled (0.6-1.2) mg/dl Est Cr Clr Drug Dosing Cancelled ml/min Est GFR ( Amer) Cancelled Est GFR (Non-Af Amer) Cancelled BUN/Creatinine Ratio Cancelled (10-20) Glucose Cancelled (70-99) mg/dl POC Glucose > 600 H* (70-99) mg/dl Lactate (0.4-2.0) mmol/L Calcium Cancelled (8.5-10.1) mg/dl Magnesium (1.8-2.4) mg/dl Total Bilirubin (0.2-1) mg/dl AST (15-37) U/L ALT (12-78) U/L Alkaline Phosphatase (45-117) U/L Troponin I (0-0.045) ng/ml Total Protein (6.4-8.2) gm/dl Albumin (3.4-5.0) gm/dl Globulin (2.5-4.0) gm/dl Albumin/Globulin Ratio (0.9-2) Beta-Hydroxybutyric Acd (0.2-2.81) mg/dl Urine Color Urine Appearance (Clear) Urine pH (4.5-7.5) Ur Specific [place] (1.000-1.030) Urine Protein (Negative) Urine Glucose (UA) (Negative) Urine Ketones (Negative) Urine Blood (Negative) Urine Nitrite (Negative) Urine Bilirubin (Negative) Urine Urobilinogen (Negative) Ur Leukocyte Esterase (Negative) Urine Opiates Screen Pos H (Neg) Ur Methadone, Qual Neg (Neg) Urine Barbiturates Neg (Neg) Ur Phencyclidine (PCP) Neg (Neg) U Amphetamin/Meth Scrn Neg (Neg) MDMA (Ecstasy) Screen Neg (Neg) U Benzodiazepines Scrn Neg (Neg) Ur Cocaine Metabolite Neg (Neg) U Marijuana (THC) Screen Neg (Neg) Imaging Data Radiologist's Impression: XR chest 1V portable CLINICAL HISTORY: SEPSIS COMPARISON STUDY: Chest radiograph July 31, 2018. FINDINGS: Lung volumes are normal. Lungs are clear. There is no pneumothorax or pleural effusion. Cardiac size is normal. Mediastinal contours are normal. There is no evidence for pulmonary edema. IMPRESSION: No acute cardiopulmonary findings. ACT 112: Negative or not required by law. Electronically signed by: Dinesh Prince M.D. 03/02/2020 7:04 PM US breast RT limited CLINICAL HISTORY: abscess/infection COMPARISON STUDY: No previous studies for comparison. TECHNIQUE: Sonography of the right breast at site of discoloration and drainage was performed. FINDINGS: Note is made of a probable small complex elongated fluid collection of the right breast at site of maximal swelling. This collection measures 1.8 cm. No additional fluid collections were identified. IMPRESSION: Probable 1.8 cm right breast complex fluid collection. This favors a small abscess. ACT 112: Negative or not required by law. Electronically signed by: Dinesh Prince M.D. 03/02/2020 7:45 PM Blood Pressure Blood Pressure Findings: Normal blood pressure MDM Narrative This 29-year-old female patient presents the emergency department today for evaluation of a right breast abscess. The patient is an IV drug user and admits to injecting fentanyl or heroin into the right breast approximately 2 weeks ago. 4 days ago, she developed the symptoms of a painful lump which turned into the draining abscess in the right breast. The patient is afebrile here in the emergency department. She is intermittently tachycardic, but extremely anxious. Question whether this is associated with drug use versus anxiety. The patient's anxiety was managed with IV Ativan. She was medicated initially with broad-spectrum antibiotics of vancomycin and Zosyn. She was hydrated with IV fluids. Ultrasound did confirm a 1.8 cm fluid collection in the right breast, likely consistent with an abscess. I did discuss the case with the general surgery team and spoke with Destin Pereira PA-C who did see and evaluate the patient. The patient will ultimately be admitted to the hospitalist service due to the severe hyperglycemia and history of type 1 diabetes. Please see hospitalist and general surgery dictation regarding ongoing management care of this patient. The chart was completed utilizing [employer] voice recognition software. Grammatical errors, random word insertions, pronoun errors, and incomplete sentences are an occasional consequence of this system due to software limitations, ambient noise, and hardware issues. Any formal questions or concerns about the content, text, or information contained within the body of this dictation should be directly addressed to the provider for clarification. Impression & Plan Breast abscess, Acute hyperglycemia, Acute dehydration, Intravenous drug user Discharge Plan Visit Data Chief Complaint: Breast Pain/Problems Stated Complaint: REFERRED FOR POSS ABSCESS ON RIGHT BREAST ED Provider: Sree Martinez ED Midlevel Provider: Lizzeth Carranza Discharge Problem: Breast abscess, Acute hyperglycemia, Acute dehydration, Intravenous drug user Patient Disposition: Admitted As Inpatient Condition: Good Forms Stand Alone Forms: [facility], [facility]3] Emergency Department, Important Visit Information Prescriptions Prescriptions: No Action (DME) insulin syringe-needle U-100 [BD Insulin Syringe Ultra-Fine] 1 mL 31 gauge x 5/16 syringe See Dose Instructions .ROUTE .MEDSUPPLY Qty: 300 RF: 0 (DME) Contour Next Test Strips Strip See Dose Instructions .ROUTE .MEDSUPPLY Qty: 450 RF: 3 (DME) pen needle, diabetic [BD Ultra-Fine Mini Pen Needle] 31 gauge x 3/16" needle See Dose Instructions .ROUTE .MEDSUPPLY Qty: 30 RF: 0 (DME) Ketostix strip See Dose Instructions .ROUTE .MEDSUPPLY Qty: 25 RF: 0 metoclopramide HCl [Reglan] 5 mg Tablet 5 mg PO BID PRN (Reason: Nausea) RF: 0 pregabalin [Lyrica] 150 mg Capsule 150 mg PO DAILY RF: 0 insulin lispro 100 unit/mL solution 0 units continuous subcutaneous infusion DAILY MDD up to TDD 100 units a day pump RF: 0 mirtazapine 45 mg tablet 45 mg PO HS RF: 0 pantoprazole 40 mg tablet,delayed release (DR/EC) 40 mg PO DAILY RF: 0 Referrals Referrals: Donna Masterson PA-C [Primary Care Provider] -
[2020-03-02 22:14] LABS: Albumin Globulin Ratio 0.5 (0.9-2); Albumin Level 2.6 gm/dl (3.4-5.0); BUN Creatinine Ratio 12.7 (10-20); Bilirubin,Total 0.6 mg/dl (0.2-1); Calcium 8.8 mg/dl (8.5-10.1); Creatinine Clr Calc Pharmacy 60.6 ml/min; Est GFR (African American) 48.8; Est GFR (Non-African American) 42.1; Globulin 4.9 gm/dl (2.5-4.0); Total Protein 7.5 gm/dl (6.4-8.2)
[2020-03-02 22:29] LABS: Beta-Hydroxybutyrate 19.32 mg/dl (0.2-2.81)
[2020-03-02] MEDS ORDERED: METOCLOPRAMIDE HCL 5 MG TABLET PO PRN (22:39)
[2020-03-02] MEDS ORDERED: GLUCOSE 40% GEL 15 GM TUBE PO PRN (23:00)
[2020-03-02] MEDS ORDERED: DEXTROSE 50% 50 ML SYRINGE IV PRN (23:00)
[2020-03-02] MEDS ORDERED: GLUCOSE 10 TABS/TUBE PO PRN (23:00)
[2020-03-02] MEDS ORDERED: INSULIN HUMAN LISPRO (humaLOG) 100 UNITS/ML VIAL SC PRN (23:00)
[2020-03-02] MEDS ORDERED: GLUCAGON FOR INJ 1 MG VIAL SQ PRN (23:00)
[2020-03-02] MEDS ORDERED: CARBOHYDRATES FOR HYPOGLYCEMIA PO PRN (23:00)
[2020-03-02] MEDS ORDERED: PIPERACILL/TAZOBAC CONSULT ACTIVE PRN (23:34)
[2020-03-03] MEDS: SODIUM CHLORIDE 0.9% 1000ML 1,000 ML IV SCH ×3 (00:09→16:02)
[2020-03-03] MEDS: PIPERACILLIN/TAZOBACTAM 3.375 GM in DEXTROSE 5% 100 ML IV SCH ×2 (02:00→11:30)
[2020-03-03 05:39] LABS: BUN Creatinine Ratio 16.8 (10-20); Calcium 8.8 mg/dl (8.5-10.1); Creatinine Clr Calc Pharmacy 90.4 ml/min; Est GFR (Non-African American) 67.3
[2020-03-03 06:16] LABS: Estimated Average Glucose 212 mg/dl
--- NOTE | 2020-03-03 06:40 | Pharmacy Report ---
Pharmacy Abx Initial Consult - Date of Service March 03, 2020 - Pharmacy Dosing Scope Date of Consult: 03/03/20 Consultation requested by: Dr. Pickering Pharmacy is consulted to continue Vancomycin and Zosyn IV dosing therapy, order appropriate labs and adjust drug dose/frequency. - Subjective The patient is a 29 year old F admitted on 03/02/20 21:52 with DKA and breast abscess. After being admitted to the floor she also revealed a lower leg ulcer that was cultured like her breast abscess. She is an IV drug abuser, last injection claimed to be 02/28/20 but not into infected breast in months. She is managing her own DKA with her insulin pump per orders. Dr. Pickering continued both Zosyn and Vancomycin that were begun in the ED. - Objective Height: 5 ft 8 in Weight: 94 kg Vital Signs (Past 12hrs): Vital Signs Temp Pulse Pulse Resp BP Pulse Ox 03/03/20 03:51 36.3 C L 80 12 112/75 98 03/02/20 23:11 36.9 C 99 H 23 121/80 96 03/02/20 22:10 37.0 C 98 H 16 115/73 95 03/02/20 21:19 99 H 16 111/73 95 03/02/20 19:46 22 134/74 95 03/02/20 19:35 96 Lab Results (24hrs): Laboratory Tests (24 Hours) 03/03/20 03/02/20 03/02/20 04:14 21:42 20:40 WBC Neut # (Auto) Creatinine 1.12 D 1.65 H Cancelled Est Cr Clr Drug Dosing 90.4 60.6 Cancelled 03/02/20 03/02/20 18:40 18:40 WBC 9.62 Neut # (Auto) 7.98 H Creatinine 1.52 H Est Cr Clr Drug Dosing 65.7 Micro Results: 03/02/20 23:59 Gram Stain - Pending Leg,Left Deep Wound Culture - Pending 03/02/20 18:30 Gram Stain - Pending Breast,Right Wound Culture - Pending 03/02/20 19:12 Aerobic Blood Culture - Pending Blood Anaerobic Blood Culture - Pending 03/02/20 18:40 Aerobic Blood Culture - Pending Blood Anaerobic Blood Culture - Pending - Assessment & Plan Assessment 29 year old F with abscess of breast and leg wound Plan Vancomycin IV * Estimated PK Parameters: Vd 0.6 L/kg, Kamron 0.055 hr-1, t1/2 12.6 hr initial, converted to AUC dosing nomogram after renal function returned to normal this am * Loading dose: 2000 mg (22 mg/kg) * Maintenance dose: 1000 mg IV (11 mg/kg) every 8 hours * Goal trough level: 15-20 mcg/mL * Trough level ordered prior to 1000 dose on 03/04/20 Piperacillin/tazobactam * 4.5g bolus administered over 30 minutes, then 3.375g IV extended infusion every 8 hours for CrCl greater than 20 mL/min Pharmacy will continue to follow and will adjust dose/frequency as necessary. Thank you.
[2020-03-03] MEDS ORDERED: VANCOMYCIN HCL 1,250 MG in SODIUM CHLORIDE 0.9% 250 ML IV SCH ×2 (08:00→10:00)
--- NOTE | 2020-03-03 08:33 | Surgery Progress Note ---
Date of Service March 03, 2020 Assessment & Plan (1) Breast abscess: Patient here with R breast abscess. US showed 1.8cm fluid collection c/w small abscess formation Patients VSS this AM, WBC pending Site has been draining on it own Debridement of skin necrosis was performed at bedside; pt tolerated well Will leave instructions to irrigate wound daily with saline, and cover with light gauze & medipore dressing- to be performed daily Continue course of abx No need for surgical intervention. Will leave instructions for patient to follow up in surgery clinic with Dr. Quiñones within 1-2 weeks as above. self draining. clinically dramatically improved. eschar debrided at bedside Dr. Cagle covering for weekend if any questions. Subjective Patient offers no complaints. Believes breast site is improving. Physical Exam Physical Exam: awake/alert Constitutional: cooperative and comfortable; no acute distress Chest (Breasts): Additional Comments: R breast erythema appears to be improving from previously outlined area. There is noted to be a central area of skin necrosis. Some serosang. drainage noted. Results & Data Vital Signs (Past 12 Hours) Vital Signs Temp Pulse Pulse Resp BP Pulse Ox 03/03/20 07:43 36.7 C 74 15 103/70 99 03/03/20 03:51 36.3 C L 80 12 112/75 98 03/02/20 23:11 36.9 C 99 H 23 121/80 96 03/02/20 22:10 37.0 C 98 H 16 115/73 95 03/02/20 21:19 99 H 16 111/73 95 PG Care Time/CCT Total # of Minutes Spent Total Time Spent with Patient: Total time spent is greater than 50% in coordination of care (as documented) at patient's floor/unit and/or counseling patient: Coding Level of Care Code 99821 Subseq Hosp Care Lvl 2 Diagnoses Breast abscess N61.1
--- NOTE | 2020-03-03 08:58 | Operative Report ---
PG Post Operative Report Pre & Post Diagnosis necrotic breast tissue/abcess I identified the patient and participated in the time-out.: Yes Procedure sharp debridement of necrotic tissue right breast full thickness. less than 20 sq. cm Surgeon Roger Quiñones DO Academic Records Specialist reyes Dick Estimated Blood Loss 2 Findings Consistent with Post-Op Diagnosis Specimens none Description of Procedure After verbal consent the patient was placed in a supine position. The area of her right breast eschar/abscess was undressed and prepped and draped sterilely. Forcep and scissors were used to sharply debride necrotic tissue over the area of abscess and skin. This was full-thickness. The area measured approximately 2 cm x 2 cm. The tissue was discarded. A small amount of purulent drainage was manually expressed. The wound was irrigated and a sterile dressing applied. The patient tolerated the procedure well. My physician therapist's assistant was present for the entire case. She assisted in all aspects of the procedure. I attest to the content of the Intraoperative Record and any orders documented therein. Any exceptions are noted below.
[2020-03-03] MEDS ORDERED: PREGABALIN 150 MG CAP PO SCH (09:00)
[2020-03-03] MEDS ORDERED: PANTOprazole 40 MG TAB PO SCH (09:00)
[2020-03-03] MEDS ORDERED: VANCOMYCIN HCL 1,000 MG in SODIUM CHLORIDE 0.9% 250 ML IV SCH (10:00)
--- NOTE | 2020-03-03 10:01 | Hospitalist Progress Note ---
Date of Service March 03, 2020 Assessment & Plan (1) Breast abscess: 1) Breast Abscess - US breast: 1.8 cm complex fluid collection favoring abscess - WBC 9.62, afebrile, normotensive. - Surgical consult: - will require I&D - continue Vanc & Zosyn from ED - will require BSG control prior to OR drainage - blood cultures pending - wound culture from R breast sent 2) DKA - BSG of 800 on admission - patient bolusing Insulin from pump with nursing supervision and communication - BSG down to 341 within a few hours - Anion gap 13 on admission, recheck with AM labs - hydration with IVNS, bolused 2L in ED - consumer educator consult - last A1c 10.5 in 08/19 3) LUIS CARLOS - Cr 1.65, BUN 21 - likely secondary to dehydration with DKA - continue IVF support 4) Pseudohyponatremia - Na 134 with elevated BSG - recheck with BMP in AM labs 5) Left leg ulceration - pt failed to mention this wound in hx; brought it up with nursing after transfer to the floor. - per pt report it has been draining lots of fluid as well - wound culture taken and sent to path - wound care consult for this and breast abscess 6) Hx IVDU - UDS + for opiates - no murmurs on cardiac exam; high risk for infective endocarditis - no signs of janeway lesions, emboli, osler nodes - ECHO in 03/2019 normal Dvt ppx: not indicated Fen/Gi: NPO, IVNS code status: full code Dispo: ICU/PCU after gap closure (2) Intravenous drug user: (3) DKA (diabetic ketoacidoses): (4) Migraine: (5) Type 1 diabetes mellitus: Admission and Anticipated Discharge Date Admission Date: March 02, 2020 Results & Data Results & Data ([facility]) Vital Signs (Past 12 Hours) Vital Signs Temp Pulse Pulse Resp BP Pulse Ox 03/03/20 07:43 36.7 C 74 15 103/70 99 03/03/20 03:51 36.3 C L 80 12 112/75 98 03/02/20 23:11 36.9 C 99 H 23 121/80 96 03/02/20 22:10 37.0 C 98 H 16 115/73 95 Resident Activity Tracking Resident Involvement: Resident Care Provided Care Provided: Adult Hospital Medicine
[2020-03-03 10:13] LABS: Basophils # (auto) 0.07 K/uL (0-0.2); Basophils % (auto) 0.9 %; Eosinophils # (auto) 0.23 K/uL (0-0.5); Eosinophils % (auto) 3.1 %; Hematocrit (blood only) 35.4 % (37-47); Hemoglobin 11.3 g/dL (12.0-16.0); Immature Granulocytes # (auto) 0.02 K/uL (0.00-0.02); Immature Granulocytes % (auto) 0.3 %; Lymphocytes # (auto) 2.37 K/uL (1.2-3.4); Lymphocytes % (auto) 31.6 %; Mean Corpuscular Hemoglobin 28.2 pg (25-34); Mean Corpuscular Hgb Conc 31.9 g/dL (32-36); Mean Corpuscular Volume 88.3 fL (80-100); Mean Platelet Volume 9.8 fL (7.4-10.4); Monocytes # (auto) 0.37 K/uL (0.11-0.59); Monocytes % (auto) 4.9 %; Neutrophils # (auto) 4.45 K/uL (1.4-6.5); Neutrophils % (auto) 59.2 %; Platelet Count 384 K/uL (130-400); RDW Coefficient of Variation 13.4 % (11.5-14.5); RDW Standard Deviation 43.4 fL (36.4-46.3); Red Blood Count 4.01 M/uL (4.2-5.4); White Blood Count 7.51 K/uL (4.8-10.8)
--- NOTE | 2020-03-03 10:55 | Discharge Summary ---
Date of Service March 03, 2020 Admission HPI Per Admitting Provider 29 yo F with uncontrolled T1DM, hx IVDU, who presents to the ED with complaints of an abscess on her right breast. She says she last used IV drugs on Tuesday 02/27, but hadn't injected into that breast for months. Hx of using heroin, fentanyl, percocet. Denies any trauma to the affected area. Says it has been draining purulent fluid copiously for the last few days. Nontender at rest. Denies any fevers but has been feeling chills. Of note, had a BSG of 800 on admission and states it's because she forgot to re-start her insulin pump after showering. Primary Care Provider: Donna Masterson PA-C Admission Exam Per Admitting Provider Constitutional: + disheveled and cooperative; no acute distress and not ill appearing Neck: normal visual inspection Respiratory: normal respiratory effort and able to speak in complete sentences; no respiratory distress, no labored breathing, no retractions, no cough and no audible wheezes Auscultation: lungs clear to auscultation bilaterally; no crackles, no rales, no rhonchi and no wheezes Cardiovascular: Rate/Rhythm: regular rate and regular rhythm Heart Sounds: normal S1 and normal S2; no gallop, no murmur and no cardiac rub Vessels: posterior tibial pulses present Extremities: no pedal edema and no edema Chest (Breasts): Additional Comments: Fluctuant abscess of right breast approximately 2cm x 2cm, with central necrosis of skin and surrounding erythematous skin changes. Nontender to palpation. Gastrointestinal (Abdomen): Inspection/Auscultation: abdomen normal to inspection and normal bowel sounds; abdomen not distended Percussion/Palpation: abdomen soft; abdomen nontender, no guarding, abdomen not rigid and no abdominal mass Psychiatric: Orientation: alert, cooperative and + guarded Apperance: + disheveled Motor Behavior: + psychomotor agitation Affect: + anxious affect Mood: + anxious mood Thought Process: thought process not tangential and no flight of ideas Thought Content: not paranoid Insight: + limited insight Judgement: + limited judgement Principal Diagnosis breast abscess Discharge Exam Constitutional WD/WN, vitals as above cooperative Eyes + anicteric sclerae ENMT external ear and nose normal, oropharynx normal Neck normal visual inspection and trachea midline Respiratory normal respiratory effort, lungs clear to auscultation Cardiovascular RRR, no murmur, no edema Heart Sounds: normal S1 and normal S2 Extremities: no pedal edema Gastrointestinal (Abdomen) normal bowel sounds, soft, nontender, no hepatosplenomegaly Skin no rashes, warm and dry + ulcer (left LE, covered with bandage placed by nurse) + abscess on R breast; dressing placed by surgery team in place Psychiatric A+Ox3, euthymic affect Discharge Data Allergies Allergy/AdvReac Type Severity Reaction Status Date / Time No Known Allergies Allergy Verified 03/02/20 19:46 Consultations 03/02/20 20:05 Consult General Surgery Stat ED Decision to Admit Stat Ordered Studies 03/02/20 18:32 US breast RT limited Stat Hospital Course (1) Breast abscess: Magalys is a 29 yo F with a PMHx of injection drug use and type I diabetes mellitus who was admitted to the hospital for treatment of a right breast abscess, found to be in DKA on admission. Breast Abscess Patient with tender, warm erythematous nodule on right breast draining purulent fluid on admission. US breast: 1.8 cm complex fluid collection favoring abscess. WBC was normal throughout hospital stay and patient remained afebrile with normal vitals. General surgery was consulted and performed a bedside debridement of skin necrosis. Patient was directed to perform daily saline washes of the abscess and dressing changes. Patient was treated with broad spectrum IV antibiotics while in the hospital but discharged on Augmentin, 875-125mg, PO, q12hr. She will complete a 14 day course in total. Gram Positive Bacteremia One of two blood cultures drawn on admission showing growth of gram + cocci in chains and clusters. It is unclear if this represents a contaminant vs. hematog enous spread from breast abscess. Patient received 2 doses of both IV vancomycin and Zosyn while in the hospital and a dose of daptomycin before leaving [facility]. Echocardiogram done before discharge showed no vegetation. She was instructed to call for final culture results tomorrow. She was directed to complete a 12 day course of Augmentin 875-125mg on discharge. DKA - Patient with underlying type I diabetes - BSG of 800 on admission, normalized by the time of discharge. - Patient was treated with IV fluids and insulin from her pump until anion gap closed. Type I diabetes mellitus, uncontrolled - A1c 9.0 on admission. Patient has insulin pump, admits to not checking sugars on days when she "doesn't feel well." Patient was counseled that DKA is a life threatening illness and she should check her blood sugars and administer insulin accordingly every day. stencil maker was consulted during hospital stay. Patient reports a history of good sugar control at one time (A1c at 6.0), but notes worsening of her control when she went to drug rehab. Outpatient items to do: repeat A1c in 3 months LUIS CARLOS - Cr 1.65, on admission, returned to baseline by day of discharge. - likely secondary to dehydration with DKA Pseudohyponatremia - Na 134 with elevated BSG. Normalized with treatment of blood sugar. Left leg ulceration - wound culture obtained, pending at discharge. Antibiotics as above. - wound care nurse applied dressing Hx IVDU - UDS + for opiates on admission. Patient completed inpatient drug rehab in 09/2019. Offered referral for rehab given relapse, but patient declined. - no murmurs on cardiac exam; high risk for infective endocarditis - no signs of janeway lesions, emboli, osler nodes - ECHO in 03/2019 normal (2) Intravenous drug user: (3) DKA (diabetic ketoacidoses): (4) Migraine: (5) Type 1 diabetes mellitus: Total Time Total Time Spent Total Time Spent (In Minutes): see attending attestation Discharge Plan Discharge Items Patient Disposition: Home - Self-Care Reason For Visit: BREAST MASS DKA Discharge Diagnosis: breast abscess Condition on Discharge: Good Activity: Resume your previous activity Non-emergency contact: Primary Care Provider and Surgeon Call non-emergency contact if: you have a fever Follow-up/Referrals: Roger Quiñones, [Surgeon] - (Please call the office to schedule a follow up appointment within 1-2 weeks) Jamila Snell MD [Primary Care Provider] - 03/08/20 3:15 pm (Please, follow up with Dr Jamila Snell on FridayMarch 08 at 3:30 (arrive 3:15 pm). *The office is located in [address] [facility], next to this hospital. If you need to change this appointment, call the office at [phone].) Diet: Regular Addtl Attending Provider Instructions: You were hospitalized at [facility] for evaluation of a breast mass, found to an abscess (a walled off infection). Surgery was consulted and performed a bedside drainage of the abscess. You were also treated with IV antibiotics while in the hospital. One of your blood cultures was positive for gram + bacteria. This is concerning because if the specific bacteria turns out to be staph aureas, it can erode the valves in your heart. We ordered an echocardiogram, or ultrasound of your heart, which did not show any evidence of damage to the valves as of yet. We advised you to stay in the hospital long enough for us to repeat your blood cultures to make sure the bacteria growing in the bloodstream had cleared. However, you refused to stay in the hospital and chose to sign yourself out against medical advice. We recommend you at least return to the [facility] ED tomorrow, 03/04/20 to have your blood cultures re-drawn, and to get another infusion of the IV antibiotic daptomycin. Depending on what the repeated blood cultures show, you may need to return to the [facility] for daily infusions of IV antibiotics. Please change your breast dressing daily and as needed. Washout the wound with normal saline, then cover wound with 4x4 gauze, and adhere with medipore tape. A follow up visit has been arranged for you with Dr. Quiñones, the surgeon who saw you in the hospital. Please attend this visit. If after leaving the hospital you develop fever/chills or begin to feel worse than when you were here, please return to the ED for evaluation. The reason this abscess formed was liked due to your injection drug use. We recommend you stop using illicit drugs. If you would like a referral back to drug rehab, please let a healthcare professional know. Also, when you came in to the hospital, your blood sugar was elevated > 800. You were in diabetic ketoacidosis, or DKA. This is a serious condition that can be fatal. We were able to bring your blood sugars to normal range down with insulin therapy. Please continue to check yours sugars at home and administer insulin via your pump. Adherence to your daily sugar checks/inulin dosing routine is essential, even when you don't feel up to it. You mentioned veering from your usual routine if you feel sick, such as with a cold. A cold is not life threatening, but DKA is. You also mentioned significant anxiety while in the hospital. We recommend to talk with your primary care doctor about starting a medication in the "SSRI" class to treat yoru anxiety. Your primary care doctor can then refer you to a psychiatrist if necessary. Pending Studies at Discharge: Yes (blood and wound cultures) Stand-Alone Forms: My [facility], Smoking Cessation Medications and DC Order Prescriptions: Continued (DME) insulin syringe-needle U-100 [BD Insulin Syringe Ultra-Fine] 1 mL 31 gauge x 5/16 syringe See Dose Instructions .ROUTE .MEDSUPPLY Qty: 300 RF: 0 (DME) Contour Next Test Strips Strip See Dose Instructions .ROUTE .MEDSUPPLY Qty: 450 RF: 3 (DME) pen needle, diabetic [BD Ultra-Fine Mini Pen Needle] 31 gauge x 3/16" needle See Dose Instructions .ROUTE .MEDSUPPLY Qty: 30 RF: 0 (DME) Ketostix strip See Dose Instructions .ROUTE .MEDSUPPLY Qty: 25 RF: 0 metoclopramide HCl [Reglan] 5 mg Tablet 5 mg PO BID PRN (Reason: Nausea) RF: 0 pregabalin [Lyrica] 150 mg Capsule 150 mg PO DAILY RF: 0 insulin lispro 100 unit/mL solution 0 units continuous subcutaneous infusion DAILY MDD up to TDD 100 units a day pump RF: 0 mirtazapine 45 mg tablet 45 mg PO HS RF: 0 pantoprazole 40 mg tablet,delayed release (DR/EC) 40 mg PO DAILY RF: 0 Discharge Orders: Discharge Order (Routine); Ordered 03/03/20 Ordered By: Jamila Barth/Other Patient Handouts: Gastroparesis Admission Data Admit Date/Time: 03/02/20 21:52 Attending Provider: Ayleen Perez Admit Provider: Joann Pickering Primary Care Provider: Jamila Snell Other Providers: Ajit Pereira ; Branden Ocasio ; Joann Pickering Other Interventions: Discharge Summary Assessment (RN) Last Done: 03/03/20 14:27 DC Date/Time DO NOT enter until pt leaves facility: 03/03/20 17:43 Supervising Physician Co-Signing Physician Notes Resident Physician Supervision Note: I independently interviewed and examined the patient and verified the salcedo history and physical, reviewed labs and image studies, discussed the case with the resident Dr. Snell and agree with the findings and care plan. Time spent in discharge 45 min Resident Activity Tracking Resident Involvement: Resident Care Provided Care Provided: Adult [facility]
[2020-03-03] MEDS ORDERED: DAPTOmycin 525 MG in SYRINGE 0 ML IV ONE (15:30)
--- NOTE | 2020-03-03 16:05 | XCELERA ---
[id number]
--- NOTE | 2020-03-03 16:10 | Electrocardiogram Report ---
Test Reason : Blood Pressure : / mmHG Vent. Rate : 111 BPM Atrial Rate : 111 BPM P-R Int : 146 ms QRS Dur : 084 ms QT Int : 364 ms P-R-T Axes : 065 051 085 degrees QTc Int : 495 ms Poor data quality, interpretation may be adversely affected Sinus tachycardia Otherwise normal ECG When compared with ECG of 05-MAR-2019 07:10, No significant change was found Confirmed by Teofilo Bella ([id number]) on 03/03/2020 4:09:59 PM Referred By: REFERRED SELF Confirmed By:Teofilo Bella
[2020-03-03] MEDS ORDERED: MIRTAZAPINE SOLTAB 15 MG PO SCH (21:00)
--- NOTE | 2020-03-04 05:29 | Billing Data ---
Date of Service March 04, 2020 Coding Level of Care Code 76172 Initial Inpt Care Lvl 3
[2020-03-04] MEDS ORDERED: VANCOMYCIN TROUGH ONE (09:30)
[2020-03-06 13:13] LABS: Codeine Urine NEGATIVE ng/mL (<50); Hydrocodone Urine NEGATIVE ng/mL (<50); Hydromor Urine NEGATIVE ng/mL (<50); Morphine Urine 1250 ng/mL (<50); Norhydrocodone Conf Ur NEGATIVE ng/mL (<50); Noroxycodone Urine NEGATIVE ng/mL (<50); Oxycodone Urine NEGATIVE ng/mL (<50); Oxymorph Urine NEGATIVE ng/mL (<50)
[2020-03-08 06:28] LABS: CK Total 20 U/L (29-143); CK-MB 0 % (<5); CK-MM 100 % (95-100)
== END 2020-03-03 17:43 | disposition home or self-care (01) ==
LOC: ED 17:49 → 1E 17:49 → SUATTDRO 21:52 → 1E 22:14

== ENCOUNTER 2020-03-09 17:40 | Observation (INO) ==
[2020-03-09] MEDS ORDERED: SODIUM CHLORIDE 0.9% 1000ML 1,000 ML IV ONE (18:11)
[2020-03-09] MEDS ORDERED: CALCIUM GLUCONATE 10% 1,000 MG in SODIUM CHLORIDE 0.9% 50 ML IV STA (18:45)
[2020-03-09] MEDS ORDERED: SODIUM CHLORIDE 0.9% 1000ML 1,000 ML IV SCH ×2 (18:45→19:43)
[2020-03-09 18:49] LABS: iSTAT Blood Urea Nitrogen 31 mg/dl (7-18); iSTAT Carbon Dioxide 23 mmol/L (24-31); iSTAT Chloride 99 mmol/L (101-112); iSTAT Creatinine 1.2 mg/dl (0.6-1.3); iSTAT Glucose > 700 mg/dl (70-99); iSTAT Hematocrit 38 % (37-47); iSTAT Hemoglobin 12.9 g/dl (12.0-16.0); iSTAT Ionized Calcium 1.19 mmol/l (1.12-1.32); iSTAT Sodium 128 mmol/L (135-144)
[2020-03-09 19:02] LABS: Basophils # (auto) 0.06 K/uL (0-0.2); Basophils % (auto) 0.8 %; Eosinophils # (auto) 0.07 K/uL (0-0.5); Eosinophils % (auto) 0.9 %; Hematocrit (blood only) 38.1 % (37-47); Immature Granulocytes # (auto) 0.03 K/uL (0.00-0.02); Immature Granulocytes % (auto) 0.4 %; Lymphocytes # (auto) 2.09 K/uL (1.2-3.4); Lymphocytes % (auto) 28.2 %; Mean Corpuscular Hemoglobin 28.4 pg (25-34); Mean Corpuscular Hgb Conc 31.5 g/dL (32-36); Mean Corpuscular Volume 90.1 fL (80-100); Mean Platelet Volume 10.5 fL (7.4-10.4); Monocytes # (auto) 0.29 K/uL (0.11-0.59); Monocytes % (auto) 3.9 %; Neutrophils # (auto) 4.86 K/uL (1.4-6.5); Neutrophils % (auto) 65.8 %; Platelet Count 371 K/uL (130-400); RDW Standard Deviation 45.8 fL (36.4-46.3); Red Blood Count 4.23 M/uL (4.2-5.4)
--- NOTE | 2020-03-09 19:04 | Emergency Department Note ---
History of Present Illness General Chief complaint: Hyperglycemia Stated complaint: DIABETIC,SUGAR LEVELS HIGH Time Seen by Provider: 03/09/20 17:54 History of Present Illness Provider complaint: Hyperglycemia Onset (ago): day(s) 1 Severity: similar to prior episodes (Similar feeling when she had DKA) Maximum Pain Intensity: 6 29-year-old female in police custody presents to the emergency department with high blood sugars. Patient states that today her blood sugars been running high. She does not think that she has the right type of insulin for her insulin pump since she has been recently incarcerated. She denies any fevers. No abdominal pain. No chance of per the patient. No nausea vomiting or diarrhea. Patient states she does not actively use drugs. She states she recently left AMA from the hospital after having surgery on her right breast for an abscess. She states she left AMA because she is wanted to spend the holiday with her family members but during the holiday she states she got arrested. Home Medications Home Medications Medication Instructions Recorded Confirmed Type pantoprazole 40 mg tablet,delayed 40 mg PO DAILY PRN tab 04/26/19 03/09/20 History release insulin lispro 0 units CONTINUOUS SUBCUTANEOUS 03/02/20 03/09/20 History INFUSION DAILY MDD up to TDD 100 units a day pump amoxicillin 875 mg PO BID 03/09/20 03/09/20 History clonazepam 1 mg PO BID 03/09/20 03/09/20 History clonazepam See Rx Instructions .ROUTE .COMPLEX 03/09/20 03/09/20 History clonazepam See Rx Instructions .ROUTE .COMPLEX 03/09/20 03/09/20 History ibuprofen 400 mg PO BID PRN 03/09/20 03/09/20 History sulfamethoxazole-trimethoprim 1 tab PO BID 03/09/20 03/09/20 History [Bactrim DS] Allergies Allergy/AdvReac Type Severity Reaction Status Date / Time heparin Allergy Intermediate Rash Verified 03/09/20 20:46 Past Med/Surg History Medical History Anxiety Chronic pain Degenerative disc disease Diabetes mellitus type 1 Fibromyalgia GERD (gastroesophageal reflux disease) History of hypothyroidism Hx of migraines Hx of primary hypertension Hypothyroidism Peripheral neuropathy Restless leg syndrome Rheumatoid arthritis Surgical History H/O lymph node biopsy IN [place] History of esophagogastroduodenoscopy (EGD) Family History Grandmother (Maternal) Family history of diabetes mellitus Grandfather (Paternal) Family history of diabetes mellitus Social History Preferred Language: [place] Communication Ability: Effective Termination Clerk Required: No Beliefs That Will Affect Care: None Current Living Situation: Other Current [facility] Situation Comment: [facility] Other Information That Helps Us Care for You: No Feels Safe at Home: Yes Safety Concerns: Feels Safe At This Time Smoking Status: Never smoker Tobacco Type: cigarettes ; Cigarettes Per Day: 10 ; Do You Dip or Chew Tobacco: No ; Second Hand Exposure: Yes ; Tobacco Cessation Education Requested by Patient: No Hx Alcohol Use: No Hx Substance Use: No Review of Systems A total of 10 systems reviewed and were otherwise negative Physical Exam Vital Signs Vital Signs - 24 hr 03/09/20 17:46 03/09/20 18:56 03/09/20 19:00 Temperature 36.6 C Temperature Source Oral Pulse Rate 85 80 86 Pulse Rate from SpO2 Sensor 80 85 Respiratory Rate 20 19 18 Blood Pressure 122/82 126/73 125/93 Blood Pressure Mean 95 107 98 Blood Pressure Position Sitting Pulse Oximetry 100 99 96 Oxygen Delivery Method Room Air Sepsis Recent Fever Within 48 Hours No Sepsis New/Unexplained Change in Mental Status No Sepsis Action Taken by Nursing No Action Required 03/09/20 20:00 03/09/20 20:31 Temperature Temperature Source Pulse Rate 74 82 Pulse Rate from SpO2 Sensor Respiratory Rate 14 22 Blood Pressure 161/109 H 136/80 Blood Pressure Mean 123 88 Blood Pressure Position Pulse Oximetry Oxygen Delivery Method Sepsis Recent Fever Within 48 Hours Sepsis New/Unexplained Change in Mental Status Sepsis Action Taken by Nursing Physical Exam GENERAL: She is oriented to person, place, and time. She appears well-developed and well-nourished. She does not appear distressed. Patient is in cuffs and in custody. HENT: Exam performed. -Head: Normocephalic and atraumatic. -Right Ear: External ear normal. No mastoid tenderness. -Left Ear: External ear normal. No mastoid tenderness. -Mouth/Throat: The oropharynx is clear and moist. No trismus in the jaw. No dental abscesses or uvula swelling. No oropharyngeal exudate or tonsillar abscesses. EYES: Conjunctivae and EOM are normal. Pupils are equal, round, and reactive to light. Right eye exhibits no discharge. Left eye exhibits no discharge. No scleral icterus. NECK: Normal range of motion. Neck supple. No JVD present. No spinous process tenderness present. No carotid bruit present. No rigidity. No tracheal deviation and normal range of motion present. No Brudzinski's sign and no Kernig's sign noted. CV: Normal rate, regular rhythm, normal heart sounds and intact distal pulses. There is no peripheral edema. Palpable radial pulses bue. PULM/CHEST: Effort normal and breath sounds normal. No respiratory distress. No stridor. She has no wheezes. She has no rales. -Chest Wall: She exhibits no tenderness. ABD: The abdomen is soft. Bowel sounds are normal. She has no distension. No mass is present. There is no tenderness. There is no rebound, no guarding, no Garland's sign and no tenderness at McBurney's point. Rovsig negative. Insulin pump in place over the right hip. MUSC/SKEL: Normal range of motion. There is no peripheral edema, tenderness or deformity. LYMPH: No cervical adenopathy. NEURO: She is alert and oriented to person, place, and time. She has normal strength. No cranial nerve deficit or sensory deficit. Coordination and gait normal. GCS eye subscore is 4. GCS verbal subscore is 5. GCS motor subscore is 6. Cerebellar tests wnl. SKIN: Right breast: Physical exam conducted with nursing syrup mixer at bedside. The wound appears clean. No surrounding erythema. No discharge or bleeding. Left lower extremity: Wound appears clean. No surrounding erythema. No discharge or bleeding. Track hallman over bilateral upper extremities PSYCH: She has a normal mood and affect. Behavior is normal. Judgment and thought content normal. Course Course 1844: The patient was evaluated in room C8. A complete history and physical exam was performed. Cardiac monitoring: An order was placed for continuous cardiac monitoring. The monitor shows a rate of 80 with sinus rhythm Bedside POC labs showed a glucose greater than 700 and potassium of 7 Patient was told to unhook her insulin pump. Patient was treated with calcium gluconate for hyperkalemia. 2 L IV fluids started. EMR reviewed. Patient had a necrotic breast abscess debrided by Dr. Quiñones on March [id number]: Vital signs stable. Lab blood glucose 766, creatinine 1.51, potassium 6.2. Patient has no anion gap or osmolar gap. Patient was treated with 10 units of insulin for her hyperkalemia and started on insulin drip for her hyperglycemia. Patient will be admitted to the hospitalist service, Dr. Neto Stinson hospitalist agrees to the admission. Administered Medications Insulin Human Regular 250 (units/ Sodium Chloride) 250 mls @ 0 mls/hr IV .Q0M IAIN; Protocol Stop: 04/08/20 19:44 Last Titration: 03/09/20 22:18 Dose: 0 units/hr, 0 mls/hr Documented by: [id number] Cosigned by: [id number] Titration: 03/09/20 21:33 Dose: 10.1 units/hr, 10.1 mls/hr Documented by: [id number] Cosigned by: [id number] Admin: 03/09/20 20:20 Dose: 8.4 units/hr, 8.4 mls/hr Documented by: [id number] Cosigned by: [id number] Insulin Aspart (Novolog Flexpen) 0 units SC ACHS IAIN Stop: 04/08/20 20:59 Last Admin: 03/09/20 23:10 Dose: Not Given Documented by: [id number] Cosigned by: [id number] Discontinued Medications Sodium Chloride (Nss 1000ml) 1,000 mls @ 999 mls/hr IV .Q1H1M ONE Stop: 03/09/20 19:11 Last Infusion: 03/09/20 20:16 Dose: 0 mls/hr Documented by: [id number] Admin: 03/09/20 19:07 Dose: 999 mls/hr Documented by: [id number] Sodium Chloride (Nss 1000ml) 1,000 mls @ 999 mls/hr IV .Q1H1M IAIN Stop: 03/09/20 19:43 Last Infusion: 03/09/20 20:16 Dose: 0 mls/hr Documented by: [id number] Admin: 03/09/20 19:07 Dose: 999 mls/hr Documented by: [id number] Sodium Chloride (Nss 1000ml) 1,000 mls @ 999 mls/hr IV .Q1H1M IAIN Stop: 03/09/20 20:42 Last Infusion: 03/09/20 20:16 Dose: 0 mls/hr Documented by: [id number] Admin: 03/09/20 19:19 Dose: 999 mls/hr Documented by: [id number] Calcium Gluconate 1,000 mg/ (Sodium Chloride) 60 mls @ 240 mls/hr IV NOW STA Stop: 03/09/20 18:59 Last Infusion: 03/09/20 19:26 Dose: 0 mls/hr Documented by: [id number] Admin: 03/09/20 19:07 Dose: 240 mls/hr Documented by: [id number] Insulin Human Regular 10 units (/ Syringe) 9.9 mls @ 3 mls/sec IV ONE STA Stop: 03/09/20 19:46 Last Admin: 03/09/20 20:22 Dose: 3 mls/sec Documented by: [id number] Cosigned by: [id number] Critical Care Time Critical Care Time: Yes Total Critical Care Time: 60 I have personally spent greater than 60 minutes of critical care time in the direct management of this patient. This includes bedside care, interpretation of diagnostic studies, and testing, discussion with consultants, patient, and family members, and other required patient management activities. This 60 minutes is in excess of all separately billable procedures. Medical Decision Making Laboratory Data Result diagrams: 03/09/20 18:29 03/09/20 19:10 Lab Results 03/09/20 03/09/20 03/09/20 Range/Units 18:29 18:29 18:31 WBC 7.40 (4.8-10.8) K/uL RBC 4.23 (4.2-5.4) M/uL Hgb 12.0 (12.0-16.0) g/dL POC Hgb (12.0-16.0) g/dl Hct 38.1 (37-47) % POC Hct (37-47) % MCV 90.1 (80-100) fL MCH 28.4 (25-34) pg MCHC 31.5 L (32-36) g/dL RDW Std Deviation 45.8 (36.4-46.3) fL RDW Coeff of Isai 14.0 (11.5-14.5) % Plt Count 371 (130-400) K/uL MPV 10.5 H (7.4-10.4) fL Immature Gran % (Auto) 0.4 % Neut % (Auto) 65.8 % Lymph % (Auto) 28.2 % Burt % (Auto) 3.9 % Eos % (Auto) 0.9 % Baso % (Auto) 0.8 % Neut # (Auto) 4.86 (1.4-6.5) K/uL Lymph # (Auto) 2.09 (1.2-3.4) K/uL Burt # (Auto) 0.29 (0.11-0.59) K/uL Eos # (Auto) 0.07 (0-0.5) K/uL Baso # (Auto) 0.06 (0-0.2) K/uL Immature Gran # (Auto) 0.03 H (0.00-0.02) K/uL PT (9.0-12.0) Seconds INR (0.9-1.1) APTT (21.0-31.0) Seconds PTT Ratio POC Sodium (135-144) mmol/L Sodium 129 L (136-145) mmol/L POC Potassium (3.3-5.0) mmol/L Potassium (3.5-5.1) mmol/L POC Chloride (101-112) mmol/L Chloride 99 (98-107) mmol/L Carbon Dioxide 23 (21-32) mmol/L POC Total CO2 (24-31) mmol/L Anion Gap 7.0 (3-11) POC Anion Gap (16-25) mmol/L POC BUN (7-18) mg/dl BUN 25 H (7-18) mg/dl Creatinine 1.51 H (0.6-1.2) mg/dl POC Creatinine (0.6-1.3) mg/dl Est Cr Clr Drug Dosing 61.0 ml/min Est GFR ( Amer) 54.3 Est GFR (Non-Af Amer) 46.9 BUN/Creatinine Ratio 16.5 (10-20) Glucose 766 H* (70-99) mg/dl POC Glucose > 600 H* (70-99) mg/dl POC Glucose (other) (70-99) mg/dl Osmolality (280-300) mOsm/kg Lactate (0.4-2.0) mmol/L Calcium 9.2 (8.5-10.1) mg/dl POC Ioniz Calcium Antonella (1.12-1.32) mmol/l Magnesium (1.8-2.4) mg/dl Total Bilirubin 0.4 (0.2-1) mg/dl AST (15-37) U/L ALT 14 (12-78) U/L Alkaline Phosphatase 108 (45-117) U/L Troponin I < 0.015 (0-0.045) ng/ml Total Protein 8.3 H (6.4-8.2) gm/dl Albumin 3.5 (3.4-5.0) gm/dl Globulin 4.8 H (2.5-4.0) gm/dl Albumin/Globulin Ratio 0.7 L (0.9-2) Beta-Hydroxybutyric Acd (0.2-2.81) mg/dl Procalcitonin (0-0.5) ng/ml Urine Color Urine Appearance (Clear) Urine pH (4.5-7.5) Ur Specific [place] (1.000-1.030) Urine Protein (Negative) Urine Glucose (UA) (Negative) Urine Ketones (Negative) Urine Blood (Negative) Urine Nitrite (Negative) Urine Bilirubin (Negative) Urine Urobilinogen (Negative) Ur Leukocyte Esterase (Negative) 03/09/20 03/09/20 03/09/20 Range/Units 18:36 18:50 18:55 WBC (4.8-10.8) K/uL RBC (4.2-5.4) M/uL Hgb (12.0-16.0) g/dL POC Hgb 12.9 (12.0-16.0) g/dl Hct (37-47) % POC Hct 38 (37-47) % MCV (80-100) fL MCH (25-34) pg MCHC (32-36) g/dL RDW Std Deviation (36.4-46.3) fL RDW Coeff of Isai (11.5-14.5) % Plt Count (130-400) K/uL MPV (7.4-10.4) fL Immature Gran % (Auto) % Neut % (Auto) % Lymph % (Auto) % Burt % (Auto) % Eos % (Auto) % Baso % (Auto) % Neut # (Auto) (1.4-6.5) K/uL Lymph # (Auto) (1.2-3.4) K/uL Burt # (Auto) (0.11-0.59) K/uL Eos # (Auto) (0-0.5) K/uL Baso # (Auto) (0-0.2) K/uL Immature Gran # (Auto) (0.00-0.02) K/uL PT (9.0-12.0) Seconds INR (0.9-1.1) APTT (21.0-31.0) Seconds PTT Ratio POC Sodium 128 L (135-144) mmol/L Sodium (136-145) mmol/L POC Potassium 7.0 H* (3.3-5.0) mmol/L Potassium (3.5-5.1) mmol/L POC Chloride 99 L (101-112) mmol/L Chloride (98-107) mmol/L Carbon Dioxide (21-32) mmol/L POC Total CO2 23 L (24-31) mmol/L Anion Gap (3-11) POC Anion Gap 14.0 L (16-25) mmol/L POC BUN 31 H (7-18) mg/dl BUN (7-18) mg/dl Creatinine (0.6-1.2) mg/dl POC Creatinine 1.2 (0.6-1.3) mg/dl Est Cr Clr Drug Dosing ml/min Est GFR ( Amer) Est GFR (Non-Af Amer) BUN/Creatinine Ratio (10-20) Glucose (70-99) mg/dl POC Glucose (70-99) mg/dl POC Glucose (other) > 700 H* (70-99) mg/dl Osmolality (280-300) mOsm/kg Lactate 1.5 (0.4-2.0) mmol/L Calcium (8.5-10.1) mg/dl POC Ioniz Calcium Antonella 1.19 (1.12-1.32) mmol/l Magnesium (1.8-2.4) mg/dl Total Bilirubin (0.2-1) mg/dl AST (15-37) U/L ALT (12-78) U/L Alkaline Phosphatase (45-117) U/L Troponin I (0-0.045) ng/ml Total Protein (6.4-8.2) gm/dl Albumin (3.4-5.0) gm/dl Globulin (2.5-4.0) gm/dl Albumin/Globulin Ratio (0.9-2) Beta-Hydroxybutyric Acd (0.2-2.81) mg/dl Procalcitonin (0-0.5) ng/ml Urine Color Yellow Urine Appearance Clear (Clear) Urine pH 5.0 (4.5-7.5) Ur Specific [place] 1.034 H (1.000-1.030) Urine Protein Negative (Negative) Urine Glucose (UA) 3+ H (Negative) Urine Ketones Negative (Negative) Urine Blood Negative (Negative) Urine Nitrite Negative (Negative) Urine Bilirubin Negative (Negative) Urine Urobilinogen Negative (Negative) Ur Leukocyte Esterase Negative (Negative) 03/09/20 03/09/20 03/09/20 Range/Units 19:10 19:10 19:10 WBC (4.8-10.8) K/uL RBC (4.2-5.4) M/uL Hgb (12.0-16.0) g/dL POC Hgb (12.0-16.0) g/dl Hct (37-47) % POC Hct (37-47) % MCV (80-100) fL MCH (25-34) pg MCHC (32-36) g/dL RDW Std Deviation (36.4-46.3) fL RDW Coeff of Isai (11.5-14.5) % Plt Count (130-400) K/uL MPV (7.4-10.4) fL Immature Gran % (Auto) % Neut % (Auto) % Lymph % (Auto) % Burt % (Auto) % Eos % (Auto) % Baso % (Auto) % Neut # (Auto) (1.4-6.5) K/uL Lymph # (Auto) (1.2-3.4) K/uL Burt # (Auto) (0.11-0.59) K/uL Eos # (Auto) (0-0.5) K/uL Baso # (Auto) (0-0.2) K/uL Immature Gran # (Auto) (0.00-0.02) K/uL PT 10.7 (9.0-12.0) Seconds INR 1.0 (0.9-1.1) APTT 27.1 (21.0-31.0) Seconds PTT Ratio 1.0 POC Sodium (135-144) mmol/L Sodium (136-145) mmol/L POC Potassium (3.3-5.0) mmol/L Potassium (3.5-5.1) mmol/L POC Chloride (101-112) mmol/L Chloride (98-107) mmol/L Carbon Dioxide (21-32) mmol/L POC Total CO2 (24-31) mmol/L Anion Gap (3-11) POC Anion Gap (16-25) mmol/L POC BUN (7-18) mg/dl BUN (7-18) mg/dl Creatinine (0.6-1.2) mg/dl POC Creatinine (0.6-1.3) mg/dl Est Cr Clr Drug Dosing ml/min Est GFR ( Amer) Est GFR (Non-Af Amer) BUN/Creatinine Ratio (10-20) Glucose (70-99) mg/dl POC Glucose (70-99) mg/dl POC Glucose (other) (70-99) mg/dl Osmolality 325 H (280-300) mOsm/kg Lactate (0.4-2.0) mmol/L Calcium (8.5-10.1) mg/dl POC Ioniz Calcium Antonella (1.12-1.32) mmol/l Magnesium (1.8-2.4) mg/dl Total Bilirubin (0.2-1) mg/dl AST (15-37) U/L ALT (12-78) U/L Alkaline Phosphatase (45-117) U/L Troponin I (0-0.045) ng/ml Total Protein (6.4-8.2) gm/dl Albumin (3.4-5.0) gm/dl Globulin (2.5-4.0) gm/dl Albumin/Globulin Ratio (0.9-2) Beta-Hydroxybutyric Acd (0.2-2.81) mg/dl Procalcitonin < 0.05 (0-0.5) ng/ml Urine Color Urine Appearance (Clear) Urine pH (4.5-7.5) Ur Specific [place] (1.000-1.030) Urine Protein (Negative) Urine Glucose (UA) (Negative) Urine Ketones (Negative) Urine Blood (Negative) Urine Nitrite (Negative) Urine Bilirubin (Negative) Urine Urobilinogen (Negative) Ur Leukocyte Esterase (Negative) 03/09/20 Range/Units 19:10 WBC (4.8-10.8) K/uL RBC (4.2-5.4) M/uL Hgb (12.0-16.0) g/dL POC Hgb (12.0-16.0) g/dl Hct (37-47) % POC Hct (37-47) % MCV (80-100) fL MCH (25-34) pg MCHC (32-36) g/dL RDW Std Deviation (36.4-46.3) fL RDW Coeff of Isai (11.5-14.5) % Plt Count (130-400) K/uL MPV (7.4-10.4) fL Immature Gran % (Auto) % Neut % (Auto) % Lymph % (Auto) % Burt % (Auto) % Eos % (Auto) % Baso % (Auto) % Neut # (Auto) (1.4-6.5) K/uL Lymph # (Auto) (1.2-3.4) K/uL Burt # (Auto) (0.11-0.59) K/uL Eos # (Auto) (0-0.5) K/uL Baso # (Auto) (0-0.2) K/uL Immature Gran # (Auto) (0.00-0.02) K/uL PT (9.0-12.0) Seconds INR (0.9-1.1) APTT (21.0-31.0) Seconds PTT Ratio POC Sodium (135-144) mmol/L Sodium (136-145) mmol/L POC Potassium (3.3-5.0) mmol/L Potassium 6.2 H* (3.5-5.1) mmol/L POC Chloride (101-112) mmol/L Chloride (98-107) mmol/L Carbon Dioxide (21-32) mmol/L POC Total CO2 (24-31) mmol/L Anion Gap (3-11) POC Anion Gap (16-25) mmol/L POC BUN (7-18) mg/dl BUN (7-18) mg/dl Creatinine (0.6-1.2) mg/dl POC Creatinine (0.6-1.3) mg/dl Est Cr Clr Drug Dosing ml/min Est GFR ( Amer) Est GFR (Non-Af Amer) BUN/Creatinine Ratio (10-20) Glucose (70-99) mg/dl POC Glucose (70-99) mg/dl POC Glucose (other) (70-99) mg/dl Osmolality (280-300) mOsm/kg Lactate (0.4-2.0) mmol/L Calcium (8.5-10.1) mg/dl POC Ioniz Calcium Antonella (1.12-1.32) mmol/l Magnesium 2.3 (1.8-2.4) mg/dl Total Bilirubin (0.2-1) mg/dl AST 4 L (15-37) U/L ALT (12-78) U/L Alkaline Phosphatase (45-117) U/L Troponin I (0-0.045) ng/ml Total Protein (6.4-8.2) gm/dl Albumin (3.4-5.0) gm/dl Globulin (2.5-4.0) gm/dl Albumin/Globulin Ratio (0.9-2) Beta-Hydroxybutyric Acd 17.06 H (0.2-2.81) mg/dl Procalcitonin (0-0.5) ng/ml Urine Color Urine Appearance (Clear) Urine pH (4.5-7.5) Ur Specific [place] (1.000-1.030) Urine Protein (Negative) Urine Glucose (UA) (Negative) Urine Ketones (Negative) Urine Blood (Negative) Urine Nitrite (Negative) Urine Bilirubin (Negative) Urine Urobilinogen (Negative) Ur Leukocyte Esterase (Negative) Imaging Data Radiologist's Impression: SINGLE VIEW CHEST CLINICAL HISTORY: Sepsis. FINDINGS: An AP, portable, upright chest radiograph is compared to study dated 03/02/2020. The examination is degraded by portable technique and patient rotation. The cardiomediastinal silhouette is unremarkable. The lungs and pleural spaces are clear. No pneumothorax is seen. The bony thorax is grossly intact. IMPRESSION: No active disease in the chest. ACT 112: Negative or not required by law. Electronically signed by: Alton Alvarez M.D. 03/09/2020 7:05 PM Dictated: 03/09/201904 Transcribed: 03/09/201904 ECG Data Rate (beats per minute): 78 Rhythm: + normal sinus ECG Intervals/blocks: + Normal QRS, + Normal [place] and + Normal QT-c ECG ST segments: + Normal ST segments [facility] Narrative 1845: The patient was evaluated in room C8. A complete history and physical exam was performed. Cardiac monitoring: An order was placed for continuous cardiac monitoring. The monitor shows a rate of 80 with sinus rhythm Bedside POC labs showed a glucose greater than 700 and potassium of 7 Patient was told to unhook her insulin pump. Patient was treated with calcium gluconate for hyperkalemia. 2 L IV fluids started. EMR reviewed. Patient had a necrotic breast abscess debrided by Dr. Quiñones on March [id number]: Vital signs stable. Lab blood glucose 766, creatinine 1.51, potassium 6.2. Patient has no anion gap or osmolar gap. Patient was treated with 10 units of insulin for her hyperkalemia and started on insulin drip for her hyperglycemia. Patient will be admitted to the hospitalist service, Dr. Neto Salazartany hospitalist agrees to the admission. Impression & Plan Acute hyperkalemia, LUIS CARLOS (acute kidney injury), Acute hyperglycemia Discharge Plan Visit Data *Final* Discharge Date/Time: 03/09/20 21:36 Chief Complaint: Hyperglycemia Stated Complaint: DIABETIC,SUGAR LEVELS HIGH ED Provider: Alfredo Perry Discharge Problem: Acute hyperkalemia, LUIS CARLOS (acute kidney injury), Acute hyperglycemia Patient Disposition: Admitted As Inpatient Discharge Instructions Interventions: ED Discharge Assessment Last Done: 03/09/20 21:36
--- NOTE | 2020-03-09 19:07 | XRay Report ---
SINGLE VIEW CHEST CLINICAL HISTORY: Sepsis. FINDINGS: An AP, portable, upright chest radiograph is compared to study dated 03/02/2020. The examinat ion is degraded by portable technique and patient rotation. The cardiomediastinal silhouette is unr emarkable. The lungs and pleural spaces are clear. No pneumothorax is seen. The bony thorax is grossl y intact. IMPRESSION: No active disease in the chest. ACT 112: Negative or not required by law. Electronically signed by: Alton Alvarez M.D. 03/09/2020 7:05 PM
[2020-03-09 19:31] LABS: Appearance Urine Clear (Clear); Bilirubin Urine Negative (Negative); Blood Urine Negative (Negative); Color Urine Yellow; Glucose Urine UA 3+ (Negative); Ketones Urine Negative (Negative); Leukocyte Esterase Urine Negative (Negative); Nitrite Urine Negative (Negative); Protein Urine Negative (Negative); Specific Gravity Urine 1.034 (1.000-1.030); Urobilinogen Urine Negative (Negative)
[2020-03-09 19:36] LABS: Partial Thromboplastin Time 27.1 Seconds (21.0-31.0); Prothrombin Time 10.7 Seconds (9.0-12.0)
[2020-03-09 19:38] LABS: Alanine Aminotransferase 14 U/L (12-78); Albumin Globulin Ratio 0.7 (0.9-2); Albumin Level 3.5 gm/dl (3.4-5.0); Alkaline Phosphatase 108 U/L (45-117); BUN Creatinine Ratio 16.5 (10-20); Bilirubin,Total 0.4 mg/dl (0.2-1); Blood Urea Nitrogen 25 mg/dl (7-18); Calcium 9.2 mg/dl (8.5-10.1); Carbon Dioxide 23 mmol/L (21-32); Chloride 99 mmol/L (98-107); Est GFR (African American) 54.3; Est GFR (Non-African American) 46.9; Globulin 4.8 gm/dl (2.5-4.0); Glucose 766 mg/dl (70-99); Sodium 129 mmol/L (136-145); Total Protein 8.3 gm/dl (6.4-8.2); Troponin I < 0.015 ng/ml (0-0.045)
[2020-03-09] MEDS ORDERED: INSULIN HUMAN REGULAR PER UNIT 10 UNITS in SYRINGE 9.9 ML IV STA (19:45)
[2020-03-09] MEDS ORDERED: INSULIN REGULAR 250 UNITS in SODIUM CHLORIDE 0.9% 247.5 ML IV SCH ×2 (19:45→23:00)
--- NOTE | 2020-03-09 20:08 | History & Physical Report ---
Date of Service March 09, 2020 Assessment & Plan (1) DKA (diabetic ketoacidoses): Magalys Red is a 29y/o F w/ PMH management for type 1 diabetes, recent surgical excision of a breast abscess; who presented from [facility] with concern for persistent high blood sugars. DKA: -On admission glucose 766; down to 359 after 3.5 hours -Patient gave herself 35 units bolus insulin while under supervision at present -Continue IV normal saline rehydration -Anion gap 14 on admission, recheck in a.m. -chemical educator previously consulted previously advised more accurate insulin dosing, 3 usage of carb plan and pre-meal blood glucose value insertion into in sulin pump; established follow-up with endocrinology on 04/06 -Advised patient that while continuing to be in skilled nursing from recent arrest, she needs to more adequately observe and document the amount of carbs that she is consuming and the amount of insulin that she takes on a daily basis -A1c from 03/03 hospitalization 9.0 -Continue to monitor on PCU -BSGs every hour Electrolyte abnormalities: -Sodium 129 on admission correcting for hyperglycemia is 140 -Potassium 6.6 on admission, likely contributed by hyperglycemia -Continue to monitor electrolytes as rehydration continues, and hyperglycemia improves Breast wound: -Recent excision of eschar from right breast on 03/[address] Quiñones -Patient was to have follow-up with Dr. Quiñones in 1 to 2 weeks following discharge -General surgery consulted for follow-up of recent surgical event intervention -Continue Augmentin twice daily, for recent wound culture demonstrating anaerobes IV Drug use: -In skilled nursing was started on Klonopin taper for drug use -Continue Klonopin 0.5 mg twice daily for 2 days, before taper to 0.5 mg daily Diet: NPO with IV normal saline DVT ppx: Heparin Code: Full (2) Breast abscess: History of Present Illness Primary Care Provider: [facility] Magalys Red is a 29y/o F w/ PMH management for type 1 diabetes, recent surgical excision of a breast abscess; who presented from [facility] with concern for persistent high blood sugars. Recently was seen in the hospital on 03/02-03/03 for DKA with breast abscess. At that time she left AMA with the desired to spend time with her family over March 04, subsequently was arrested with possession of heroin and fentanyl. During recent hospitalization she quickly corrected from hyperglycemia/DKA state, she states that since she was arrested she has noticed that her blood sugars have consistently been rising despite consistent use of her insulin pump, and consistent usage of carb counting. school guard at bedside states patient is on diabetic diet, however concern is that these are still heavily carb loaded. Prior to admission patient states she is used 35 units of insulin in an effort to bring blood sugar down as she knew from monitor that it was greater than 600. States that she was given the wrong type of insulin (NovoLog R) for controlling of her diabetes, and this led to the consistent rise in her blood sugar. States that prior to recent hospitalization her hemoglobin was between 71 and 141, with very rare episodes into low 200s. Denies nausea, vomiting, abdominal pain, dizziness, lightheadedness, chest pain, shortness of breath, changes in vision, loss of consciousness, cough, shortness of breath. Allergies Allergy/AdvReac Type Severity Reaction Status Date / Time heparin Allergy Intermediate Rash Verified 03/09/20 20:46 Home Medications Home Medications Medication Instructions Recorded Confirmed Type pantoprazole 40 mg tablet,delayed 40 mg PO DAILY PRN tab 04/26/19 03/09/20 History release insulin lispro 0 units CONTINUOUS SUBCUTANEOUS 03/02/20 03/09/20 History INFUSION DAILY MDD up to TDD 100 units a day pump amoxicillin 875 mg PO BID 03/09/20 03/09/20 History clonazepam 1 mg PO BID 03/09/20 03/09/20 History clonazepam See Rx Instructions .ROUTE .COMPLEX 03/09/20 03/09/20 History clonazepam See Rx Instructions .ROUTE .COMPLEX 03/09/20 03/09/20 History ibuprofen 400 mg PO BID PRN 03/09/20 03/09/20 History sulfamethoxazole-trimethoprim 1 tab PO BID 03/09/20 03/09/20 History [Bactrim DS] Past Med/Surg History Medical History Anxiety Chronic pain Degenerative disc disease Diabetes mellitus type 1 Fibromyalgia GERD (gastroesophageal reflux disease) History of hypothyroidism Hx of migraines Hx of primary hypertension Hypothyroidism Peripheral neuropathy Restless leg syndrome Rheumatoid arthritis Surgical History H/O lymph node biopsy IN GROIN History of esophagogastroduodenoscopy (EGD) Family History Grandmother (Maternal) Family history of diabetes mellitus Grandfather (Paternal) Family history of diabetes mellitus Social History Preferred Language: Djiboutian Communication Ability: Effective 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 Pump 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 Required: No Beliefs That Will Affect Care: None Current Living Situation: Other Current Living Situation Comment: [facility] Other Information That Helps Us Care for You: No Feels Safe at Home: Yes Safety Concerns: Feels Safe At This Time Smoking Status: Never smoker Tobacco Type: cigarettes ; Cigarettes Per Day: 10 ; Do You Dip or Chew Tobacco: No ; Second Hand Exposure: Yes ; Tobacco Cessation Education Requested by Patient: No Hx Alcohol Use: No Hx Substance Use: No Review of Systems Review of Systems: All systems reviewed & are unremarkable except as noted in HPI & below Physical Exam Constitutional: WD/WN, vitals as above Eyes: PERRL, conjunctivae normal, anicteric sclerae Respiratory: normal respiratory effort, lungs clear to auscultation Cardiovascular: Rate/Rhythm: regular rate and regular rhythm Heart Sounds: normal S1 and normal S2; no gallop, no murmur and no cardiac rub Vessels: normal peripheral pulses; no JVD Extremities: no pedal edema Gastrointestinal (Abdomen): normal bowel sounds, soft, nontender, no hepatosplenomegaly Musculoskeletal: no cyanosis or clubbing, extremities motor strength 5/5 Skin: 2x2cm wound over R breast with granulation tissue, non-erythematous, no expression of purulent material Neurologic: patellar DTR's 2+ bilat, sensation intact Psychiatric: A+Ox3, euthymic affect Results & Data Results & Data ([facility]) Vital Signs (Past 12 Hours) Vital Signs Temp Pulse Resp BP Pulse Ox 03/09/20 19:00 86 18 125/93 96 03/09/20 18:56 80 19 126/73 99 03/09/20 17:46 36.6 C 85 20 122/82 100 Laboratory Results 03/09/20 03/09/20 03/09/20 Range/Units 22:04 21:08 19:10 WBC (4.8-10.8) K/uL RBC (4.2-5.4) M/uL Hgb (12.0-16.0) g/dL POC Hgb (12.0-16.0) g/dl Hct (37-47) % POC Hct (37-47) % MCV (80-100) fL MCH (25-34) pg MCHC (32-36) g/dL RDW Std Deviation (36.4-46.3) fL RDW Coeff of Isai (11.5-14.5) % Plt Count (130-400) K/uL MPV (7.4-10.4) fL Immature Gran % (Auto) % Neut % (Auto) % Lymph % (Auto) % Will % (Auto) % Eos % (Auto) % Baso % (Auto) % Neut # (Auto) (1.4-6.5) K/uL Lymph # (Auto) (1.2-3.4) K/uL Will # (Auto) (0.11-0.59) K/uL Eos # (Auto) (0-0.5) K/uL Baso # (Auto) (0-0.2) K/uL Immature Gran # (Auto) (0.00-0.02) K/uL PT (9.0-12.0) Seconds INR (0.9-1.1) APTT (21.0-31.0) Seconds PTT Ratio POC Sodium (135-144) mmol/L Sodium (136-145) mmol/L POC Potassium (3.3-5.0) mmol/L Potassium 6.2 H* (3.5-5.1) mmol/L POC Chloride (101-112) mmol/L Chloride (98-107) mmol/L Carbon Dioxide (21-32) mmol/L POC Total CO2 (24-31) mmol/L Anion Gap (3-11) POC Anion Gap (16-25) mmol/L POC BUN (7-18) mg/dl BUN (7-18) mg/dl Creatinine (0.6-1.2) mg/dl POC Creatinine (0.6-1.3) mg/dl Est Cr Clr Drug Dosing ml/min Est GFR ( Amer) Est GFR (Non-Af Amer) BUN/Creatinine Ratio (10-20) Glucose (70-99) mg/dl POC Glucose 359 H* 577 H* (70-99) mg/dl POC Glucose (other) (70-99) mg/dl Osmolality (280-300) mOsm/kg Lactate (0.4-2.0) mmol/L Calcium (8.5-10.1) mg/dl POC Ioniz Calcium Antonella (1.12-1.32) mmol/l Magnesium 2.3 (1.8-2.4) mg/dl Total Bilirubin (0.2-1) mg/dl AST 4 L (15-37) U/L ALT (12-78) U/L Alkaline Phosphatase (45-117) U/L Troponin I (0-0.045) ng/ml Total Protein (6.4-8.2) gm/dl Albumin (3.4-5.0) gm/dl Globulin (2.5-4.0) gm/dl Albumin/Globulin Ratio (0.9-2) Beta-Hydroxybutyric Acd 17.06 H (0.2-2.81) mg/dl Procalcitonin (0-0.5) ng/ml Urine Color Urine Appearance (Clear) Urine pH (4.5-7.5) Ur Specific [place] (1.000-1.030) Urine Protein (Negative) Urine Glucose (UA) (Negative) Urine Ketones (Negative) Urine Blood (Negative) Urine Nitrite (Negative) Urine Bilirubin (Negative) Urine Urobilinogen (Negative) Ur Leukocyte Esterase (Negative) 03/09/20 03/09/20 03/09/20 Range/Units 19:10 19:10 19:10 WBC (4.8-10.8) K/uL RBC (4.2-5.4) M/uL Hgb (12.0-16.0) g/dL POC Hgb (12.0-16.0) g/dl Hct (37-47) % POC Hct (37-47) % MCV (80-100) fL MCH (25-34) pg MCHC (32-36) g/dL RDW Std Deviation (36.4-46.3) fL RDW Coeff of Isai (11.5-14.5) % Plt Count (130-400) K/uL MPV (7.4-10.4) fL Immature Gran % (Auto) % Neut % (Auto) % Lymph % (Auto) % Will % (Auto) % Eos % (Auto) % Baso % (Auto) % Neut # (Auto) (1.4-6.5) K/uL Lymph # (Auto) (1.2-3.4) K/uL Will # (Auto) (0.11-0.59) K/uL Eos # (Auto) (0-0.5) K/uL Baso # (Auto) (0-0.2) K/uL Immature Gran # (Auto) (0.00-0.02) K/uL PT 10.7 (9.0-12.0) Seconds INR 1.0 (0.9-1.1) APTT 27.1 (21.0-31.0) Seconds PTT Ratio 1.0 POC Sodium (135-144) mmol/L Sodium (136-145) mmol/L POC Potassium (3.3-5.0) mmol/L Potassium (3.5-5.1) mmol/L POC Chloride (101-112) mmol/L Chloride (98-107) mmol/L Carbon Dioxide (21-32) mmol/L POC Total CO2 (24-31) mmol/L Anion Gap (3-11) POC Anion Gap (16-25) mmol/L POC BUN (7-18) mg/dl BUN (7-18) mg/dl Creatinine (0.6-1.2) mg/dl POC Creatinine (0.6-1.3) mg/dl Est Cr Clr Drug Dosing ml/min Est GFR ( Amer) Est GFR (Non-Af Amer) BUN/Creatinine Ratio (10-20) Glucose (70-99) mg/dl POC Glucose (70-99) mg/dl POC Glucose (other) (70-99) mg/dl Osmolality 325 H (280-300) mOsm/kg Lactate (0.4-2.0) mmol/L Calcium (8.5-10.1) mg/dl POC Ioniz Calcium Antonella (1.12-1.32) mmol/l Magnesium (1.8-2.4) mg/dl Total Bilirubin (0.2-1) mg/dl AST (15-37) U/L ALT (12-78) U/L Alkaline Phosphatase (45-117) U/L Troponin I (0-0.045) ng/ml Total Protein (6.4-8.2) gm/dl Albumin (3.4-5.0) gm/dl Globulin (2.5-4.0) gm/dl Albumin/Globulin Ratio (0.9-2) Beta-Hydroxybutyric Acd (0.2-2.81) mg/dl Procalcitonin < 0.05 (0-0.5) ng/ml Urine Color Urine Appearance (Clear) Urine pH (4.5-7.5) Ur Specific [place] (1.000-1.030) Urine Protein (Negative) Urine Glucose (UA) (Negative) Urine Ketones (Negative) Urine Blood (Negative) Urine Nitrite (Negative) Urine Bilirubin (Negative) Urine Urobilinogen (Negative) Ur Leukocyte Esterase (Negative) 03/09/20 03/09/20 03/09/20 Range/Units 18:55 18:50 18:36 WBC (4.8-10.8) K/uL RBC (4.2-5.4) M/uL Hgb (12.0-16.0) g/dL POC Hgb 12.9 (12.0-16.0) g/dl Hct (37-47) % POC Hct 38 (37-47) % MCV (80-100) fL MCH (25-34) pg MCHC (32-36) g/dL RDW Std Deviation (36.4-46.3) fL RDW Coeff of Isai (11.5-14.5) % Plt Count (130-400) K/uL MPV (7.4-10.4) fL Immature Gran % (Auto) % Neut % (Auto) % Lymph % (Auto) % Will % (Auto) % Eos % (Auto) % Baso % (Auto) % Neut # (Auto) (1.4-6.5) K/uL Lymph # (Auto) (1.2-3.4) K/uL Will # (Auto) (0.11-0.59) K/uL Eos # (Auto) (0-0.5) K/uL Baso # (Auto) (0-0.2) K/uL Immature Gran # (Auto) (0.00-0.02) K/uL PT (9.0-12.0) Seconds INR (0.9-1.1) APTT (21.0-31.0) Seconds PTT Ratio POC Sodium 128 L (135-144) mmol/L Sodium (136-145) mmol/L POC Potassium 7.0 H* (3.3-5.0) mmol/L Potassium (3.5-5.1) mmol/L POC Chloride 99 L (101-112) mmol/L Chloride (98-107) mmol/L Carbon Dioxide (21-32) mmol/L POC Total CO2 23 L (24-31) mmol/L Anion Gap (3-11) POC Anion Gap 14.0 L (16-25) mmol/L POC BUN 31 H (7-18) mg/dl BUN (7-18) mg/dl Creatinine (0.6-1.2) mg/dl POC Creatinine 1.2 (0.6-1.3) mg/dl Est Cr Clr Drug Dosing ml/min Est GFR ( Amer) Est GFR (Non-Af Amer) BUN/Creatinine Ratio (10-20) Glucose (70-99) mg/dl POC Glucose (70-99) mg/dl POC Glucose (other) > 700 H* (70-99) mg/dl Osmolality (280-300) mOsm/kg Lactate 1.5 (0.4-2.0) mmol/L Calcium (8.5-10.1) mg/dl POC Ioniz Calcium Antonella 1.19 (1.12-1.32) mmol/l Magnesium (1.8-2.4) mg/dl Total Bilirubin (0.2-1) mg/dl AST (15-37) U/L ALT (12-78) U/L Alkaline Phosphatase (45-117) U/L Troponin I (0-0.045) ng/ml Total Protein (6.4-8.2) gm/dl Albumin (3.4-5.0) gm/dl Globulin (2.5-4.0) gm/dl Albumin/Globulin Ratio (0.9-2) Beta-Hydroxybutyric Acd (0.2-2.81) mg/dl Procalcitonin (0-0.5) ng/ml Urine Color Yellow Urine Appearance Clear (Clear) Urine pH 5.0 (4.5-7.5) Ur Specific [place] 1.034 H (1.000-1.030) Urine Protein Negative (Negative) Urine Glucose (UA) 3+ H (Negative) Urine Ketones Negative (Negative) Urine Blood Negative (Negative) Urine Nitrite Negative (Negative) Urine Bilirubin Negative (Negative) Urine Urobilinogen Negative (Negative) Ur Leukocyte Esterase Negative (Negative) 03/09/20 03/09/20 03/09/20 Range/Units 18:31 18:29 18:29 WBC 7.40 (4.8-10.8) K/uL RBC 4.23 (4.2-5.4) M/uL Hgb 12.0 (12.0-16.0) g/dL POC Hgb (12.0-16.0) g/dl Hct 38.1 (37-47) % POC Hct (37-47) % MCV 90.1 (80-100) fL MCH 28.4 (25-34) pg MCHC 31.5 L (32-36) g/dL RDW Std Deviation 45.8 (36.4-46.3) fL RDW Coeff of Isai 14.0 (11.5-14.5) % Plt Count 371 (130-400) K/uL MPV 10.5 H (7.4-10.4) fL Immature Gran % (Auto) 0.4 % Neut % (Auto) 65.8 % Lymph % (Auto) 28.2 % Will % (Auto) 3.9 % Eos % (Auto) 0.9 % Baso % (Auto) 0.8 % Neut # (Auto) 4.86 (1.4-6.5) K/uL Lymph # (Auto) 2.09 (1.2-3.4) K/uL Will # (Auto) 0.29 (0.11-0.59) K/uL Eos # (Auto) 0.07 (0-0.5) K/uL Baso # (Auto) 0.06 (0-0.2) K/uL Immature Gran # (Auto) 0.03 H (0.00-0.02) K/uL PT (9.0-12.0) Seconds INR (0.9-1.1) APTT (21.0-31.0) Seconds PTT Ratio POC Sodium (135-144) mmol/L Sodium 129 L (136-145) mmol/L POC Potassium (3.3-5.0) mmol/L Potassium (3.5-5.1) mmol/L POC Chloride (101-112) mmol/L Chloride 99 (98-107) mmol/L Carbon Dioxide 23 (21-32) mmol/L POC Total CO2 (24-31) mmol/L Anion Gap 7.0 (3-11) POC Anion Gap (16-25) mmol/L POC BUN (7-18) mg/dl BUN 25 H (7-18) mg/dl Creatinine 1.51 H (0.6-1.2) mg/dl POC Creatinine (0.6-1.3) mg/dl Est Cr Clr Drug Dosing 61.0 ml/min Est GFR ( Amer) 54.3 Est GFR (Non-Af Amer) 46.9 BUN/Creatinine Ratio 16.5 (10-20) Glucose 766 H* (70-99) mg/dl POC Glucose > 600 H* (70-99) mg/dl POC Glucose (other) (70-99) mg/dl Osmolality (280-300) mOsm/kg Lactate (0.4-2.0) mmol/L Calcium 9.2 (8.5-10.1) mg/dl POC Ioniz Calcium Antonella (1.12-1.32) mmol/l Magnesium (1.8-2.4) mg/dl Total Bilirubin 0.4 (0.2-1) mg/dl AST (15-37) U/L ALT 14 (12-78) U/L Alkaline Phosphatase 108 (45-117) U/L Troponin I < 0.015 (0-0.045) ng/ml Total Protein 8.3 H (6.4-8.2) gm/dl Albumin 3.5 (3.4-5.0) gm/dl Globulin 4.8 H (2.5-4.0) gm/dl Albumin/Globulin Ratio 0.7 L (0.9-2) Beta-Hydroxybutyric Acd (0.2-2.81) mg/dl Procalcitonin (0-0.5) ng/ml Urine Color Urine Appearance (Clear) Urine pH (4.5-7.5) Ur Specific [place] (1.000-1.030) Urine Protein (Negative) Urine Glucose (UA) (Negative) Urine Ketones (Negative) Urine Blood (Negative) Urine Nitrite (Negative) Urine Bilirubin (Negative) Urine Urobilinogen (Negative) Ur Leukocyte Esterase (Negative) Medications Administered Current Inpatient Medications Acetaminophen (Tylenol) 650 mg PO Q4H PRN PRN Reason: pain/fever Stop: 04/08/20 22:01 Al Hydrox/Mg Hydrox/Simethicone (Maalox) 30 ml PO Q6H PRN PRN Reason: Dyspepsia Stop: 04/08/20 22:01 Amoxicillin/Clavulanate Potassium (Augmentin 875mg) 1 tab PO BIDM IAIN Stop: 03/17/20 07:59 Clonazepam (Klonopin) 0.5 mg PO BID [facility] Stop: 03/12/20 23:59 Clonazepam (Klonopin) 0.5 mg PO HS [facility] Stop: 03/15/20 23:59 Dextrose (Dextrose 50%) 25 - 50 ml IV UD PRN; Protocol PRN Reason: Hypoglycemia Protocol Stop: 04/08/20 21:59 Glucagon (Glucagen) 1 mg IM UD PRN; Protocol PRN Reason: Hypoglycemia Protocol Stop: 04/08/20 21:59 Glucose (Glucose 40%) 15 - 30 gm PO UD PRN; Protocol PRN Reason: Hypoglycemia Protocol Stop: 04/08/20 21:59 Glucose (Dex4 Glucose) 4 - 8 tabs PO UD PRN; Protocol PRN Reason: Hypoglycemia Protocol Stop: 04/08/20 21:59 Insulin Human Regular 250 (units/ Sodium Chloride) 250 mls @ 0 mls/hr IV .Q0M IAIN; Protocol Stop: 04/08/20 19:44 Last Titration: 03/09/20 22:18 Dose: 0 units/hr, 0 mls/hr Documented by: Insulin Aspart (Novolog Flexpen) 0 units SC ACHS [facility] Stop: 04/08/20 20:59 Magnesium Hydroxide (Milk Of Magnesia) 30 ml PO Q6H PRN PRN Reason: Constipation Stop: 04/08/20 22:01 Miscellaneous (Carbohydrates For Hypoglycemia) 15 - 30 gm PO UD PRN PRN Reason: Hypoglycemia Treatment Stop: 04/08/20 21:59 Ondansetron HCl (Zofran) 4 mg IV Q6H PRN PRN Reason: Nausea Stop: 04/08/20 22:01 Pantoprazole Sodium (Protonix) 40 mg PO DAILY PRN PRN Reason: Acid Reflux Stop: 04/08/20 22:01 Polyethylene Glycol (Miralax Powder Packet) 17 gm PO DAILY PRN PRN Reason: Constipation Stop: 04/08/20 22:01 Supervising Physician Co-Signing Physician Notes Patient seen and examined, chart reviewed, case discussed with Dr. Quarles and I agree with his assessment and plan. Briefly, patient is a 29yo C female with Type I DM, insulin pump in place presenting with DKA. Patient was recently admitted with breast abscess s/p I/D and debridement performed by Dr. Quiñones. Found to be in DKA and had 1/2 blood cultures positive for GPC. She ultimately left AMA and was given Augmentin to complete q 14 day course. Upon return home patient was arrested for possession of heroin and fentanyl. She returns to [facility] today by way of [facility] skilled nursing with complaint of hyperglycemia, DKA. On exam she is afebrile, HD stable, nontoxic in appearance Skin - abscess with dressing in place, c/d/i HEENT - NC/AT, PERRL, EOMI, dry MM Heart - +S1/S2, regular, no m/r/g Lungs - CTA Abd - +BS, soft, NT/ND Ext - No edema Labs and images reviewed. Patient with glucose 766--> 151 now. Weu=549 B- hydroxybutyrate=17.06 Mild LUIS CARLOS. K=6.2 EKG with no ischemic changes, no changes consistent with hyperkalemia -Admit to PCU -Continue IVF, insulin gtt -Monitor BMP/Mg/PO4/VBG q 4 hours, q1 hour fingersticks -NPO for now until anion-gap closes and DKA resolves -Follow cultures sent from ER -Will continue Augmentin for breast abscess - Surgical Consult appreciated. Patient was to followup with Dr. Quiñones -Encourage lifestyle changes and drug rehabilitation -Remainder of plan as above Resident Activity Tracking Resident Involvement: Resident Care Provided Care Provided: Adult Hospital Medicine
[2020-03-09 20:10] LABS: Beta-Hydroxybutyrate 17.06 mg/dl (0.2-2.81); Magnesium 2.3 mg/dl (1.8-2.4); Potassium 6.2 mmol/L (3.5-5.1)
[2020-03-09] MEDS ORDERED: INSULIN ASPART 100 UNITS/ML 3 ML PEN SC SCH (21:00)
[2020-03-09] MEDS ORDERED: GLUCOSE 40% GEL 15 GM TUBE PO PRN (22:00)
[2020-03-09] MEDS ORDERED: GLUCOSE 10 TABS/TUBE PO PRN (22:00)
[2020-03-09] MEDS ORDERED: CARBOHYDRATES FOR HYPOGLYCEMIA PO PRN (22:00)
[2020-03-09] MEDS ORDERED: GLUCAGON FOR INJ 1 MG VIAL IM PRN (22:00)
[2020-03-09] MEDS ORDERED: DEXTROSE 50% 50 ML SYRINGE IV PRN (22:00)
[2020-03-09] MEDS ORDERED: ALUMINUM/MAGNESIUM SUSP 30 ML UDC PO PRN (22:02)
[2020-03-09] MEDS ORDERED: ONDANSETRON INJ 2 MG/ML 2 ML VIAL IV PRN (22:02)
[2020-03-09] MEDS ORDERED: POLYETHYLENE (MIRALAX) 17 GM PACK PO PRN (22:02)
[2020-03-09] MEDS ORDERED: PANTOprazole 40 MG TAB PO PRN (22:02)
[2020-03-09] MEDS ORDERED: ACETAMINOPHEN 325 MG TAB PO PRN (22:02)
[2020-03-09] MEDS ORDERED: MAGNESIUM HYDROXIDE SUSP 30 ML UDC PO PRN (22:02)
[2020-03-09] MEDS ORDERED: DKA GOAL RANGE 150-250 mg/dl ONE (22:54)
[2020-03-09] MEDS ORDERED: PENDING D5 1/2NS+20mEq KCL IVF SCH (23:00)
[2020-03-09] MEDS ORDERED: SODIUM CHLORIDE 0.45 % 1,000 ML IV SCH (23:00)
[2020-03-10] MEDS ORDERED: DKA GOAL RANGE 150-250 mg/dl ONE (01:20)
[2020-03-10] MEDS ORDERED: DC ALL PREVIOUSLY ORDERED DIABETES MEDS ONE (01:20)
[2020-03-10] MEDS ORDERED: SODIUM CHLORIDE 0.45 % 1,000 ML IV SCH (01:30)
[2020-03-10] MEDS ORDERED: INSULIN REGULAR 250 UNITS in SODIUM CHLORIDE 0.9% 247.5 ML IV SCH (01:30)
--- NOTE | 2020-03-10 01:49 | Billing Data ---
Date of Service March 09, 2020 Coding Level of Care Code 30946 Initial Inpt Care Lvl 3
[2020-03-10] MEDS ORDERED: PENDING D5 1/2NS+20mEq KCL IVF SCH (02:00)
[2020-03-10] MEDS ORDERED: PENDING 1/2NSS+20mEq KCL IVF SCH (02:00)
[2020-03-10 02:01] LABS: Basophils # (auto) 0.04 K/uL (0-0.2); Basophils % (auto) 0.5 %; Eosinophils # (auto) 0.15 K/uL (0-0.5); Eosinophils % (auto) 1.8 %; Hematocrit (blood only) 34.4 % (37-47); Hemoglobin 10.9 g/dL (12.0-16.0); Immature Granulocytes # (auto) 0.01 K/uL (0.00-0.02); Immature Granulocytes % (auto) 0.1 %; Lymphocytes # (auto) 3.91 K/uL (1.2-3.4); Lymphocytes % (auto) 47.6 %; Mean Corpuscular Hemoglobin 27.5 pg (25-34); Mean Corpuscular Hgb Conc 31.7 g/dL (32-36); Mean Corpuscular Volume 86.9 fL (80-100); Mean Platelet Volume 9.8 fL (7.4-10.4); Monocytes # (auto) 0.44 K/uL (0.11-0.59); Monocytes % (auto) 5.4 %; Neutrophils # (auto) 3.66 K/uL (1.4-6.5); Neutrophils % (auto) 44.6 %; Platelet Count 320 K/uL (130-400); RDW Coefficient of Variation 13.6 % (11.5-14.5); Red Blood Count 3.96 M/uL (4.2-5.4); White Blood Count 8.21 K/uL (4.8-10.8)
[2020-03-10 02:35] LABS: BUN Creatinine Ratio 19.7 (10-20); Calcium 8.8 mg/dl (8.5-10.1); Creatinine Clr Calc Pharmacy 90.1 ml/min; Est GFR (Non-African American) 67.3; Phosphorus 3.3 mg/dl (2.5-4.9); Potassium 4.3 mmol/L (3.5-5.1)
[2020-03-10] MEDS: D5W AND 1/2NSS + 20MEQ KCL 20 MEQ/1,000 ML BAG IV SCH ×2 (03:24→10:12)
[2020-03-10 07:22] LABS: BUN Creatinine Ratio 19.9 (10-20); Calcium 9.2 mg/dl (8.5-10.1); Creatinine Clr Calc Pharmacy 97.1 ml/min; Est GFR (African American) 85.3; Est GFR (Non-African American) 73.6; Phosphorus 3.8 mg/dl (2.5-4.9); Potassium 4.6 mmol/L (3.5-5.1)
[2020-03-10] MEDS ORDERED: INSULIN ASPART 100 UNITS/ML 3 ML PEN SC SCH ×2 (07:30)
[2020-03-10] MEDS ORDERED: PHARMACY GLYCEMIC MGMT CONSULT PRN (07:58)
--- NOTE | 2020-03-10 08:28 | Surgery Consultation ---
Date of Consultation March 10, 2020 Assessment & Plan (1) Breast abscess: This is a 29y F with a PMH of uncontrolled type1 diabetes, drug abuse, and recent debridement of breast abscess who presents to the [facility] ED on 03/09/20 with complaints of uncontrolled blood sugars. Surgery was consulted as patient's R breast abscess was debrided at the beside last admission on 03/03. Since debridement breast wound has been healing very well, erythema is essentially gone, and wound appears clean. WBC within normal limits and patient afebrile. No plans for further debridement or surgical intervention at this time. Recommend completing course of oral abx. Patient can follow up in clinic with Dr. Quiñones within 1-2 weeks to ensure wound continues to heal. Okay for wound consult to help with appropriate dressing of choice. Hopefully patient can take better care of her diabetic regimen at home. We will sign off, please call back with questions/concerns. History of Present Illness Attending Physician: Tesfaye Lockhart History of Present Illness This is a 29y F with a PMH of uncontrolled type1 diabetes, drug abuse, and recent debridement of breast abscess who presents to the [facility] ED on 03/09/20 with complaints of uncontrolled blood sugars. Surgery was consulted as patient was recently admitted to the hospital from 03/02-03/03 with a breast abscess. US revealed a 1.8cm fluid collection consistent with probable abscess. When patient was evaluated, the site was draining on its own and Dr. Quiñones debrided the necrotic tissue on 03/03 at the bedside. She was discharged on a course of abx with instructions to follow up in clinic. She has since been admitted to [facility] over the weekend and reports she has since been feeling unwell and saw her sugars were elevated prompting her to be further evaluated in the hospital setting. In regards to her breast wound patient reports their is minimal pain, no drainage, and redness is improving. She was discharged on keflex, but at [facility] they ordered her for bactrim, and here she is currently on augmentin. She has no new issues to report regarding her wound standpoint. Denies fevers & chills. Allergies Allergy/AdvReac Type Severity Reaction Status Date / Time heparin Allergy Intermediate Rash Verified 03/09/20 20:46 Home Medications Home Medications Medication Instructions Recorded Confirmed Type pantoprazole 40 mg tablet,delayed 40 mg PO DAILY PRN tab 04/26/19 03/09/20 History release insulin lispro 0 units CONTINUOUS SUBCUTANEOUS 03/02/20 03/09/20 History INFUSION DAILY MDD up to TDD 100 units a day pump amoxicillin 875 mg PO BID 03/09/20 03/09/20 History clonazepam 1 mg PO BID 03/09/20 03/09/20 History clonazepam See Rx Instructions .ROUTE .COMPLEX 03/09/20 03/09/20 History clonazepam See Rx Instructions .ROUTE .COMPLEX 03/09/20 03/09/20 History ibuprofen 400 mg PO BID PRN 03/09/20 03/09/20 History sulfamethoxazole-trimethoprim 1 tab PO BID 03/09/20 03/09/20 History [Bactrim DS] Patient History Medical History Anxiety Chronic pain Degenerative disc disease Diabetes mellitus type 1 Fibromyalgia GERD (gastroesophageal reflux disease) History of hypothyroidism Hx of migraines Hx of primary hypertension Hypothyroidism Peripheral neuropathy Restless leg syndrome Rheumatoid arthritis Surgical History H/O lymph node biopsy IN GROIN History of esophagogastroduodenoscopy (EGD) Family History Grandmother (Maternal) Family history of diabetes mellitus Grandfather (Paternal) Family history of diabetes mellitus Social History Preferred Language: Kinyarwanda Communication Ability: Effective 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 Beliefs That Will Affect Care: None Current Living Situation: Other Current Living Situation Comment: [facility] Other Information That Helps Us Care for You: No Feels Safe at Home: Yes Safety Concerns: Feels Safe At This Time Smoking Status: Never smoker Tobacco Type: cigarettes ; Cigarettes Per Day: 10 ; Do You Dip or Chew Tobacco: No ; Second Hand Exposure: Yes ; Tobacco Cessation Education Requested by Patient: No Hx Alcohol Use: No Hx Substance Use: No Review of Systems Constitutional: no fever and no chills Integumentary: R breast redness improving, pain improved, minimal drainage Physical Exam Physical Exam: awake/alert Constitutional: no acute distress Chest (Breasts): Additional Comments: R breast wound appears clean, no surrounding erythema, scant drainage on 4x4 gauze. no pain to palpation Results & Data Vital Signs (Past 12 Hours) Vital Signs Temp Pulse Pulse Pulse Resp BP BP 03/10/20 07:25 36.7 C 66 16 118/88 03/10/20 04:00 36.7 C 69 18 105/71 03/09/20 23:57 36.7 C 68 18 114/72 03/09/20 22:09 36.7 C 69 17 128/86 03/09/20 22:00 73 03/09/20 20:31 82 22 136/80 Pulse Ox 03/10/20 07:25 98 03/10/20 04:00 99 03/09/20 23:57 94 03/09/20 22:09 99 03/09/20 22:00 03/09/20 20:31 PG Care Time/CCT Total # of Minutes Spent Total Time Spent with Patient: Total time spent is greater than 50% in coordination of care (as documented) at patient's floor/unit and/or counseling patient: Coding Level of Care Code None Diagnoses Breast abscess N61.1
[2020-03-10] MEDS ORDERED: INSULIN HUMAN LISPRO (humaLOG) 100 UNITS/ML VIAL SC PRN (08:45)
[2020-03-10] MEDS ORDERED: clonazePAM 0.5 MG TAB PO SCH (09:00)
[2020-03-10] MEDS: AMOXICILLIN/CLAVULANATE 875 MG TAB PO SCH ×2 (09:01→17:20)
[2020-03-10 10:47] LABS: BUN Creatinine Ratio 16.4 (10-20); Calcium 9.1 mg/dl (8.5-10.1); Creatinine Clr Calc Pharmacy 87.8 ml/min; Est GFR (African American) 75.5; Est GFR (Non-African American) 65.2; Magnesium 1.9 mg/dl (1.8-2.4); Phosphorus 3.1 mg/dl (2.5-4.9); Potassium 5.4 mmol/L (3.5-5.1)
[2020-03-10 10:58] LABS: Beta-Hydroxybutyrate 9.95 mg/dl (0.2-2.81)
[2020-03-10 14:27] LABS: BUN Creatinine Ratio 13.3 (10-20); Blood Urea Nitrogen 19 mg/dl (7-18); Calcium 9.2 mg/dl (8.5-10.1); Carbon Dioxide 21 mmol/L (21-32); Chloride 107 mmol/L (98-107); Creatinine Clr Calc Pharmacy 72.6 ml/min; Est GFR (Non-African American) 51.8; Glucose 311 mg/dl (70-99); Phosphorus 2.9 mg/dl (2.5-4.9); Sodium 137 mmol/L (136-145)
--- NOTE | 2020-03-10 14:29 | Pharmacy Report ---
Glycemic Control Consultation - Date of Service March 10, 2020 - Scope Scope: Glycemic Pharmacist consulted for glycemic control and to write orders per [facility] inpatient glycemic control protocol. - Objective Weight: 93.3 kg Accuchecks BSG (last 24hrs): 03/09/20 03/09/20 03/09/20 18:29 18:31 18:36 Glucose 766 H* POC Glucose > 600 H* POC Glucose (other) > 700 H* 03/09/20 03/09/20 03/09/20 21:08 22:04 23:05 Glucose POC Glucose 577 H* 359 H* 319 H* POC Glucose (other) 03/10/20 03/10/20 03/10/20 00:02 01:09 01:48 Glucose 133 H POC Glucose 225 H 151 H POC Glucose (other) 03/10/20 03/10/20 03/10/20 02:29 04:10 05:08 Glucose POC Glucose 139 H 83 104 H POC Glucose (other) 03/10/20 03/10/20 03/10/20 06:33 07:26 08:57 Glucose 185 H POC Glucose 214 H 292 H POC Glucose (other) 03/10/20 03/10/20 03/10/20 10:00 10:02 10:03 Glucose 379 H* POC Glucose 384 H* 396 H* POC Glucose (other) 03/10/20 03/10/20 03/10/20 11:00 11:01 12:02 Glucose POC Glucose 422 H* 406 H* 361 H* POC Glucose (other) 03/10/20 03/10/20 03/10/20 12:04 13:00 13:00 Glucose POC Glucose 379 H* 316 H* 361 H* POC Glucose (other) 03/10/20 14:01 Glucose POC Glucose 286 H POC Glucose (other) Laboratory Data (last 24hrs): 03/09/20 03/09/20 03/09/20 18:29 19:10 19:10 Potassium 6.2 H* Carbon Dioxide 23 Anion Gap 7.0 Creatinine 1.51 H Est Cr Clr Drug Dosing 61.0 Osmolality 325 H Beta-Hydroxybutyric Acd 17.06 H 03/10/20 03/10/20 03/10/20 01:48 06:33 10:03 Potassium 4.3 D 4.6 5.4 H D Carbon Dioxide 25 24 23 Anion Gap 5.0 7.0 7.0 Creatinine 1.12 D 1.04 1.15 Est Cr Clr Drug Dosing 90.1 97.1 87.8 Osmolality Beta-Hydroxybutyric Acd 9.95 H - Recent Pertinent Medications Outpatient Anti-diabetic Regimen: * Insulin pump, Admelog * Basal: 1.5 units/hr x 24 hours (36 units) * CF: 35, BG target 110-140 mg/dL * CR: 1:7 0000-830; 1:8.5 1153-4734 * A1c = 9% 03/03/2020 The patient is currently receiving: * Insulin infusion that was on hold, restarting at 1.5 units/hr Risk Factors for Insulin Resistance: * IVF: D5W + 1/2 NS + 20K * Recent Surgery * Diet: NPO --> type 1 - Assessment & Plan Assessment & Plan: ASSESSMENT: * Ms. Red is a type 1 diabetic presenting with elevated BSGs, her insulin in insulin pump was changed to regular while incarcerated * Insulin infusion was on hold for several hours overnight and restarted when BSG was 214, as patient likely to be discharged today, restarted insulin pump. * Planned on ~2 hours overlap with insulin infusion, however patient's BSGs steadily climbed into the high 300s, low 400s as patient started diet and dextrose containing IVF was still running and possible BSG rebound from holding drip earlier. Dextrose containing fluid discontinued. Patient managing pump for carb coverage. * BSGs now trending down, last check 286, typically do not correct for post- prandial BSGs while still having active insulin on board but unable to tell if pump working or if downtrend all from insulin infusion. Therefore will have patient give manual 3 unit correction from pump (correction factor of 35 to goal of 180 mg/dL), instead of going up on insulin infusion and cut drip rate in half to 2.5 mg/dL, further reduction as necessary PLAN FOR INPATIENT GLYCEMIC CONTROL: * Continue insulin infusion at 2.5 units/hr for now; if next BSG decreased, continue to cut drip rate by 50% and then off * Continue insulin pump use at then time, hopeful for transition to complete patient management of pump within the next two hours. Discharge Recommendations: * Recommend patient bolus 20-30 minutes prior to meals with switch to regular insulin as it take a little longer to begin working * Per previous note from pole frame construction worker 03/03, patient was experiencing hypoglycemic events overnight, patient can decrease basal by 10-20% overnight with temporary basal. She should follow-up with diabetes provider. * Please note that the plan above was derived based on current level of insulin resistance and hospital stress. These recommendations are appropriate for inpatient admission only. Plan of care upon discharge will need to be reassessed to avoid potential outpatient hypo/hyperglycemia. Thank you.
[2020-03-10 15:08] LABS: Beta-Hydroxybutyrate 0.86 mg/dl (0.2-2.81)
[2020-03-10 18:02] LABS: BUN Creatinine Ratio 14.7 (10-20); Calcium 9.3 mg/dl (8.5-10.1); Creatinine Clr Calc Pharmacy 77.6 ml/min; Est GFR (African American) 65.1; Est GFR (Non-African American) 56.2; Phosphorus 3.5 mg/dl (2.5-4.9); Potassium 5.1 mmol/L (3.5-5.1)
[2020-03-10 18:13] LABS: Beta-Hydroxybutyrate 9.87 mg/dl (0.2-2.81)
--- NOTE | 2020-03-10 21:55 | Electrocardiogram Report ---
Test Reason : Blood Pressure : / mmHG Vent. Rate : 078 BPM Atrial Rate : 078 BPM P-R Int : 140 ms QRS Dur : 082 ms QT Int : 404 ms P-R-T Axes : 049 021 049 degrees QTc Int : 460 ms Normal sinus rhythm Normal ECG When compared with ECG of 02-MAR-2020 19:46, Nonspecific T wave abnormality no longer evident in Lateral leads Confirmed by Suresh Chi ([id number]) on 03/10/2020 9:55:32 PM Referred By: [facility] Confirmed By:Suresh Chi
--- NOTE | 2020-03-13 09:26 | Discharge Summary ---
Date of Service March 10, 2020 Admission HPI Per Admitting Provider Magalys Red is a 29y/o F w/ PMH management for type 1 diabetes, recent surgical excision of a breast abscess; who presented from [facility] with concern for persistent high blood sugars. Recently was seen in the hospital on 03/02-03/03 for DKA with breast abscess. At that time she left AMA with the desired to spend time with her family over March 04, subsequently was arrested with possession of heroin and fentanyl. During recent hospitalization she quickly corrected from hyperglycemia/DKA state, she states that since she was arrested she has noticed that her blood sugars have consistently been rising despite consistent use of her insulin pump, and consistent usage of carb counting. private security guard at bedside states patient is on diabetic diet, however concern is that these are still heavily carb loaded. Prior to admission patient states she is used 35 units of insulin in an effort to bring blood sugar down as she knew from monitor that it was greater than 600. States that she was given the wrong type of insulin (NovoLog R) for controlling of her diabetes, and this led to the consistent rise in her blood sugar. States that prior to recent hospitalization her hemoglobin was between 71 and 141, with very rare episodes into low 200s. Denies nausea, vomiting, abdominal pain, dizziness, lightheadedness, chest pain, shortness of breath, changes in vision, loss of consciousness, cough, shortness of breath. Principal Diagnosis Diabetic Ketoacidosis Discharge Exam Constitutional: WD/WN, vitals as above Eyes: PERRL, conjunctivae normal, anicteric sclerae Respiratory: normal respiratory effort, lungs clear to auscultation Cardiovascular: Rate/Rhythm: regular rate and regular rhythm Heart Sounds: normal S1 and normal S2; no gallop, no murmur and no cardiac rub Vessels: normal peripheral pulses; no JVD Extremities: no pedal edema Gastrointestinal (Abdomen): normal bowel sounds, soft, nontender, no hepatosplenomegaly Musculoskeletal: no cyanosis or clubbing, extremities motor strength 5/5 Skin: 2x2cm wound over R breast with granulation tissue, non-erythematous, no expression of purulent material Neurologic: patellar DTR's 2+ bilat, sensation intact Psychiatric: A+Ox3, euthymic affect Discharge Data Allergies Allergy/AdvReac Type Severity Reaction Status Date / Time heparin Allergy Intermediate Rash Verified 03/11/20 01:18 Consultations 03/09/20 19:46 ED Decision to Admit Stat 03/09/20 22:02 Consult General Surgery Routine Hospital Course (1) DKA (diabetic ketoacidoses): Patient admitted with diagnosis of DKA. BMP did not show evidence of DKA as patient did not have an anion gap. Patient however was extremely hyperkalemic and very likely would have gone into full blown DKA. Anion gap was shown of POC labs. Patient required IV insulin drip to help control blood sugar. Patient has insulin pump, but blood sugar has not been controlled while at the long-term. Recommend dietary changes while at long-term. This will be documented in discharge summary. (2) Breast abscess: Appreciate input from surgery This is a 29y F with a PMH of uncontrolled type1 diabetes, drug abuse, and recent debridement of breast abscess who presents to the [facility] ED on 03/09/20 with complaints of uncontrolled blood sugars. Surgery was consulted as patient's R breast abscess was debrided at the beside last admission on 03/03. Since debridement breast wound has been healing very well, erythema is essentially gone, and wound appears clean. WBC within normal limits and patient afebrile. No plans for further debridement or surgical intervention at this time. Recommend completing course of oral abx. Patient can follow up in clinic with Dr. Quiñones within 1-2 weeks to ensure wound continues to heal. Okay for wound consult to help with appropriate dressing of choice. Hopefully patient can take better care of her diabetic regimen at home. Wound care instructions placed in discharge. Total Time Total Time Spent Total Time Spent (In Minutes): 32 Total Time Includes: Examination of the Patient, Discharge Planning and Medication Reconciliation Discharge Plan Discharge Items [facility] Disposition[facility] Reason For Visit: DKA Discharge Diagnosis: uncontrolled diabetes Activity: Resume your previous activity Non-emergency contact: Primary Care Provider Call non-emergency contact if: you have any medication questions Follow-up/Referrals: Roger Quiñones DO [Surgeon] - (Please call to schedule follow up in surgery clinic within 1- 2 weeks) [facility] [Primary Care Provider] - Diet: Regular and Carb Count or DM1 Addtl Attending Provider Instructions: You have been hospitalized for an acute medical problem. During your stay at [facility], we have made an effort to correct the problem that brought you to the hospital while keeping you as comfortable as possible. Medications were used to bring your condition under control and your discharge instructions will include directions for any medications you should take after leaving the hospital. Please make sure you see your Primary Care Provider as part of your follow up plan. Your blood sugar was elevated, but you were not in DKA. RECOMMENDATIONS POST-DISCHARGE: 1. A1c 9%- enter carbs planning to consume and pre-meal BG value into insulin pumps bolus wizard for more accurate insulin dosing. 2. Follow-up with Endocrinology provider (Joe Landin) on 04/06 at 8am. 3. Call office if overnight hypoglycemia continues as will need to reduce overnight basal rate. Discharge Recommendations: Decrease carbs. Speak to kitchen and medical to help decrease her carb intake. Perhaps replacing some carbs with vegetables/ more protein to help control her blood sugar. Recommend patient bolus 20-30 minutes prior to meals with switch to regular insulin as it take a little longer to begin working. Recommend completing course of oral abx. Patient can follow up in clinic with Dr. Quiñones within 1-2 weeks to ensure wound continues to heal. Hopefully patient can take better care of her diabetic regimen at home. Discharge instructions included 02-17-20 Covid-19 negative Pending Studies at Discharge: No Stand-Alone Forms: My [facility] Skilled Items Patient informed of condition?: Yes Discharge Level of Care: Other Communicable Disease: No Discharge Prognosis: Stable Lines: None Urinary Catheter: No Medications and DC Order Prescriptions: Continued insulin lispro 100 unit/mL solution 0 units continuous subcutaneous infusion DAILY MDD up to TDD 100 units a day pump RF: 0 pantoprazole 40 mg tablet,delayed release (DR/EC) 40 mg PO DAILY PRN (Reason: Acid Reflux) RF: 0 clonazepam 0.5 mg Tablet See Rx Instructions .ROUTE .COMPLEX RF: 0 clonazepam 0.5 mg Tablet See Rx Instructions .ROUTE .COMPLEX RF: 0 sulfamethoxazole-trimethoprim [Bactrim DS] 800-160 mg Tablet 1 tab PO BID RF: 0 amoxicillin 875 mg Tablet 875 mg PO BID RF: 0 ibuprofen 400 mg Tablet 400 mg PO BID PRN (Reason: Pain) RF: 0 Discharge Orders: Discharge Order (Routine); Ordered 03/10/20 Ordered By: Tesfaye Lockhart Admission Data Admit Date/Time: 03/09/20 20:59 Attending Provider: Tesfaye Lockhart Admit Provider: Blayne Quarles Primary Care Provider: [facility] Other Providers: Linda Duque Matthew D. Other Interventions: Discharge Summary Assessment (RN) Last Done: 03/10/20 18:49 DC Date/Time DO NOT enter until pt leaves facility: 03/10/20 19:23 Coding Level of Care Code D/C Day Management >30 mins Diagnoses DKA (diabetic ketoacidoses) E13.10 Breast abscess N61.1
[2020-03-13] MEDS ORDERED: clonazePAM 0.5 MG TAB PO SCH (21:00)
== END 2020-03-10 19:23 | DRG 639 ==
LOC: ED 17:40 → SUATTDRO 20:59 → INTOOBSV 20:59 → 2E 20:59